=== PATIENT | male | born 1975 | race Caucasian/White ===

== ENCOUNTER 2017-02-25 11:09 | Inpatient (IN) ==
[2017-02-25] MEDS ORDERED: Ondansetron 4 MG/2 ML VIAL IVP ONE (11:41)
[2017-02-25] MEDS ORDERED: Ondansetron ODT 4 MG TAB.RAPDIS SL ONE (11:57)
[2017-02-25 12:11] LABS: Hematocrit 34.4 % (37.5-50.1); Hemoglobin 11.3 g/dL (12.9-16.9); Mean Corpuscular HGB Conc 32.8 g/dL (31.6-35.5); Mean Corpuscular Hemoglobin 30.1 pg (28.0-33.3); Mean Corpuscular Volume 91.5 fL (83.0-100.0); Mean Platelet Volume 9.6 fL (9.4-12.4); Platelet Count 507 K/mcL (140-400); Red Blood Count 3.76 M/mcL (4.19-5.50); Red Cell Distribution Width 15.7 % (11.5-14.5)
[2017-02-25 12:23] LABS: Alanine Aminotransferase 16 Units/L (0-55); Albumin 2.6 g/dL (3.5-5.0); Albumin/Globulin Ratio 0.9 (1.1-2.2); Alkaline Phosphatase 101 Units/L (38-126); Aspartate Amino Transferase 12 Units/L (5-34); BUN/Creatinine Ratio 14 (6-26); Bilirubin,Direct 0.2 mg/dL (0.0-0.5); Bilirubin,Indirect 0.2 mg/dL (0.0-1.2); Bilirubin,Total 0.4 mg/dL (0.2-1.2); Blood Urea Nitrogen 17 mg/dL (8-26); Calcium 8.5 mg/dL (8.6-10.8); Carbon Dioxide 18 mEq/L (19-29); Chloride 117 mEq/L (98-109); Glucose 87 mg/dL (70-99); Lipase 23 Units/L (8-78); Osmolality,Calculated 297 (280-300); Potassium 3.7 mEq/L (3.5-4.5); Sodium 143 mEq/L (136-145); Total Protein 5.6 g/dL (6.0-8.3); eGFR For African Americans > 60 (> 60); eGFR For Non-African Americans > 60 (> 60)
[2017-02-25 12:38] LABS: Bilirubin,Urine Small (Negative); Blood,Urine Negative (Negative); Clarity,Urine Clear (Clear); Color,Urine Dark Yellow (Yellow); Glucose,Urine (UA) Normal (Normal); Ketones,Urine Trace mg/dL (Negative); Leukocyte Esterase,Urine Trace (Negative); Nitrite,Urine Negative (Negative); PH,Urine 5.5 pH Units (5.0-8.0); Protein,Urine Trace mg/dL (Neg-Trace); Specific Gravity,Urine > 1.030 (1.010-1.025); Urobilinogen,Urine Normal (Normal)
[2017-02-25 12:40] LABS: Bacteria,Urine None Seen per hpf (None-Few); Hyaline Casts,Urine None Seen per lpf (None-Few); Squamous Epithelial Cell,Urine Many per lpf (None-Few)
[2017-02-25] MEDS ORDERED: *HR* Morphine 2 MG/ML SYRINGE IVP ONE (12:45)
[2017-02-25] MEDS ORDERED: Metoclopramide 10 MG/2 ML VIAL IVP ONE (12:45)
[2017-02-25 12:46] LABS: Eosinophils # 0.5 K/mcL (0.0-0.6); Lymphocytes # 2.3 K/mcL (0.6-4.6); Monocytes # 0.7 K/mcL (0.0-1.3); Neutrophils # 9.9 K/mcL (1.6-8.9); Platelet Estimate Increased (Normal); Toxic Granulation Present (Not Present)
[2017-02-25] MEDS ORDERED: Acetaminophen 325 MG TABLET PO ONE (12:48)
--- NOTE | 2017-02-25 13:49 | Emergency Department Note ---
Disposition Clinical Impression: Abdominal pain Qualifiers: Abdominal location: generalized Qualified Code(s): R10.84 - Generalized abdominal pain Diverticulitis Qualifiers: Diverticulitis site: large intestine Diverticulitis bleeding: without bleeding Diverticulitis complication: unspecified complication status Qualified Code(s): K57.32 - Diverticulitis of large intestine without perforation or abscess without bleeding Disposition: Admitted As Inpatient Condition: Good Abdominal Pain HPI - General Chief Complaint: ED Abdominal Pain Stated Complaint: abdominal pain/NVD Time Seen by Provider: 02/25/17 11:35 Source: patient Mode of arrival: ambulatory Limitations: no limitations Nursing Notes Reviewed: Yes Vital Signs Reviewed: Yes - History of Present Illness HPI Narrative: 41-year-old male presents with concerns of abdominal pain. Patient states he has epigastric pain that has been intermittent over the past few weeks. Patient states she had similar pain last time he had an ulcer that ruptured and that his stomach. Secondary to perforation of the ulcer of his stomach he required gastrectomy. Patient states he has had multiple black bowel movements over the past few days, last one being last night. Patient has a long history of nausea, vomiting and diarrhea however. He has been prescribed Zofran by his primary care provider which she states has not been working at home. Patient denies hematochezia or hematemesis or coffee-ground emesis Pain Scale: 3 - Related Data Home Medications Medication Instructions Recorded Confirmed Allopurinol [Zyloprim 100 MG] 100 mg PO DAILY 02/25/17 02/25/17 Colchicine [Colcrys] 0.6 mg PO DAILY 02/25/17 02/25/17 Disulfiram [Antabuse] 500 mg PO DAILY 02/25/17 02/25/17 Ondansetron ODT [Zofran ODT] 4 mg PO Q6H PRN 02/25/17 02/25/17 Paroxetine [Paxil] 20 mg PO DAILY 02/25/17 02/25/17 Quetiapine Fumarate [SEROquel] 25 mg PO BID 02/25/17 02/25/17 hydrOXYzine HCl [Hydroxyzine HCl] 50 mg PO HS 02/25/17 02/25/17 Allergies Allergy/AdvReac Type Severity Reaction Status Date / Time naproxen [From Naprosyn] Allergy Hives Verified 02/25/17 11:12 gabapentin [From Neurontin] AdvReac Hallucinati Verified 02/25/17 11:12 ng orphenadrine [From Norflex] AdvReac Hallucinati Verified 02/25/17 11:12 ng All systems ED: reviewed and negative except as stated. Constitutional: Denies: fever, chills, weakness Cardiovascular: Denies: chest pain, palpitations Respiratory: Denies: cough, dyspnea, wheezes Gastrointestinal: Reports: abdominal pain, nausea, vomiting, melena Genitourinary: Reports: frequency. Denies: urgency, dysuria Musculoskeletal: Denies: back pain, neck pain Abdominal Pain PMH - Past Medical History Medical history: Reports: asthma, hypertension, kidney stones, migraine, seizures, syncope Male Surgical History: Reports: appendectomy, cholecystectomy, Tonsillectomy, other Psychiatric history: Reports: anxiety, depression, PTSD, prior suicide attempt, previous psychiatric hospitalization - Social History Smoking status: Current every day smoker Alcohol use: Reports: heavy Drug use: Reports: cocaine, opiates, marijuana, methamphetamine, prescription drug abuse Physical Exam General: Alert and in no acute distress Skin: Warm, dry, intact Head: Normocephalic and atraumatic Neck: Supple, trachea midline and no tenderness Cardiovascular: RRR, no murmur, normal perfusion Respiratory: CTAB, no wheezing, cough, or respiratory distress Musculoskeletal: Normal strength, no tenderness, swelling or deformity GI: Soft, tenderness to palpation of the epigastrium without evidence of rigidity, guarding, or rebound. Neuro: A&O to person, place, time and situation. No focal deficits noted on exam Psychiatric: cooperative and appropriate mood and affect. - General Limitations: no limitations General appearance: alert Course Vital Signs Temperature 97.9 F 02/25/17 11:12 Pulse Rate 80 02/25/17 11:12 Respiratory Rate 20 02/25/17 11:12 Blood Pressure 123/92 02/25/17 11:12 O2 Sat by Pulse Oximetry 100 02/25/17 11:12 Temperature 97.5 F L 02/25/17 18:38 Pulse Rate 75 02/25/17 18:38 Respiratory Rate 14 02/25/17 18:38 Blood Pressure 151/98 02/25/17 18:38 O2 Sat by Pulse Oximetry 99 02/25/17 18:38 Oxygen Delivery Oxygen Delivery Room Air Abdominal Pain - MDM Narrative Medical decision making narrative: Patient has diverticulitis on CT. Patient unable to tolerate by mouth intake and has required multiple antiemetics. Patient did not feel comfortable to return home. He will be admitted for IV antibiotics and further care and evaluation of his diverticulitis. Patient also will likely need endoscopy at some point for evaluation of ulcers with his history of melena however his rectal exam today was negative for guaiac positive stool. - Medical Records Medical records reviewed: Yes I reviewed the patient's medical records. - Lab Data Lab results reviewed: Yes I reviewed the patient's lab results. Result diagrams: 02/25/17 11:56 02/25/17 11:56 Lab Results 02/25/17 02/25/17 02/25/17 Range/Units 11:56 11:56 12:30 WBC 13.6 H (4.3-11.1) K/mcL RBC 3.76 L (4.19-5.50) M/mcL Hgb 11.3 L (12.9-16.9) g/dL Hct 34.4 L (37.5-50.1) % MCV 91.5 (83.0-100.0) fL MCH 30.1 (28.0-33.3) pg MCHC 32.8 (31.6-35.5) g/dL RDW 15.7 H (11.5-14.5) % Plt Count 507 H (140-400) K/mcL MPV 9.6 (9.4-12.4) fL Seg Neutrophils % 73.0 % Lymphocytes % 17.0 % Monocytes % 5.0 % Eosinophils % 4.0 % Metamyelocytes % 1.0 H (0) % Neutrophils # 9.9 H (1.6-8.9) K/mcL Lymphocytes # 2.3 (0.6-4.6) K/mcL Monocytes # 0.7 (0.0-1.3) K/mcL Eosinophils # 0.5 (0.0-0.6) K/mcL Toxic Granulation Present A (Not Present) Platelet Estimate Increased H (Normal) Sodium 143 (136-145) mEq/L Potassium 3.7 (3.5-4.5) mEq/L Chloride 117 H (98-109) mEq/L Carbon Dioxide 18 L (19-29) mEq/L BUN 17 (8-26) mg/dL Creatinine 1.25 (0.72-1.25) mg/dL Est GFR ( Amer) > 60 (> 60) Est GFR (Non-Af Amer) > 60 (> 60) BUN/Creatinine Ratio 14 (6-26) Glucose 87 (70-99) mg/dL Calculated Osmolality 297 (280-300) Calcium 8.5 L (8.6-10.8) mg/dL Total Bilirubin 0.4 (0.2-1.2) mg/dL Direct Bilirubin 0.2 (0.0-0.5) mg/dL Indirect Bilirubin 0.2 (0.0-1.2) mg/dL AST 12 (5-34) Units/L ALT 16 (0-55) Units/L Alkaline Phosphatase 101 (38-126) Units/L Serum Total Protein 5.6 L (6.0-8.3) g/dL Albumin 2.6 L (3.5-5.0) g/dL Globulin 3.0 (2.4-3.5) g/dL Albumin/Globulin Ratio 0.9 L (1.1-2.2) Lipase 23 (8-78) Units/L Urine Color Dark Yellow (Yellow) Urine Clarity Clear (Clear) Urine pH 5.5 (5.0-8.0) pH Units Ur Specific [place] > 1.030 H (1.010-1.025) Urine Protein Trace (Neg-Trace) mg/dL Urine Glucose (UA) Normal (Normal) mg/dL Urine Ketones Trace H (Negative) mg/dL Urine Blood Negative (Negative) Urine Nitrite Negative (Negative) Urine Bilirubin Small H (Negative) Urine Urobilinogen Normal (Normal) mg/dL Ur Leukocyte Esterase Trace H (Negative) Urine Microscopic RBC 5-15 H (0-3) per hpf Urine Microscopic WBC 3-5 H (0-3) per hpf Ur Squamous Epith Cells Many H (None-Few) per lpf Urine Bacteria None Seen (None-Few) per hpf Hyaline Casts None Seen (None-Few) per lpf Ur Culture Indicated? YES A (NO) Stool Occult Blood (Negative) 02/25/17 Range/Units 16:45 WBC (4.3-11.1) K/mcL RBC (4.19-5.50) M/mcL Hgb (12.9-16.9) g/dL Hct (37.5-50.1) % MCV (83.0-100.0) fL MCH (28.0-33.3) pg MCHC (31.6-35.5) g/dL RDW (11.5-14.5) % Plt Count (140-400) K/mcL MPV (9.4-12.4) fL Seg Neutrophils % % Lymphocytes % % Monocytes % % Eosinophils % % Metamyelocytes % (0) % Neutrophils # (1.6-8.9) K/mcL Lymphocytes # (0.6-4.6) K/mcL Monocytes # (0.0-1.3) K/mcL Eosinophils # (0.0-0.6) K/mcL Toxic Granulation (Not Present) Platelet Estimate (Normal) Sodium (136-145) mEq/L Potassium (3.5-4.5) mEq/L Chloride (98-109) mEq/L Carbon Dioxide (19-29) mEq/L BUN (8-26) mg/dL Creatinine (0.72-1.25) mg/dL Est GFR ( Amer) (> 60) Est GFR (Non-Af Amer) (> 60) BUN/Creatinine Ratio (6-26) Glucose (70-99) mg/dL Calculated Osmolality (280-300) Calcium (8.6-10.8) mg/dL Total Bilirubin (0.2-1.2) mg/dL Direct Bilirubin (0.0-0.5) mg/dL Indirect Bilirubin (0.0-1.2) mg/dL AST (5-34) Units/L ALT (0-55) Units/L Alkaline Phosphatase (38-126) Units/L Serum Total Protein (6.0-8.3) g/dL Albumin (3.5-5.0) g/dL Globulin (2.4-3.5) g/dL Albumin/Globulin Ratio (1.1-2.2) Lipase (8-78) Units/L Urine Color (Yellow) Urine Clarity (Clear) Urine pH (5.0-8.0) pH Units Ur Specific [place] (1.010-1.025) Urine Protein (Neg-Trace) mg/dL Urine Glucose (UA) (Normal) mg/dL Urine Ketones (Negative) mg/dL Urine Blood (Negative) Urine Nitrite (Negative) Urine Bilirubin (Negative) Urine Urobilinogen (Normal) mg/dL Ur Leukocyte Esterase (Negative) Urine Microscopic RBC (0-3) per hpf Urine Microscopic WBC (0-3) per hpf Ur Squamous Epith Cells (None-Few) per lpf Urine Bacteria (None-Few) per hpf Hyaline Casts (None-Few) per lpf Ur Culture Indicated? (NO) Stool Occult Blood Positive A (Negative) - Radiology Data Radiology results reviewed: Yes I reviewed the patient's radiology results. - EKG Data EKG attestation: Yes I reviewed and interpreted this EKG. EKG results narrative: ECG - interpreted by ED physician. Rate 68, normal sinus rhythm, no STEMI, [place], QT intervals, and QRS within normal limits
[2017-02-25] MEDS ORDERED: MetroNIDAZOLE 500 MG/100 ML 500 MG/100 ML BAG IVPB ONE (16:44)
[2017-02-25] MEDS ORDERED: Naloxone 0.4 MG/ML INJ IVP PRN (17:31)
[2017-02-25] MEDS ORDERED: Ondansetron 4 MG/2 ML VIAL IVP PRN (17:31)
[2017-02-25] MEDS ORDERED: methylPREDNISolone 125 MG/2 ML VIAL IVP ONE (17:33)
--- NOTE | 2017-02-25 17:38 | Internal Med History&Physical ---
Date of Encounter: 02/25/17 Time of Encounter: 17:36 Assessment and Plan (1) Acute diverticulitis Current visit: Yes Status: Acute Acute diverticulitis CT scan shows descending colon acute diverticulitis, final report is pending as the first report showed sigmoid colon irregularities and thickened mucosa, the patient was supposed to be rescanned. Continue ciprofloxacin and Flagyl IV, keep nothing by mouth, may advance to clear liquids when feeling better IV fluids, blood cultures Protonix IV for GI prophylaxis and sequential compression devices for deep prophylaxis. The patient will be admitted as inpatient, expected stay more than 2 midnights. Full code. Time spent on this admission 40 minutes. (2) COPD (chronic obstructive pulmonary disease) Current visit: Yes Status: Acute Acute COPD exacerbation likely secondary to viral bronchitis Start Solu-Medrol IV, DuoNeb's Qualifiers: COPD type: COPD with acute exacerbation Qualified Code(s): J44.1 - Chronic obstructive pulmonary disease with (acute) exacerbation (3) Tobacco abuse Current visit: Yes Status: Acute Smoking cessation counseling given for 5 minutes. Nicotine patch ordered (4) Gout Current visit: Yes Status: Acute Hold colchicine due to current infection Continue Solu-Medrol for now May resume allopurinol if more stable Qualifiers: Gout site: multiple sites Gout etiology: unspecified cause Chronicity: unspecified Qualified Code(s): M10.9 - Gout, unspecified (5) Alcohol dependence Current visit: No Status: Chronic Used to take Antabuse Qualifiers: Substance use status: with intoxication Complication of substance-induced condition: uncomplicated Qualified Code(s): F10.220 - Alcohol dependence with intoxication, uncomplicated (6) Major depression, recurrent Current visit: No Status: Acute Qualifiers: Active/Remission status: currently active Major depression episode severity : moderate Qualified Code(s): F33.1 - Major depressive disorder, recurrent, moderate Internal Medicine - H&P: HPI Chief complaint: Abdominal pain Admitted From: Emergency Dept History of present illness: Mr. Doe is a 41 year old male with a past medical history of tobacco use, alcohol abuse, suicidal attempts, seizures, complaining of 3 weeks of watery diarrhea. He says that he saw his primary care physician but he has not received any therapy. Patient has been treated for gout with colchicine and allopurinol. Started vomiting more profusely yesterday and having more watery diarrhea accompanied by abdominal pain. White blood cell count is 13.6 platelets [address] scan of the abdomen showed a descending colon acute diverticulitis, sigmoid colon presented irregular thickening and radiology recommended to rescan, final report is pending. Was started on ciprofloxacin and Flagyl IV, was given morphine. Complains of 8 out of 10 in intensity abdominal tenderness mainly in his gastric area. He says he has history of partial gastrectomy due to gastric ulcers. Has been complaining of chills. Also, he has been feeling more short of breath, bringing up yellowish phlegm. No sick contacts Past Med Surg Social Fam HX - Past Medical History Medical history: asthma, COPD (Not oxygen dependent), hypertension, kidney stones, migraine, seizures, syncope, other (Alcohol abuse, suicidal attempts, tobacco use, gastric ulcer status post partial gastrectomy, asthma, syncopal episodes, PTSD) Psychiatric history: anxiety, depression, PTSD, prior suicide attempt, previous psychiatric hospitalization - Past Surgical History Surgical History: appendectomy, arthroscopy, cholecystectomy, orthopedic, other , other (Partial gastrectomy secondary to gastric ulcer) - Social History Smoking Status: Current every day smoker Packs per day: Half a pack a day Smokeless Tobacco Status: No Alcohol use: heavy Drug use: cocaine, opiates, marijuana, methamphetamine, prescription drug abuse - Additional Family History Additional family history: Mother with schizophrenia Internal Medicine - H&P: Meds Allopurinol [Zyloprim 100 MG] 100 mg PO DAILY 02/25/17 [History] Colchicine [Colcrys] 0.6 mg PO DAILY 02/25/17 [History] Disulfiram [Antabuse] 500 mg PO DAILY 02/25/17 [History] Ondansetron ODT [Zofran ODT] 4 mg PO Q6H PRN 02/25/17 [History] Paroxetine [Paxil] 20 mg PO DAILY 02/25/17 [History] Quetiapine Fumarate [SEROquel] 25 mg PO BID 02/25/17 [History] hydrOXYzine HCl [Hydroxyzine HCl] 50 mg PO HS 02/25/17 [History] Allergies naproxen [From Naprosyn] Allergy (Verified 02/25/17 11:12) Hives gabapentin [From Neurontin] Adverse Reaction (Verified 02/25/17 11:12) Hallucinating orphenadrine [From Norflex] Adverse Reaction (Verified 02/25/17 11:12) Hallucinating All Systems PM: A 10-system review of systems was performed and is negative for pertinent findings except as documented above in the HPI. Review of systems: The patient is very short of breath, wheezing loudly. Other systems are other 10 review were negative - Constitutional Vitals: Temp Pulse Resp BP Pulse Ox 97.9 F 62 18 144/105 100 02/25/17 11:12 02/25/17 14:11 02/25/17 14:11 02/25/17 14:11 02/25/17 14:11 General appearance: Present: A&O X 3 - Head Head exam: Present: atraumatic, normocephalic - Eye Eye exam: Present: PERRL, conjuntiva pink, sclera anicteric Pupils: Present: PERRL - Neck Neck exam general surgery: Present: supple, trachea midline. Absent: lymphadenopathy - Respiratory Respiratory exam: Present: CTAB, wheezes (Diffuse wheezing). Absent: accessory muscle use, rales, rhonchi - Cardiovascular Cardiovascular exam: Present: RRR, +S1, +S2. Absent: diastolic murmur, gallop, rubs, systolic murmur - GI/Abdominal GI/Abdominal exam: Present: distended, normal bowel sounds, soft, tenderness ( Diffuse tenderness, no rebound), no peritoneal signs - Extremities Exam Extremities exam: Present: warm, radial pulses palpable and symetrical. Absent : calf tenderness, cyanotic, pedal edema - Neurological Exam Neurological exam: Present: CN II-XII intact, oriented X3, no focal deficits. Absent: pronater drift, facial droop, speech deficit - Skin Skin exam: Present: dry, intact Internal Med - H&P Results - Labs CBC & Chem 7: 02/25/17 11:56 02/25/17 11:56 Labs: Short CBC 02/25/17 Range/Units 11:56 WBC 13.6 H (4.3-11.1) K/mcL Hgb 11.3 L (12.9-16.9) g/dL Hct 34.4 L (37.5-50.1) % Plt Count 507 H (140-400) K/mcL Neutrophils # 9.9 H (1.6-8.9) K/mcL BMP 02/25/17 11:56 Sodium 143 Potassium 3.7 Chloride 117 H Carbon Dioxide 18 L BUN 17 Creatinine 1.25 Glucose 87 Calcium 8.5 L Liver Function 02/25/17 Range/Units 11:56 Total Bilirubin 0.4 (0.2-1.2) mg/dL Direct Bilirubin 0.2 (0.0-0.5) mg/dL AST 12 (5-34) Units/L ALT 16 (0-55) Units/L Alkaline Phosphatase 101 (38-126) Units/L Albumin 2.6 L (3.5-5.0) g/dL Urine 02/25/17 Range/Units 12:30 Urine Color Dark Yellow (Yellow) Urine Clarity Clear (Clear) Urine pH 5.5 (5.0-8.0) pH Units Ur Specific [place] > 1.030 H (1.010-1.025) Urine Protein Trace (Neg-Trace) mg/dL Urine Glucose (UA) Normal (Normal) mg/dL - Impressions ITS Impressions Abdomen/Pelvis CT 02/25/17 14:00 IMPRESSION: 1. Findings compatible with mild uncomplicated acute diverticulitis of the descending colon. 2. Incidental possible focal irregular thickening of the wall of the short segment of sigmoid colon. This area is however under-distended. I have instructed the technologist to re-scan the patient's pelvis in order to evaluate this area further after an appropriate amount of time has passed to allow for oral contrast to traverse this area. An addendum to this dictation will be made at that time. D/ / Param De La Cruz MD / Param De La Cruz MD Interpreting Provider: Param De La Cruz MD
[2017-02-25] MEDS: 0.9 % Sodium Chloride 1,000 ML IVC SCH (18:29)
[2017-02-25] MEDS: Nicotine 21 MG PATCH.TD24 TD SCH (18:33)
[2017-02-25] MEDS: *HR* Heparin 5,000 UNIT/ML VIAL SQ SCH ×2 (18:34→23:03)
[2017-02-25] MEDS: *HR* Morphine 2 MG/ML SYRINGE IVP PRN (18:35)
[2017-02-25] MEDS: Pantoprazole 40 MG VIAL IVP SCH (18:36)
[2017-02-25] MEDS ORDERED: MetroNIDAZOLE 500 MG/100 ML 500 MG/100 ML BAG IVPB SCH (21:00)
[2017-02-25] MEDS: Ipratropium/Albuterol Neb 3 ML IH SCH (21:00)
[2017-02-26] MEDS: MetroNIDAZOLE 500 MG/100 ML 500 MG/100 ML BAG IVPB SCH ×4 (00:13→23:52)
[2017-02-26] MEDS: Ipratropium/Albuterol Neb 3 ML IH SCH ×4 (03:40→21:59)
[2017-02-26] MEDS: *HR* Heparin 5,000 UNIT/ML VIAL SQ SCH ×3 (04:35→20:49)
[2017-02-26] MEDS: 0.9 % Sodium Chloride 1,000 ML IVC SCH ×3 (04:44→23:55)
[2017-02-26 06:28] LABS: Hematocrit 31.2 % (37.5-50.1); Hemoglobin 10.3 g/dL (12.9-16.9); Mean Corpuscular Hemoglobin 30.3 pg (28.0-33.3); Mean Corpuscular Volume 91.8 fL (83.0-100.0); Mean Platelet Volume 9.8 fL (9.4-12.4); Platelet Count 443 K/mcL (140-400); Red Cell Distribution Width 15.5 % (11.5-14.5)
[2017-02-26 06:40] LABS: BUN/Creatinine Ratio 11 (6-26); Blood Urea Nitrogen 12 mg/dL (8-26); Calcium 8.2 mg/dL (8.6-10.8); Carbon Dioxide 19 mEq/L (19-29); Chloride 112 mEq/L (98-109); Glucose 211 mg/dL (70-99); Osmolality,Calculated 292 (280-300); Potassium 3.9 mEq/L (3.5-4.5); Sodium 138 mEq/L (136-145); eGFR For African Americans > 60 (> 60); eGFR For Non-African Americans > 60 (> 60)
[2017-02-26 07:12] LABS: Lymphocytes # 0.4 K/mcL (0.6-4.6); Neutrophils # 9.4 K/mcL (1.6-8.9); Toxic Granulation Present (Not Present)
[2017-02-26] MEDS: Pantoprazole 40 MG VIAL IVP SCH (08:02)
[2017-02-26] MEDS: *HR* Morphine 2 MG/ML SYRINGE IVP PRN ×5 (08:02→20:49)
[2017-02-26] MEDS: Nicotine 21 MG PATCH.TD24 TD SCH (08:03)
--- NOTE | 2017-02-26 15:26 | Internal Med Progress Note ---
Date of Encounter: 02/26/17 Time of Encounter: 10:00 - Assessment and plan (1) Acute diverticulitis Current Visit: Yes Status: Acute Assessment and plan: Acute diverticulitis causing abdominal pain, nausea, vomiting and diarrhea - now improving Continue fluids, IV ciprofloxacin, IV Flagyl, clear liquid diet Cultures - pending CT abdomen and pelvis - mild uncomplicated acute diverticulitis of the descending colon, incidental focal irregular thickening of the wall of the short segment of sigmoid Continue IV Protonix, IV Zofran, IV morphine as needed for pain Labs in a.m., anticipate discharge home in a.m. (2) COPD (chronic obstructive pulmonary disease) Current Visit: Yes Status: Acute Assessment and plan: COPD with mild acute exacerbation likely due to viral bronchitis Continue IV Solu-Medrol, DuoNeb breathing treatment Qualifiers: COPD type: COPD with acute exacerbation Qualified Code(s): J44.1 - Chronic obstructive pulmonary disease with (acute) exacerbation (3) Tobacco abuse Current Visit: Yes Status: Chronic Assessment and plan: Smoking cessation counseling, nicotine patch (4) Alcohol dependence Current Visit: No Status: Chronic Assessment and plan: Counseled about cessation Patient has been on Antabuse Qualifiers: Substance use status: with intoxication Complication of substance-induced condition: uncomplicated Qualified Code(s): F10.220 - Alcohol dependence with intoxication, uncomplicated (5) Bipolar disorder Current Visit: No Status: Chronic Assessment and plan: Chronic bipolar disorder and major depression with anxiety - stable Continue home medications Qualifiers: Active/Remission status: currently active Current bipolar episode type: depressed Current episode severity: mild Qualified Code(s): F31.31 - Bipolar disorder, current episode depressed, mild - Time Spent With Patient 25 - 35 minutes - Subjective Interval history: Examined this morning. Patient is awake and alert. Not in any distress. Denies chest pain or shortness of breath. Complains of mild abdominal pain which is dull and aching. Rates it 5 out of 10. Improves with pain medication. States he feels better overall. No vomiting and diarrhea is improving. He states he did notice some blood in stool. Fecal Hemoccult is positive. No fever. Admitted for acute uncomplicated diverticulitis. No other acute events or complaints. - Constitutional Vitals: Temp Pulse Resp BP Pulse Ox 97.6 F 91 18 156/76 100 02/26/17 15:03 02/26/17 15:03 02/26/17 15:03 02/26/17 15:03 02/26/17 15:03 General appearance: Present: A&O X 3, pleasant, no acute distress, answers questions appropriately - Head Head exam: Present: atraumatic - Eye Eye exam: Present: EOMI - ENT ENT exam: Present: mucous membranes moist - Neck Neck exam general surgery: Present: supple - Respiratory Respiratory exam: Present: CTAB. Absent: rales, rhonchi, stridor, wheezes, tachypnea - Cardiovascular Cardiovascular exam: Present: RRR, +S1, +S2 - GI/Abdominal GI/Abdominal exam: Present: soft, tenderness (Mild vicki-umbilical and left lower quadrant tenderness), no peritoneal signs. Absent: distended, firm, guarding, rigid - Extremities Exam Extremities exam: Present: radial pulses palpable and symetrical. Absent: cyanotic, pedal edema, tenderness - Neurological Exam Neurological exam: Present: alert, oriented X3, no focal deficits Internal Medicine: Result - Labs CBC & Chem 7: 02/26/17 06:10 02/26/17 06:10 Labs: Short CBC 02/26/17 Range/Units 06:10 WBC 9.8 (4.3-11.1) K/mcL Hgb 10.3 L (12.9-16.9) g/dL Hct 31.2 L (37.5-50.1) % Plt Count 443 H (140-400) K/mcL Neutrophils # 9.4 H (1.6-8.9) K/mcL BMP 02/26/17 06:10 Sodium 138 Potassium 3.9 Chloride 112 H Carbon Dioxide 19 BUN 12 Creatinine 1.06 Glucose 211 H Calcium 8.2 L Consult Discharge Plan - Plan Referrals: Miles Parrish MD [Non-Partnered Physician] -
[2017-02-26] MEDS: MethylPREDNISolone 40 MG/ML VIAL IVP SCH (17:02)
--- NOTE | 2017-02-26 20:35 | Electrocardiograph Report ---
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
[2017-02-26] MEDS: hydrOXYzine pamoate 25 MG CAPSULE PO SCH (20:48)
[2017-02-27] MEDS: MethylPREDNISolone 40 MG/ML VIAL IVP SCH ×2 (01:41→08:25)
[2017-02-27] MEDS: Ipratropium/Albuterol Neb 3 ML IH SCH ×4 (03:27→22:39)
[2017-02-27 04:31] LABS: Basophils % 0.2 %; Hemoglobin 9.7 g/dL (12.9-16.9); Immature Granulocytes % 5.8 % (0-4); Lymphocytes # 1.8 K/mcL (0.6-4.6); Lymphocytes % 12.7 %; Mean Corpuscular HGB Conc 33.4 g/dL (31.6-35.5); Mean Corpuscular Hemoglobin 30.8 pg (28.0-33.3); Mean Corpuscular Volume 92.1 fL (83.0-100.0); Monocytes # 0.4 K/mcL (0.0-1.3); Monocytes % 3.2 %; Platelet Count 421 K/mcL (140-400); Red Blood Count 3.15 M/mcL (4.19-5.50); Segmented Neutrophils % 78.1 %
[2017-02-27 04:40] LABS: Neutrophils # 10.9 K/mcL (1.6-8.9)
[2017-02-27 05:07] LABS: Toxic Granulation Present (Not Present)
[2017-02-27] MEDS: *HR* Heparin 5,000 UNIT/ML VIAL SQ SCH ×3 (06:05→21:36)
[2017-02-27] MEDS: Nicotine 21 MG PATCH.TD24 TD SCH (08:23)
[2017-02-27] MEDS: Pantoprazole 40 MG VIAL IVP SCH ×2 (08:24→16:58)
[2017-02-27] MEDS: MetroNIDAZOLE 500 MG/100 ML 500 MG/100 ML BAG IVPB SCH ×2 (08:24→15:57)
[2017-02-27] MEDS: *HR* Morphine 2 MG/ML SYRINGE IVP PRN ×2 (08:24→13:23)
[2017-02-27] MEDS: 0.9 % Sodium Chloride 1,000 ML IVC SCH ×3 (11:04→19:48)
--- NOTE | 2017-02-27 14:38 | Internal Med Progress Note ---
Date of Encounter: 02/27/17 Time of Encounter: 09:40 - Assessment and plan (1) Acute diverticulitis Current Visit: Yes Status: Acute (2) COPD (chronic obstructive pulmonary disease) Current Visit: Yes Status: Acute Qualifiers: COPD type: COPD with acute exacerbation Qualified Code(s): J44.1 - Chronic obstructive pulmonary disease with (acute) exacerbation (3) Tobacco abuse Current Visit: Yes Status: Chronic (4) Alcohol dependence Current Visit: No Status: Chronic Qualifiers: Substance use status: with intoxication Complication of substance-induced condition: uncomplicated Qualified Code(s): F10.220 - Alcohol dependence with intoxication, uncomplicated (5) Bipolar disorder Current Visit: No Status: Chronic Qualifiers: Active/Remission status: currently active Current bipolar episode type: depressed Current episode severity: mild Qualified Code(s): F31.31 - Bipolar disorder, current episode depressed, mild - Subjective Interval history: Examined this morning. Patient is awake and alert. Not in any distress. Denies chest pain or shortness of breath. Complains of mild abdominal pain which is dull and aching. Rates it 5 out of 10. Improves with pain medication. States he feels better overall. No vomiting and diarrhea is improving. He states he did notice some blood in stool. Fecal Hemoccult is positive. No fever. Admitted for acute uncomplicated diverticulitis. No other acute events or complaints. - Constitutional Vitals: Temp Pulse Resp BP Pulse Ox 98.3 F 73 18 114/76 97 02/27/17 11:30 02/27/17 11:30 02/27/17 11:30 02/27/17 11:30 02/27/17 11:30 General appearance: Present: A&O X 3, pleasant, no acute distress, answers questions appropriately Internal Medicine: Result - Labs CBC & Chem 7: 02/27/17 04:06 02/26/17 06:10 Labs: Short CBC 02/27/17 Range/Units 04:06 WBC 13.9 H (4.3-11.1) K/mcL Hgb 9.7 L (12.9-16.9) g/dL Hct 29.0 L (37.5-50.1) % Plt Count 421 H (140-400) K/mcL Neutrophils # 10.9 H (1.6-8.9) K/mcL Consult Discharge Plan - Plan Referrals: Miles Parrish MD [Non-Partnered Physician] - 03/10/17 4:45 pm
--- NOTE | 2017-02-27 14:43 | Internal Med Progress Note ---
Date of Encounter: 02/27/17 Time of Encounter: 09:50 - Assessment and plan (1) Acute diverticulitis Current Visit: Yes Status: Acute Assessment and plan: Acute diverticulitis causing abdominal pain, nausea, vomiting and diarrhea - now improving Continue fluids, IV ciprofloxacin, IV Flagyl, full liquid diet Cultures - negative CT abdomen and pelvis - mild uncomplicated acute diverticulitis of the descending colon, incidental focal irregular thickening of the wall of the short segment of sigmoid Continue IV Protonix, IV Zofran, IV morphine as needed for pain Labs in a.m., anticipate discharge home in a.m. (2) COPD (chronic obstructive pulmonary disease) Current Visit: Yes Status: Acute Assessment and plan: COPD with mild acute exacerbation likely due to viral bronchitis - improving DuoNeb breathing treatment Qualifiers: COPD type: COPD with acute exacerbation Qualified Code(s): J44.1 - Chronic obstructive pulmonary disease with (acute) exacerbation (3) Tobacco abuse Current Visit: Yes Status: Chronic Assessment and plan: Smoking cessation counseling, nicotine patch (4) Alcohol dependence Current Visit: No Status: Chronic Assessment and plan: Counseled about cessation Patient has been on Antabuse Qualifiers: Substance use status: with intoxication Complication of substance-induced condition: uncomplicated Qualified Code(s): F10.220 - Alcohol dependence with intoxication, uncomplicated (5) Bipolar disorder Current Visit: No Status: Chronic Assessment and plan: Chronic bipolar disorder and major depression with anxiety - stable Continue home medications Qualifiers: Active/Remission status: currently active Current bipolar episode type: depressed Current episode severity: mild Qualified Code(s): F31.31 - Bipolar disorder, current episode depressed, mild - Time Spent With Patient 25 - 35 minutes - Subjective Interval history: Examined this morning. Patient is awake and alert. Not in any distress. Denies chest pain or shortness of breath. Continues to have mild abdominal pain which is dull and aching. Rates it 4 out of 10. Improves with pain medication. States he feels better overall. No vomiting and diarrhea is improving. He states he did notice some blood in stool. Tolerating full liquid diet. Fecal Hemoccult is positive. He will need outpatient follow-up with GI and colonoscopy when his acute diverticulitis has improved. No need for gastroenterology consult at this time. No fever. Admitted for acute uncomplicated diverticulitis. No other acute events or complaints. - Constitutional Vitals: Temp Pulse Resp BP Pulse Ox 98.3 F 73 18 114/76 97 02/27/17 11:30 02/27/17 11:30 02/27/17 11:30 02/27/17 11:30 02/27/17 11:30 General appearance: Present: A&O X 3, pleasant, no acute distress, answers questions appropriately - Head Head exam: Present: atraumatic - Eye Eye exam: Present: EOMI - ENT ENT exam: Present: mucous membranes moist - Neck Neck exam general surgery: Present: supple - Respiratory Respiratory exam: Present: CTAB. Absent: rales, rhonchi, stridor, wheezes, tachypnea - Cardiovascular Cardiovascular exam: Present: RRR, +S1, +S2 - GI/Abdominal GI/Abdominal exam: Present: soft, tenderness (Mild left lower quadrant tenderness), no peritoneal signs. Absent: distended, firm, guarding, rigid - Extremities Exam Extremities exam: Present: radial pulses palpable and symetrical. Absent: cyanotic, pedal edema, tenderness - Neurological Exam Neurological exam: Present: alert, oriented X3, no focal deficits Internal Medicine: Result - Labs CBC & Chem 7: 02/27/17 04:06 02/26/17 06:10 Labs: Short CBC 02/27/17 Range/Units 04:06 WBC 13.9 H (4.3-11.1) K/mcL Hgb 9.7 L (12.9-16.9) g/dL Hct 29.0 L (37.5-50.1) % Plt Count 421 H (140-400) K/mcL Neutrophils # 10.9 H (1.6-8.9) K/mcL Consult Discharge Plan - Plan Referrals: Miles Parrish MD [Non-Partnered Physician] - 03/10/17 4:45 pm
[2017-02-27 16:35] LABS: Hematocrit 26.8 % (37.5-50.1)
[2017-02-27] MEDS: *HR* HYDROmorphone (PF) 1 MG/ML SYRINGE IVP PRN ×2 (16:57→21:35)
[2017-02-27] MEDS: hydrOXYzine pamoate 25 MG CAPSULE PO SCH (21:37)
[2017-02-27 22:26] LABS: Hemoglobin 8.6 g/dL (12.9-16.9)
[2017-02-28] MEDS: MetroNIDAZOLE 500 MG/100 ML 500 MG/100 ML BAG IVPB SCH ×3 (00:15→16:31)
[2017-02-28] MEDS: *HR* HYDROmorphone (PF) 1 MG/ML SYRINGE IVP PRN ×4 (03:23→21:43)
[2017-02-28] MEDS: Ipratropium/Albuterol Neb 3 ML IH SCH ×2 (03:56→11:02)
[2017-02-28 04:06] LABS: Hematocrit 24.3 % (37.5-50.1); Hemoglobin 8.1 g/dL (12.9-16.9); Mean Corpuscular HGB Conc 33.3 g/dL (31.6-35.5); Mean Corpuscular Hemoglobin 30.9 pg (28.0-33.3); Mean Corpuscular Volume 92.7 fL (83.0-100.0); Mean Platelet Volume 9.5 fL (9.4-12.4); Platelet Count 417 K/mcL (140-400); Red Blood Count 2.62 M/mcL (4.19-5.50); Red Cell Distribution Width 16.3 % (11.5-14.5)
[2017-02-28 04:37] LABS: Eosinophils # 0.2 K/mcL (0.0-0.6); Lymphocytes # 0.4 K/mcL (0.6-4.6); Monocytes # 0.6 K/mcL (0.0-1.3); Neutrophils # 8.9 K/mcL (1.6-8.9)
[2017-02-28 04:38] LABS: Anisocytosis 1+ (Not Present); Platelet Estimate Normal (Normal); Polychromasia 1+ (Not Present)
[2017-02-28] MEDS: *HR* Heparin 5,000 UNIT/ML VIAL SQ SCH ×3 (06:04→21:42)
[2017-02-28] MEDS: Pantoprazole 40 MG VIAL IVP SCH ×2 (06:04→16:32)
[2017-02-28] MEDS: Nicotine 21 MG PATCH.TD24 TD SCH (08:04)
[2017-02-28 08:12] LABS: Hematocrit 25.5 % (37.5-50.1); Hemoglobin 8.4 g/dL (12.9-16.9)
[2017-02-28 08:21] LABS: INR 1.3; Prothrombin Time 13.8 Seconds (9.4-12.1)
--- NOTE | 2017-02-28 08:47 | Gastroenterology Consult Note ---
<Ana Dietrich - Last Filed: 02/28/17 11:08> Date of Encounter: 02/28/17 Time of Encounter: 10:20 - Assessment and plan (1) Anemia Current Visit: Yes Status: Acute Assessment and plan: Acute onset, reported melena and acute diverticulitis, likely multifactorial, however, need to r/o UGI source based on patient history, esophagitis, gastritis , duodenitis, PUD, MW tear, AVM, tumor, polyp. Will complete Cscope as OTPT if able. Qualifiers: Anemia type: other cause Other causes of anemia: acute posthemorrhagic Qualified Code(s): D62 - Acute posthemorrhagic anemia (2) Acute diverticulitis Current Visit: Yes Status: Acute Assessment and plan: Patient will require Cscope as OTPT providing he remains stable during this hospitalization. Continue atbs, monitor H&H, transfuse as appropriate. - Time Spent With Patient Total time spent is greater than 50% in coordination of care (as documented) at patient's floor/unit and/or counseling patient: less than 15 minutes GI History of Present Illness - Data of Consult Patient: new to practice Consult date: 02/28/17 Requesting Physician: Michelle Romano MD - Consult Narrative Reason for consult: rectal bleeding, melena, anemia History of present illness: Mr. Doe is a 41 year old male with a PMH significant for tobacco abuse, drug abuse and alcohol abuse, suicide attempts, seizures, prior gastric ulceration with gastrectomy who presented to ED with a complaint of 3 weeks of watery diarrhea. Patient was admitted 02/25/17 with a diagnosis of acute uncomplicated diverticulitis, placed on atbs. Yesterday, the patient developed BRB with diarrhea x 3 and has had a 3 point drop in hgb[address] CT abdomen showed changes consistent with diverticulitis and irregular thickening in the sigmoid colon, he was to have been rescanned, however, no addendum to original report has been noted in the chart. Medical chart also documents recent episode of melena prior to admission, N/V and the patient stating symptoms are similar to prior gastric ulcer requiring subsequent gastrectomy. Patient states 2-3 episodes of melena prior to admission, started having BRBPR multiple times, he estimates 10-12, since then. He admits symptoms of epigastric pain/acid reflux are similar to prior gastric ulcer symptoms in 2010. Colonoscopy: 2007 - [facility] - hyperplastic polyp EGD: 2009 - [facility] Past Med Surg Social Fam HX - Past Medical History Medical history: asthma, hypertension, kidney stones, migraine, seizures, syncope Psychiatric history: anxiety, depression, PTSD, prior suicide attempt, previous psychiatric hospitalization - Past Surgical History Surgical History: appendectomy, arthroscopy, cholecystectomy, orthopedic, other , other - Social History Smoking Status: Current every day smoker Packs per day: Half a pack a day Smokeless Tobacco Status: No Alcohol use: heavy Drug use: cocaine, opiates, marijuana, methamphetamine, prescription drug abuse - Gastrointestinal NSAID use: None Anticoagulation Use: heparin subq Number of BM Per Day: daily Gastrointestinal: Present: abdominal pain, dyspepsia, heartburn, hematochezia, melena, nausea - Constitutional Constitutional: as per HPI - EENT Eyes: as per HPI Ears: Present: as per HPI Nose, mouth and throat: Present: as per HPI - Cardiovascular Cardiovascular ROS: Present: as per HPI - Respiratory Respiratory IM: Present: as per HPI - Neurological ROS Neurological GI: Present: as per HPI - Hematologic/Lymphatic Hematologic/Lymphatic pediatric: Present: as per HPI - Musculoskeletal Musculoskeletal ROS GI: Present: as per HPI - Integumentary Integumentary GI: Present: as per HPI - Psychiatric ROS Psychiatric GI: Present: as per HPI - Endocrine Endocrine IM: Present: as per HPI - Constitutional Vitals: Temp Pulse Resp BP Pulse Ox 98.3 F 84 17 156/103 98 02/28/17 07:02 02/28/17 07:02 02/28/17 07:02 02/28/17 07:02 02/28/17 07:02 General appearance: Present: cooperative, A&O X 3, no acute distress, answers questions appropriately - Head Head exam: Present: atraumatic, normocephalic - Eye Eye exam: Present: normal appearance, sclera anicteric - ENT ENT exam: Present: mucous membranes moist - Neck Neck exam general surgery: Present: normal inspection, trachea midline - Respiratory Respiratory exam: Present: CTAB - Cardiovascular Cardiovascular exam: Present: RRR, +S1, +S2 - GI/Abdominal GI/Abdominal exam: Present: normal bowel sounds, soft, tenderness, no peritoneal signs - Rectal Rectal exam: Present: deferred - Extremities Exam Extremities exam: Present: pedal edema - Neurological Exam Neurological exam: Present: no focal deficits - Psychiatric Psychiatric exam: Present: anxious - Skin Skin exam: Present: dry, intact, normal color, warm Results - Labs CBC & Chem 7: 02/28/17 08:04 02/26/17 06:10 Labs: Last Result Calcium 8.2 mg/dL (8.6-10.8) L 02/26/17 06:10 Stool Occult Blood Positive (Negative) A 02/25/17 16:45 Entire Visit Hgb 8.4 g/dL (12.9-16.9) L 02/28/17 08:04 Hct 25.5 % (37.5-50.1) L 02/28/17 08:04 PT 13.8 Seconds (9.4-12.1) H 02/28/17 08:04 Total Bilirubin 0.4 mg/dL (0.2-1.2) 02/25/17 11:56 AST 12 Units/L (5-34) 02/25/17 11:56 ALT 16 Units/L (0-55) 02/25/17 11:56 Lipase 23 Units/L (8-78) 02/25/17 11:56 - ABG ABG results: PT/INR, D-dimer PT 13.8 Seconds (9.4-12.1) H 02/28/17 08:04 Consult Discharge Plan - Plan Referrals: Miles Parrish MD [Non-Partnered Physician] - 03/10/17 4:45 pm <Nu Avila - Last Filed: 02/28/17 12:23> Date of Encounter: 02/28/17 Time of Encounter: 12:30 - Time Spent With Patient Total time spent is greater than 50% in coordination of care (as documented) at patient's floor/unit and/or counseling patient: GI History of Present Illness - Data of Consult Requesting Physician: Michelle Romano MD - Consult Narrative History of present illness: Mr. Doe is a 41 year old male - Constitutional Vitals: Temp Pulse Resp BP Pulse Ox 98.2 F 91 15 133/80 100 02/28/17 12:17 02/28/17 12:17 02/28/17 12:17 02/28/17 12:17 02/28/17 12:17 Results - Labs CBC & Chem 7: 02/28/17 08:04 02/26/17 06:10 Labs: Last Result Calcium 8.2 mg/dL (8.6-10.8) L 02/26/17 06:10 Stool Occult Blood Positive (Negative) A 02/25/17 16:45 Entire Visit Hgb 8.4 g/dL (12.9-16.9) L 02/28/17 08:04 Hct 25.5 % (37.5-50.1) L 02/28/17 08:04 PT 13.8 Seconds (9.4-12.1) H 02/28/17 08:04 Total Bilirubin 0.4 mg/dL (0.2-1.2) 02/25/17 11:56 AST 12 Units/L (5-34) 02/25/17 11:56 ALT 16 Units/L (0-55) 02/25/17 11:56 Lipase 23 Units/L (8-78) 02/25/17 11:56 - ABG ABG results: PT/INR, D-dimer PT 13.8 Seconds (9.4-12.1) H 02/28/17 08:04 - Attending Attestation I examined this patient and my medical decision-making was reviewed with the Resident Physician. I agree with the documented findings, disposition and treatment plan as described except to the extent set forth below. anemia and rectal bleeding. History of peptic ulcer disease in the past and had gastric surgery done. Still takes NSAIDs. EGD to rule out peptic ulcer disease
[2017-02-28] MEDS ORDERED: Ipratropium/Albuterol Neb 3 ML IH PRN (11:25)
[2017-02-28] MEDS ORDERED: *HR* Midazolam HCl 5 MG/5 ML VIAL IVP ONE (12:02)
[2017-02-28] MEDS ORDERED: *HR* FentaNYL (PF) 100 MCG/2 ML VIAL ONE (12:03)
[2017-02-28] MEDS ORDERED: *HR* Midazolam HCl 5 MG/5 ML VIAL IVP PRN (12:21)
[2017-02-28] MEDS ORDERED: Simethicone 40 MG/0.6 ML MLS IR ONE (12:21)
[2017-02-28] MEDS ORDERED: *HR* FentaNYL (PF) 100 MCG/2 ML VIAL IVP PRN (12:21)
[2017-02-28] MEDS ORDERED: Tetracaine/Benzocaine/Butamben 200MG/SPRAY (100SPY/BOT) MM ONE (12:21)
[2017-02-28] MEDS ORDERED: *HR* Promethazine 25 MG/ML VIAL ONE (12:22)
[2017-02-28] MEDS ORDERED: 0.9 % Sodium Chloride 1,000 ML IVC SCH (12:30)
[2017-02-28] MEDS ORDERED: *HR* Promethazine 25 MG/ML VIAL IVP ONE (12:45)
[2017-02-28 13:34] LABS: Hematocrit 24.3 % (37.5-50.1); Hemoglobin 8.1 g/dL (12.9-16.9)
--- NOTE | 2017-02-28 14:26 | Internal Med Progress Note ---
Date of Encounter: 02/28/17 Time of Encounter: 09:10 - Assessment and plan (1) Acute diverticulitis Current Visit: Yes Status: Acute Assessment and plan: Acute diverticulitis causing abdominal pain, nausea and diarrhea - symptoms persistent Continue fluids, IV ciprofloxacin, IV Flagyl, NPO Cultures - negative CT abdomen and pelvis - mild uncomplicated acute diverticulitis of the descending colon, incidental focal irregular thickening of the wall of the short segment of sigmoid Gastroenterology Consult for GI bleed Continue IV Protonix, IV Zofran, IV morphine as needed for pain Labs in a.m. (2) GI bleed Current Visit: Yes Status: Acute Assessment and plan: Acute onset of upper GI bleed with melena - likely multifactorial - rule out esophagitis, gastritis, duodenitis and peptic ulcer disease Gastroneurology consult - EGD done this morning Monitor H&H, transfuse PRBC as needed Qualifiers: GI bleed type/associated pathology: unspecified gastrointestinal hemorrhage type Qualified Code(s): K92.2 - Gastrointestinal hemorrhage, unspecified (3) Anemia Current Visit: Yes Status: Acute Assessment and plan: Acute blood loss anemia secondary to GI bleed H&H 8.1 - 24.3, monitor H&H every 6 hours Type and screen, transfuse PRBC as needed Qualifiers: Anemia type: other cause Other causes of anemia: acute posthemorrhagic Qualified Code(s): D62 - Acute posthemorrhagic anemia (4) COPD (chronic obstructive pulmonary disease) Current Visit: Yes Status: Acute Assessment and plan: COPD with mild acute exacerbation likely due to viral bronchitis - improving DuoNeb breathing treatment PRN Qualifiers: COPD type: COPD with acute exacerbation Qualified Code(s): J44.1 - Chronic obstructive pulmonary disease with (acute) exacerbation (5) Tobacco abuse Current Visit: Yes Status: Chronic Assessment and plan: Smoking cessation counseling, nicotine patch (6) Alcohol dependence Current Visit: No Status: Chronic Assessment and plan: Counseled about cessation Patient has been on Antabuse Qualifiers: Substance use status: with intoxication Complication of substance-induced condition: uncomplicated Qualified Code(s): F10.220 - Alcohol dependence with intoxication, uncomplicated (7) Bipolar disorder Current Visit: No Status: Chronic Assessment and plan: Chronic bipolar disorder and major depression with anxiety - stable Continue home medications Qualifiers: Active/Remission status: currently active Current bipolar episode type: depressed Current episode severity: mild Qualified Code(s): F31.31 - Bipolar disorder, current episode depressed, mild (8) DVT prophylaxis Current Visit: Yes Status: Acute Assessment and plan: Continue SCDs, avoid anticoagulants due to GI bleed - Time Spent With Patient 25 - 35 minutes - Subjective Interval history: Examined this morning. Patient is awake and alert. Not in any distress. Denies chest pain or shortness of breath. States his abdominal pain is worse this morning. Rates it 7 out of 10. States the pain is sharp and cramping. Improves with pain medication. Patient also complains of persistent diarrhea with dark stool. No bright red blood in stool. Continue NPO. H&H has dropped since admission. We will type and screen. Gastroenterology consult. EGD done this morning. Fecal Hemoccult is positive. He will need outpatient colonoscopy when his acute diverticulitis has improved. No fever. - Constitutional Vitals: Temp Pulse Resp BP Pulse Ox 98.2 F 96 15 169/114 100 02/28/17 12:35 02/28/17 12:35 02/28/17 12:35 02/28/17 12:35 02/28/17 12:35 General appearance: Present: A&O X 3, pleasant, no acute distress, answers questions appropriately Exam: In discomfort due to abdominal pain - Head Head exam: Present: atraumatic - Eye Eye exam: Present: EOMI - ENT ENT exam: Present: mucous membranes moist - Neck Neck exam general surgery: Present: supple - Respiratory Respiratory exam: Present: CTAB. Absent: rales, rhonchi, stridor, wheezes, tachypnea - Cardiovascular Cardiovascular exam: Present: RRR, +S1, +S2 - GI/Abdominal GI/Abdominal exam: Present: soft, tenderness (Epigastric, umbilical and left lower quadrant tenderness). Absent: distended, firm, guarding, rigid - Extremities Exam Extremities exam: Present: radial pulses palpable and symetrical. Absent: cyanotic, pedal edema, tenderness - Neurological Exam Neurological exam: Present: alert, oriented X3, no focal deficits Internal Medicine: Result - Labs CBC & Chem 7: 02/28/17 13:27 02/26/17 06:10 Labs: Short CBC 02/27/17 02/27/17 02/28/17 Range/Units 16:13 22:18 03:40 WBC 10.6 (4.3-11.1) K/mcL Hgb 9.0 L 8.6 L 8.1 L (12.9-16.9) g/dL Hct 26.8 L 26.0 L 24.3 L (37.5-50.1) % Plt Count 417 H (140-400) K/mcL Neutrophils # 8.9 (1.6-8.9) K/mcL 02/28/17 02/28/17 Range/Units 08:04 13:27 WBC (4.3-11.1) K/mcL Hgb 8.4 L 8.1 L (12.9-16.9) g/dL Hct 25.5 L 24.3 L (37.5-50.1) % Plt Count (140-400) K/mcL Neutrophils # (1.6-8.9) K/mcL - ABG Interpretation ABG results: PT/INR, D-dimer PT 13.8 Seconds (9.4-12.1) H 02/28/17 08:04 Consult Discharge Plan - Plan Referrals: Miles Parrish MD [Non-Partnered Physician] - 03/10/17 4:45 pm
[2017-02-28] MEDS: 0.9 % Sodium Chloride 1,000 ML IVC SCH (14:33)
[2017-02-28 19:54] LABS: Hemoglobin 7.6 g/dL (12.9-16.9)
[2017-02-28] MEDS: hydrOXYzine pamoate 25 MG CAPSULE PO SCH (21:43)
[2017-03-01] MEDS: MetroNIDAZOLE 500 MG/100 ML 500 MG/100 ML BAG IVPB SCH ×4 (00:38→23:04)
[2017-03-01] MEDS: *HR* HYDROmorphone (PF) 1 MG/ML SYRINGE IVP PRN ×4 (02:32→20:37)
[2017-03-01] MEDS: Pantoprazole 40 MG VIAL IVP SCH ×2 (05:25→17:20)
[2017-03-01] MEDS: *HR* Heparin 5,000 UNIT/ML VIAL SQ SCH (05:25)
[2017-03-01 06:29] LABS: Hematocrit 23.3 % (37.5-50.1); Hemoglobin 7.6 g/dL (12.9-16.9); Lymphocytes # 1.6 K/mcL (0.6-4.6); Mean Corpuscular HGB Conc 32.6 g/dL (31.6-35.5); Mean Corpuscular Hemoglobin 30.2 pg (28.0-33.3); Mean Corpuscular Volume 92.5 fL (83.0-100.0); Mean Platelet Volume 9.2 fL (9.4-12.4); Monocytes # 0.4 K/mcL (0.0-1.3); Platelet Count 426 K/mcL (140-400); Red Blood Count 2.52 M/mcL (4.19-5.50); Red Cell Distribution Width 16.1 % (11.5-14.5)
[2017-03-01 06:33] LABS: BUN/Creatinine Ratio 8 (6-26); Blood Urea Nitrogen 7 mg/dL (8-26); Calcium 7.8 mg/dL (8.6-10.8); Carbon Dioxide 16 mEq/L (19-29); Chloride 119 mEq/L (98-109); Glucose 85 mg/dL (70-99); Osmolality,Calculated 291 (280-300); Sodium 142 mEq/L (136-145); eGFR For African Americans > 60 (> 60); eGFR For Non-African Americans > 60 (> 60)
[2017-03-01 06:38] LABS: Potassium 4.7 mEq/L (3.5-4.5)
[2017-03-01 09:06] LABS: Eosinophils # 0.2 K/mcL (0.0-0.6); Neutrophils # 4.7 K/mcL (1.6-8.9)
[2017-03-01 09:07] LABS: Platelet Estimate Normal (Normal)
[2017-03-01 09:08] LABS: Anisocytosis 1+ (Not Present); Poikilocytosis 1+ (Not Present); Polychromasia 1+ (Not Present)
[2017-03-01 09:12] LABS: Large Platelets Present (Not Present)
[2017-03-01] MEDS: Lisinopril 20 MG TABLET PO SCH (09:15)
[2017-03-01] MEDS: Nicotine 21 MG PATCH.TD24 TD SCH (09:16)
[2017-03-01] MEDS ORDERED: 0.9 % Sodium Chloride 250 ML ONE ×2 (10:31→14:55)
--- NOTE | 2017-03-01 14:41 | Internal Med Progress Note ---
Date of Encounter: 03/01/17 Time of Encounter: 08:35 - Assessment and plan (1) Acute diverticulitis Current Visit: Yes Status: Acute Assessment and plan: Acute diverticulitis causing abdominal pain, nausea and diarrhea - symptoms slowly improving Continue fluids, IV ciprofloxacin, IV Flagyl, clear liquid diet Cultures - negative CT abdomen and pelvis - mild uncomplicated acute diverticulitis of the descending colon, incidental focal irregular thickening of the wall of the short segment of sigmoid Gastroenterology Consult for GI bleed - EGD reveals normal esophagus and evidence of previous gastric surgery Continue IV Protonix, IV Zofran, IV morphine as needed for pain Labs in a.m. (2) GI bleed Current Visit: Yes Status: Acute Assessment and plan: Acute onset of upper GI bleed with melena - likely multifactorial Gastroneurology consult - EGD revealed normal esophagus and evidence of previous gastric surgery, will need colonoscopy if rectal bleeding persists Monitor H&H, transfuse 2 units PRBC today Qualifiers: GI bleed type/associated pathology: unspecified gastrointestinal hemorrhage type Qualified Code(s): K92.2 - Gastrointestinal hemorrhage, unspecified (3) Anemia Current Visit: Yes Status: Acute Assessment and plan: Acute blood loss anemia secondary to GI bleed - will require 2 units PRBC H&H 7.6 and 23.3, monitor H&H every 6 hours Qualifiers: Anemia type: other cause Other causes of anemia: acute posthemorrhagic Qualified Code(s): D62 - Acute posthemorrhagic anemia (4) COPD (chronic obstructive pulmonary disease) Current Visit: Yes Status: Acute Assessment and plan: COPD with mild acute exacerbation likely due to viral bronchitis - improving DuoNeb breathing treatment PRN Qualifiers: COPD type: COPD with acute exacerbation Qualified Code(s): J44.1 - Chronic obstructive pulmonary disease with (acute) exacerbation (5) Tobacco abuse Current Visit: Yes Status: Chronic Assessment and plan: Smoking cessation counseling, nicotine patch (6) Alcohol dependence Current Visit: No Status: Chronic Assessment and plan: Counseled about cessation Patient has been on Antabuse Qualifiers: Substance use status: with intoxication Complication of substance-induced condition: uncomplicated Qualified Code(s): F10.220 - Alcohol dependence with intoxication, uncomplicated (7) Bipolar disorder Current Visit: No Status: Chronic Assessment and plan: Chronic bipolar disorder and major depression with anxiety - stable Continue home medications Qualifiers: Active/Remission status: currently active Current bipolar episode type: depressed Current episode severity: mild Qualified Code(s): F31.31 - Bipolar disorder, current episode depressed, mild (8) DVT prophylaxis Current Visit: Yes Status: Acute Assessment and plan: Continue SCDs, avoid anticoagulants due to GI bleed - Time Spent With Patient 25 - 35 minutes - Subjective Interval history: Examined this morning. Patient is awake and alert. Not in any distress. Denies chest pain or shortness of breath. States his abdominal pain is better today. Patient also complains of mild diarrhea with dark stool. No bright red blood in stool. Continue clear liquid diet. H&H has dropped since admission. 2 units PRBC to be transfused today. We will type and screen. EGD revealed normal esophagus and evidence of previous gastric surgery. Fecal Hemoccult is positive. He will need outpatient colonoscopy when his acute diverticulitis has improved. No fever. - Constitutional Vitals: Temp Pulse Resp BP Pulse Ox 98.4 F 68 18 146/87 98 03/01/17 12:02 03/01/17 12:02 03/01/17 12:02 03/01/17 12:02 03/01/17 10:11 General appearance: Present: A&O X 3, pleasant, no acute distress, answers questions appropriately - Head Head exam: Present: atraumatic - Eye Eye exam: Present: EOMI - ENT ENT exam: Present: mucous membranes moist - Neck Neck exam general surgery: Present: supple - Respiratory Respiratory exam: Present: CTAB. Absent: rales, rhonchi, wheezes, tachypnea - Cardiovascular Cardiovascular exam: Present: RRR, +S1, +S2 - GI/Abdominal GI/Abdominal exam: Present: soft. Absent: distended, firm, guarding, rigid, tenderness - Extremities Exam Extremities exam: Present: radial pulses palpable and symetrical. Absent: cyanotic, pedal edema, tenderness - Neurological Exam Neurological exam: Present: alert, oriented X3, no focal deficits Internal Medicine: Result - Labs CBC & Chem 7: 03/01/17 06:20 03/01/17 06:13 Labs: Short CBC 02/28/17 03/01/17 Range/Units 19:48 06:20 WBC 7.3 (4.3-11.1) K/mcL Hgb 7.6 L 7.6 L (12.9-16.9) g/dL Hct 23.0 L 23.3 L (37.5-50.1) % Plt Count 426 H (140-400) K/mcL Neutrophils # 4.7 (1.6-8.9) K/mcL BMP 03/01/17 06:13 Sodium 142 Potassium 4.7 H Chloride 119 H Carbon Dioxide 16 L BUN 7 L Creatinine 0.84 Glucose 85 Calcium 7.8 L - ABG Interpretation ABG results: PT/INR, D-dimer PT 13.8 Seconds (9.4-12.1) H 02/28/17 08:04 - VTE Documentation of Mechanical Device: Intermittent pneumatic compression device Consult Discharge Plan - Plan Referrals: Miles Parrish MD [Non-Partnered Physician] - 03/10/17 4:45 pm
[2017-03-01] MEDS: hydrOXYzine pamoate 25 MG CAPSULE PO SCH (20:31)
[2017-03-02 03:52] LABS: Eosinophils # 0.2 K/mcL (0.0-0.6); Hematocrit 26.2 % (37.5-50.1); Hemoglobin 8.8 g/dL (12.9-16.9); Mean Corpuscular HGB Conc 33.6 g/dL (31.6-35.5); Mean Corpuscular Hemoglobin 30.7 pg (28.0-33.3); Mean Corpuscular Volume 91.3 fL (83.0-100.0); Mean Platelet Volume 9.1 fL (9.4-12.4); Platelet Count 370 K/mcL (140-400); Red Blood Count 2.87 M/mcL (4.19-5.50); Red Cell Distribution Width 15.6 % (11.5-14.5)
[2017-03-02 04:10] LABS: BUN/Creatinine Ratio 5 (6-26); Calcium 7.6 mg/dL (8.6-10.8); Carbon Dioxide 17 mEq/L (19-29); Chloride 118 mEq/L (98-109); Glucose 69 mg/dL (70-99); Osmolality,Calculated 287 (280-300); Sodium 141 mEq/L (136-145); eGFR For African Americans > 60 (> 60); eGFR For Non-African Americans > 60 (> 60)
[2017-03-02 04:11] LABS: Blood Urea Nitrogen 4 mg/dL (8-26); Potassium 3.6 mEq/L (3.5-4.5)
[2017-03-02] MEDS: 0.9 % Sodium Chloride 1,000 ML IVC SCH (04:17)
[2017-03-02] MEDS: *HR* HYDROmorphone (PF) 1 MG/ML SYRINGE IVP PRN ×3 (04:18→20:23)
[2017-03-02 04:56] LABS: Monocytes # 0.5 K/mcL (0.0-1.3); Neutrophils # 6.6 K/mcL (1.6-8.9)
[2017-03-02 04:57] LABS: Anisocytosis 1+ (Not Present); Hypersegmented Neutrophils Present (Not Present); Platelet Estimate Normal (Normal); Poikilocytosis 1+ (Not Present); Toxic Granulation Present (Not Present)
[2017-03-02 04:58] LABS: Schistocytes 1+ (Not Present)
[2017-03-02] MEDS: Pantoprazole 40 MG VIAL IVP SCH ×2 (05:05→17:42)
[2017-03-02] MEDS: Nicotine 21 MG PATCH.TD24 TD SCH (08:03)
[2017-03-02] MEDS: Lisinopril 20 MG TABLET PO SCH (08:04)
[2017-03-02] MEDS: MetroNIDAZOLE 500 MG/100 ML 500 MG/100 ML BAG IVPB SCH ×3 (08:04→23:24)
--- NOTE | 2017-03-02 12:07 | Internal Med Progress Note ---
Date of Encounter: 03/02/17 Time of Encounter: 09:20 - Assessment and plan (1) Acute diverticulitis Current Visit: Yes Status: Acute Assessment and plan: Acute diverticulitis - diarrhea is persistent, abdominal pain improving Continue fluids, IV ciprofloxacin, IV Flagyl, clear liquid diet Cultures - negative CT abdomen and pelvis - mild uncomplicated acute diverticulitis of the descending colon, incidental focal irregular thickening of the wall of the short segment of sigmoid Gastroenterology Consult for GI bleed - EGD reveals normal esophagus and evidence of previous gastric surgery Continue IV Protonix, IV Zofran, IV Dilaudid as needed for pain Labs in a.m. (2) GI bleed Current Visit: Yes Status: Acute Assessment and plan: Acute onset of upper GI bleed with melena - likely multifactorial - persistent diarrhea with dark stool and some bright red blood Gastroenterology consult - EGD revealed normal esophagus and evidence of previous gastric surgery, will likely need colonoscopy Monitor H&H, 2 units PRBC transfused Qualifiers: GI bleed type/associated pathology: unspecified gastrointestinal hemorrhage type Qualified Code(s): K92.2 - Gastrointestinal hemorrhage, unspecified (3) Anemia Current Visit: Yes Status: Acute Assessment and plan: Acute blood loss anemia secondary to GI bleed - 2 units PRBC transfused H&H 8.8 and 26.2 - has improved but not as expected monitor H&H every 6 hours Qualifiers: Anemia type: other cause Other causes of anemia: acute posthemorrhagic Qualified Code(s): D62 - Acute posthemorrhagic anemia (4) COPD (chronic obstructive pulmonary disease) Current Visit: Yes Status: Acute Assessment and plan: COPD with mild acute exacerbation likely due to viral bronchitis - improving DuoNeb breathing treatment PRN Qualifiers: COPD type: COPD with acute exacerbation Qualified Code(s): J44.1 - Chronic obstructive pulmonary disease with (acute) exacerbation (5) Tobacco abuse Current Visit: Yes Status: Chronic Assessment and plan: Smoking cessation counseling, nicotine patch (6) Alcohol dependence Current Visit: No Status: Chronic Assessment and plan: Counseled about cessation Patient has been on Antabuse Qualifiers: Substance use status: with intoxication Complication of substance-induced condition: uncomplicated Qualified Code(s): F10.220 - Alcohol dependence with intoxication, uncomplicated (7) Bipolar disorder Current Visit: No Status: Chronic Assessment and plan: Chronic bipolar disorder and major depression with anxiety - stable Continue home medications Qualifiers: Active/Remission status: currently active Current bipolar episode type: depressed Current episode severity: mild Qualified Code(s): F31.31 - Bipolar disorder, current episode depressed, mild (8) DVT prophylaxis Current Visit: Yes Status: Acute Assessment and plan: Continue SCDs, avoid anticoagulants due to GI bleed - Time Spent With Patient 25 - 35 minutes - Subjective Interval history: Examined this morning. Patient is awake and alert. Not in any distress. Denies chest pain or shortness of breath. Continues to have mild lower abdominal pain , but seems to be improving. He has persistent diarrhea with dark stool and some bright red blood. Continue clear liquid diet. No other acute events or complaints. H&H has improved slightly. 2 units PRBC to be transfused. We will type and screen. EGD revealed normal esophagus and evidence of previous gastric surgery. Fecal Hemoccult is positive. C. difficile toxin and stool is pending. Patient may require a colonoscopy during this admission. No fever. Hemodynamically stable. - Constitutional Vitals: Temp Pulse Resp BP Pulse Ox 98.2 F 65 18 145/95 99 03/02/17 10:55 03/02/17 10:55 03/02/17 10:55 03/02/17 10:55 03/02/17 10:55 General appearance: Present: A&O X 3, pleasant, no acute distress, answers questions appropriately - Head Head exam: Present: atraumatic - Eye Eye exam: Present: EOMI - ENT ENT exam: Present: mucous membranes moist - Neck Neck exam general surgery: Present: supple - Respiratory Respiratory exam: Present: CTAB. Absent: rales, rhonchi, stridor, wheezes, tachypnea - Cardiovascular Cardiovascular exam: Present: RRR, +S1, +S2 - GI/Abdominal GI/Abdominal exam: Present: soft, tenderness (Mild umbilical and left lower quadrant tenderness). Absent: distended, firm, guarding, rigid - Extremities Exam Extremities exam: Present: radial pulses palpable and symetrical. Absent: cyanotic, pedal edema, tenderness - Neurological Exam Neurological exam: Present: alert, oriented X3, no focal deficits. Absent: facial droop, speech deficit Internal Medicine: Result - Labs CBC & Chem 7: 03/02/17 03:25 03/02/17 03:25 Labs: Short CBC 03/02/17 Range/Units 03:25 WBC 8.2 (4.3-11.1) K/mcL Hgb 8.8 L (12.9-16.9) g/dL Hct 26.2 L (37.5-50.1) % Plt Count 370 (140-400) K/mcL Neutrophils # 6.6 (1.6-8.9) K/mcL BMP 03/02/17 03:25 Sodium 141 Potassium 3.6 D Chloride 118 H Carbon Dioxide 17 L BUN 4 L Creatinine 0.78 Glucose 69 L Calcium 7.6 L - ABG Interpretation ABG results: PT/INR, D-dimer PT 13.8 Seconds (9.4-12.1) H 02/28/17 08:04 - VTE Documentation of Mechanical Device: Intermittent pneumatic compression device Consult Discharge Plan - Plan Referrals: Miles Parrish MD [Non-Partnered Physician] - 03/10/17 4:45 pm
[2017-03-02 12:26] LABS: Adenovirus F 40/41 PCR Not detected (Not detect); Astrovirus PCR Not detected (Not detect); C.difficile Toxin A/B by PCR Not detected (Not detect); Campylobacter by PCR Not detected (Not detect); Cryptosporidium by PCR Not detected (Not detect); Cyclospora cayetanensis PCR Not detected (Not detect); E. coli O157 by PCR Not detected (Not detect); Entamoeba histolytica PCR Not detected (Not detect); Enteroaggregative E.coli(EAEC) Not detected (Not detect); Enteropathogenic E.coli(EPEC) Not detected (Not detect); Enterotoxigenic E.coli (ETEC) Not detected (Not detect); Giardia lamblia PCR Not detected (Not detect); Norovirus GI/GII PCR Not detected (Not detect); Plesiomonas shigelloides PCR Not detected (Not detect); Rotavirus A PCR Not detected (Not detect); Salmonella PCR Not detected (Not detect); Sapovirus PCR Not detected (Not detect); Shig/EnteroinvasiveE coli EIEC Not detected (Not detect); Shigalike tox-prod E coli STEC Not detected (Not detect); Vibrio PCR Not detected (Not detect); Vibrio cholerae PCR Not detected (Not detect); Yersinia enterocolitica PCR Not detected (Not detect)
[2017-03-02] MEDS: hydrOXYzine pamoate 25 MG CAPSULE PO SCH (20:24)
[2017-03-03 04:52] LABS: Basophils % 0.3 %; Eosinophils # 0.3 K/mcL (0.0-0.6); Eosinophils % 3.5 %; Hematocrit 24.3 % (37.5-50.1); Immature Granulocytes % 4.9 % (0-4); Lymphocytes # 1.2 K/mcL (0.6-4.6); Lymphocytes % 15.5 %; Mean Corpuscular HGB Conc 32.9 g/dL (31.6-35.5); Mean Corpuscular Hemoglobin 30.3 pg (28.0-33.3); Mean Platelet Volume 10.2 fL (9.4-12.4); Monocytes # 0.5 K/mcL (0.0-1.3); Monocytes % 6.6 %; Neutrophils # 5.3 K/mcL (1.6-8.9); Platelet Count 351 K/mcL (140-400); Red Blood Count 2.64 M/mcL (4.19-5.50); Red Cell Distribution Width 15.7 % (11.5-14.5); Segmented Neutrophils % 69.2 %
[2017-03-03] MEDS: 0.9 % Sodium Chloride 1,000 ML IVC SCH ×3 (05:21→19:56)
[2017-03-03] MEDS: Pantoprazole 40 MG VIAL IVP SCH ×2 (05:22→17:38)
[2017-03-03] MEDS: Lisinopril 20 MG TABLET PO SCH (08:20)
[2017-03-03] MEDS: Nicotine 21 MG PATCH.TD24 TD SCH (08:23)
[2017-03-03] MEDS: MetroNIDAZOLE 500 MG/100 ML 500 MG/100 ML BAG IVPB SCH ×3 (08:27→23:33)
[2017-03-03] MEDS: *HR* HYDROmorphone (PF) 1 MG/ML SYRINGE IVP PRN ×3 (08:34→23:32)
[2017-03-03 11:46] LABS: Hematocrit 24.3 % (37.5-50.1); Hemoglobin 8.2 g/dL (12.9-16.9)
--- NOTE | 2017-03-03 11:49 | Gastroenterology Progress Note ---
<Ronny Cerda - Last Filed: 03/03/17 11:47> Date of Encounter: 03/03/17 Time of Encounter: 10:25 - Assessment and plan (1) GI bleed Current Visit: Yes Status: Acute Assessment and plan: Bright red blood per rectum. We will plan for colonoscopy tomorrow. Clear liquid diet today, no red or purple. NPO at midnight. If unable tolerate NuLytely please use MiraLAX prep. If not clear by 6 AM, give 2 tap water enemas. Qualifiers: GI bleed type/associated pathology: unspecified gastrointestinal hemorrhage type Qualified Code(s): K92.2 - Gastrointestinal hemorrhage, unspecified (2) Abdominal pain Current Visit: Yes Status: Acute Assessment and plan: Likely secondary to diverticulitis. Continue supportive care. EGD showed normal esophagus with evidence of previous gastric surgery. Qualifiers: Abdominal location: generalized Qualified Code(s): R10.84 - Generalized abdominal pain (3) Anemia Current Visit: Yes Status: Acute Assessment and plan: Hgb 8 this AM. Continue to monitor CBC and transfuse PRBC as needed. Plan for colonoscopy tomorrow. Qualifiers: Anemia type: other cause Other causes of anemia: acute posthemorrhagic Qualified Code(s): D62 - Acute posthemorrhagic anemia (4) Acute diverticulitis Current Visit: Yes Status: Acute Assessment and plan: Continue antibiotics, monitor H&H, transfuse as appropriate. - Time Spent With Patient Total time spent is greater than 50% in coordination of care (as documented) at patient's floor/unit and/or counseling patient: - Subjective Interval history: Pt is resting in bed and complaining of mild lower abdominal pain. He states he continues to have multiple episodes of bloody diarrhea. - Constitutional Vitals: Temp Pulse Resp BP Pulse Ox 98.5 F 64 16 137/92 99 03/03/17 11:18 03/03/17 11:18 03/03/17 11:18 03/03/17 11:18 03/03/17 11:18 General appearance: Present: cooperative, A&O X 3, no acute distress, answers questions appropriately - Head Head exam: Present: atraumatic, normocephalic - Eye Eye exam: Present: normal appearance, sclera anicteric - ENT ENT exam: Present: mucous membranes moist - Neck Neck exam general surgery: Present: normal inspection, trachea midline - Respiratory Respiratory exam: Present: CTAB. Absent: rales, rhonchi - Cardiovascular Cardiovascular exam: Present: RRR, +S1, +S2 - GI/Abdominal GI/Abdominal exam: Present: soft, tenderness (LLQ tenderness), no peritoneal signs. Absent: distended, firm, guarding - Rectal Rectal exam: Present: deferred - Extremities Exam Extremities exam: Present: warm - Neurological Exam Neurological exam: Present: no focal deficits - Psychiatric Psychiatric exam: Present: normal affect, normal mood - Skin Skin exam: Present: dry, intact, normal color, warm Results - Labs CBC & Chem 7: 03/03/17 04:01 03/02/17 03:25 Labs: Last Result Calcium 7.6 mg/dL (8.6-10.8) L 03/02/17 03:25 Stool Occult Blood Positive (Negative) A 02/25/17 16:45 Entire Visit Hgb 8.0 g/dL (12.9-16.9) L 03/03/17 04:01 Hct 24.3 % (37.5-50.1) L 03/03/17 04:01 PT 13.8 Seconds (9.4-12.1) H 02/28/17 08:04 Total Bilirubin 0.4 mg/dL (0.2-1.2) 02/25/17 11:56 AST 12 Units/L (5-34) 02/25/17 11:56 ALT 16 Units/L (0-55) 02/25/17 11:56 Lipase 23 Units/L (8-78) 02/25/17 11:56 - ABG ABG results: PT/INR, D-dimer PT 13.8 Seconds (9.4-12.1) H 02/28/17 08:04 - VTE Documentation of Mechanical Device: Intermittent pneumatic compression device Consult Discharge Plan - Plan Referrals: Miles Parrish MD [Non-Partnered Physician] - 03/10/17 4:45 pm <Nu Avila - Last Filed: 03/03/17 15:02> Date of Encounter: 03/03/17 Time of Encounter: 13:00 - Time Spent With Patient Total time spent is greater than 50% in coordination of care (as documented) at patient's floor/unit and/or counseling patient: - Constitutional Vitals: Temp Pulse Resp BP Pulse Ox 98.5 F 64 16 137/92 99 03/03/17 11:18 03/03/17 11:18 03/03/17 11:18 03/03/17 11:18 03/03/17 11:18 Results - Labs CBC & Chem 7: 03/03/17 11:34 03/02/17 03:25 Labs: Last Result Calcium 7.6 mg/dL (8.6-10.8) L 03/02/17 03:25 Stool Occult Blood Positive (Negative) A 02/25/17 16:45 Entire Visit Hgb 8.2 g/dL (12.9-16.9) L 03/03/17 11:34 Hct 24.3 % (37.5-50.1) L 03/03/17 11:34 PT 13.8 Seconds (9.4-12.1) H 02/28/17 08:04 Total Bilirubin 0.4 mg/dL (0.2-1.2) 02/25/17 11:56 AST 12 Units/L (5-34) 02/25/17 11:56 ALT 16 Units/L (0-55) 02/25/17 11:56 Lipase 23 Units/L (8-78) 02/25/17 11:56 - ABG ABG results: PT/INR, D-dimer PT 13.8 Seconds (9.4-12.1) H 02/28/17 08:04 - Attending Attestation I examined this patient and my medical decision-making was reviewed with the Resident Physician. I agree with the documented findings, disposition and treatment plan as described except to the extent set forth below.
[2017-03-03] MEDS ORDERED: SODIUM CHLORIDE/NAHCO3/KCL/PEG 4,000 ML SOLN.RECON PO ONE (17:00)
--- NOTE | 2017-03-03 17:56 | Internal Med Progress Note ---
Date of Encounter: 03/03/17 Time of Encounter: 09:40 - Assessment and plan (1) Acute diverticulitis Current Visit: Yes Status: Acute Assessment and plan: Acute diverticulitis - diarrhea is persistent, abdominal pain improving Continue fluids, IV ciprofloxacin, IV Flagyl, clear liquid diet Cultures - negative C. difficile toxin - negative CT abdomen and pelvis - mild uncomplicated acute diverticulitis of the descending colon, incidental focal irregular thickening of the wall of the short segment of sigmoid Gastroenterology Consult for GI bleed - EGD reveals normal esophagus and evidence of previous gastric surgery Continue IV Protonix, IV Zofran, IV Dilaudid as needed for pain Colonoscopy scheduled for a.m., repeat labs in a.m. (2) GI bleed Current Visit: Yes Status: Acute Assessment and plan: Acute onset of upper GI bleed with melena - likely multifactorial - persistent diarrhea with dark stool and some bright red blood Gastroenterology consult - EGD revealed normal esophagus and evidence of previous gastric surgery Colonoscopy in a.m. Monitor H&H, 2 units PRBC transfused Qualifiers: GI bleed type/associated pathology: unspecified gastrointestinal hemorrhage type Qualified Code(s): K92.2 - Gastrointestinal hemorrhage, unspecified (3) Anemia Current Visit: Yes Status: Acute Assessment and plan: Acute blood loss anemia secondary to GI bleed - 2 units PRBC transfused H&H 8.2 and 24.3 - has improved but not as expected monitor H&H every 6 hours Qualifiers: Anemia type: other cause Other causes of anemia: acute posthemorrhagic Qualified Code(s): D62 - Acute posthemorrhagic anemia (4) COPD (chronic obstructive pulmonary disease) Current Visit: Yes Status: Acute Assessment and plan: COPD with mild acute exacerbation likely due to viral bronchitis - improving DuoNeb breathing treatment PRN Qualifiers: COPD type: COPD with acute exacerbation Qualified Code(s): J44.1 - Chronic obstructive pulmonary disease with (acute) exacerbation (5) Tobacco abuse Current Visit: Yes Status: Chronic Assessment and plan: Smoking cessation counseling, nicotine patch (6) Alcohol dependence Current Visit: No Status: Chronic Assessment and plan: Counseled about cessation Patient has been on Antabuse Qualifiers: Substance use status: with intoxication Complication of substance-induced condition: uncomplicated Qualified Code(s): F10.220 - Alcohol dependence with intoxication, uncomplicated (7) Bipolar disorder Current Visit: No Status: Chronic Assessment and plan: Chronic bipolar disorder and major depression with anxiety - stable Continue home medications Qualifiers: Active/Remission status: currently active Current bipolar episode type: depressed Current episode severity: mild Qualified Code(s): F31.31 - Bipolar disorder, current episode depressed, mild (8) DVT prophylaxis Current Visit: Yes Status: Acute Assessment and plan: Continue SCDs, avoid anticoagulants due to GI bleed - Time Spent With Patient 25 - 35 minutes - Subjective Interval history: Examined this morning. Patient is awake and alert. Not in any distress. Denies chest pain or shortness of breath. Abdominal pain improving. He has persistent diarrhea with dark stool and some bright red blood. Continue clear liquid diet. No other acute events or complaints. H&H has improved slightly. 2 units PRBC. EGD revealed normal esophagus and evidence of previous gastric surgery. Fecal Hemoccult is positive. C. difficile toxin negative. Colonoscopy scheduled for tomorrow. No fever. Hemodynamically stable. - Constitutional Vitals: Temp Pulse Resp BP Pulse Ox 97.9 F 61 16 148/95 99 03/03/17 15:39 03/03/17 15:39 03/03/17 15:39 03/03/17 15:39 03/03/17 15:39 General appearance: Present: A&O X 3, pleasant, no acute distress, answers questions appropriately - Head Head exam: Present: atraumatic - Eye Eye exam: Present: EOMI - ENT ENT exam: Present: mucous membranes moist - Neck Neck exam general surgery: Present: supple - Respiratory Respiratory exam: Present: CTAB. Absent: rales, rhonchi, stridor, wheezes, tachypnea - Cardiovascular Cardiovascular exam: Present: RRR, +S1, +S2 - GI/Abdominal GI/Abdominal exam: Present: soft. Absent: distended, firm, guarding, tenderness - Extremities Exam Extremities exam: Present: radial pulses palpable and symetrical. Absent: cyanotic, pedal edema - Neurological Exam Neurological exam: Present: alert, oriented X3, no focal deficits. Absent: facial droop, speech deficit Internal Medicine: Result - Labs CBC & Chem 7: 03/03/17 11:34 03/02/17 03:25 Labs: Short CBC 03/03/17 03/03/17 Range/Units 04:01 11:34 WBC 7.6 (4.3-11.1) K/mcL Hgb 8.0 L 8.2 L (12.9-16.9) g/dL Hct 24.3 L 24.3 L (37.5-50.1) % Plt Count 351 (140-400) K/mcL Neutrophils # 5.3 (1.6-8.9) K/mcL - ABG Interpretation ABG results: PT/INR, D-dimer PT 13.8 Seconds (9.4-12.1) H 02/28/17 08:04 - VTE Documentation of Mechanical Device: Intermittent pneumatic compression device Consult Discharge Plan - Plan Referrals: Miles Parrish MD [Non-Partnered Physician] - 03/10/17 4:45 pm
[2017-03-03] MEDS ORDERED: Polyethylene Glycol 3350 255 GM POWDER PO ONE ×2 (20:01→20:18)
[2017-03-03] MEDS: hydrOXYzine pamoate 25 MG CAPSULE PO SCH (21:41)
[2017-03-04 04:47] LABS: Basophils % 0.4 %; Eosinophils # 0.3 K/mcL (0.0-0.6); Eosinophils % 3.3 %; Hematocrit 23.4 % (37.5-50.1); Hemoglobin 8.1 g/dL (12.9-16.9); Immature Granulocytes % 3.2 % (0-4); Lymphocytes # 1.2 K/mcL (0.6-4.6); Lymphocytes % 15.9 %; Mean Corpuscular HGB Conc 34.6 g/dL (31.6-35.5); Mean Corpuscular Hemoglobin 31.2 pg (28.0-33.3); Mean Platelet Volume 9.3 fL (9.4-12.4); Monocytes # 0.6 K/mcL (0.0-1.3); Monocytes % 7.6 %; Neutrophils # 5.2 K/mcL (1.6-8.9); Platelet Count 369 K/mcL (140-400); Red Cell Distribution Width 15.8 % (11.5-14.5); Segmented Neutrophils % 69.6 %
[2017-03-04 04:56] LABS: BUN/Creatinine Ratio 4 (6-26); Calcium 7.8 mg/dL (8.6-10.8); Carbon Dioxide 16 mEq/L (19-29); Chloride 117 mEq/L (98-109); Glucose 68 mg/dL (70-99); Osmolality,Calculated 283 (280-300); Potassium 3.3 mEq/L (3.5-4.5); Sodium 139 mEq/L (136-145); eGFR For African Americans > 60 (> 60); eGFR For Non-African Americans > 60 (> 60)
[2017-03-04 04:57] LABS: Blood Urea Nitrogen 3 mg/dL (8-26)
[2017-03-04] MEDS: Pantoprazole 40 MG VIAL IVP SCH ×2 (05:33→17:15)
[2017-03-04] MEDS: Lisinopril 20 MG TABLET PO SCH (07:46)
[2017-03-04] MEDS: MetroNIDAZOLE 500 MG/100 ML 500 MG/100 ML BAG IVPB SCH ×2 (08:05→17:15)
[2017-03-04] MEDS: Nicotine 21 MG PATCH.TD24 TD SCH (08:05)
[2017-03-04] MEDS: *HR* HYDROmorphone (PF) 1 MG/ML SYRINGE IVP PRN ×2 (09:03→17:15)
--- NOTE | 2017-03-04 12:15 | Anesthesia Evaluation PreOp ---
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 History: Seizures, Other (anxiety, depression, PTSD, prior suicide attempt, previous psychiatric hospitalization) Other Medical History: GERD (Gastric ulcers), Other (Gout, migraines) Anesthesia History: No Prior Anesthetic Complications, Past Anesthesia ( appendectomy, arthroscopy, cholecystectomy, orthopedic, other, other (Partial gastrectomy secondary to gastric ulcer)) Alcohol Use: heavy Drug use: cocaine, opiates, marijuana, methamphetamine, prescription drug abuse Medications and Allergies Allopurinol [Zyloprim 100 MG] 100 mg PO DAILY 02/25/17 [History] Colchicine [Colcrys] 0.6 mg PO DAILY 02/25/17 [History] Disulfiram [Antabuse] 500 mg PO DAILY 02/25/17 [History] Ondansetron ODT [Zofran ODT] 4 mg PO Q6H PRN 02/25/17 [History] Paroxetine [Paxil] 20 mg PO DAILY 02/25/17 [History] Quetiapine Fumarate [SEROquel] 25 mg PO BID 02/25/17 [History] hydrOXYzine HCl [Hydroxyzine HCl] 50 mg PO HS 02/25/17 [History] Lisinopril [Zestril] 20 mg PO DAILY 03/01/17 [History] Metoprolol [Lopressor] 25 mg PO BID 03/01/17 [History] Allergies naproxen [From Naprosyn] Allergy (Verified 02/25/17 11:12) Hives gabapentin [From Neurontin] Adverse Reaction (Verified 02/25/17 11:12) Hallucinating orphenadrine [From Norflex] Adverse Reaction (Verified 02/25/17 11:12) Hallucinating - Meds/Allergy Pre-op Review Medications Reviewed: Yes Allergies Reviewed: Yes Beta Blockers on Current Med List: No Anesthesia Results - Labs 03/04/17 04:16 03/04/17 04:16 - Imaging EKG: image reviewed (SR) Anesthesia Exam O2 Sat Weight 98.2 kg O2 Sat by Pulse Oximetry 99 O2 Sat by Pulse Oximetry 99 O2 Sat by Pulse Oximetry 99 O2 Sat by Pulse Oximetry 99 O2 Sat by Pulse Oximetry 100 O2 Sat by Pulse Oximetry 99 Vital Signs Temp Pulse Resp BP Pulse Ox 97.9 F 80 20 123/92 100 02/25/17 11:12 02/25/17 11:12 02/25/17 11:12 02/25/17 11:12 02/25/17 11:12 Vital Signs/O2 Sat, Most Current Temp Pulse Resp BP Pulse Ox 98.4 F 62 18 133/92 99 03/04/17 10:39 03/04/17 10:39 03/04/17 10:39 03/04/17 10:39 03/04/17 10:39 Height: 6' Weight: 216# NPO (# of Hours): > 8 hrs Pain Scale: 0 Pain Scale Used: Numeric (1 - 10) - HEENT Pupil (Motor): Pupils equal, EOMI Mallampati: II Teeth: Edentulous Oral Opening: Greater than 3 - NURSE HEALTHCARE MANAGER LOC: Oriented NURSE HEALTHCARE MANAGER Motor: Normal RUE, Normal LUE, Normal RLE, Normal LLE, Normal Face NURSE HEALTHCARE MANAGER Sensory: Normal: RUE, LUE, RLE, LLE, Face - Cardiac Rhythm: Regular Murmur: None JVD: No Carotid Bruit: No - Pulmonary Breath Sounds: bilateral Clear Respiratory Effort: Symmetrical Anesthesia Assess/Plan ASA Score: 3 (Drug/ETOH abuse) Modified [place] Scale for Level of Consciousness: Cooperative, oriented, and tranquil Anesthetic Plan: MAC Autologous Blood: Yes Monitoring Plan: Standard Monitors Recovery Plan: Other
[2017-03-04] MEDS ORDERED: *HR* Propofol 500 MG/50 ML BOTTLE IVC ONE (16:03)
[2017-03-04] MEDS ORDERED: Lidocaine -MPF 2% 5 ML VIAL INFILT ONE (16:03)
[2017-03-04] MEDS ORDERED: *HR* Propofol 200 MG/20 ML VIAL IVP ONE (16:03)
--- NOTE | 2017-03-04 16:51 | Internal Med Progress Note ---
Date of Encounter: 03/04/17 Time of Encounter: 10:45 - Assessment and plan (1) GI bleed Current Visit: Yes Status: Acute Assessment and plan: Colonoscopy planned for today. We will follow results. Qualifiers: GI bleed type/associated pathology: unspecified gastrointestinal hemorrhage type Qualified Code(s): K92.2 - Gastrointestinal hemorrhage, unspecified (2) Acute diverticulitis Current Visit: Yes Status: Acute Assessment and plan: Continue IV ciprofloxacin and Flagyl. Abdominal pain continues to improve. Will start on soft diet after colonoscopy. (3) Alcohol dependence Current Visit: No Status: Chronic Assessment and plan: No signs of withdrawal at this time. Patient has been counseled about cessation. Qualifiers: Substance use status: with intoxication Complication of substance-induced condition: uncomplicated Qualified Code(s): F10.220 - Alcohol dependence with intoxication, uncomplicated (4) Anemia Current Visit: Yes Status: Acute Assessment and plan: Hemoglobin levels remain stable. Likely from GI bleed. Qualifiers: Anemia type: other cause Other causes of anemia: acute posthemorrhagic Qualified Code(s): D62 - Acute posthemorrhagic anemia (5) Bipolar disorder Current Visit: No Status: Chronic Assessment and plan: Continue home medications. Qualifiers: Active/Remission status: currently active Current bipolar episode type: depressed Current episode severity: mild Qualified Code(s): F31.31 - Bipolar disorder, current episode depressed, mild (6) COPD (chronic obstructive pulmonary disease) Current Visit: Yes Status: Chronic Assessment and plan: Continue duo nebs Qualifiers: COPD type: COPD with acute exacerbation Qualified Code(s): J44.1 - Chronic obstructive pulmonary disease with (acute) exacerbation (7) DVT prophylaxis Current Visit: Yes Status: Acute Assessment and plan: With SCDs (8) Tobacco abuse Current Visit: Yes Status: Chronic - Subjective Interval history: Patient feeling hungry. Schedule for colonoscopy later today. Denies any new episodes of hematemesis or melena. No abdominal pain. - Constitutional Vitals: Temp Pulse Resp BP Pulse Ox 98.0 F 63 14 127/88 100 03/04/17 14:21 03/04/17 14:21 03/04/17 14:21 03/04/17 14:21 03/04/17 14:21 General appearance: Present: A&O X 3, pleasant, no acute distress, answers questions appropriately - Neck Neck exam general surgery: Present: supple, trachea midline. Absent: lymphadenopathy - Respiratory Respiratory exam: Present: CTAB. Absent: accessory muscle use, rales, rhonchi, wheezes - Cardiovascular Cardiovascular exam: Present: RRR, +S1, +S2. Absent: diastolic murmur, gallop, rubs, systolic murmur - GI/Abdominal GI/Abdominal exam: Present: normal bowel sounds, soft, no peritoneal signs. Absent: distended, tenderness - Neurological Exam Neurological exam: Present: alert, oriented X3, no focal deficits - Skin Skin exam: Present: dry, intact, pallor Internal Medicine: Result - Labs CBC & Chem 7: 03/04/17 04:16 03/04/17 04:16 Labs: Short CBC 03/04/17 Range/Units 04:16 WBC 7.5 (4.3-11.1) K/mcL Hgb 8.1 L (12.9-16.9) g/dL Hct 23.4 L (37.5-50.1) % Plt Count 369 (140-400) K/mcL Neutrophils # 5.2 (1.6-8.9) K/mcL BMP 03/04/17 04:16 Sodium 139 Potassium 3.3 L Chloride 117 H Carbon Dioxide 16 L BUN 3 L Creatinine 0.74 Glucose 68 L Calcium 7.8 L - ABG Interpretation ABG results: PT/INR, D-dimer PT 13.8 Seconds (9.4-12.1) H 02/28/17 08:04 - VTE Documentation of Mechanical Device: Intermittent pneumatic compression device Consult Discharge Plan - Plan Referrals: Miles Parrish MD [Non-Partnered Physician] - 03/10/17 4:45 pm
[2017-03-04] MEDS: 0.9 % Sodium Chloride 1,000 ML IVC SCH (20:35)
[2017-03-04] MEDS: hydrOXYzine pamoate 25 MG CAPSULE PO SCH (20:42)
[2017-03-05] MEDS: MetroNIDAZOLE 500 MG/100 ML 500 MG/100 ML BAG IVPB SCH ×2 (00:33→07:41)
[2017-03-05] MEDS: *HR* HYDROmorphone (PF) 1 MG/ML SYRINGE IVP PRN ×2 (02:33→07:59)
[2017-03-05] MEDS: 0.9 % Sodium Chloride 1,000 ML IVC SCH (02:45)
[2017-03-05 05:15] LABS: BUN/Creatinine Ratio 5 (6-26); Blood Urea Nitrogen 4 mg/dL (8-26); Calcium 7.3 mg/dL (8.6-10.8); Carbon Dioxide 19 mEq/L (19-29); Chloride 119 mEq/L (98-109); Glucose 89 mg/dL (70-99); Osmolality,Calculated 288 (280-300); Potassium 3.1 mEq/L (3.5-4.5); Sodium 141 mEq/L (136-145); eGFR For African Americans > 60 (> 60); eGFR For Non-African Americans > 60 (> 60)
[2017-03-05 05:19] LABS: Basophils % 0.6 %; Eosinophils # 0.3 K/mcL (0.0-0.6); Eosinophils % 4.1 %; Hematocrit 23.2 % (37.5-50.1); Hemoglobin 7.8 g/dL (12.9-16.9); Immature Granulocytes % 1.5 % (0-4); Lymphocytes # 1.7 K/mcL (0.6-4.6); Lymphocytes % 23.6 %; Mean Corpuscular HGB Conc 33.6 g/dL (31.6-35.5); Mean Corpuscular Hemoglobin 30.8 pg (28.0-33.3); Mean Corpuscular Volume 91.7 fL (83.0-100.0); Mean Platelet Volume 9.3 fL (9.4-12.4); Monocytes # 0.7 K/mcL (0.0-1.3); Monocytes % 9.3 %; Neutrophils # 4.3 K/mcL (1.6-8.9); Platelet Count 393 K/mcL (140-400); Red Blood Count 2.53 M/mcL (4.19-5.50); Red Cell Distribution Width 15.9 % (11.5-14.5); Segmented Neutrophils % 60.9 %
[2017-03-05] MEDS: Pantoprazole 40 MG VIAL IVP SCH (05:33)
[2017-03-05] MEDS: Nicotine 21 MG PATCH.TD24 TD SCH (07:42)
[2017-03-05] MEDS: Lisinopril 20 MG TABLET PO SCH (07:43)
[2017-03-05] MEDS ORDERED: 0.9 % Sodium Chloride Mini Bag 100 ML ONE (10:57)
[2017-03-05 11:28] LABS: % Iron Saturation 18 % (20-55); Iron 24 mcg/dL (65-175); Transferrin 97 mg/dL (174-364)
[2017-03-05] MEDS ORDERED: Ferumoxytol 510 MG in 0.9 % Sodium Chloride 100 ML IVPB ONE (11:31)
--- NOTE | 2017-03-05 11:35 | Gastroenterology Progress Note ---
<Ronny Cerda James - Last Filed: 03/05/17 11:33> Date of Encounter: 03/05/17 Time of Encounter: 10:20 - Assessment and plan (1) GI bleed Status: Acute Assessment and plan: Improving. Colonoscopy with scattered inflammation, erythema, friability, and confluent ulcerations and deep ulcerations found in the terminal ileum. Scattered mild inflammation with adherent blood, shallow ulcerations found in the sigmoid colon, descending colon and in the cecum. Small mouthed diverticula found in the sigmoid colon. Will follow pathology. ASCA and ANCA pending. Follow up with Dr. Avila as outpatient in 2 weeks. Recommend oral Cipro and Flagyl as outpatient. Qualifiers: GI bleed type/associated pathology: unspecified gastrointestinal hemorrhage type Qualified Code(s): K92.2 - Gastrointestinal hemorrhage, unspecified (2) Abdominal pain Status: Acute Assessment and plan: Likely secondary to inflammation and ulcers noted on colonoscopy yesterday. Continue supportive care. EGD showed normal esophagus with evidence of previous gastric surgery. Qualifiers: Abdominal location: generalized Qualified Code(s): R10.84 - Generalized abdominal pain (3) Anemia Status: Acute Assessment and plan: Hgb 7.8 this AM. Continue to monitor CBC and transfuse PRBC as needed. Will give one dose of IV iron while inpatient. Qualifiers: Anemia type: other cause Other causes of anemia: acute posthemorrhagic Qualified Code(s): D62 - Acute posthemorrhagic anemia (4) Acute diverticulitis Status: Acute Assessment and plan: Continue antibiotics, monitor H&H, transfuse as appropriate. - Time Spent With Patient Total time spent is greater than 50% in coordination of care (as documented) at patient's floor/unit and/or counseling patient: - Subjective Interval history: Colonoscopy completed yesterday. Pt continue to report rectal bleeding, but states it has improved. He reports RLQ abdominal pain today. - Constitutional Vitals: Temp Pulse Resp BP Pulse Ox 98.4 F 73 18 133/83 98 03/05/17 11:12 03/05/17 11:12 03/05/17 11:12 03/05/17 11:12 03/05/17 11:12 General appearance: Present: cooperative, A&O X 3, no acute distress, answers questions appropriately - Head Head exam: Present: atraumatic, normocephalic - Eye Eye exam: Present: normal appearance, sclera anicteric - ENT ENT exam: Present: mucous membranes moist - Neck Neck exam general surgery: Present: normal inspection, trachea midline - Respiratory Respiratory exam: Present: CTAB. Absent: rales, rhonchi - Cardiovascular Cardiovascular exam: Present: RRR, +S1, +S2 - GI/Abdominal GI/Abdominal exam: Present: soft, tenderness (RLQ), no peritoneal signs. Absent : distended, firm, guarding - Rectal Rectal exam: Present: deferred - Extremities Exam Extremities exam: Present: warm - Neurological Exam Neurological exam: Present: no focal deficits - Psychiatric Psychiatric exam: Present: normal affect, normal mood - Skin Skin exam: Present: dry, intact, normal color, warm Results - Labs CBC & Chem 7: 03/05/17 04:41 03/05/17 04:41 Labs: Last Result Calcium 7.3 mg/dL (8.6-10.8) L 03/05/17 04:41 Iron 24 mcg/dL (65-175) L 03/05/17 08:25 % Saturation 18 % (20-55) L 03/05/17 08:25 Transferrin 97 mg/dL (174-364) L 03/05/17 08:25 Stool Occult Blood Positive (Negative) A 02/25/17 16:45 Entire Visit Hgb 7.8 g/dL (12.9-16.9) L 03/05/17 04:41 Hct 23.2 % (37.5-50.1) L 03/05/17 04:41 PT 13.8 Seconds (9.4-12.1) H 02/28/17 08:04 Total Bilirubin 0.4 mg/dL (0.2-1.2) 02/25/17 11:56 AST 12 Units/L (5-34) 02/25/17 11:56 ALT 16 Units/L (0-55) 02/25/17 11:56 Lipase 23 Units/L (8-78) 02/25/17 11:56 - ABG ABG results: PT/INR, D-dimer PT 13.8 Seconds (9.4-12.1) H 02/28/17 08:04 - VTE Documentation of Mechanical Device: Intermittent pneumatic compression device Consult Discharge Plan - Plan Instructions: Diverticulitis (DC), Anemia (GEN) Referrals: Miles Parrish MD [Non-Partnered Physician] - 03/10/17 4:45 pm Nu Avila MD [Partnered Physician] - 03/26/17 2:40 pm (in 1-2 weeks) Prescriptions: HYDROcodone/Acet 5/325 mg [[place] 5-325 mg] 1 tab PO Q6HR PRN #14 tab PRN Reason: Pain Ciprofloxacin [Cipro] 500 mg PO BID #20 tablet metroNIDAZOLE [Flagyl] 500 mg PO TID #30 tablet Omeprazole [PriLOSEC] 20 mg PO BIDAC #60 cap <Nu Avila - Last Filed: 03/05/17 17:11> Date of Encounter: 03/05/17 Time of Encounter: 13:00 - Time Spent With Patient Total time spent is greater than 50% in coordination of care (as documented) at patient's floor/unit and/or counseling patient: - Constitutional Vitals: Temp Pulse Resp BP Pulse Ox 98.3 F 88 18 110/71 99 03/05/17 14:58 03/05/17 14:58 03/05/17 14:58 03/05/17 14:58 03/05/17 14:58 Results - Labs CBC & Chem 7: 03/05/17 04:41 03/05/17 04:41 Labs: Last Result Calcium 7.3 mg/dL (8.6-10.8) L 03/05/17 04:41 Iron 24 mcg/dL (65-175) L 03/05/17 08:25 % Saturation 18 % (20-55) L 03/05/17 08:25 Transferrin 97 mg/dL (174-364) L 03/05/17 08:25 Ferritin 62 ng/ml (22-275) 03/05/17 08:25 Vitamin B12 1115 pg/mL (213-816) H 03/05/17 08:25 Folate 12.7 ng/mL (7.0-31.4) 03/05/17 08:25 Stool Occult Blood Positive (Negative) A 02/25/17 16:45 Entire Visit Hgb 7.8 g/dL (12.9-16.9) L 03/05/17 04:41 Hct 23.2 % (37.5-50.1) L 03/05/17 04:41 PT 13.8 Seconds (9.4-12.1) H 02/28/17 08:04 Ferritin 62 ng/ml (22-275) 03/05/17 08:25 Total Bilirubin 0.4 mg/dL (0.2-1.2) 02/25/17 11:56 AST 12 Units/L (5-34) 02/25/17 11:56 ALT 16 Units/L (0-55) 02/25/17 11:56 Lipase 23 Units/L (8-78) 02/25/17 11:56 Folate 12.7 ng/mL (7.0-31.4) 03/05/17 08:25 - ABG ABG results: PT/INR, D-dimer PT 13.8 Seconds (9.4-12.1) H 02/28/17 08:04 - Attending Attestation I examined this patient and my medical decision-making was reviewed with the Resident Physician. I agree with the documented findings, disposition and treatment plan as described except to the extent set forth below. pt with enterocolitis with ulcers . mOst prob infectious. F/U Gi on panding w/u
[2017-03-05] MEDS ORDERED: *HR* HYDROcodone/Acet 5/325 mg TABLET PO PRN (11:46)
[2017-03-05 11:49] LABS: Ferritin 62 ng/ml (22-275)
[2017-03-05 12:08] LABS: Folate 12.7 ng/mL (7.0-31.4)
--- NOTE | 2017-03-05 14:47 | Discharge Summary ---
Date of Encounter: 03/05/17 Time of Encounter: 10:00 - Discharge Diagnosis (1) GI bleed Priority: Primary Status: Acute Qualifiers: GI bleed type/associated pathology: unspecified gastrointestinal hemorrhage type Qualified Code(s): K92.2 - Gastrointestinal hemorrhage, unspecified (2) Acute diverticulitis Priority: Secondary Status: Acute (3) Alcohol dependence Priority: Secondary Status: Chronic Qualifiers: Substance use status: with intoxication Complication of substance-induced condition: uncomplicated Qualified Code(s): F10.220 - Alcohol dependence with intoxication, uncomplicated (4) Anemia Priority: Secondary Status: Acute Qualifiers: Anemia type: other cause Other causes of anemia: acute posthemorrhagic Qualified Code(s): D62 - Acute posthemorrhagic anemia (5) Bipolar disorder Priority: Secondary Status: Chronic Qualifiers: Active/Remission status: currently active Current bipolar episode type: depressed Current episode severity: mild Qualified Code(s): F31.31 - Bipolar disorder, current episode depressed, mild (6) COPD (chronic obstructive pulmonary disease) Priority: Secondary Status: Chronic Qualifiers: COPD type: COPD with acute exacerbation Qualified Code(s): J44.1 - Chronic obstructive pulmonary disease with (acute) exacerbation (7) DVT prophylaxis Priority: Secondary Status: Acute (8) Tobacco abuse Priority: Secondary Status: Chronic (9) Ileitis Priority: Secondary Status: Acute - Discharge Medications Prescriptions: HYDROcodone/Acet 5/325 mg [[place] 5-325 mg] 1 tab PO Q6HR PRN #14 tab PRN Reason: Pain Ciprofloxacin [Cipro] 500 mg PO BID #20 tablet Ferrous Sulfate 325 mg PO BID #60 tablet metroNIDAZOLE [Flagyl] 500 mg PO TID #30 tablet Omeprazole [PriLOSEC] 20 mg PO BIDAC #60 cap Home Medications: Allopurinol [Zyloprim 100 MG] 100 mg PO DAILY 02/25/17 [History] Colchicine [Colcrys] 0.6 mg PO DAILY 02/25/17 [History] Disulfiram [Antabuse] 500 mg PO DAILY 02/25/17 [History] Ondansetron ODT [Zofran ODT] 4 mg PO Q6H PRN 02/25/17 [History] Paroxetine [Paxil] 20 mg PO DAILY 02/25/17 [History] Quetiapine Fumarate [Seroquel] 25 mg PO BID 02/25/17 [History] hydrOXYzine HCl [Hydroxyzine HCl] 50 mg PO HS 02/25/17 [History] Lisinopril [Zestril] 20 mg PO DAILY 03/01/17 [History] Metoprolol [Lopressor] 25 mg PO BID 03/01/17 [History] Ciprofloxacin [Cipro] 500 mg PO BID #20 tablet 03/05/17 [Rx] Ferrous Sulfate 325 mg PO BID #60 tablet 03/05/17 [Rx] HYDROcodone/Acet 5/325 mg [[place] 5-325 mg] 1 tab PO Q6HR PRN #14 tab 03/05/17 [ Rx] Omeprazole [PriLOSEC] 20 mg PO BIDAC #60 cap 03/05/17 [Rx] metroNIDAZOLE [Flagyl] 500 mg PO TID #30 tablet 03/05/17 [Rx] Allergies/Adverse Reactions: Allergies naproxen [From Naprosyn] Allergy (Verified 02/25/17 11:12) Hives gabapentin [From Neurontin] Adverse Reaction (Verified 02/25/17 11:12) Hallucinating orphenadrine [From Norflex] Adverse Reaction (Verified 02/25/17 11:12) Hallucinating Date of admission: 02/25/17 18:02 Primary care physician: PCP NONE Consults: 02/26/17 08:57 Consult to [facility] Trimmer [CONS] Routine Reason for SW Consult: evaluation for home 02/27/17 15:20 Consult to Gastroenterology [CONS] Stat Consulting Provider: Annie Castaneda Reason for Consult: GI bleed Call Completed: Yes 03/03/17 10:15 Consult to Gastroenterology [CONS] Routine Consulting Provider: Annie Castaneda Reason for Consult: reconsult for GI bleed, colitis, diarrhea Call Completed: Yes Discharging clinician: Pamela Nunez Anticipated date of discharge: 03/05/17 - Patient Status Disposition: Home, Self-Care Condition: Good Functional capacity at discharge: independent ambulation Overall status at discharge: patient is progressing back to baseline - Discharge Instructions Instructions: Diverticulitis (DC), Anemia (GEN) Follow Up With: Miles Parrish MD [Non-Partnered Physician] - 03/10/17 4:45 pm Nu Avila MD [Partnered Physician] - 03/26/17 2:40 pm (in 1-2 weeks) - Diet and Activity Activity: increase activity as tolerated Diet: other (diverticulosis diet) Hospital course: Mr. Doe is a 41 year old male patient with a history of COPD, bipolar disorder, hypertension and chronic tobacco abuse was admitted here with acute diverticulitis and acute COPD exacerbation. Patient was treated for these conditions with intravenous antibiotics, IV steroids and bronchodilators. The patient initially improved with this treatment plan but 3 days after hospitalization, he developed episodes of diarrhea with bright red blood in stool. He received 1 unit of packed red blood cells then. Gastroenterology was consulted. Patient initially underwent upper GI endoscopy which showed normal esophagus with no active bleeding. The patient continued to have a GI bleed and so he underwent colonoscopy yesterday. Colonoscopy showed the presence of ileitis with mild inflammation with adherent blood in the sigmoid, descending colon and cecum secondary to colitis. Patient's hemoglobin levels have remained low but stable. However patient has been symptomatic with fatigue and generalized weakness. As such, he was transfused another unit of packed red blood cells today. He has continued to have mild GI bleed which seems to be improving. He is however tolerating diet well. After discussion with gastroenterology, the patient will be discharged today on oral antibiotics and will follow up with gastroenterology as outpatient for further management. He also received iron infusion today. Patient has normal vitamin B12 and folic acid levels. His iron levels are low at 24. He will continue to take omeprazole after discharge. - Time Spent with Patient Total time spent providing and/or coordinating discharge services: Greater than 30 minutes (40 min) - Constitutional Vitals: Temp Pulse Resp BP Pulse Ox 98.4 F 70 18 138/88 98 03/05/17 11:27 03/05/17 11:27 03/05/17 11:27 03/05/17 11:27 03/05/17 11:27 General appearance: Present: A&O X 3, pleasant, no acute distress, answers questions appropriately - Eye Eye exam: Present: PERRL, conjuntiva pink, sclera anicteric Pupils: Present: PERRL - Neck Neck exam general surgery: Present: supple, trachea midline. Absent: lymphadenopathy - Respiratory Respiratory exam: Present: CTAB. Absent: accessory muscle use, rales, rhonchi, wheezes - Cardiovascular Cardiovascular exam: Present: RRR, +S1, +S2. Absent: diastolic murmur, gallop, rubs, systolic murmur - GI/Abdominal GI/Abdominal exam: Present: normal bowel sounds, soft, no peritoneal signs. Absent: distended, tenderness - Extremities Exam Extremities exam: Present: warm, radial pulses palpable and symmetrical. Absent : calf tenderness, cyanotic, pedal edema - Neurological Exam Neurological exam: Present: alert, oriented X3, no focal deficits. Absent: facial droop, speech deficit - Skin Skin exam: Present: dry, intact - VTE Documentation of Mechanical Device: Intermittent pneumatic compression device
[2017-03-05 15:00] VITALS: BP 110/71
[2017-03-07 07:29] LABS: Saccharomyces cerevisiae IgA 10.4 Units (0.0-24.9)
[2017-03-08 07:10] LABS: Myeloperoxidase Ab 1 AU/mL (0-19); Serine Protease-3 Antibody 0 AU/mL (0-19)
== END 2017-03-05 16:04 | disposition home or self-care (01) | DRG 244 ==
LOC: 3ANU 11:09 → EMEROO 11:09 → SUATTDRO 18:02 → 3ANU 18:10
PROVIDERS: ADMIT Internal Medicine; ATTEND Internal Medicine
PROC: ENDOCBX (2017-03-04 13:30)

== ENCOUNTER 2017-06-14 19:56 | Observation (INO) ==
--- NOTE | 2017-06-14 20:35 | Urgent Care Visit Notes ---
Disposition Clinical Impression: Suicidal ideation, Alcohol intoxication Disposition: Still a Patient Referrals: NONE,PCP [Primary Care Provider] - History of Present Illness - General Chief complaint: UC Psych Stated complaint: hi Time Seen by Provider: 06/14/17 20:20 Limitations: no limitations Nursing Notes Reviewed: Yes Vital Signs Reviewed: Yes - History of Present Illness HPI Narrative: Chief complaint is alcoholism, suicidal and homicidal ideations. History this is a 41-year-old gentleman who comes in today. He says he has a hard time in May because both his grandmother and his mother a few years ago. He said when that happens he usually feels very down, resorts to drinking. The most is her been sober is 23 days which was due to fact he was in [facility]. He said he is never gone through withdrawal however. Started drinking at age 10. He stays been drinking a lot today and does smell of alcohol. He states felt like hurting himself and hurting others. He says he has been admitted to a while ago. He does see a counselor weekly, his on Seroquel an antidepressant and an antihypertensive but he does not know the names. He denies any missing any doses. He will actually laugh and joke here. I told him we would go ahead and do an evaluation with him once we determine his sobriety. He is in agreement with this plan. Past medical history is reviewed, nurse's notes reviewed, medications reviewed and allergies reviewed. Pain Scale: 0 - Related Data Home Medications Medication Instructions Recorded Confirmed Allopurinol [Zyloprim 100 MG] 100 mg PO DAILY 02/25/17 02/25/17 Colchicine [Colcrys] 0.6 mg PO DAILY 02/25/17 02/25/17 Disulfiram [Antabuse] 500 mg PO DAILY 02/25/17 02/25/17 Ondansetron ODT [Zofran ODT] 4 mg PO Q6H PRN 02/25/17 02/25/17 Paroxetine [Paxil] 20 mg PO DAILY 02/25/17 02/25/17 Quetiapine Fumarate [Seroquel] 25 mg PO BID 02/25/17 02/25/17 hydrOXYzine HCl [Hydroxyzine HCl] 50 mg PO HS 02/25/17 02/25/17 Lisinopril [Zestril] 20 mg PO DAILY 03/01/17 03/01/17 Metoprolol [Lopressor] 25 mg PO BID 03/01/17 03/01/17 Previous Rx's Medication Instructions Recorded Ciprofloxacin [Cipro] 500 mg PO BID #20 tablet 03/05/17 Ferrous Sulfate 325 mg PO BID #60 tablet 03/05/17 HYDROcodone/Acet 5/325 mg [[place] 1 tab PO Q6HR PRN #14 tab 03/05/17 5-325 mg] Omeprazole [PriLOSEC] 20 mg PO BIDAC #60 cap 03/05/17 metroNIDAZOLE [Flagyl] 500 mg PO TID #30 tablet 03/05/17 Allergies Allergy/AdvReac Type Severity Reaction Status Date / Time naproxen [From Naprosyn] Allergy Hives Verified 02/25/17 11:12 gabapentin [From Neurontin] AdvReac Hallucinati Verified 02/25/17 11:12 ng orphenadrine [From Norflex] AdvReac Hallucinati Verified 02/25/17 11:12 ng Review of Systems: review of systems are positive for suicidal, homicidal ideations, depression, Past Medical History - Past Medical History Medical history: Reports: asthma, hypertension, kidney stones, migraine, seizures, syncope Surgical history: Reports: appendectomy, arthroscopy, cholecystectomy, orthopedic, other, other Psychiatric history: Reports: anxiety, depression, PTSD, prior suicide attempt, previous psychiatric hospitalization - Social History Smoking Status: Current every day smoker Smokeless Tobacco Status: No Alcohol use: Reports: heavy Drug use: Reports: cocaine, opiates, marijuana, methamphetamine, prescription drug abuse Physical Exam Temperature is 90.8, pulse is 112 and regular, respirations 20, BP is 142/97, pulse ox is 98%, he weighs 88.45 kg. He is alert, he is intoxicated, but is cooperative here. He knows where he is, where he is located he knows the year. He laughs at times appropriately and also cries at times appropriately. Nontoxic in appearance HEENT is normocephalic, PERRL, EOMI, no scleral icterus, mucous membranes are moist, he is edentulous, neck is supple no nodes no meningeal signs. Cardiovascular is tachycardic but regular without rubs or JVD Lungs are clear to auscultation bilaterally with good aeration Abdomen is soft nonsurgical good bowel sounds no masses Dermatologic skin is warm and dry there is no rash petechiae or jaundice signs of tract ramos or acute trauma Neurologic no focal deficits on cranial nerve motor or sensory exam. Psychologic, he has a flat effect, but he will laugh, he is also clinically intoxicated at this time with alcohol. - General Limitations: Present: no limitations General appearance: Present: alert, in no apparent distress Medical Decision Making - [facility] Narrative Medical decision making narrative: He has a [address], a sitter, alcohol and labs. And then once he is sober we will have 1a evaluate him. 2158 hrs.: Patient's ETOH Level is in the mid 400 range. We will have to wait for him to become sober before he can be evaluated by 1-A. patient's other labs are reviewed. He sleeping and resting comfortably at this time. I will sign out his care to the evening ER physician, Dr. Na Ramirez for further management and disposition. - Lab Data Result diagrams: 06/14/17 20:37 06/14/17 20:37 Course Vital Signs Temperature 98 F 06/14/17 20:03 Pulse Rate 112 06/14/17 20:03 Respiratory Rate 20 06/14/17 20:03 Blood Pressure 142/97 06/14/17 20:03 O2 Sat by Pulse Oximetry 98 06/14/17 20:03 Temperature 98 F 06/14/17 20:03 Pulse Rate 112 06/14/17 20:03 Respiratory Rate 20 06/14/17 20:03 Blood Pressure 142/97 06/14/17 20:03 O2 Sat by Pulse Oximetry 98 06/14/17 20:03 Oxygen Delivery Oxygen Delivery Room Air
[2017-06-14 20:45] LABS: Basophils # 0.1 K/mcL (0.0-0.2); Basophils % 2.3 %; Eosinophils # 0.4 K/mcL (0.0-0.6); Eosinophils % 6.7 %; Hematocrit 41.3 % (37.5-50.1); Hemoglobin 14.3 g/dL (12.9-16.9); Lymphocytes # 2.5 K/mcL (0.6-4.6); Lymphocytes % 41.1 %; Mean Corpuscular HGB Conc 34.6 g/dL (31.6-35.5); Mean Corpuscular Hemoglobin 29.2 pg (28.0-33.3); Mean Corpuscular Volume 84.3 fL (83.0-100.0); Mean Platelet Volume 10.9 fL (9.4-12.4); Monocytes # 0.6 K/mcL (0.0-1.3); Monocytes % 9.7 %; Neutrophils # 2.4 K/mcL (1.6-8.9); Platelet Count 201 K/mcL (140-400); Red Cell Distribution Width 16.7 % (11.5-14.5); Segmented Neutrophils % 40.2 %
[2017-06-14 21:02] LABS: Alanine Aminotransferase 50 Units/L (0-55); Albumin 3.6 g/dL (3.5-5.0); Albumin/Globulin Ratio 1.3 (1.1-2.2); Alkaline Phosphatase 122 Units/L (38-126); Aspartate Amino Transferase 94 Units/L (5-34); BUN/Creatinine Ratio 7 (6-26); Bilirubin,Total 0.5 mg/dL (0.2-1.2); Calcium 8.3 mg/dL (8.6-10.8); Carbon Dioxide 17 mEq/L (19-29); Chloride 107 mEq/L (98-109); Ethanol 455 mg/dL (0-10); Globulin 2.8 g/dL (2.4-3.5); Glucose 146 mg/dL (70-99); Osmolality,Calculated 286 (280-300); Potassium 3.8 mEq/L (3.5-4.5); Sodium 138 mEq/L (136-145); Total Protein 6.4 g/dL (6.0-8.3); eGFR For African Americans > 60 (> 60); eGFR For Non-African Americans > 60 (> 60)
[2017-06-14 21:03] LABS: Acetaminophen < 1.0 mcg/mL (10-30); Blood Urea Nitrogen 5 mg/dL (8-26)
[2017-06-14 21:17] LABS: Bilirubin,Urine Negative (Negative); Blood,Urine Negative (Negative); Clarity,Urine Clear (Clear); Color,Urine Yellow (Yellow); Glucose,Urine (UA) Normal (Normal); Ketones,Urine Negative (Negative); Leukocyte Esterase,Urine Negative (Negative); Nitrite,Urine Negative (Negative); PH,Urine 6.5 pH Units (5.0-8.0); Protein,Urine Trace mg/dL (Neg-Trace); Specific Gravity,Urine 1.015 (1.010-1.025); Urobilinogen,Urine Normal (Normal)
[2017-06-14 21:20] LABS: Bacteria,Urine None Seen per hpf (None-Few); Hyaline Casts,Urine None Seen per lpf (None-Few); RBC,Urine 0-3 per hpf (0-3); Squamous Epithelial Cell,Urine Many per lpf (None-Few); WBC,Urine 0-3 per hpf (0-3)
[2017-06-14 21:22] LABS: Amphetamine Screen,Urine Negative ng/mL (Cutoff=1000); Barbiturate Screen,Urine Negative ng/mL (Cutoff=200); Benzodiazepines Screen,Urine Negative ng/mL (Cutoff=200); Cannabinoid Screen,Urine Negative ng/mL (Cutoff = 50); Cocaine Screen,Urine Negative ng/mL (Cutoff= 300); Opiate Screen,Urine Negative ng/mL (Cutoff=300); Phencyclidine Screen,Urine Negative ng/mL (Cutoff=25)
--- NOTE | 2017-06-15 00:22 | Emergency Department Note ---
Disposition Clinical Impression: Suicidal ideation, Alcohol intoxication Disposition: Still a Patient Referrals: NONE,PCP [Primary Care Provider] - General Adult HPI - General Chief complaint: [facility] Psych Stated complaint: hi Time Seen by Provider: 06/14/17 20:20 Source: patient Limitations: no limitations - History of Present Illness Pain Scale: 0 - Related Data Home Medications Medication Instructions Recorded Confirmed Allopurinol [Zyloprim 100 MG] 100 mg PO DAILY 02/25/17 02/25/17 Colchicine [Colcrys] 0.6 mg PO DAILY 02/25/17 02/25/17 Disulfiram [Antabuse] 500 mg PO DAILY 02/25/17 02/25/17 Ondansetron ODT [Zofran ODT] 4 mg PO Q6H PRN 02/25/17 02/25/17 Paroxetine [Paxil] 20 mg PO DAILY 02/25/17 02/25/17 Quetiapine Fumarate [Seroquel] 25 mg PO BID 02/25/17 02/25/17 hydrOXYzine HCl [Hydroxyzine HCl] 50 mg PO HS 02/25/17 02/25/17 Lisinopril [Zestril] 20 mg PO DAILY 03/01/17 03/01/17 Metoprolol [Lopressor] 25 mg PO BID 03/01/17 03/01/17 Previous Rx's Medication Instructions Recorded Ciprofloxacin [Cipro] 500 mg PO BID #20 tablet 03/05/17 Ferrous Sulfate 325 mg PO BID #60 tablet 03/05/17 HYDROcodone/Acet 5/325 mg [[place] 1 tab PO Q6HR PRN #14 tab 03/05/17 5-325 mg] Omeprazole [PriLOSEC] 20 mg PO BIDAC #60 cap 03/05/17 metroNIDAZOLE [Flagyl] 500 mg PO TID #30 tablet 03/05/17 Allergies Allergy/AdvReac Type Severity Reaction Status Date / Time naproxen [From Naprosyn] Allergy Hives Verified 02/25/17 11:12 gabapentin [From Neurontin] AdvReac Hallucinati Verified 02/25/17 11:12 ng orphenadrine [From Norflex] AdvReac Hallucinati Verified 02/25/17 11:12 ng Past Medical History - Past Medical History Medical history: Reports: asthma, hypertension, kidney stones, migraine, seizures, syncope Surgical history: Reports: appendectomy, arthroscopy, cholecystectomy, orthopedic, other, other Psychiatric history: Reports: anxiety, depression, PTSD, prior suicide attempt, previous psychiatric hospitalization - Social History Smoking Status: Current every day smoker Smokeless Tobacco Status: No Alcohol use: Reports: heavy Drug use: Reports: cocaine, opiates, marijuana, methamphetamine, prescription drug abuse Physical Exam - General Limitations: no limitations General appearance: alert, in no apparent distress Course - Reevaluation(s) Reevaluation #1: Patient signed out pending sobriety and psych eval. Patient resting comfortably in bed at this time. Time: 00:22 Reevaluation #2: We will recheck alcohol. Time: 03:17 Reevaluation #3: Alcohol 285. Will be signed out to day shift. Time: 06:00 Vital Signs Temperature 98 F 06/14/17 20:03 Pulse Rate 112 06/14/17 20:03 Respiratory Rate 20 06/14/17 20:03 Blood Pressure 142/97 06/14/17 20:03 O2 Sat by Pulse Oximetry 98 06/14/17 20:03 Temperature 98 F 06/14/17 20:03 Pulse Rate 92 06/15/17 00:21 Respiratory Rate 18 06/15/17 00:21 Blood Pressure 136/88 06/15/17 00:21 O2 Sat by Pulse Oximetry 99 06/15/17 00:21 Oxygen Delivery Oxygen Delivery Room Air Medical Decision Making - Lab Data Result diagrams: 06/14/17 20:37 06/14/17 20:37 Lab Results 06/14/17 06/14/17 06/14/17 Range/Units 20:37 20:37 21:05 WBC 6.0 (4.3-11.1) K/mcL RBC 4.90 (4.19-5.50) M/mcL Hgb 14.3 (12.9-16.9) g/dL Hct 41.3 (37.5-50.1) % MCV 84.3 (83.0-100.0) fL MCH 29.2 (28.0-33.3) pg MCHC 34.6 (31.6-35.5) g/dL RDW 16.7 H (11.5-14.5) % Plt Count 201 (140-400) K/mcL MPV 10.9 (9.4-12.4) fL Immature Gran % 0.0 (0-4) % Seg Neutrophils % 40.2 % Lymphocytes % 41.1 % Monocytes % 9.7 % Eosinophils % 6.7 % Basophils % 2.3 % Neutrophils # 2.4 (1.6-8.9) K/mcL Lymphocytes # 2.5 (0.6-4.6) K/mcL Monocytes # 0.6 (0.0-1.3) K/mcL Eosinophils # 0.4 (0.0-0.6) K/mcL Basophils # 0.1 (0.0-0.2) K/mcL Sodium 138 (136-145) mEq/L Potassium 3.8 (3.5-4.5) mEq/L Chloride 107 (98-109) mEq/L Carbon Dioxide 17 L (19-29) mEq/L BUN 5 L (8-26) mg/dL Creatinine 0.70 L (0.72-1.25) mg/dL Est GFR ( Amer) > 60 (> 60) Est GFR (Non-Af Amer) > 60 (> 60) BUN/Creatinine Ratio 7 (6-26) Glucose 146 H (70-99) mg/dL Calculated Osmolality 286 (280-300) Calcium 8.3 L (8.6-10.8) mg/dL Total Bilirubin 0.5 (0.2-1.2) mg/dL AST 94 H (5-34) Units/L ALT 50 (0-55) Units/L Alkaline Phosphatase 122 (38-126) Units/L Serum Total Protein 6.4 (6.0-8.3) g/dL Albumin 3.6 (3.5-5.0) g/dL Globulin 2.8 (2.4-3.5) g/dL Albumin/Globulin Ratio 1.3 (1.1-2.2) Urine Color Yellow (Yellow) Urine Clarity Clear (Clear) Urine pH 6.5 (5.0-8.0) pH Units Ur Specific [place] 1.015 (1.010-1.025) Urine Protein Trace (Neg-Trace) mg/dL Urine Glucose (UA) Normal (Normal) mg/dL Urine Ketones Negative (Negative) mg/dL Urine Blood Negative (Negative) Urine Nitrite Negative (Negative) Urine Bilirubin Negative (Negative) Urine Urobilinogen Normal (Normal) mg/dL Ur Leukocyte Esterase Negative (Negative) Urine Microscopic RBC 0-3 (0-3) per hpf Urine Microscopic WBC 0-3 (0-3) per hpf Ur Squamous Epith Cells Many H (None-Few) per lpf Urine Bacteria None Seen (None-Few) per hpf Hyaline Casts None Seen (None-Few) per lpf Ur Culture Indicated? NO (NO) Urine Opiates Screen (Zscnuu=380) ng/mL Acetaminophen < 1.0 L (10-30) mcg/mL Ur Barbiturates Screen (Vntdjr=151) ng/mL Ur Phencyclidine Scrn (Cutoff=25) ng/mL Ur Amphetamines Screen (Onhsvy=9315) ng/mL U Benzodiazepines Scrn (Bfbmty=587) ng/mL Urine Cocaine Screen (Cutoff= 300) ng/mL U Marijuana (THC) Screen (Cutoff = 50) ng/mL Ethyl Alcohol 455 H (0-10) mg/dL 06/14/17 06/15/17 Range/Units 21:05 03:25 WBC (4.3-11.1) K/mcL RBC (4.19-5.50) M/mcL Hgb (12.9-16.9) g/dL Hct (37.5-50.1) % MCV (83.0-100.0) fL MCH (28.0-33.3) pg MCHC (31.6-35.5) g/dL RDW (11.5-14.5) % Plt Count (140-400) K/mcL MPV (9.4-12.4) fL Immature Gran % (0-4) % Seg Neutrophils % % Lymphocytes % % Monocytes % % Eosinophils % % Basophils % % Neutrophils # (1.6-8.9) K/mcL Lymphocytes # (0.6-4.6) K/mcL Monocytes # (0.0-1.3) K/mcL Eosinophils # (0.0-0.6) K/mcL Basophils # (0.0-0.2) K/mcL Sodium (136-145) mEq/L Potassium (3.5-4.5) mEq/L Chloride (98-109) mEq/L Carbon Dioxide (19-29) mEq/L BUN (8-26) mg/dL Creatinine (0.72-1.25) mg/dL Est GFR ( Amer) (> 60) Est GFR (Non-Af Amer) (> 60) BUN/Creatinine Ratio (6-26) Glucose (70-99) mg/dL Calculated Osmolality (280-300) Calcium (8.6-10.8) mg/dL Total Bilirubin (0.2-1.2) mg/dL AST (5-34) Units/L ALT (0-55) Units/L Alkaline Phosphatase (38-126) Units/L Serum Total Protein (6.0-8.3) g/dL Albumin (3.5-5.0) g/dL Globulin (2.4-3.5) g/dL Albumin/Globulin Ratio (1.1-2.2) Urine Color (Yellow) Urine Clarity (Clear) Urine pH (5.0-8.0) pH Units Ur Specific [place] (1.010-1.025) Urine Protein (Neg-Trace) mg/dL Urine Glucose (UA) (Normal) mg/dL Urine Ketones (Negative) mg/dL Urine Blood (Negative) Urine Nitrite (Negative) Urine Bilirubin (Negative) Urine Urobilinogen (Normal) mg/dL Ur Leukocyte Esterase (Negative) Urine Microscopic RBC (0-3) per hpf Urine Microscopic WBC (0-3) per hpf Ur Squamous Epith Cells (None-Few) per lpf Urine Bacteria (None-Few) per hpf Hyaline Casts (None-Few) per lpf Ur Culture Indicated? (NO) Urine Opiates Screen Negative (Qudbhz=850) ng/mL Acetaminophen (10-30) mcg/mL Ur Barbiturates Screen Negative (Jozjpt=393) ng/mL Ur Phencyclidine Scrn Negative (Cutoff=25) ng/mL Ur Amphetamines Screen Negative (Irwjck=8554) ng/mL U Benzodiazepines Scrn Negative (Fgunzq=848) ng/mL Urine Cocaine Screen Negative (Cutoff= 300) ng/mL U Marijuana (THC) Screen Negative (Cutoff = 50) ng/mL Ethyl Alcohol 285 H (0-10) mg/dL
--- NOTE | 2017-06-15 07:04 | Emergency Department Note ---
START Narrative - START START: accepted sign out from Dr. Boogie. Patient is homicidial and we are waiting for an appropiate blood alochol level before we can consult 1A. Currently it is 285 whcih was taken at 0300. We will repeat a ETOH at 1200 today. Dilia is cooperative, sleeping, and appropiate at this time
[2017-06-15] MEDS ORDERED: *HR* LORazepam 2 MG/ML VIAL IVP ONE (09:41)
[2017-06-15] MEDS ORDERED: *HR* LORazepam 1 MG TABLET PO ONE (09:47)
[2017-06-15] MEDS ORDERED: Naloxone 0.4 MG/ML INJ IVP PRN (16:15)
[2017-06-15] MEDS ORDERED: Acetaminophen 325 MG TABLET PO PRN (16:15)
[2017-06-15] MEDS ORDERED: *HR* LORazepam 2 MG/ML VIAL IVP PRN ×3 (16:19)
--- NOTE | 2017-06-15 16:25 | Emergency Department Note ---
Disposition Clinical Impression: Suicidal ideation, Alcohol intoxication Disposition: Admitted As Inpatient Condition: Good Referrals: NONE,PCP [Primary Care Provider] - Time of Disposition: 16:25 General Adult HPI - General Chief complaint: [facility] Psych Stated complaint: hi Time Seen by Provider: 06/14/17 20:20 Source: patient Limitations: no limitations - History of Present Illness Pain Scale: 0 - Related Data Home Medications Medication Instructions Recorded Confirmed Allopurinol [Zyloprim 100 MG] 100 mg PO DAILY 02/25/17 02/25/17 Colchicine [Colcrys] 0.6 mg PO DAILY 02/25/17 02/25/17 Disulfiram [Antabuse] 500 mg PO DAILY 02/25/17 02/25/17 Ondansetron ODT [Zofran ODT] 4 mg PO Q6H PRN 02/25/17 02/25/17 Paroxetine [Paxil] 20 mg PO DAILY 02/25/17 02/25/17 Quetiapine Fumarate [Seroquel] 25 mg PO BID 02/25/17 02/25/17 hydrOXYzine HCl [Hydroxyzine HCl] 50 mg PO HS 02/25/17 02/25/17 Lisinopril [Zestril] 20 mg PO DAILY 03/01/17 03/01/17 Metoprolol [Lopressor] 25 mg PO BID 03/01/17 03/01/17 Previous Rx's Medication Instructions Recorded Ciprofloxacin [Cipro] 500 mg PO BID #20 tablet 03/05/17 Ferrous Sulfate 325 mg PO BID #60 tablet 03/05/17 HYDROcodone/Acet 5/325 mg [[place] 1 tab PO Q6HR PRN #14 tab 03/05/17 5-325 mg] Omeprazole [PriLOSEC] 20 mg PO BIDAC #60 cap 03/05/17 metroNIDAZOLE [Flagyl] 500 mg PO TID #30 tablet 03/05/17 Allergies Allergy/AdvReac Type Severity Reaction Status Date / Time naproxen [From Naprosyn] Allergy Hives Verified 02/25/17 11:12 gabapentin [From Neurontin] AdvReac Hallucinati Verified 02/25/17 11:12 ng orphenadrine [From Norflex] AdvReac Hallucinati Verified 02/25/17 11:12 ng Past Medical History - Past Medical History Medical history: Reports: asthma, hypertension, kidney stones, migraine, seizures, syncope Surgical history: Reports: appendectomy, arthroscopy, cholecystectomy, orthopedic, other, other Psychiatric history: Reports: anxiety, depression, PTSD, prior suicide attempt, previous psychiatric hospitalization - Social History Smoking Status: Current every day smoker Smokeless Tobacco Status: No Alcohol use: Reports: heavy Drug use: Reports: cocaine, opiates, marijuana, methamphetamine, prescription drug abuse Physical Exam - General Limitations: no limitations General appearance: alert, in no apparent distress Course - Reevaluation(s) Reevaluation #1: Psychiatry was at down to evaluate the patient. States that they would like him admitted for inpatient psychiatric consult. However, they are unable to monitor for alcohol withdrawal before, so like him admitted medically. I spoke with the hospitalist will admit. Give the patient Ativan and Librium. Time: 16:24 Vital Signs Temperature 98 F 06/14/17 20:03 Pulse Rate 112 06/14/17 20:03 Respiratory Rate 20 06/14/17 20:03 Blood Pressure 142/97 06/14/17 20:03 O2 Sat by Pulse Oximetry 98 06/14/17 20:03 Temperature 98 F 06/14/17 20:03 Pulse Rate 111 06/15/17 13:53 Respiratory Rate 16 06/15/17 13:53 Blood Pressure 158/103 06/15/17 13:53 O2 Sat by Pulse Oximetry 100 06/15/17 13:53 Oxygen Delivery Oxygen Delivery Room Air Medical Decision Making - Lab Data Result diagrams: 06/14/17 20:37 06/14/17 20:37 Lab Results 06/14/17 06/14/17 06/14/17 Range/Units 20:37 20:37 21:05 WBC 6.0 (4.3-11.1) K/mcL RBC 4.90 (4.19-5.50) M/mcL Hgb 14.3 (12.9-16.9) g/dL Hct 41.3 (37.5-50.1) % MCV 84.3 (83.0-100.0) fL MCH 29.2 (28.0-33.3) pg MCHC 34.6 (31.6-35.5) g/dL RDW 16.7 H (11.5-14.5) % Plt Count 201 (140-400) K/mcL MPV 10.9 (9.4-12.4) fL Immature Gran % 0.0 (0-4) % Seg Neutrophils % 40.2 % Lymphocytes % 41.1 % Monocytes % 9.7 % Eosinophils % 6.7 % Basophils % 2.3 % Neutrophils # 2.4 (1.6-8.9) K/mcL Lymphocytes # 2.5 (0.6-4.6) K/mcL Monocytes # 0.6 (0.0-1.3) K/mcL Eosinophils # 0.4 (0.0-0.6) K/mcL Basophils # 0.1 (0.0-0.2) K/mcL Sodium 138 (136-145) mEq/L Potassium 3.8 (3.5-4.5) mEq/L Chloride 107 (98-109) mEq/L Carbon Dioxide 17 L (19-29) mEq/L BUN 5 L (8-26) mg/dL Creatinine 0.70 L (0.72-1.25) mg/dL Est GFR ( Amer) > 60 (> 60) Est GFR (Non-Af Amer) > 60 (> 60) BUN/Creatinine Ratio 7 (6-26) Glucose 146 H (70-99) mg/dL Calculated Osmolality 286 (280-300) Calcium 8.3 L (8.6-10.8) mg/dL Total Bilirubin 0.5 (0.2-1.2) mg/dL AST 94 H (5-34) Units/L ALT 50 (0-55) Units/L Alkaline Phosphatase 122 (38-126) Units/L Serum Total Protein 6.4 (6.0-8.3) g/dL Albumin 3.6 (3.5-5.0) g/dL Globulin 2.8 (2.4-3.5) g/dL Albumin/Globulin Ratio 1.3 (1.1-2.2) Urine Color Yellow (Yellow) Urine Clarity Clear (Clear) Urine pH 6.5 (5.0-8.0) pH Units Ur Specific [place] 1.015 (1.010-1.025) Urine Protein Trace (Neg-Trace) mg/dL Urine Glucose (UA) Normal (Normal) mg/dL Urine Ketones Negative (Negative) mg/dL Urine Blood Negative (Negative) Urine Nitrite Negative (Negative) Urine Bilirubin Negative (Negative) Urine Urobilinogen Normal (Normal) mg/dL Ur Leukocyte Esterase Negative (Negative) Urine Microscopic RBC 0-3 (0-3) per hpf Urine Microscopic WBC 0-3 (0-3) per hpf Ur Squamous Epith Cells Many H (None-Few) per lpf Urine Bacteria None Seen (None-Few) per hpf Hyaline Casts None Seen (None-Few) per lpf Ur Culture Indicated? NO (NO) Urine Opiates Screen (Fjjnay=766) ng/mL Acetaminophen < 1.0 L (10-30) mcg/mL Ur Barbiturates Screen (Aeaetg=454) ng/mL Ur Phencyclidine Scrn (Cutoff=25) ng/mL Ur Amphetamines Screen (Utnytn=9418) ng/mL U Benzodiazepines Scrn (Ylksym=457) ng/mL Urine Cocaine Screen (Cutoff= 300) ng/mL U Marijuana (THC) Screen (Cutoff = 50) ng/mL Ethyl Alcohol 455 H (0-10) mg/dL 06/14/17 06/15/17 06/15/17 Range/Units 21:05 03:25 12:15 WBC (4.3-11.1) K/mcL RBC (4.19-5.50) M/mcL Hgb (12.9-16.9) g/dL Hct (37.5-50.1) % MCV (83.0-100.0) fL MCH (28.0-33.3) pg MCHC (31.6-35.5) g/dL RDW (11.5-14.5) % Plt Count (140-400) K/mcL MPV (9.4-12.4) fL Immature Gran % (0-4) % Seg Neutrophils % % Lymphocytes % % Monocytes % % Eosinophils % % Basophils % % Neutrophils # (1.6-8.9) K/mcL Lymphocytes # (0.6-4.6) K/mcL Monocytes # (0.0-1.3) K/mcL Eosinophils # (0.0-0.6) K/mcL Basophils # (0.0-0.2) K/mcL Sodium (136-145) mEq/L Potassium (3.5-4.5) mEq/L Chloride (98-109) mEq/L Carbon Dioxide (19-29) mEq/L BUN (8-26) mg/dL Creatinine (0.72-1.25) mg/dL Est GFR ( Amer) (> 60) Est GFR (Non-Af Amer) (> 60) BUN/Creatinine Ratio (6-26) Glucose (70-99) mg/dL Calculated Osmolality (280-300) Calcium (8.6-10.8) mg/dL Total Bilirubin (0.2-1.2) mg/dL AST (5-34) Units/L ALT (0-55) Units/L Alkaline Phosphatase (38-126) Units/L Serum Total Protein (6.0-8.3) g/dL Albumin (3.5-5.0) g/dL Globulin (2.4-3.5) g/dL Albumin/Globulin Ratio (1.1-2.2) Urine Color (Yellow) Urine Clarity (Clear) Urine pH (5.0-8.0) pH Units Ur Specific [place] (1.010-1.025) Urine Protein (Neg-Trace) mg/dL Urine Glucose (UA) (Normal) mg/dL Urine Ketones (Negative) mg/dL Urine Blood (Negative) Urine Nitrite (Negative) Urine Bilirubin (Negative) Urine Urobilinogen (Normal) mg/dL Ur Leukocyte Esterase (Negative) Urine Microscopic RBC (0-3) per hpf Urine Microscopic WBC (0-3) per hpf Ur Squamous Epith Cells (None-Few) per lpf Urine Bacteria (None-Few) per hpf Hyaline Casts (None-Few) per lpf Ur Culture Indicated? (NO) Urine Opiates Screen Negative (Xauqen=499) ng/mL Acetaminophen (10-30) mcg/mL Ur Barbiturates Screen Negative (Vysmtg=978) ng/mL Ur Phencyclidine Scrn Negative (Cutoff=25) ng/mL Ur Amphetamines Screen Negative (Etpulc=5472) ng/mL U Benzodiazepines Scrn Negative (Qjbybb=330) ng/mL Urine Cocaine Screen Negative (Cutoff= 300) ng/mL U Marijuana (THC) Screen Negative (Cutoff = 50) ng/mL Ethyl Alcohol 285 H 66 H (0-10) mg/dL
--- NOTE | 2017-06-15 16:45 | Internal Med History&Physical ---
Date of Encounter: 06/15/17 Time of Encounter: 16:30 Assessment and Plan (1) Alcohol withdrawal Current visit: Yes Status: Acute Patient in acute alcohol withdrawal. Currently not delirious but at high risk of developing delirium tremens. We will treat with CIWA protocol. This patient in hospital for observation. IV hydration. Intravenous Ativan as needed. Scheduled Librium. Qualifiers: Complication of substance-induced condition: uncomplicated Qualified Code(s ): F10.230 - Alcohol dependence with withdrawal, uncomplicated (2) Suicidal ideation Current visit: Yes Status: Acute Patient exhibits suicidal ideation. Psychiatry has been consulted. We will follow recommendations. Patient will most likely need placement to psychiatric unit once alcohol withdrawal clears. (3) Essential hypertension Current visit: Yes Status: Chronic Continue lisinopril and metoprolol. Blood pressure is currently elevated due to withdrawal. (4) Alcohol dependence Current visit: No Status: Chronic Chronic alcohol abuse. Treat supportively. Monitor for withdrawal. Dextrose solution infusion along with thiamine and folic acid. Qualifiers: Substance use status: with intoxication Complication of substance-induced condition: uncomplicated Qualified Code(s): F10.220 - Alcohol dependence with intoxication, uncomplicated (5) COPD (chronic obstructive pulmonary disease) Current visit: Yes Status: Chronic Not in acute exacerbation. We will treat with bronchodilators as needed. Qualifiers: COPD type: chronic bronchitis Chronic bronchitis type: simple Qualified Code(s): J41.0 - Simple chronic bronchitis (6) Recurrent major depressive disorder Current visit: Yes Status: Acute Patient with history of depression presenting with acute episode of severe depression and suicidal ideation. We will consult psychiatric. Continue Seroquel and paroxetine. Qualifiers: Active/Remission status: currently active Major depression episode severity : moderate Qualified Code(s): F33.1 - Major depressive disorder, recurrent, moderate (7) Tobacco abuse Current visit: Yes Status: Chronic Internal Medicine - H&P: HPI Chief complaint: Alcohol withdrawal and suicidal ideation Admitted From: Emergency Dept Plans for Post Hospital Care: Home History of present illness: Mr. Doe is a 41 year old male patient with a history of depression, alcohol abuse, essential hypertension, prior GI bleed presented to the ER with complaints of suicidal ideation and depression. He reportedly gets depressed during this time every year as it coincides with the time when his family members had . He had been drinking alcohol heavily till yesterday afternoon. He came to the ER this afternoon and has been there pending psychiatric evaluation. He has been having increased anxiety and tremor since this morning. He denies any hallucinations. No discomfort in of nausea. No abdominal pain or hematemesis. Patient had been admitted here in February for her GI bleed. He says those symptoms had completely subsided since then. Denies any fever or chills. Past Med Surg Social Fam HX - Past Medical History Attestation: Yes The following information was validated with the patient. Source: patient Medical history: asthma, GI bleed, hypertension, kidney stones, migraine, seizures, syncope Psychiatric history: anxiety, depression, PTSD, prior suicide attempt, previous psychiatric hospitalization - Past Surgical History Surgical History: appendectomy, arthroscopy, cholecystectomy, orthopedic, other , other - Social History Smoking Status: Current every day smoker Smokeless Tobacco Status: No Alcohol use: heavy Drug use: cocaine, opiates, marijuana, methamphetamine, prescription drug abuse - Additional Family History Additional family history: Family history reviewed and found to be noncontributory at this time Internal Medicine - H&P: Meds Allopurinol [Zyloprim 100 MG] 100 mg PO DAILY 02/25/17 [History] Colchicine [Colcrys] 0.6 mg PO DAILY 02/25/17 [History] Disulfiram [Antabuse] 500 mg PO DAILY 02/25/17 [History] Ondansetron ODT [Zofran ODT] 4 mg PO Q6H PRN 02/25/17 [History] Paroxetine [Paxil] 20 mg PO DAILY 02/25/17 [History] Quetiapine Fumarate [Seroquel] 25 mg PO BID 02/25/17 [History] hydrOXYzine HCl [Hydroxyzine HCl] 50 mg PO HS 02/25/17 [History] Lisinopril [Zestril] 20 mg PO DAILY 03/01/17 [History] Metoprolol [Lopressor] 25 mg PO BID 03/01/17 [History] Ciprofloxacin [Cipro] 500 mg PO BID #20 tablet 03/05/17 [Rx] Ferrous Sulfate 325 mg PO BID #60 tablet 03/05/17 [Rx] HYDROcodone/Acet 5/325 mg [[place] 5-325 mg] 1 tab PO Q6HR PRN #14 tab 03/05/17 [ Rx] Omeprazole [PriLOSEC] 20 mg PO BIDAC #60 cap 03/05/17 [Rx] metroNIDAZOLE [Flagyl] 500 mg PO TID #30 tablet 03/05/17 [Rx] 3 Allergy/AdvReac Type Severity Reaction Status Date / Time naproxen [From Naprosyn] Allergy Hives Verified 06/15/17 16:27 gabapentin [From Neurontin] AdvReac Hallucinati Verified 06/15/17 16:27 ng orphenadrine [From Norflex] AdvReac Hallucinati Verified 06/15/17 16:27 ng All Systems PM: A 10-system review of systems was performed and is negative for pertinent findings except as documented above in the HPI. - Constitutional Constitutional: no chills, no fever(s), no night sweats - EENT Eyes: no change in vision, no discharge, no pain, no photophobia Ears: no ear discharge, no ear pain, no tinnitus Nose, mouth and throat: no dysphagia, no nasal discharge, no neck pain, no sore throat - Cardiovascular Cardiovascular ROS IM: no chest pain, no diaphoresis, no dyspnea, no lightheadedness, no palpitations, no syncope - Respiratory Respiratory: no cough, no dyspnea, no wheezing, no excessive phlegm production - Gastrointestinal Gastrointestinal: nausea, no abdominal pain, no diarrhea, no hematemesis, no hematochezia, no melena, no vomiting - Musculoskeletal Musculoskeletal ROS IM: no numbness, no tingling - Integumentary Integumentary IM: no rash, no unusual bruising - Neurological Neurological ROS: no confusion, no convulsions, no focal weakness, no numbness, no tingling, no tremor(s) - Psychiatric Psychiatric: anxiety, depression, suicidal ideation - Hematologic/Lymphatic Hematologic/Lymphatic: no easy bruising - Constitutional Vitals: Temp Pulse Resp BP Pulse Ox 98 F 111 16 158/103 100 06/14/17 20:03 06/15/17 13:53 06/15/17 13:53 06/15/17 13:53 06/15/17 13:53 General appearance: Present: cooperative, mild distress, A&O X 3, answers questions appropriately - Neck Neck exam general surgery: Present: supple, trachea midline. Absent: lymphadenopathy - Respiratory Respiratory exam: Present: CTAB. Absent: accessory muscle use, rales, rhonchi, wheezes - Cardiovascular Cardiovascular exam: Present: RRR, +S1, +S2. Absent: diastolic murmur, gallop, rubs, systolic murmur - GI/Abdominal GI/Abdominal exam: Present: normal bowel sounds, soft, tenderness (Epigastric), no peritoneal signs. Absent: distended - Extremities Exam Extremities exam: Present: warm, radial pulses palpable and symmetrical. Absent : calf tenderness, cyanotic, pedal edema - Neurological Exam Neurological exam: Present: CN II-XII intact, oriented X3, no focal deficits. Absent: facial droop, speech deficit Additional comments: Tremors - Psychiatric Psychiatric exam: Present: anxious, depressed, flat affect, suicidal ideation - Skin Skin exam: Present: dry, intact Internal Med - H&P Results - Labs CBC & Chem 7: 06/14/17 20:37 06/14/17 20:37
[2017-06-15] MEDS ORDERED: Ipratropium/Albuterol Neb 3 ML IH PRN (16:52)
[2017-06-15] MEDS: D5% in 0.45% NACL 1,000 ML IVC SCH (17:21)
[2017-06-15] MEDS: *HR* Heparin 5,000 UNIT/ML VIAL SQ SCH (17:22)
[2017-06-15] MEDS: Thiamine (B-1) 100 MG, Folic Acid 1 MG, MVI, adult with vitamin K 10 ML in 0.9 % Sodi... IVPB SCH (18:31)
[2017-06-15] MEDS: *HR* HYDROcodone/Acet 5/325 mg TABLET PO PRN (18:40)
[2017-06-15] MEDS: hydrOXYzine pamoate 25 MG CAPSULE PO SCH (20:46)
[2017-06-16 04:55] LABS: Alanine Aminotransferase 35 Units/L (0-55); Albumin 2.9 g/dL (3.5-5.0); Albumin/Globulin Ratio 1.3 (1.1-2.2); Alkaline Phosphatase 95 Units/L (38-126); Aspartate Amino Transferase 45 Units/L (5-34); BUN/Creatinine Ratio 11 (6-26); Bilirubin,Total 1.3 mg/dL (0.2-1.2); Blood Urea Nitrogen 7 mg/dL (8-26); Calcium 8.1 mg/dL (8.6-10.8); Carbon Dioxide 23 mEq/L (19-29); Chloride 103 mEq/L (98-109); Globulin 2.3 g/dL (2.4-3.5); Glucose 76 mg/dL (70-99); Osmolality,Calculated 275 (280-300); Sodium 134 mEq/L (136-145); Total Protein 5.2 g/dL (6.0-8.3); eGFR For African Americans > 60 (> 60); eGFR For Non-African Americans > 60 (> 60)
[2017-06-16] MEDS: *HR* Heparin 5,000 UNIT/ML VIAL SQ SCH ×2 (05:09→17:38)
[2017-06-16] MEDS: *HR* HYDROcodone/Acet 5/325 mg TABLET PO PRN ×2 (05:14→19:50)
[2017-06-16] MEDS: Folic Acid 1 MG TABLET PO SCH (08:08)
[2017-06-16] MEDS: Lisinopril 20 MG TABLET PO SCH (08:08)
[2017-06-16] MEDS: Thiamine (B-1) 100 MG TABLET PO SCH (08:09)
[2017-06-16] MEDS: Colchicine 0.6 MG TABLET PO SCH (08:09)
[2017-06-16] MEDS: D5% in 0.45% NACL 1,000 ML IVC SCH (11:19)
[2017-06-16] MEDS: Nicotine 21 MG PATCH.TD24 TD SCH (11:20)
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
--- NOTE | 2017-06-16 16:52 | Discharge Summary ---
Date of Encounter: 06/16/17 Time of Encounter: 16:50 - Discharge Diagnosis (1) Alcohol withdrawal Priority: Primary Status: Acute Qualifiers: Complication of substance-induced condition: uncomplicated Qualified Code(s ): F10.230 - Alcohol dependence with withdrawal, uncomplicated (2) Suicidal ideation Priority: Secondary Status: Acute (3) Essential hypertension Priority: Secondary Status: Chronic (4) Alcohol dependence Priority: Secondary Status: Chronic Qualifiers: Substance use status: with intoxication Complication of substance-induced condition: uncomplicated Qualified Code(s): F10.220 - Alcohol dependence with intoxication, uncomplicated (5) COPD (chronic obstructive pulmonary disease) Priority: Secondary Status: Chronic Qualifiers: COPD type: chronic bronchitis Chronic bronchitis type: simple Qualified Code(s): J41.0 - Simple chronic bronchitis (6) Recurrent major depressive disorder Priority: Secondary Status: Acute Qualifiers: Active/Remission status: currently active Major depression episode severity : moderate Qualified Code(s): F33.1 - Major depressive disorder, recurrent, moderate (7) Tobacco abuse Priority: Secondary Status: Chronic - Discharge Medications Home Medications: Allopurinol [Zyloprim 100 MG] 100 mg PO DAILY 02/25/17 [History] Disulfiram [Antabuse] 250 mg PO DAILY 02/25/17 [History] Ondansetron ODT [Zofran ODT] 4 mg PO Q6H PRN 02/25/17 [History] Quetiapine Fumarate [Seroquel] 25 mg PO HS PRN 02/25/17 [History] hydrOXYzine HCl [Hydroxyzine HCl] 50 mg PO HS PRN 02/25/17 [History] Metoprolol [Lopressor] 25 mg PO BID 03/01/17 [History] BuPROPion XL (24 HR) [Wellbutrin Xl] 150 mg PO DAILY 06/15/17 [History] Indomethacin 50 mg PO BID 06/15/17 [History] Omeprazole [PriLOSEC] 20 mg PO DAILY 06/15/17 [History] Paroxetine [Paxil] 30 mg PO DAILY 06/15/17 [History] Quetiapine Fumarate [Seroquel] 100 mg PO HS 06/15/17 [History] Lisinopril-HCTZ 20-12.5 [Prinzide 20-12.5] 1 tab PO DAILY 06/16/17 [History] Allergies/Adverse Reactions: 3 Allergy/AdvReac Type Severity Reaction Status Date / Time naproxen [From Naprosyn] Allergy Hives Verified 06/15/17 17:22 gabapentin [From Neurontin] AdvReac Hallucinati Verified 06/15/17 17:22 ng orphenadrine [From Norflex] AdvReac Hallucinati Verified 06/15/17 17:22 ng Date of admission: 06/15/17 16:28 Primary care physician: PCP NONE Consults: 06/15/17 18:14 Consult to Loader Engineer [CONS] Routine Reason for SW Consult: SI, ETOH abuse Discharging clinician: Pamela Nunez Anticipated date of discharge: 06/17/17 - Patient Status Disposition: Transfer Psychiatric Hosp Condition: Good Functional capacity at discharge: independent ambulation Overall status at discharge: patient is progressing back to baseline - Discharge Instructions Follow Up With: NONE,PCP [Primary Care Provider] - - Diet and Activity Diet: low fat, low cholesterol, low salt diet Hospital course: Mr. Doe is a 41 year old male patient with a history of major depression and alcohol dependence was seen in the ER initially for suicidal ideation. At that time he was severely intoxicated. He was placed on psychiatric hold and monitored in the ER overnight. The next morning he experienced signs of alcohol withdrawal. As such he was placed in the hospital for observation and treatment of alcohol withdrawal. He was placed on Ativan and Librium to treat per [facility] protocol. His symptoms have since improved. He has not required any doses of Ativan today. He has been evaluated by psychiatry and recommended placement to inpatient psych unit. Patient will be discharged to psych unit whenever bed is available for him. - Time Spent with Patient Total time spent providing and/or coordinating discharge services: Less than 30 minutes (25 min) - Constitutional Vitals: Temp Pulse Resp BP Pulse Ox 98.4 F 74 16 110/74 99 06/16/17 12:05 06/16/17 12:05 06/16/17 12:05 06/16/17 12:05 06/16/17 12:05 General appearance: Present: cooperative, A&O X 3, pleasant, no acute distress, answers questions appropriately - Neck Neck exam general surgery: Present: supple, trachea midline. Absent: lymphadenopathy - Respiratory Respiratory exam: Present: CTAB. Absent: accessory muscle use, rales, rhonchi, wheezes - Cardiovascular Cardiovascular exam: Present: RRR, +S1, +S2. Absent: diastolic murmur, gallop, rubs, systolic murmur - Extremities Exam Extremities exam: Present: warm, radial pulses palpable and symmetrical. Absent : calf tenderness, cyanotic, pedal edema - Neurological Exam Neurological exam: Present: CN II-XII intact, oriented X3, no focal deficits. Absent: facial droop, speech deficit Additional comments: mild tremors - Psychiatric Psychiatric exam: Present: depressed, suicidal ideation
[2017-06-16] MEDS: Thiamine (B-1) 100 MG, Folic Acid 1 MG, MVI, adult with vitamin K 10 ML in 0.9 % Sodi... IVPB SCH (17:38)
[2017-06-16 19:01] LABS: Basophils # 0.1 K/mcL (0.0-0.2); Basophils % 1.2 %; Eosinophils # 0.3 K/mcL (0.0-0.6); Eosinophils % 5.9 %; Hematocrit 32.8 % (37.5-50.1); Hemoglobin 10.7 g/dL (12.9-16.9); Immature Granulocytes % 0.2 % (0-4); Immature Platelets 10.6 % (1.1-6.1); Lymphocytes # 1.2 K/mcL (0.6-4.6); Lymphocytes % 29.1 %; Mean Corpuscular HGB Conc 32.6 g/dL (31.6-35.5); Mean Corpuscular Hemoglobin 28.9 pg (28.0-33.3); Mean Corpuscular Volume 88.6 fL (83.0-100.0); Mean Platelet Volume 12.1 fL (9.4-12.4); Monocytes # 0.5 K/mcL (0.0-1.3); Monocytes % 11.8 %; Neutrophils # 2.2 K/mcL (1.6-8.9); Platelet Count 113 K/mcL (140-400); Red Cell Distribution Width 16.2 % (11.5-14.5); Segmented Neutrophils % 51.8 %
[2017-06-16] MEDS: hydrOXYzine pamoate 25 MG CAPSULE PO SCH (22:03)
[2017-06-17 04:02] LABS: Basophils % 0.6 %; Eosinophils # 0.3 K/mcL (0.0-0.6); Eosinophils % 5.8 %; Hematocrit 30.7 % (37.5-50.1); Hemoglobin 10.2 g/dL (12.9-16.9); Immature Granulocytes % 0.4 % (0-4); Immature Platelets 11.6 % (1.1-6.1); Lymphocytes # 1.5 K/mcL (0.6-4.6); Lymphocytes % 31.3 %; Mean Corpuscular HGB Conc 33.2 g/dL (31.6-35.5); Mean Corpuscular Hemoglobin 29.4 pg (28.0-33.3); Mean Corpuscular Volume 88.5 fL (83.0-100.0); Mean Platelet Volume 12.1 fL (9.4-12.4); Monocytes # 0.5 K/mcL (0.0-1.3); Monocytes % 10.1 %; Neutrophils # 2.4 K/mcL (1.6-8.9); Platelet Count 100 K/mcL (140-400); Red Blood Count 3.47 M/mcL (4.19-5.50); Red Cell Distribution Width 16.5 % (11.5-14.5); Segmented Neutrophils % 51.8 %
[2017-06-17 04:13] LABS: BUN/Creatinine Ratio 10 (6-26); Blood Urea Nitrogen 6 mg/dL (8-26); Calcium 7.9 mg/dL (8.6-10.8); Carbon Dioxide 21 mEq/L (19-29); Chloride 113 mEq/L (98-109); Glucose 82 mg/dL (70-99); Osmolality,Calculated 281 (280-300); Potassium 3.3 mEq/L (3.5-4.5); Sodium 137 mEq/L (136-145); eGFR For African Americans > 60 (> 60); eGFR For Non-African Americans > 60 (> 60)
[2017-06-17] MEDS: *HR* Heparin 5,000 UNIT/ML VIAL SQ SCH (05:17)
[2017-06-17] MEDS: *HR* HYDROcodone/Acet 5/325 mg TABLET PO PRN (05:19)
[2017-06-17] MEDS ORDERED: Thiamine (B-1) 100 MG, Folic Acid 1 MG, MVI, adult with vitamin K 10 ML in 0.9 % Sodi... IVPB SCH (07:38)
[2017-06-17] MEDS ORDERED: Thiamine (B-1) 100 MG, Folic Acid 1 MG, MVI, adult with vitamin K 10 ML in 0.9 % Sodi... IVPB ONE (08:30)
[2017-06-17] MEDS: Colchicine 0.6 MG TABLET PO SCH (08:40)
[2017-06-17] MEDS: Folic Acid 1 MG TABLET PO SCH (08:40)
[2017-06-17] MEDS: Lisinopril 20 MG TABLET PO SCH (08:40)
[2017-06-17] MEDS: Nicotine 21 MG PATCH.TD24 TD SCH (08:41)
[2017-06-17] MEDS: Thiamine (B-1) 100 MG TABLET PO SCH (08:41)
[2017-06-17] MEDS ORDERED: Ondansetron 4 MG/2 ML VIAL IVP ONE (10:26)
[2017-06-17 10:47] VITALS: BP 107/71
--- NOTE | 2017-06-17 14:10 | Internal Med Progress Note ---
Date of Encounter: 06/17/17 Time of Encounter: 10:15 - Assessment and plan (1) Alcohol dependence Current Visit: Yes Status: Chronic Assessment and plan: She reports daily alcohol intake. He reports increase over the last 2 weeks due to he states he always has a hard time in May due to the of both his mother and grandmother one year apart in May. He has been treated with banana bags 3. He denies any withdrawal symptoms at this time. He is no longer requiring Ativan for CIWA protocol. Qualifiers: Substance use status: with intoxication Complication of substance-induced condition: uncomplicated Qualified Code(s): F10.220 - Alcohol dependence with intoxication, uncomplicated (2) Suicidal ideation Current Visit: Yes Status: Acute Assessment and plan: Patient denies today. He is, however, ready to go to mental health unit for stabilization. (3) Recurrent major depressive disorder Current Visit: Yes Status: Acute Assessment and plan: Continue home medications. Patient is going to inpatient mental health unit in this facility today. He has been seen by psychiatry, they recommended inpatient admission. Medications were readjusted while he is there. Qualifiers: Active/Remission status: currently active Major depression episode severity : moderate Qualified Code(s): F33.1 - Major depressive disorder, recurrent, moderate (4) Alcohol intoxication Current Visit: Yes Status: Resolved Qualifiers: Complication of substance-induced condition: uncomplicated Qualified Code(s ): F10.920 - Alcohol use, unspecified with intoxication, uncomplicated (5) Tobacco abuse Current Visit: Yes Status: Chronic Assessment and plan: Patient reports smoking one half pack per day. If the nicotine patch. He says he is not ready to stop smoking yet. (6) Anemia Current Visit: No Status: Chronic Assessment and plan: Hemoglobin today is 10.2. Patient is chronically anemic, most likely due to poor dietary intake and chronic alcoholism. He is above his baseline since February. Qualifiers: Anemia type: other cause Other causes of anemia: acute posthemorrhagic Qualified Code(s): D62 - Acute posthemorrhagic anemia (7) Essential hypertension Current Visit: Yes Status: Chronic Assessment and plan: Well controlled. Continue home medication. (8) Alcohol withdrawal Current Visit: Yes Status: Acute Assessment and plan: Patient was in acute alcohol withdrawal on admission. He did not have any symptoms of delirium tremens. He was treated with CIWA protocol. He was treated with IV hydration, vitamin supplement supplementation. Scheduled Librium. He is no longer requiring Ativan for the CIWA protocol. He is stable for admission to inpatient mental health unit. Qualifiers: Complication of substance-induced condition: uncomplicated Qualified Code(s ): F10.230 - Alcohol dependence with withdrawal, uncomplicated - Time Spent With Patient less than 15 minutes - Subjective Interval history: Pt was seen and assessd at 1015 this a.m. Pt was alert and oriented and states that he is feeling better, though reports mild nausea that was resolved with Zofran ODT. He is ready to go to [facility] and states that he is still having auditory hallucinations. He states that there are multiple voices, both male and female, talking all at once and he can not tell what any one in particular is saying. He denies visual hallucinations. - Constitutional Vitals: Temp Pulse Resp BP Pulse Ox 97.9 F 72 16 107/71 98 06/17/17 10:47 06/17/17 10:47 06/17/17 10:47 06/17/17 10:47 06/17/17 10:47 General appearance: Present: cooperative, A&O X 3, pleasant, no acute distress, answers questions appropriately - Head Head exam: Present: atraumatic, normocephalic - Eye Eye exam: Present: normal appearance, conjuntiva pink, sclera anicteric - Neck Neck exam general surgery: Present: supple, trachea midline. Absent: lymphadenopathy, tenderness - Respiratory Respiratory exam: Present: CTAB. Absent: accessory muscle use, chest wall tenderness, rales, respiratory distress, rhonchi, wheezes - Cardiovascular Cardiovascular exam: Present: RRR, +S1, +S2. Absent: diastolic murmur, gallop, rubs, systolic murmur - GI/Abdominal GI/Abdominal exam: Present: normal bowel sounds, soft, no peritoneal signs. Absent: distended, hepatomegaly, tenderness - Extremities Exam Extremities exam: Present: warm, radial pulses palpable and symmetrical. Absent : calf tenderness, cyanotic, pedal edema - Neurological Exam Neurological exam: Present: alert, oriented X3, no focal deficits. Absent: facial droop, speech deficit - Psychiatric Psychiatric exam: Present: normal affect. Absent: anxious - Expanded Psychiatric Exam Focused psych exam: Absent: delusional, restlessness - Skin Skin exam: Present: dry, intact, normal color, warm. Absent: rash Internal Medicine: Result - Labs CBC & Chem 7: 06/17/17 03:50 06/17/17 03:50 Labs: Short CBC 06/16/17 06/17/17 Range/Units 18:10 03:50 WBC 4.2 L 4.7 (4.3-11.1) K/mcL Hgb 10.7 L D 10.2 L (12.9-16.9) g/dL Hct 32.8 L 30.7 L (37.5-50.1) % Plt Count 113 L 100 L (140-400) K/mcL Neutrophils # 2.2 2.4 (1.6-8.9) K/mcL BMP 06/17/17 03:50 Sodium 137 Potassium 3.3 L Chloride 113 H Carbon Dioxide 21 BUN 6 L Creatinine 0.61 L Glucose 82 Calcium 7.9 L Consult Discharge Plan - Plan Referrals: NONE,PCP [Primary Care Provider] -
== END 2017-06-17 14:35 ==
LOC: 3BNU 19:56 → EMEROO 19:56 → SUATTDRO 06-15 16:28 → 3BNU 06-15 17:40
PROVIDERS: ADMIT Internal Medicine; ATTEND Internal Medicine

== ENCOUNTER 2017-06-17 14:39 | Inpatient (IN) ==
[2017-06-17] MEDS ORDERED: traZODone 50 MG TABLET PO PRN (16:10)
[2017-06-17] MEDS ORDERED: *HR* LORazepam 2 MG/ML VIAL IM PRN (16:10)
[2017-06-17] MEDS ORDERED: MOM Conc 10 ML UD.LIQ PO PRN (16:10)
[2017-06-17] MEDS ORDERED: Haloperidol Lactate 5 MG/ML VIAL IM PRN (16:10)
[2017-06-17] MEDS ORDERED: hydrOXYzine pamoate 25 MG CAPSULE PO PRN (16:10)
[2017-06-17] MEDS ORDERED: *HR* LORazepam 1 MG TABLET PO PRN (16:10)
[2017-06-17] MEDS ORDERED: Mag Hydrox/Al Hydrox/Simeth 30 ML UDC PO PRN (16:10)
[2017-06-18] MEDS: Acetaminophen 325 MG TABLET PO PRN (08:51)
--- NOTE | 2017-06-18 11:46 | Psychiatry History & Physical ---
Date of Encounter: 06/18/17 Time of Encounter: 11:40 History of Present Illness Patient Stated Chief Complaint: suicidal ideation Medicare Admission Attestation: For traditional Medicare patients the provided hospital inpatient services are reasonable and necessary and in the case of services not specified as inpatient -only under 42 CFR 419.22 (n), that they are appropriately provided as inpatient services in accordance 42 CFR 412.3. For Critical Access Hospital the patient may reasonably be expected to be discharged or transferred to a hospital within 96 hours after admission to the Critical Access Hospital. Admitted From: Intrahospital Transfer Plans for Post Hospital Care: Home History of Present Illness: Mr. Doe is a 41 year old male who was admitted medically due to alcohol withdrawal. Endorsed SI at time of presentation. Once medically stable he was transferred to . Please see this ticket writer's consult for more details. Today client reports SI off and on. Seems attached to the idea of staying in the hospital. Reports May is always a tough month for him due to experiencing multiple losses in past . Staff here are familiar with him from prior admissions. Staff report client is noncompliant with outpatient referrals. Multiple Vivitrol appointments have been made that client has not shown for. Currently lives with a roommate who is emotionally dependent on him. However, client reports their relationship works and that his friend is sober and a good support for his sobriety. Client claims he was started on [place] and Seroquel upstairs. Will review orders and titrate meds for clinical effect. Client did say he is passing a kidney stone. History of kidney stones. Some blood on undergarments. Client reports pain but thinks the stone may have passed so hopefully his pain will dissipate quickly. Past Med Surg Social Fam HX - Past Medical History Medical history: asthma, GI bleed, hypertension, kidney stones, migraine, seizures, syncope - Past Psychiatric History Psychiatric history: Reports: depression, previous psychiatric hospitalization Family psychiatric history: Unknown Family History of Suicide: Unknown - Past Surgical History Surgical History: appendectomy, arthroscopy, cholecystectomy, orthopedic, other , other - Social History Smoking Status: Current every day smoker Smokeless Tobacco Status: No Alcohol use: heavy Drug use: cocaine, opiates, marijuana, methamphetamine, prescription drug abuse Medications & Allergies Allopurinol [Zyloprim 100 MG] 100 mg PO DAILY 02/25/17 [History] Disulfiram [Antabuse] 250 mg PO DAILY 02/25/17 [History] Ondansetron ODT [Zofran ODT] 4 mg PO Q6H PRN 02/25/17 [History] Quetiapine Fumarate [Seroquel] 25 mg PO HS PRN 02/25/17 [History] hydrOXYzine HCl [Hydroxyzine HCl] 50 mg PO HS PRN 02/25/17 [History] Metoprolol [Lopressor] 25 mg PO BID 03/01/17 [History] BuPROPion XL (24 HR) [Wellbutrin Xl] 150 mg PO DAILY 06/15/17 [History] Indomethacin 50 mg PO BID 06/15/17 [History] Omeprazole [PriLOSEC] 20 mg PO DAILY 06/15/17 [History] Paroxetine [Paxil] 30 mg PO DAILY 06/15/17 [History] Quetiapine Fumarate [Seroquel] 100 mg PO HS 06/15/17 [History] Lisinopril-HCTZ 20-12.5 [Prinzide 20-12.5] 1 tab PO DAILY 06/16/17 [History] 3 Allergy/AdvReac Type Severity Reaction Status Date / Time naproxen [From Naprosyn] Allergy Hives Verified 06/15/17 17:22 gabapentin [From Neurontin] AdvReac Hallucinati Verified 06/15/17 17:22 ng orphenadrine [From Norflex] AdvReac Hallucinati Verified 06/15/17 17:22 ng Review of Systems Constitutional: Denies: fever, chills, weakness, weight change Eyes: Denies: eye pain, vision change Ears, Nose, Throat: Denies: ear pain, throat pain, dental pain, hearing loss, congestion Cardiovascular: Denies: chest pain, palpitations, dyspnea on exertion Respiratory: Denies: cough, dyspnea, wheezes Gastrointestinal: Denies: abdominal pain, nausea, vomiting, diarrhea, constipation Genitourinary male: Reports: hematuria Musculoskeletal: Denies: joint swelling, joint pain Integumentary: Denies: rash, lesions, pruritus Neurological: Denies: headache, weakness, numbness, memory loss Endocrine: Denies: fatigue, heat or cold intolerance Hematologic/Lymphatic: Denies: easy bruising, lymphadenopathy Allergic/Immunologic: Denies: urticaria, itchy eyes Mental Status Exam Patient orientation: Yes Person, Yes Time, Yes Place Level of alertness: Alert Patient appearance: Appropriate, Well Groomed Behavior: calm, cooperative Psychomotor activity: Normal Eye contact: Maintains Eye Contact Mood description: Depressed Affect description: congruent with mood Speech volume: Normal Thought process: Linear Thought content: Yes Suicidal ideation, No Homicidal ideation, No Overt delusions Perceptual disturbances: No Auditory hallucinations, No Visual hallucinations Attention span: Capable of Focused Attention Memory description: Grossly Intact Patient reliability: Questionable Historian Intelligence estimate: Average Judgment: Limited Insight: Partial Exam - HEENT Head exam IM: Present: atraumatic Eye exam IM: Present: EOMI ENT exam IM: Present: mucous membranes moist - Neurological Neurological exam IM: Present: alert, oriented X3 - Respiratory Respiratory exam IM: Present: CTAB - GI/Abdominal GI/Abdominal exam IM: Present: normal bowel sounds - Extremities Extremities exam IM: Present: full ROM - Skin Skin exam IM: Present: normal color Results - Vital Signs Vital signs: Temp Pulse Resp BP 97.2 F L 91 18 136/104 06/18/17 08:27 06/18/17 08:27 06/18/17 08:27 06/18/17 08:27 Assessment and Plan (1) Recurrent major depressive disorder Current visit: No Status: Acute Plan: Admit inpatient for safety and stabilization, Close observation, Suicide Precautions per unit protocol, Encourage participation in unit milieu, Group Therapy, Monitor sleep, Monitor appetite Risks, benefits, side effects, alternatives discussed w/pt: Yes Patient agreeable to treatment: Yes Plans for Post Hospital Care: Home Estimated Length of Stay (Days): 4 Qualifiers: Active/Remission status: currently active Major depression episode severity : moderate Qualified Code(s): F33.1 - Major depressive disorder, recurrent, moderate
[2017-06-18] MEDS ORDERED: Ondansetron ODT 4 MG TAB.RAPDIS PO PRN (11:53)
[2017-06-18] MEDS: Nicotine 21 MG PATCH.TD24 TD SCH (12:22)
[2017-06-18] MEDS: Indomethacin 25 MG CAPSULE PO SCH ×2 (13:28→21:59)
[2017-06-18] MEDS: hydrOXYzine pamoate 25 MG CAPSULE PO PRN (16:15)
[2017-06-19] MEDS: Indomethacin 25 MG CAPSULE PO SCH ×2 (08:49→19:56)
[2017-06-19] MEDS: Nicotine 21 MG PATCH.TD24 TD SCH (08:50)
--- NOTE | 2017-06-19 12:08 | Psychiatry Progress Note ---
Date of Encounter: 06/19/17 Time of Encounter: 12:01 Subjective Interval history: Client states he slept really well last night with the Seroquel. Sleeping on the couch when this selling underwriter came in. States mood has improved some. SI comes and goes but client reports that is typical and some baseline SI is normal for him. Lizz has already set him up with appointments with a PCP, a counselor, a mental health provider, and for a Vivitrol assessment. Client thinks he is still passing kidney stones so he was given a strainer last night. Reports some discomfort but clearly not having excruciating pain that is common with kidney stones. Suspect stones have passed already. Emphasized importance of following up with PCP next week as scheduled. Client reported an AOD counselor came to the unit to see him yesterday. He was initially only open to outpatient AOD but willing to see what his counselor can work out for him. History is poor for substance abuse treatment follow through. However, he did say he will keep his mind open at this time. Anticipate discharge tomorrow. Staff have already spoken with client and his roommate about this and everyone is in agreement. Review of Systems Constitutional: Denies: fever, chills, weakness, weight change Eyes: Denies: eye pain, vision change Ears, Nose, Throat: Denies: ear pain, throat pain, dental pain, hearing loss, congestion Cardiovascular: Denies: chest pain, palpitations, dyspnea on exertion Respiratory: Denies: cough, dyspnea, wheezes Gastrointestinal: Denies: abdominal pain, nausea, vomiting, diarrhea, constipation Genitourinary male: Reports: hematuria Musculoskeletal: Denies: joint swelling, joint pain Neurological: Denies: headache, weakness, numbness, memory loss Objective: Exam Patient orientation: Yes Person, Yes Time, Yes Place Level of alertness: Alert Patient appearance: Appropriate Behavior: calm, cooperative Psychomotor activity: Slowed Eye contact: Maintains Eye Contact Mood description: Depressed Affect description: congruent with mood Speech pattern: Normal rate, Normal rhythm, Normal tone Speech volume: Normal Thought process: Linear, Goal Oriented Thought content: No Suicidal ideation, No Homicidal ideation, No Overt delusions Perceptual disturbances: No Auditory hallucinations, No Visual hallucinations Judgment: Limited Insight: Partial Results - Vital Signs Vital Signs: Temp Pulse Resp BP 97 F L 71 16 137/96 06/19/17 07:47 06/19/17 07:47 06/19/17 07:47 06/19/17 07:47 Assessment and Plan (1) Recurrent major depressive disorder Current visit: No Status: Acute Plan: Continue hospitalization, Close observation, Suicide Precautions per unit protocol, Encourage participation in unit milieu, Group Therapy, Monitor sleep, Monitor appetite Risks, benefits, side effects, alternatives discussed w/pt: Yes Patient agreeable to treatment: Yes Qualifiers: Active/Remission status: currently active Major depression episode severity : moderate Qualified Code(s): F33.1 - Major depressive disorder, recurrent, moderate Consult Discharge Plan - Plan Referrals: [facility] [place] [Outside] - 07/01/17 10:00 am (The above appointment is with Dr. Parrish for primary healthcare and medication management services. You will also see Lukasz Payne for Vivitrol assessment and treatment the same day, as soon as you are finished with Dr. Parrish.) [facility] [Outside] - 06/24/17 11:00 am (The above appointment is with Smiley López for counseling services. You will also see Shahla Martinez for outpatient psychiatric assessment and medication management services on 07/22/2017 at 10:30 AM in the same office.) [facility] [Outside] - 07/23/17 9:00 am (The above appointment is with a system configuration specialist. When you come to your first appointment, you will be completing paperwork, meeting with a counselor, and developing a treatment plan. You will receive follow- up appointments for on- going services, which could include individual counseling, group counseling, IOP , referral to medication assisted treatment and/or residential services. Please bring you insurance card and photo ID to your first appointment. The above appointment(s) reflects first availability. You may contact the office regularly to check for cancelations that may allow you to be seen sooner.)
[2017-06-19] MEDS: Acetaminophen 325 MG TABLET PO PRN (17:10)
[2017-06-19 19:35] VITALS: BP 115/84
[2017-06-19] MEDS: hydrOXYzine pamoate 25 MG CAPSULE PO PRN (19:58)
[2017-06-20] MEDS: Indomethacin 25 MG CAPSULE PO SCH (08:10)
[2017-06-20] MEDS: Nicotine 21 MG PATCH.TD24 TD SCH (08:10)
--- NOTE | 2017-06-20 10:11 | Discharge Summary ---
Date of Encounter: 06/20/17 Time of Encounter: 10:08 Diagnosis - Discharge Diagnosis (1) Recurrent major depressive disorder Status: Acute Qualifiers: Active/Remission status: currently active Major depression episode severity : moderate Qualified Code(s): F33.1 - Major depressive disorder, recurrent, moderate Medications - Discharge Medications Prescriptions: Paroxetine [Paxil] 30 mg PO DAILY #30 tablet Quetiapine Fumarate [Seroquel] 100 mg PO HS #30 tablet Allopurinol [Zyloprim 100 MG] 100 mg PO DAILY 02/25/17 [History] Quetiapine Fumarate [Seroquel] 25 mg PO HS PRN 02/25/17 [History] Metoprolol [Lopressor] 25 mg PO BID 03/01/17 [History] Indomethacin 50 mg PO BID 06/15/17 [History] Lisinopril-HCTZ 20-12.5 [Prinzide 20-12.5] 1 tab PO DAILY 06/16/17 [History] Omeprazole [PriLOSEC] 20 mg PO DAILY@0730 capsule. 06/20/17 [Rx] Paroxetine [Paxil] 30 mg PO DAILY #30 tablet 06/20/17 [Rx] Quetiapine Fumarate [Seroquel] 100 mg PO HS #30 tablet 06/20/17 [Rx] 3 Allergy/AdvReac Type Severity Reaction Status Date / Time naproxen [From Naprosyn] Allergy Hives Verified 06/15/17 17:22 gabapentin [From Neurontin] AdvReac Hallucinati Verified 06/15/17 17:22 ng orphenadrine [From Norflex] AdvReac Hallucinati Verified 06/15/17 17:22 ng Provider Date of admission: 06/17/17 14:39 Primary care physician: PCP NONE Discharging clinician: Holli Meyer Assessment and Plan - Patient/Caregiver Discharge Instructions Activity: resume usual activities as tolerated Diet: regular diet - Follow up Plan Follow up with: [facility] [Outside] - 07/01/17 10:00 am (The above appointment is with Dr. Parrish for primary healthcare and medication management services. You will also see Lukasz Payne for Vivitrol assessment and treatment the same day, as soon as you are finished with Dr. Parrish.) [facility] [Outside] - 06/24/17 11:00 am (The above appointment is with Smiley López for counseling services. You will also see Shahla Daily for outpatient psychiatric assessment and medication management services on 07/22/2017 at 10:30 AM in the same office.) [facility] [Outside] - 07/23/17 9:00 am (The above appointment is with a contract management specialist. When you come to your first appointment, you will be completing paperwork, meeting with a counselor, and developing a treatment plan. You will receive follow- up appointments for on- going services, which could include individual counseling, group counseling, IOP , referral to medication assisted treatment and/or residential services. Please bring you insurance card and photo ID to your first appointment. The above appointment(s) reflects first availability. You may contact the office regularly to check for cancelations that may allow you to be seen sooner.) Functional capacity at discharge: independent ambulation Overall status at discharge: Stable Disposition: Home, Self-Care Hospital Course Hospital course: Mr. Doe is a 41 year old male who was admitted medically for alcohol withdrawal then transferred to for SI. He was restarted on Paxil and Seroquel with good clinical effect. Client indicated he frequently has SI at his baseline. However, on the day of discharge he was denying all suicidal thoughts. 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 His roommate is his boss there. Staff verified with his roommate that client was safe to return to his residence. Client was linked with an outpatient medical provider as he had symptoms of kidney stones while on the unit and he has a history of passing kidney stones. He was also linked for a Vivitrol assessment in addition to counseling and a mental health prescriber. Client has an AOD counselor who visited him on the unit and together they have plans to relink client with either residential or outpatient AOD treatment. Client did not require any withdrawal treatment on the unit. - Time Spent with Patient Total time spent providing and/or coordinating discharge services: Quality - Multiple Antipsychotics Patient discharged on 2 or more antipsychotic medications: No Procedures - Procedures Procedures: Medication Management, Crisis Stabilization, Supportive Therapy, Group Therapy Mental Status Exam - Mental Status Exam Patient orientation: Yes Person, Yes Time, Yes Place Level of alertness: Alert Patient appearance: Appropriate Behavior: calm, cooperative Psychomotor activity: Slowed Eye contact: Maintains Eye Contact Mood description: Depressed Affect description: congruent with mood Speech pattern: Normal rate, Normal rhythm, Normal tone Speech Volume: Normal Thought process: Linear, Goal Oriented Thought Content: No Suicidal ideation, No Homicidal ideation, No Overt delusions Perceptual Disturbances: No Auditory hallucinations, No Visual hallucinations Judgment: Fair Insight: Partial
== END 2017-06-20 10:40 | disposition home or self-care (01) | DRG 885 ==
LOC: 1ANU 14:39
PROVIDERS: ADMIT Psychiatry & Neurology Psychiatry; ATTEND Psychiatry & Neurology Psychiatry

== ENCOUNTER 2017-07-03 16:30 | Observation (INO) ==
--- NOTE | 2017-07-03 16:47 | Emergency Department Note ---
Disposition Clinical Impression: Alcohol abuse, Suicidal ideation Depression Qualifiers: Depression Type: major depressive disorder Major depression recurrence: recurrent Active/Remission status: remission status unspecified Qualified Code(s ): F33.9 - Major depressive disorder, recurrent, unspecified Disposition: Admitted As Inpatient Condition: Good Referrals: NONE,PCP [Primary Care Provider] - Forms: ED Satisfaction Letter General Adult HPI - General Chief complaint: ED Psychiatric Symptoms Stated complaint: Angry/Psych Evaluation Time Seen by Provider: 07/03/17 16:32 Source: EMS Limitations: no limitations Nursing Notes Reviewed: Yes Vital Signs Reviewed: Yes - History of Present Illness HPI Narrative: 41-year-old male who reports he has a past medical history of hypertension and gout and alcohol abuse. He states he drinks 8-10 of the double-sized beers a day. He states he has been doing that for many years. He presented today because he is tired of what he is doing to himself and has been contemplating suicide. Sometimes he states he gets so angry he just wants to hurt somebody. He does not have any one in particular that he wants to hurt. He states otherwise he has been feeling fine and has not been having chest pain and shortness of breath or abdominal pain. He denies having any fever. Pain Scale: 0 Consistency: constant Improves with: nothing Worsens with: nothing Associated symptoms: Reports: denies other symptoms Treatments Prior to Arrival: none - Related Data Home Medications Medication Instructions Recorded Confirmed Allopurinol [Zyloprim 100 MG] 100 mg PO DAILY 02/25/17 06/17/17 Quetiapine Fumarate [Seroquel] 25 mg PO HS PRN 02/25/17 06/17/17 Metoprolol [Lopressor] 25 mg PO BID 03/01/17 03/01/17 Indomethacin 50 mg PO BID 06/15/17 06/17/17 Lisinopril-HCTZ 20-12.5 [Prinzide 1 tab PO DAILY 06/16/17 20-12.5] BuPROPion XL (24 HR) [Wellbutrin 150 mg PO DAILY 07/03/17 07/03/17 XL] Previous Rx's Medication Instructions Recorded Omeprazole [PriLOSEC] 20 mg PO DAILY@0730 capsule. 06/20/17 Paroxetine [Paxil] 30 mg PO DAILY #30 tablet 06/20/17 Quetiapine Fumarate [Seroquel] 100 mg PO HS #30 tablet 06/20/17 Allergies Allergy/AdvReac Type Severity Reaction Status Date / Time naproxen [From Naprosyn] Allergy Hives Verified 06/15/17 17:22 gabapentin [From Neurontin] AdvReac Hallucinati Verified 06/15/17 17:22 ng orphenadrine [From Norflex] AdvReac Hallucinati Verified 06/15/17 17:22 ng All systems ED: reviewed and negative except as stated. Constitutional: Denies: fever Cardiovascular: Denies: chest pain Respiratory: Denies: cough Gastrointestinal: Denies: abdominal pain Integumentary: Denies: rash Neurological: Denies: headache Psychiatric: Reports: depression, suicidal thoughts, homicidal thoughts Endocrine: Denies: fatigue Past Medical History - Past Medical History Medical history: Reports: asthma, GI bleed, hypertension, kidney stones, migraine, seizures, syncope Surgical history: Reports: appendectomy, arthroscopy, cholecystectomy, orthopedic, other, other Psychiatric history: Reports: bipolar, depression, previous psychiatric hospitalization - Social History Smoking Status: Current every day smoker Smokeless Tobacco Status: No Alcohol use: Reports: heavy Drug use: Reports: cocaine, opiates, marijuana, methamphetamine, prescription drug abuse Physical Exam - General Limitations: no limitations General appearance: alert, in no apparent distress - Head Head exam: atraumatic - Eye Eye exam: Present: normal appearance, PERRL - ENT ENT exam: normal exam, normal oropharynx, other (Edentulous) - Neck Neck exam: Present: normal inspection - Chest Chest inspection: Present: normal inspection - Respiratory Respiratory exam: Present: normal lung sounds bilaterally. Absent: respiratory distress - Cardiovascular Cardiovascular exam: Present: regular rate, normal rhythm - Abdominal Exam Abdominal exam: Present: soft, Non-Tender - Extremities Exam Extremities exam: Present: other (Multiple toe amputations) - Neurological Exam Neurological exam: Present: alert, oriented X3, CN II-XII intact - Psychiatric Psychiatric exam: Present: depressed - Skin Skin exam: Present: warm, dry Course Course Narrative: We will do medical clearance and request psychiatric evaluation ETOH of well over 300. This will take close to 12 hours to get to below the level of 80 required by 1A for evaluation. Will place in observation Vital Signs Temperature 97.5 F L 07/03/17 16:32 Pulse Rate 98 07/03/17 16:32 Respiratory Rate 18 07/03/17 16:32 Blood Pressure 127/91 07/03/17 16:32 O2 Sat by Pulse Oximetry 100 07/03/17 16:32 Temperature 97.5 F L 07/03/17 16:32 Pulse Rate 98 07/03/17 16:32 Respiratory Rate 18 07/03/17 16:32 Blood Pressure 127/91 07/03/17 16:32 O2 Sat by Pulse Oximetry 100 07/03/17 16:32 Oxygen Delivery Oxygen Delivery Room Air Medical Decision Making - Medical Records Medical records reviewed: Yes I reviewed the patient's medical records. - Lab Data Lab results reviewed: Yes I reviewed the patient's lab results. Result diagrams: 07/03/17 17:08 07/03/17 17:08 Lab Results 07/03/17 07/03/17 07/03/17 Range/Units 16:41 17:08 17:08 WBC 6.1 (4.3-11.1) K/mcL RBC 4.55 (4.19-5.50) M/mcL Hgb 13.7 (12.9-16.9) g/dL Hct 40.8 (37.5-50.1) % MCV 89.7 (83.0-100.0) fL MCH 30.1 (28.0-33.3) pg MCHC 33.6 (31.6-35.5) g/dL RDW 15.6 H (11.5-14.5) % Plt Count 203 (140-400) K/mcL MPV 10.5 (9.4-12.4) fL Immature Gran % 0.2 (0-4) % Seg Neutrophils % 59.0 % Lymphocytes % 25.1 % Monocytes % 8.4 % Eosinophils % 5.8 % Basophils % 1.5 % Neutrophils # 3.6 (1.6-8.9) K/mcL Lymphocytes # 1.5 (0.6-4.6) K/mcL Monocytes # 0.5 (0.0-1.3) K/mcL Eosinophils # 0.4 (0.0-0.6) K/mcL Basophils # 0.1 (0.0-0.2) K/mcL Sodium 141 (136-145) mEq/L Potassium 3.5 (3.5-4.5) mEq/L Chloride 108 (98-109) mEq/L Carbon Dioxide 15 L (19-29) mEq/L BUN 6 L (8-26) mg/dL Creatinine 0.73 (0.72-1.25) mg/dL Est GFR ( Amer) > 60 (> 60) Est GFR (Non-Af Amer) > 60 (> 60) BUN/Creatinine Ratio 8 (6-26) Glucose 92 (70-99) mg/dL Calculated Osmolality 289 (280-300) Calcium 8.5 L (8.6-10.8) mg/dL Salicylates < 5.0 L (15-30) mg/dL Urine Opiates Screen Negative (Rkdeth=238) ng/mL Acetaminophen < 1.0 L (10-30) mcg/mL Ur Barbiturates Screen Negative (Soqyje=109) ng/mL Ur Phencyclidine Scrn Negative (Cutoff=25) ng/mL Ur Amphetamines Screen Negative (Dcdwfk=3156) ng/mL U Benzodiazepines Scrn Positive H (Ehkwni=011) ng/mL Urine Cocaine Screen Negative (Cutoff= 300) ng/mL U Marijuana (THC) Screen Negative (Cutoff = 50) ng/mL Ethyl Alcohol 365 H (0-10) mg/dL
--- NOTE | 2017-07-03 16:47 | Emergency Department Note ---
START Narrative - START START: I examined this patient and my medical decision-making was reviewed with the PACKAGING MACHINE SUPPLIES DISTRIBUTOR/PA/Advanced Practice Nurse/Resident Physician. I agree with the documented findings, disposition and treatment plan as described except to the extent set forth below. ED attending note: Patient seen with emergency medicine resident Dr. MCKEON. We independently evaluated the patient. We independently had [id number] contact with the patient. Please see a copy of his note for details of the history and physical, evaluation, management and disposition of this emergency Department patient. 41-year-old male history of alcohol abuse presents with suicidal ideations but no discrete plan. Patient is GCS 15 no slurring of speech has medical decision capacity at this time. Patient will undergo medical clearance and evaluation by mental health services for disposition and management. Disposition pending
[2017-07-03 17:01] LABS: Amphetamine Screen,Urine Negative ng/mL (Cutoff=1000); Barbiturate Screen,Urine Negative ng/mL (Cutoff=200); Benzodiazepines Screen,Urine Positive ng/mL (Cutoff=200); Cannabinoid Screen,Urine Negative ng/mL (Cutoff = 50); Cocaine Screen,Urine Negative ng/mL (Cutoff= 300); Opiate Screen,Urine Negative ng/mL (Cutoff=300); Phencyclidine Screen,Urine Negative ng/mL (Cutoff=25)
[2017-07-03 17:32] LABS: Basophils # 0.1 K/mcL (0.0-0.2); Basophils % 1.5 %; Eosinophils # 0.4 K/mcL (0.0-0.6); Eosinophils % 5.8 %; Hematocrit 40.8 % (37.5-50.1); Hemoglobin 13.7 g/dL (12.9-16.9); Immature Granulocytes % 0.2 % (0-4); Lymphocytes # 1.5 K/mcL (0.6-4.6); Lymphocytes % 25.1 %; Mean Corpuscular HGB Conc 33.6 g/dL (31.6-35.5); Mean Corpuscular Hemoglobin 30.1 pg (28.0-33.3); Mean Corpuscular Volume 89.7 fL (83.0-100.0); Mean Platelet Volume 10.5 fL (9.4-12.4); Monocytes # 0.5 K/mcL (0.0-1.3); Monocytes % 8.4 %; Neutrophils # 3.6 K/mcL (1.6-8.9); Platelet Count 203 K/mcL (140-400); Red Blood Count 4.55 M/mcL (4.19-5.50); Red Cell Distribution Width 15.6 % (11.5-14.5)
[2017-07-03 17:33] LABS: BUN/Creatinine Ratio 8 (6-26); Blood Urea Nitrogen 6 mg/dL (8-26); Calcium 8.5 mg/dL (8.6-10.8); Carbon Dioxide 15 mEq/L (19-29); Chloride 108 mEq/L (98-109); Ethanol 365 mg/dL (0-10); Glucose 92 mg/dL (70-99); Osmolality,Calculated 289 (280-300); Potassium 3.5 mEq/L (3.5-4.5); Sodium 141 mEq/L (136-145); eGFR For African Americans > 60 (> 60); eGFR For Non-African Americans > 60 (> 60)
[2017-07-03 17:34] LABS: Acetaminophen < 1.0 mcg/mL (10-30); Salicylate < 5.0 mg/dL (15-30)
[2017-07-03] MEDS ORDERED: Naloxone 0.4 MG/ML INJ IVP PRN (19:23)
[2017-07-03] MEDS ORDERED: Mag Hydrox/Al Hydrox/Simeth 30 ML UDC PO PRN (19:23)
[2017-07-03] MEDS ORDERED: MVI, adult with vitamin K 10 ML in 0.9 % Sodium Chloride 1,000 ML IVC ONE (19:26)
[2017-07-03] MEDS: Thiamine (B-1) 100 MG TABLET PO SCH (22:56)
[2017-07-03] MEDS: Folic Acid 1 MG TABLET PO SCH (22:57)
[2017-07-03] MEDS: Vitamin B Complex/Vit C/Vit E 1 EACH TABLET PO SCH (22:57)
[2017-07-03] MEDS: 0.9 % Sodium Chloride 1,000 ML IVC SCH (22:58)
[2017-07-03 23:56] LABS: Bilirubin,Urine Negative (Negative); Blood,Urine Small (Negative); Clarity,Urine Clear (Clear); Color,Urine Yellow (Yellow); Glucose,Urine (UA) Normal (Normal); Ketones,Urine Negative (Negative); Leukocyte Esterase,Urine Negative (Negative); Nitrite,Urine Negative (Negative); Protein,Urine 30 mg/dL (Neg-Trace); Specific Gravity,Urine 1.012 (1.010-1.025); Urobilinogen,Urine Normal (Normal)
[2017-07-04 00:04] LABS: Bacteria,Urine Few per hpf (None-Few); RBC,Urine 0-3 per hpf (0-3); Squamous Epithelial Cell,Urine Many per lpf (None-Few); WBC,Urine 0-3 per hpf (0-3)
[2017-07-04 00:05] LABS: Mucus,Urine Few (Few)
--- NOTE | 2017-07-04 02:02 | Internal Med History&Physical ---
Date of Encounter: 07/04/17 Time of Encounter: 21:00 Assessment and Plan (1) Suicidal ideation Current visit: Yes Status: Acute Patient came in with suicidal ideation as well as homicidal ideation. He is alcoholic. He feels frustrated that why he cannot quit drinking. His willing to go to inpatient rehabilitation. Psychiatric needs to be consulted in the morning (2) Bipolar 1 disorder Current visit: Yes Status: Acute Patient goes for counseling. Resume home meds like to see in the morning. Needs to be consulted. (3) Alcohol intoxication Current visit: Yes Status: Resolved Blood alcohol level 365 but he is well awake and alert Start IV fluid, banana bag, CIWA protocol Counseling provided he needs rehabilitation Qualifiers: Complication of substance-induced condition: uncomplicated Qualified Code(s ): F10.920 - Alcohol use, unspecified with intoxication, uncomplicated (4) Essential hypertension Current visit: Yes Status: Chronic Resume home meds and daily monitoring Internal Medicine - H&P: HPI Chief complaint: Suicidal ideation Admitted From: Home Plans for Post Hospital Care: Transfer Psych Facility History of present illness: Mr. Doe is a 41 year old male alcoholic came in with alcohol intoxication with alcohol blood level 365. Patient has become frustrated with his alcohol dependence and is developing suicidal as well as homicidal ideation. He seems pretty calm and nonviolent. He does not have a plan how to give himself and he feels like hitting other people. He is agreeing to go to rehabilitation facility. Psych floor was not performed but they want to keep patient on medical floor until alcohol level is down. Denies any symptoms. Past Med Surg Social Fam HX - Past Medical History Medical history: asthma, GI bleed, hypertension, kidney stones, migraine, seizures, syncope Psychiatric history: bipolar, depression, previous psychiatric hospitalization - Past Surgical History Surgical History: appendectomy, arthroscopy, cholecystectomy, orthopedic, other , other - Social History Smoking Status: Current every day smoker Smokeless Tobacco Status: No Alcohol use: heavy Drug use: cocaine, opiates, marijuana, methamphetamine, prescription drug abuse Internal Medicine - H&P: Meds Allopurinol [Zyloprim 100 MG] 100 mg PO DAILY PRN 02/25/17 [History] Quetiapine Fumarate [Seroquel] 25 mg PO HS PRN 02/25/17 [History] Metoprolol [Lopressor] 25 mg PO BID 03/01/17 [History] Indomethacin 50 mg PO BID PRN 06/15/17 [History] Lisinopril-HCTZ 20-12.5 [Prinzide 20-12.5] 1 tab PO DAILY 06/16/17 [History] Omeprazole [PriLOSEC] 20 mg PO DAILY@0730 capsule. 06/20/17 [Rx] Paroxetine [Paxil] 30 mg PO DAILY #30 tablet 06/20/17 [Rx] Quetiapine Fumarate [Seroquel] 100 mg PO HS #30 tablet 06/20/17 [Rx] BuPROPion XL (24 HR) [Wellbutrin XL] 150 mg PO DAILY 07/03/17 [History] 3 Allergy/AdvReac Type Severity Reaction Status Date / Time naproxen [From Naprosyn] Allergy Hives Verified 06/15/17 17:22 gabapentin [From Neurontin] AdvReac Hallucinati Verified 06/15/17 17:22 ng orphenadrine [From Norflex] AdvReac Hallucinati Verified 06/15/17 17:22 ng All Systems PM: A 10-system review of systems was performed and is negative for pertinent findings except as documented above in the HPI. - Constitutional Constitutional: no chills, no fever(s), no night sweats - EENT Eyes: no change in vision, no discharge, no pain, no photophobia Ears: no ear discharge, no ear pain, no tinnitus Nose, mouth and throat: no dysphagia, no nasal discharge, no neck pain, no sore throat - Cardiovascular Cardiovascular ROS IM: no chest pain, no diaphoresis, no dyspnea, no lightheadedness, no palpitations, no syncope - Respiratory Respiratory: no cough, no dyspnea, no wheezing, no excessive phlegm production - Gastrointestinal Gastrointestinal: no abdominal pain, no diarrhea, no hematemesis, no hematochezia, no melena, no nausea, no vomiting - Musculoskeletal Musculoskeletal ROS IM: no numbness, no tingling - Integumentary Integumentary IM: no rash, no unusual bruising - Neurological Neurological ROS: no confusion, no convulsions, no focal weakness, no numbness, no tingling, no tremor(s) - Hematologic/Lymphatic Hematologic/Lymphatic: no easy bruising - Constitutional Vitals: Temp Pulse Resp BP Pulse Ox 98.8 F 116 14 145/90 99 07/03/17 23:37 07/03/17 23:37 07/03/17 23:37 07/03/17 23:37 07/03/17 23:37 - Head Head exam: Present: atraumatic, normocephalic - Eye Eye exam: Present: PERRL, conjuntiva pink, sclera anicteric Pupils: Present: PERRL - Neck Neck exam general surgery: Present: supple, trachea midline. Absent: lymphadenopathy - Respiratory Respiratory exam: Present: CTAB. Absent: accessory muscle use, rales, rhonchi, wheezes - Cardiovascular Cardiovascular exam: Present: RRR, +S1, +S2. Absent: diastolic murmur, gallop, rubs, systolic murmur - GI/Abdominal GI/Abdominal exam: Present: normal bowel sounds, soft, no peritoneal signs. Absent: distended, tenderness - Extremities Exam Extremities exam: Present: warm, radial pulses palpable and symmetrical. Absent : calf tenderness, cyanotic, pedal edema - Neurological Exam Neurological exam: Present: CN II-XII intact, oriented X3, no focal deficits. Absent: pronater drift, facial droop, speech deficit - Skin Skin exam: Present: dry, intact Internal Med - H&P Results - Labs CBC & Chem 7: 07/03/17 17:08 07/03/17 17:08 Labs: Urine 07/03/17 Range/Units 23:40 Urine Color Yellow (Yellow) Urine Clarity Clear (Clear) Urine pH 6.0 (5.0-8.0) pH Units Ur Specific [place] 1.012 (1.010-1.025) Urine Protein 30 H (Neg-Trace) mg/dL Urine Glucose (UA) Normal (Normal) mg/dL
[2017-07-04] MEDS: Vitamin B Complex/Vit C/Vit E 1 EACH TABLET PO SCH (07:50)
[2017-07-04] MEDS: Acetaminophen 325 MG TABLET PO PRN ×2 (07:50→15:56)
[2017-07-04] MEDS: Thiamine (B-1) 100 MG TABLET PO SCH (07:50)
[2017-07-04] MEDS: Folic Acid 1 MG TABLET PO SCH (07:50)
--- NOTE | 2017-07-04 09:54 | Internal Med Progress Note ---
Date of Encounter: 07/04/17 Time of Encounter: 09:45 - Assessment and plan (1) Suicidal ideation Current Visit: No Status: Acute Assessment and plan: Had suicidal ideation as well this AM. Currently has a sitter and is calm. I spoke with patient and during my assessment he did not feel as though he wanted to hurt himself. Will consult Psychiatry for possible transfer. (2) Alcohol intoxication Current Visit: Yes Status: Resolved Assessment and plan: Tested with serum etoh level. IV fluid started, CIWA protocol. No active withdrawal. Qualifiers: Complication of substance-induced condition: uncomplicated Qualified Code(s ): F10.920 - Alcohol use, unspecified with intoxication, uncomplicated (3) Bipolar 1 disorder Current Visit: Yes Status: Acute Assessment and plan: Patient goes for counseling. Resume home meds like to see in the morning. Needs to be consulted. (4) Essential hypertension Current Visit: Yes Status: Chronic (5) Suicidal ideation Current Visit: Yes Status: Acute - Subjective Interval history: Patient is a 41 year old male with history of alcohol abuse and bipolar disorder presented for suicidal and homicidal ideation. He does not have a specific plan for suicide. He has no particular person that he would like to harm. When he arrived to ED he was noted to be calm and pleasant, and did not have any aggressive behavior toward staff. In the ED he tested positive BZD and alcohol was 365. He is on CIWA protocol currently and is not actively withdrawing. Last drink was at 4 pm yesterday. He currently denies SI/HI but admits they he did have these thoughts prior to arrival to ED. Earlier this AM the patient did tell his nurse that he feels like he wants to hurt himself but has no intention to. He currently has a sitter and sitter states he is well behaved. - Constitutional Vitals: Temp Pulse Resp BP Pulse Ox 99.2 F 92 18 142/91 98 07/04/17 07:09 07/04/17 07:09 07/04/17 07:09 07/04/17 07:09 07/04/17 07:46 Exam: - EENT Eyes: no change in vision, no discharge, no pain, no photophobia Ears: no ear discharge, no ear pain, no tinnitus Nose, mouth and throat: no dysphagia, no nasal discharge, no neck pain, no sore throat - Cardiovascular Cardiovascular ROS IM: no chest pain, no diaphoresis, no dyspnea, no lightheadedness, no palpitations, no syncope - Respiratory Respiratory: no cough, no dyspnea, no wheezing, no excessive phlegm production - Gastrointestinal Gastrointestinal: no abdominal pain, no diarrhea, no hematemesis, no hematochezia, no melena, no nausea, no vomiting - Musculoskeletal Musculoskeletal ROS IM: no numbness, no tingling - Integumentary Integumentary IM: no rash, no unusual bruising - Neurological Neurological ROS: no confusion, no convulsions, no focal weakness, no numbness, no tingling, no tremor(s) - Hematologic/Lymphatic Hematologic/Lymphatic: no easy bruising Internal Medicine: Result - Labs CBC & Chem 7: 07/03/17 17:08 07/03/17 17:08 Labs: Urine 07/03/17 Range/Units 23:40 Urine Color Yellow (Yellow) Urine Clarity Clear (Clear) Urine pH 6.0 (5.0-8.0) pH Units Ur Specific [place] 1.012 (1.010-1.025) Urine Protein 30 H (Neg-Trace) mg/dL Urine Glucose (UA) Normal (Normal) mg/dL Consult Discharge Plan - Plan Referrals: Miles Parrish MD [Non-Partnered Physician] -
[2017-07-04] MEDS: 0.9 % Sodium Chloride 1,000 ML IVC SCH (14:39)
[2017-07-05] MEDS: Folic Acid 1 MG TABLET PO SCH (08:54)
[2017-07-05] MEDS: Vitamin B Complex/Vit C/Vit E 1 EACH TABLET PO SCH (08:54)
[2017-07-05] MEDS: Thiamine (B-1) 100 MG TABLET PO SCH (08:54)
[2017-07-05] MEDS: Acetaminophen 325 MG TABLET PO PRN (08:59)
--- NOTE | 2017-07-05 11:12 | Consult Note ---
Date of Encounter: 07/05/17 Time of Encounter: 10:30 Assessment & Recommendation (1) Homicidal ideation Current visit: No Status: Acute Assessment & Recommendation: needs inpatient stabilization and continue sitter. (2) Bipolar disorder Current visit: No Status: Chronic Qualifiers: Active/Remission status: currently active Current bipolar episode type: depressed Current episode severity: moderate Qualified Code(s): F31.32 - Bipolar disorder, current episode depressed, moderate (3) Alcohol dependence Current visit: No Status: Acute Qualifiers: Substance use status: in withdrawal Complication of substance-induced condition: uncomplicated Qualified Code(s): F10.230 - Alcohol dependence with withdrawal, uncomplicated History of Present Illness Patient: new to practice Requesting Physician: Tammy Durant MD Reason for consult: suicidal and homicidal ideation History of present illness: Mr. Doe is a 41 year old male consulted today for suicidal and homicidal ideation. He has history of Bipolar disorder,ptsd, alcohOl use disorder , presented with suicidal and homicidal ideation , no plan or no particular person he wants to hurt. he tested positive for benzodiazepine and his alcohol level was 365 in ED. At present is calm and cooperative , at times gets anxious and shaky ,able to give history . Has been drinking more and more Alcohol for 1 year now , started drinking at age 10 , has been feeling depress all the time , lot of anger and homicidal thoughts like want to smack someone, states when drinks gets suicidal and wants to hurt self. states has not been taking his antidepressants as has been drinking but taking his night time seroquel as it helps him sleep. he gives history of anger outburst , has been in fights in past also OD and in ICU when 24 years old, 6 years ago OD on opiate pills states was not intentional. He hAS BEEN SOBER FROM OPIATES FOR 3 YEARS AFTER [facility]. he [facility] and on paxil 30 mg, wellbutrin xl 150 mg, seroquel 100 mg , seroquel 25 mg am. lives with his sara , unemployed and has one child. denies any legal problems except court date coming for child support. A/P Bipolar Affective Disorder depressive Post Traumatic Disorder Alcohol dependence with withdrawl Opiate dependence in remission. Patient is still having homicidal thoughts none for specific person , denies suicidal thoughts at present. He has been waiting for bed at [place] inpatient re[facility]. at present for his homicidal thoughts he needs to inpatient for safety after he is medically cleared. Please Start depakote 250 mg bid. contiue Paxil and seroquel. Thank you for consult and involving me in his care. will sign off. CC: Tammy Durant MD Past Med Surg Social Fam HX - Past Medical History Medical history: asthma, GI bleed, hypertension, kidney stones, migraine, seizures, syncope - Past Psychiatric History Psychiatric history: Reports: anxiety, bipolar, depression, PTSD, prior suicide attempt Family psychiatric history: Yes Family History of Suicide: None - Past Surgical History Surgical History: appendectomy, arthroscopy, cholecystectomy, orthopedic, other , other - Social History Smoking Status: Current every day smoker Smokeless Tobacco Status: No Alcohol use: heavy Drug use: cocaine, opiates, marijuana, methamphetamine, prescription drug abuse Medications & Allergies Allopurinol [Zyloprim 100 MG] 100 mg PO DAILY PRN 02/25/17 [History] Quetiapine Fumarate [Seroquel] 25 mg PO HS PRN 02/25/17 [History] Metoprolol [Lopressor] 25 mg PO BID 03/01/17 [History] Indomethacin 50 mg PO BID PRN 06/15/17 [History] Lisinopril-HCTZ 20-12.5 [Prinzide 20-12.5] 1 tab PO DAILY 06/16/17 [History] Omeprazole [PriLOSEC] 20 mg PO DAILY@0730 capsule. 06/20/17 [Rx] Paroxetine [Paxil] 30 mg PO DAILY #30 tablet 06/20/17 [Rx] Quetiapine Fumarate [Seroquel] 100 mg PO HS #30 tablet 06/20/17 [Rx] BuPROPion XL (24 HR) [Wellbutrin XL] 150 mg PO DAILY 07/03/17 [History] 3 Allergy/AdvReac Type Severity Reaction Status Date / Time naproxen [From Naprosyn] Allergy Hives Verified 06/15/17 17:22 gabapentin [From Neurontin] AdvReac Hallucinati Verified 06/15/17 17:22 ng orphenadrine [From Norflex] AdvReac Hallucinati Verified 06/15/17 17:22 ng Review of Systems Psychiatric: Reports: depression, anxiety, abnormal sleep pattern, homicidal ideation, hopelessness, irritability, mood swings Mental Status Exam Patient orientation: Yes Person, Yes Time, Yes Place Level of alertness: Alert Patient appearance: Appropriate Behavior: nervous, anxious Psychomotor activity: Normal Eye contact: Maintains Eye Contact Mood description: Depressed, Anxious, Irritable Affect description: congruent with mood Speech pattern: Coherent Speech volume: Normal Thought process: Circumstantial Thought content: Yes Homicidal ideation, Yes Guilt Attention span: Capable of Sustained Attention Memory description: Grossly Intact Patient reliability: Reliable Historian Intelligence estimate: Average Judgment: Poor Insight: Partial Results - Vital Signs Vital signs: Temp Pulse Resp BP Pulse Ox 98.5 F 91 18 146/92 94 07/05/17 06:27 07/05/17 06:27 07/05/17 06:27 07/05/17 06:27 07/05/17 06:27 - Labs Labs: Laboratory Last Values WBC 6.1 K/mcL (4.3-11.1) 07/03/17 17:08 RBC 4.55 M/mcL (4.19-5.50) 07/03/17 17:08 Hgb 13.7 g/dL (12.9-16.9) 07/03/17 17:08 Hct 40.8 % (37.5-50.1) 07/03/17 17:08 MCV 89.7 fL (83.0-100.0) 07/03/17 17:08 MCH 30.1 pg (28.0-33.3) 07/03/17 17:08 MCHC 33.6 g/dL (31.6-35.5) 07/03/17 17:08 RDW 15.6 % (11.5-14.5) H 07/03/17 17:08 Plt Count 203 K/mcL (140-400) 07/03/17 17:08 MPV 10.5 fL (9.4-12.4) 07/03/17 17:08 Immature Gran % 0.2 % (0-4) 07/03/17 17:08 Seg Neutrophils % 59.0 % 07/03/17 17:08 Lymphocytes % 25.1 % 07/03/17 17:08 Monocytes % 8.4 % 07/03/17 17:08 Eosinophils % 5.8 % 07/03/17 17:08 Basophils % 1.5 % 07/03/17 17:08 Neutrophils # 3.6 K/mcL (1.6-8.9) 07/03/17 17:08 Lymphocytes # 1.5 K/mcL (0.6-4.6) 07/03/17 17:08 Monocytes # 0.5 K/mcL (0.0-1.3) 07/03/17 17:08 Eosinophils # 0.4 K/mcL (0.0-0.6) 07/03/17 17:08 Basophils # 0.1 K/mcL (0.0-0.2) 07/03/17 17:08 Sodium 141 mEq/L (136-145) 07/03/17 17:08 Potassium 3.5 mEq/L (3.5-4.5) 07/03/17 17:08 Chloride 108 mEq/L (98-109) 07/03/17 17:08 Carbon Dioxide 15 mEq/L (19-29) L 07/03/17 17:08 BUN 6 mg/dL (8-26) L 07/03/17 17:08 Creatinine 0.73 mg/dL (0.72-1.25) 07/03/17 17:08 Est GFR ( Amer) > 60 (> 60) 07/03/17 17:08 Est GFR (Non-Af Amer) > 60 (> 60) 07/03/17 17:08 BUN/Creatinine Ratio 8 (6-26) 07/03/17 17:08 Glucose 92 mg/dL (70-99) 07/03/17 17:08 Calculated Osmolality 289 (280-300) 07/03/17 17:08 Calcium 8.5 mg/dL (8.6-10.8) L 07/03/17 17:08 Urine Color Yellow (Yellow) 07/03/17 23:40 Urine Clarity Clear (Clear) 07/03/17 23:40 Urine pH 6.0 pH Units (5.0-8.0) 07/03/17 23:40 Ur Specific [place] 1.012 (1.010-1.025) 07/03/17 23:40 Urine Protein 30 mg/dL (Neg-Trace) H 07/03/17 23:40 Urine Glucose (UA) Normal mg/dL (Normal) 07/03/17 23:40 Urine Ketones Negative mg/dL (Negative) 07/03/17 23:40 Urine Blood Small (Negative) H 07/03/17 23:40 Urine Nitrite Negative (Negative) 07/03/17 23:40 Urine Bilirubin Negative (Negative) 07/03/17 23:40 Urine Urobilinogen Normal mg/dL (Normal) 07/03/17 23:40 Ur Leukocyte Esterase Negative (Negative) 07/03/17 23:40 Urine Microscopic RBC 0-3 per hpf (0-3) 12 23:40 Urine Microscopic WBC 0-3 per hpf (0-3) 07/03/17 23:40 Ur Squamous Epith Cells Many per lpf (None-Few) H 07/03/17 23:40 Urine Bacteria Few per hpf (None-Few) 07/03/17 23:40 Urine Mucus Few (Few) 07/03/17 23:40 Salicylates < 5.0 mg/dL (15-30) L 07/03/17 17:08 Urine Opiates Screen Negative ng/mL (Erllzo=746) 07/03/17 16:41 Acetaminophen < 1.0 mcg/mL (10-30) L 07/03/17 17:08 Ur Barbiturates Screen Negative ng/mL (Tuuylm=353) 07/03/17 16:41 Ur Phencyclidine Scrn Negative ng/mL (Cutoff=25) 07/03/17 16:41 Ur Amphetamines Screen Negative ng/mL (Tbarcy=1420) 07/03/17 16:41 U Benzodiazepines Scrn Positive ng/mL (Pvgpjq=046) H 07/03/17 16:41 Urine Cocaine Screen Negative ng/mL (Cutoff= 300) 07/03/17 16:41 U Marijuana (THC) Screen Negative ng/mL (Cutoff = 50) 07/03/17 16:41 Ethyl Alcohol 365 mg/dL (0-10) H 07/03/17 17:08 Consult Discharge Plan - Plan Referrals: Miles Parrish MD [Non-Partnered Physician] -
[2017-07-05] MEDS: Nicotine 21 MG PATCH.TD24 TD SCH (16:23)
[2017-07-05] MEDS: Indomethacin 25 MG CAPSULE PO SCH (16:23)
[2017-07-05] MEDS: Lisinopril-HCTZ 20-12.5mg TABLET PO SCH (16:23)
--- NOTE | 2017-07-05 16:37 | Internal Med Progress Note ---
Date of Encounter: 07/05/17 Time of Encounter: 16:34 - Assessment and plan (1) Suicidal ideation Current Visit: No Status: Resolved Assessment and plan: Currently has a sitter and is calm. I spoke with patient and during my assessment he did not feel as though he wanted to hurt himself. Psychiatry is consulted and recommendations are appreciated. Family is awaiting placement to inpatient facility. He has been waiting for a bed at [facility] rehabilitation. He is medically cleared to go when a bed is available. (2) Alcohol intoxication Current Visit: Yes Status: Resolved Assessment and plan: CIWA protocol. no signs of withdrawal He is medically cleared to go when a bed is available. Qualifiers: Complication of substance-induced condition: uncomplicated Qualified Code(s ): F10.920 - Alcohol use, unspecified with intoxication, uncomplicated (3) Bipolar 1 disorder Current Visit: Yes Status: Acute Assessment and plan: Patient goes for counseling. Resume home meds like to see in the morning. Needs to be consulted. (4) Essential hypertension Current Visit: Yes Status: Chronic (5) Suicidal ideation Current Visit: Yes Status: Acute - Subjective Interval history: Patient is a 41 year old male with history of alcohol abuse and bipolar disorder presented for suicidal and homicidal ideation. He does not have a specific plan for suicide. He has no particular person that he would like to harm. When he arrived to ED he was noted to be calm and pleasant, and did not have any aggressive behavior toward staff. In the ED he tested positive BZD and alcohol was 365. He is on CIWA protocol currently and is not actively withdrawing. Last drink was at 4 pm yesterday. He currently denies SI/HI but admits they he did have these thoughts prior to arrival to ED. one day after admission patient said he still wants to hurt himself. Today patient denies suicidal ideation denies any homicidal ideation. No hallucinations - Constitutional Vitals: Temp Pulse Resp BP Pulse Ox 98.8 F 85 18 149/102 100 07/05/17 15:44 07/05/17 15:44 07/05/17 15:44 07/05/17 15:44 07/05/17 15:44 Exam: Gen.: No acute distress, AAO 3 CVS: Regular rate and rhythm Lungs: Clear to auscultation bilaterally Abdomen: Nontender/nondistended Internal Medicine: Result - Labs CBC & Chem 7: 07/03/17 17:08 07/03/17 17:08 Consult Discharge Plan - Plan Referrals: Miles Parrish MD [Non-Partnered Physician] -
[2017-07-05] MEDS: Divalproex (12 HR) 250 MG TABLET PO SCH (20:24)
[2017-07-06] MEDS: Vitamin B Complex/Vit C/Vit E 1 EACH TABLET PO SCH (07:58)
[2017-07-06] MEDS: Lisinopril-HCTZ 20-12.5mg TABLET PO SCH (07:58)
[2017-07-06] MEDS: Thiamine (B-1) 100 MG TABLET PO SCH (07:58)
[2017-07-06] MEDS: Divalproex (12 HR) 250 MG TABLET PO SCH ×2 (07:58→20:53)
[2017-07-06] MEDS: Folic Acid 1 MG TABLET PO SCH (07:58)
[2017-07-06] MEDS: Indomethacin 25 MG CAPSULE PO SCH ×2 (07:59→17:50)
[2017-07-06] MEDS: Nicotine 21 MG PATCH.TD24 TD SCH (07:59)
[2017-07-06] MEDS: BuPROPion XL (24 HR) 150 MG TABLET PO SCH (07:59)
--- NOTE | 2017-07-06 10:17 | Internal Med Progress Note ---
Date of Encounter: 07/06/17 Time of Encounter: 10:13 - Assessment and plan (1) Suicidal ideation Current Visit: Yes Status: Resolved Assessment and plan: Currently has a sitter and is calm. I spoke with patient and during my assessment he did not feel as though he wanted to hurt himself. Psychiatry is consulted and recommendations are appreciated. Family is awaiting placement to inpatient facility. He has been waiting for a bed at [facility] rehabilitation. He is medically cleared to go when a bed is available. (2) Alcohol intoxication Current Visit: Yes Status: Resolved Assessment and plan: CIWA protocol. no signs of withdrawal He is medically cleared to go when a bed is available. Qualifiers: Complication of substance-induced condition: uncomplicated Qualified Code(s ): F10.920 - Alcohol use, unspecified with intoxication, uncomplicated (3) Bipolar 1 disorder Current Visit: Yes Status: Acute Assessment and plan: Patient goes for counseling. Resume home meds like to see in the morning. Needs to be consulted. (4) Essential hypertension Current Visit: Yes Status: Chronic (5) Suicidal ideation Current Visit: Yes Status: Acute - Subjective Interval history: Patient is a 41 year old male with history of alcohol abuse and bipolar disorder presented for suicidal and homicidal ideation. He does not have a specific plan for suicide. He has no particular person that he would like to harm. When he arrived to ED he was noted to be calm and pleasant, and did not have any aggressive behavior toward staff. In the ED he tested positive BZD and alcohol was 365. He is on CIWA protocol currently and is not actively withdrawing. Last drink was at 4 pm yesterday. He currently denies SI/HI but admits they he did have these thoughts prior to arrival to ED. one day after admission patient said he still wants to hurt himself. Currently denies suicidal ideation denies any homicidal ideation. No hallucinations - Constitutional Vitals: Temp Pulse Resp BP Pulse Ox 98.3 F 78 14 123/75 100 07/06/17 06:39 07/06/17 06:39 07/06/17 06:39 07/06/17 06:39 07/06/17 06:39 Exam: CVS regular rhythm lungs clear to auscultation bilateral Psych: Normal mood, normal affect, normal insight into his situation. Internal Medicine: Result - Labs CBC & Chem 7: 12/07/17 17:08 07/03/17 17:08 Consult Discharge Plan - Plan Referrals: Miles Parrish MD [Non-Partnered Physician] -
[2017-07-06] MEDS: Nicotine 14 MG PATCH.TD24 TD SCH (13:39)
[2017-07-06] MEDS: Ondansetron 4 MG/2 ML VIAL IVP PRN (15:06)
[2017-07-07] MEDS: Melatonin 3 MG TABLET PO PRN ×2 (00:11→20:41)
[2017-07-07] MEDS: *HR* LORazepam 2 MG/ML VIAL IVP PRN ×2 (03:13→21:58)
[2017-07-07] MEDS: Nicotine 14 MG PATCH.TD24 TD SCH (08:15)
[2017-07-07] MEDS: Divalproex (12 HR) 250 MG TABLET PO SCH ×2 (08:16→20:41)
[2017-07-07] MEDS: Thiamine (B-1) 100 MG TABLET PO SCH (08:16)
[2017-07-07] MEDS: Lisinopril-HCTZ 20-12.5mg TABLET PO SCH (08:16)
[2017-07-07] MEDS: Vitamin B Complex/Vit C/Vit E 1 EACH TABLET PO SCH (08:16)
[2017-07-07] MEDS: Indomethacin 25 MG CAPSULE PO SCH ×2 (08:16→16:53)
[2017-07-07] MEDS: BuPROPion XL (24 HR) 150 MG TABLET PO SCH (08:16)
[2017-07-07] MEDS: Folic Acid 1 MG TABLET PO SCH (08:17)
[2017-07-07] MEDS: Acetaminophen 325 MG TABLET PO PRN (16:53)
--- NOTE | 2017-07-08 00:24 | Internal Med Progress Note ---
Date of Encounter: 07/07/17 Time of Encounter: 12:22 - Assessment and plan (1) Suicidal ideation Current Visit: Yes Status: Resolved Assessment and plan: Currently has a sitter and is calm. I spoke with patient and during my assessment he did not feel as though he wanted to hurt himself. Psychiatry was consulted over the weekend, no beds were available on [facility]. Will reconsult Psychiatry possibly open bed otherwise waiting for placement. (2) Alcohol intoxication Current Visit: Yes Status: Resolved Assessment and plan: CIWA protocol. no signs of withdrawal He is medically cleared to go when a bed is available. Qualifiers: Complication of substance-induced condition: uncomplicated Qualified Code(s ): F10.920 - Alcohol use, unspecified with intoxication, uncomplicated (3) Bipolar 1 disorder Current Visit: Yes Status: Acute Assessment and plan: Patient goes for counseling. Resume home meds like to see in the morning. Needs to be consulted. (4) Essential hypertension Current Visit: Yes Status: Chronic - Subjective Interval history: Patient is a 41 year old male with history of alcohol abuse and bipolar disorder presented for suicidal and homicidal ideation. He does not have a specific plan for suicide. He has no particular person that he would like to harm. When he arrived to ED he was noted to be calm and pleasant, and did not have any aggressive behavior toward staff. In the ED he tested positive BZD and alcohol was 365. He is on CIWA protocol currently and is not actively withdrawing. Last drink was at 4 pm yesterday. He currently denies SI/HI but admits they he did have these thoughts prior to arrival to ED. one day after admission patient said he still wants to hurt himself. No suicidal or homicidal ideations. - Constitutional Vitals: Temp Pulse Resp BP Pulse Ox 98.0 F 79 18 120/74 98 07/07/17 21:37 07/07/17 21:37 07/07/17 21:37 07/07/17 21:37 07/07/17 21:37 General appearance: Present: A&O X 3, no acute distress, answers questions appropriately - Head Head exam: Present: atraumatic, normocephalic - Respiratory Respiratory exam: Present: CTAB. Absent: accessory muscle use, rales, rhonchi, wheezes - Cardiovascular Cardiovascular exam: Present: RRR, +S1, +S2. Absent: diastolic murmur, gallop, rubs, systolic murmur Internal Medicine: Result - Labs CBC & Chem 7: 07/03/17 17:08 07/03/17 17:08 Consult Discharge Plan - Plan Referrals: Miles Parrish MD [Non-Partnered Physician] -
[2017-07-08] MEDS: Lisinopril-HCTZ 20-12.5mg TABLET PO SCH (08:47)
[2017-07-08] MEDS: Folic Acid 1 MG TABLET PO SCH (08:47)
[2017-07-08] MEDS: Divalproex (12 HR) 250 MG TABLET PO SCH ×2 (08:47→21:42)
[2017-07-08] MEDS: Vitamin B Complex/Vit C/Vit E 1 EACH TABLET PO SCH (08:47)
[2017-07-08] MEDS: Thiamine (B-1) 100 MG TABLET PO SCH (08:47)
[2017-07-08] MEDS: BuPROPion XL (24 HR) 150 MG TABLET PO SCH (08:47)
[2017-07-08] MEDS: Nicotine 14 MG PATCH.TD24 TD SCH (08:48)
--- NOTE | 2017-07-08 12:48 | Internal Med Progress Note ---
Date of Encounter: 07/08/17 Time of Encounter: 12:46 - Assessment and plan (1) Homicidal ideation Current Visit: Yes Status: Acute Assessment and plan: Continues to have homicidal ideation although not directed at a particular person, no particular method, continues to have feelings of anger and frustration. Continue one-on-one sitter for safety. We will consult psychiatry for reevaluation and potential admission to inpatient psychiatric floor. He is medically stable at this time. (2) Alcohol dependence Current Visit: Yes Status: Chronic Assessment and plan: Noted to have mild hand tremors and anxiety, requiring one dose of IV Ativan yesterday, no doses today so far. Continue supportive care, thiamine and folate supplements. Interested in inpatient alcohol rehabilitation programs. Qualifiers: Substance use status: in withdrawal Complication of substance-induced condition: uncomplicated Qualified Code(s): F10.230 - Alcohol dependence with withdrawal, uncomplicated (3) Bipolar disorder Current Visit: Yes Status: Chronic Assessment and plan: Has been started on Depakote per psychiatric recommendations. Continue Seroquel , Wellbutrin and Paxil. Qualifiers: Active/Remission status: currently active Current bipolar episode type: depressed Current episode severity: moderate Qualified Code(s): F31.32 - Bipolar disorder, current episode depressed, moderate (4) Tobacco abuse Current Visit: Yes Status: Chronic Assessment and plan: Continue nicotine transdermal patch. (5) Essential hypertension Current Visit: Yes Status: Chronic - Subjective Interval history: Reports occasional hand tremors and feeling anxious; no chest or abdominal pain , nausea, vomiting, diarrhea; tolerates diet; says he has a "lot of anger" built up inside him and needs help, does have homicidal thoughts due to anger although no particular person/plan; no suicidal ideation; - Constitutional Vitals: Temp Pulse Resp BP Pulse Ox 98.8 F 70 20 141/90 100 07/08/17 11:31 07/08/17 11:31 07/08/17 11:31 07/08/17 11:31 07/08/17 11:31 General appearance: Present: A&O X 3, answers questions appropriately - Respiratory Respiratory exam: Present: CTAB. Absent: accessory muscle use, rales, rhonchi, wheezes - Cardiovascular Cardiovascular exam: Present: RRR, +S1, +S2. Absent: diastolic murmur, gallop, rubs, systolic murmur - GI/Abdominal GI/Abdominal exam: Present: normal bowel sounds, soft, no peritoneal signs. Absent: distended, tenderness - Extremities Exam Extremities exam: Present: full ROM, warm, radial pulses palpable and symmetrical. Absent: calf tenderness, cyanotic, pedal edema Internal Medicine: Result - Labs CBC & Chem 7: 07/03/17 17:08 07/03/17 17:08 Consult Discharge Plan - Plan Referrals: Miles Parrish MD [Non-Partnered Physician] -
[2017-07-08] MEDS: Acetaminophen 325 MG TABLET PO PRN (14:00)
[2017-07-08] MEDS: Ondansetron 4 MG/2 ML VIAL IVP PRN (14:00)
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
[2017-07-08] MEDS: Indomethacin 25 MG CAPSULE PO SCH ×2 (18:14→18:16)
[2017-07-08] MEDS: *HR* LORazepam 2 MG/ML VIAL IVP PRN (21:42)
[2017-07-08] MEDS: Melatonin 3 MG TABLET PO PRN (21:42)
[2017-07-09 07:30] LABS: Basophils % 1.2 %; Eosinophils # 0.2 K/mcL (0.0-0.6); Hematocrit 30.8 % (37.5-50.1); Hemoglobin 10.1 g/dL (12.9-16.9); Immature Granulocytes % 0.6 % (0-4); Lymphocytes # 1.1 K/mcL (0.6-4.6); Mean Corpuscular HGB Conc 32.8 g/dL (31.6-35.5); Mean Corpuscular Hemoglobin 29.9 pg (28.0-33.3); Mean Corpuscular Volume 91.1 fL (83.0-100.0); Mean Platelet Volume 11.2 fL (9.4-12.4); Monocytes # 0.5 K/mcL (0.0-1.3); Monocytes % 14.3 %; Neutrophils # 1.5 K/mcL (1.6-8.9); Platelet Count 124 K/mcL (140-400); Red Blood Count 3.38 M/mcL (4.19-5.50); Red Cell Distribution Width 14.9 % (11.5-14.5); Segmented Neutrophils % 43.9 %
[2017-07-09] MEDS: Lisinopril-HCTZ 20-12.5mg TABLET PO SCH (08:40)
[2017-07-09] MEDS: Divalproex (12 HR) 250 MG TABLET PO SCH ×2 (08:41→21:32)
[2017-07-09] MEDS: Vitamin B Complex/Vit C/Vit E 1 EACH TABLET PO SCH (08:41)
[2017-07-09] MEDS: Thiamine (B-1) 100 MG TABLET PO SCH (08:41)
[2017-07-09] MEDS: Indomethacin 25 MG CAPSULE PO SCH (08:41)
[2017-07-09] MEDS: Folic Acid 1 MG TABLET PO SCH (08:41)
[2017-07-09] MEDS: Nicotine 14 MG PATCH.TD24 TD SCH (08:42)
[2017-07-09] MEDS: BuPROPion XL (24 HR) 150 MG TABLET PO SCH (08:42)
[2017-07-09 10:33] LABS: BUN/Creatinine Ratio 11 (6-26); Blood Urea Nitrogen 7 mg/dL (8-26); Calcium 8.1 mg/dL (8.6-10.8); Carbon Dioxide 24 mEq/L (19-29); Chloride 110 mEq/L (98-109); Glucose 75 mg/dL (70-99); Magnesium 1.4 mg/dL (1.6-2.6); Osmolality,Calculated 291 (280-300); Potassium 3.2 mEq/L (3.5-4.5); Sodium 142 mEq/L (136-145); eGFR For African Americans > 60 (> 60); eGFR For Non-African Americans > 60 (> 60)
--- NOTE | 2017-07-09 12:14 | Internal Med Progress Note ---
Date of Encounter: 07/09/17 Time of Encounter: 12:11 - Assessment and plan (1) Homicidal ideation Current Visit: Yes Status: Acute Assessment and plan: Continues to have homicidal ideation although not directed at a particular person, no particular method, continues to have feelings of anger and frustration. Continue one-on-one sitter for safety. Psychiatry evaluation appreciated; awaiting to hear back from [facility] [place], has been denied on the Psychiatric unit at [facility]. human resources services specialist on board. He is medically stable at this time. (2) Alcohol dependence Current Visit: Yes Status: Chronic Assessment and plan: Improving signs of withdrawal; will discontinue IV Ativan and CIWA protocol. Psychiatry recommends Naltrexone to reduce alcohol craving; will check availability. Continue supportive care, thiamine and folate supplements. Interested in inpatient alcohol rehabilitation programs. Qualifiers: Substance use status: in withdrawal Complication of substance-induced condition: uncomplicated Qualified Code(s): F10.230 - Alcohol dependence with withdrawal, uncomplicated (3) Bipolar disorder Current Visit: Yes Status: Chronic Assessment and plan: Has been started on Depakote per psychiatric recommendations. Continue Seroquel , Wellbutrin and Paxil. Qualifiers: Active/Remission status: currently active Current bipolar episode type: depressed Current episode severity: moderate Qualified Code(s): F31.32 - Bipolar disorder, current episode depressed, moderate (4) Tobacco abuse Current Visit: Yes Status: Chronic (5) Essential hypertension Current Visit: Yes Status: Chronic Assessment and plan: BP fairly controlled; resume home beta jerad and continue ACEI/diuretic. (6) Hypokalemia Current Visit: Yes Status: Acute Assessment and plan: related to alcohol use. Supplement with PO KCl and also replete IV MgSO4; monitor electrolytes. - Subjective Interval history: Reports no new complaints; continues to desire being placed in inpatient psychiatric unit; tolerates diet; denies pain; - Constitutional Vitals: Temp Pulse Resp BP Pulse Ox 98.3 F 80 16 145/94 98 07/09/17 10:09 07/09/17 10:09 07/09/17 10:09 07/09/17 10:09 07/09/17 10:09 General appearance: Present: A&O X 3, answers questions appropriately - Respiratory Respiratory exam: Present: CTAB. Absent: accessory muscle use, rales, rhonchi, wheezes - Cardiovascular Cardiovascular exam: Present: RRR, +S1, +S2. Absent: diastolic murmur, gallop, rubs, systolic murmur - GI/Abdominal GI/Abdominal exam: Present: normal bowel sounds, soft, no peritoneal signs. Absent: distended, tenderness - Extremities Exam Extremities exam: Present: full ROM, warm, radial pulses palpable and symmetrical. Absent: calf tenderness, cyanotic, pedal edema Internal Medicine: Result - Labs CBC & Chem 7: 07/09/17 06:59 07/09/17 06:59 Labs: Short CBC 07/09/17 Range/Units 06:59 WBC 3.4 L (4.3-11.1) K/mcL Hgb 10.1 L D (12.9-16.9) g/dL Hct 30.8 L (37.5-50.1) % Plt Count 124 L (140-400) K/mcL Neutrophils # 1.5 L (1.6-8.9) K/mcL BMP 07/09/17 06:59 Sodium 142 Potassium 3.2 L Chloride 110 H Carbon Dioxide 24 BUN 7 L Creatinine 0.62 L Glucose 75 Calcium 8.1 L Consult Discharge Plan - Plan Referrals: Miles Parrish MD [Non-Partnered Physician] -
--- NOTE | 2017-07-09 13:43 | Consult Note ---
Date of Encounter: 07/09/17 Time of Encounter: 13:30 Assessment & Recommendation (1) Homicidal ideation Current visit: Yes Status: Acute Assessment & Recommendation: Continue direct observation. The patient has not identified any particular person but reports general HI. His behavior is generally cooperative. It may be that he will be able to transition to another level of care with out the emergence of homicidal ideation (2) Alcoholism /alcohol abuse Current visit: No Status: Acute Assessment & Recommendation: The patient may benefit from naltrexone 50 mg every evening. This medicine can reduce alcohol cravings. On an outpatient basis he can be switched from naltrexone 50 mg per day to the long acting injectable version of naltrexone. The patient has been placed on list at [facility] and at [facility]. He could contact them to see how long the weight he has. The patient could benefit from another rehabilitation facility such as the [facility] in [facility]. (3) Major depressive disorder, recurrent severe without psychotic features Current visit: Yes Status: Acute Assessment & Recommendation: At this point I would not make any changes in medications other than adding naltrexone to his regimen History of Present Illness Patient: known to practice within the last 3 years Requesting Physician: Michelle Romano MD Reason for consult: follow-up History of present illness: Mr. Doe is a 41 year old male He is previously known to the [facility]. He is currently [facility] a [facility] or at [facility]. These are 2 rehabilitation houses better served by the same [facility]. The patient knows that he is on the list but he is not sure how long the wait he has. The patient is being evaluated for residential stay at [facility]. He will have a [id number] interview was what he told me. The patient has been on vivid traumas received 3 injections. He is a candidate to begin naltrexone 50 mg by mouth every afternoon. This may help to reduce craving for alcohol and may allow him to receive a an intramuscular naltrexone injection injection in the future. The patient has talked to the foster care social worker. I offered the patient other options such as other treatment facilities such as [facility] at the [facility] in [place] and this [facility] in [place] he says that he is willing to consider these their further from his home CC: Michelle Romano MD Past Med Surg Social Fam HX - Past Medical History Medical history: asthma, GI bleed, hypertension, kidney stones, migraine, seizures, syncope - Past Surgical History Surgical History: appendectomy, arthroscopy, cholecystectomy, orthopedic, other , other - Social History Smoking Status: Current every day smoker Smokeless Tobacco Status: No Alcohol use: heavy Drug use: cocaine, opiates, marijuana, methamphetamine, prescription drug abuse Medications & Allergies Allopurinol [Zyloprim 100 MG] 100 mg PO DAILY PRN 02/25/17 [History] Quetiapine Fumarate [Seroquel] 25 mg PO HS PRN 02/25/17 [History] Metoprolol [Lopressor] 25 mg PO BID 03/01/17 [History] Indomethacin 50 mg PO BID PRN 06/15/17 [History] Lisinopril-HCTZ 20-12.5 [Prinzide 20-12.5] 1 tab PO DAILY 06/16/17 [History] Omeprazole [PriLOSEC] 20 mg PO DAILY@0730 capsule. 06/20/17 [Rx] Paroxetine [Paxil] 30 mg PO DAILY #30 tablet 06/20/17 [Rx] Quetiapine Fumarate [Seroquel] 100 mg PO HS #30 tablet 06/20/17 [Rx] BuPROPion XL (24 HR) [Wellbutrin XL] 150 mg PO DAILY 07/03/17 [History] 3 Allergy/AdvReac Type Severity Reaction Status Date / Time naproxen [From Naprosyn] Allergy Hives Verified 06/15/17 17:22 gabapentin [From Neurontin] AdvReac Hallucinati Verified 06/15/17 17:22 ng orphenadrine [From Norflex] AdvReac Hallucinati Verified 06/15/17 17:22 ng Review of Systems Psychiatric: Reports: depression, anxiety, abnormal sleep pattern, homicidal ideation, hopelessness, irritability, mood swings Mental Status Exam Patient orientation: Yes Person, Yes Time, Yes Place Level of alertness: Alert Patient appearance: Appropriate, Well Groomed Behavior: calm, cooperative Psychomotor activity: Normal Eye contact: Intense Contact Mood description: Angry Affect description: congruent with mood, full range, dysphoric Speech pattern: Normal rate, Normal rhythm, Normal tone Speech volume: Loud Thought process: Linear, Goal Oriented Thought content: No Suicidal ideation, Yes Homicidal ideation, No Overt delusions Perceptual disturbances: No Auditory hallucinations, No Visual hallucinations Attention span: Capable of Focused Attention Memory description: Grossly Intact Patient reliability: Reliable Historian Intelligence estimate: Average Judgment: Limited Insight: Partial Results - Vital Signs Vital signs: Temp Pulse Resp BP Pulse Ox 98.3 F 80 16 145/94 98 07/09/17 10:09 07/09/17 10:09 07/09/17 10:09 07/09/17 10:09 07/09/17 10:09 - Labs Labs: Laboratory Last Values WBC 3.4 K/mcL (4.3-11.1) L 07/09/17 06:59 RBC 3.38 M/mcL (4.19-5.50) L 07/09/17 06:59 Hgb 10.1 g/dL (12.9-16.9) L D 07/09/17 06:59 Hct 30.8 % (37.5-50.1) L 07/09/17 06:59 MCV 91.1 fL (83.0-100.0) 07/09/17 06:59 MCH 29.9 pg (28.0-33.3) 07/09/17 06:59 MCHC 32.8 g/dL (31.6-35.5) 07/09/17 06:59 RDW 14.9 % (11.5-14.5) H 07/09/17 06:59 Plt Count 124 K/mcL (140-400) L 07/09/17 06:59 MPV 11.2 fL (9.4-12.4) 07/09/17 06:59 Immature Gran % 0.6 % (0-4) 07/09/17 06:59 Seg Neutrophils % 43.9 % 07/09/17 06:59 Lymphocytes % 33.0 % 07/09/17 06:59 Monocytes % 14.3 % 07/09/17 06:59 Eosinophils % 7.0 % 07/09/17 06:59 Basophils % 1.2 % 07/09/17 06:59 Neutrophils # 1.5 K/mcL (1.6-8.9) L 07/09/17 06:59 Lymphocytes # 1.1 K/mcL (0.6-4.6) 07/09/17 06:59 Monocytes # 0.5 K/mcL (0.0-1.3) 07/09/17 06:59 Eosinophils # 0.2 K/mcL (0.0-0.6) 07/09/17 06:59 Basophils # 0.0 K/mcL (0.0-0.2) 07/09/17 06:59 Sodium 142 mEq/L (136-145) 07/09/17 06:59 Potassium 3.2 mEq/L (3.5-4.5) L 07/09/17 06:59 Chloride 110 mEq/L (98-109) H 07/09/17 06:59 Carbon Dioxide 24 mEq/L (19-29) 07/09/17 06:59 BUN 7 mg/dL (8-26) L 07/09/17 06:59 Creatinine 0.62 mg/dL (0.72-1.25) L 07/09/17 06:59 Est GFR ( Amer) > 60 (> 60) 07/09/17 06:59 Est GFR (Non-Af Amer) > 60 (> 60) 07/09/17 06:59 BUN/Creatinine Ratio 11 (6-26) 07/09/17 06:59 Glucose 75 mg/dL (70-99) 07/09/17 06:59 Calculated Osmolality 291 (280-300) 07/09/17 06:59 Calcium 8.1 mg/dL (8.6-10.8) L 07/09/17 06:59 Magnesium 1.4 mg/dL (1.6-2.6) L 07/09/17 06:59 Urine Color Yellow (Yellow) 07/03/17 23:40 Urine Clarity Clear (Clear) 07/03/17 23:40 Urine pH 6.0 pH Units (5.0-8.0) 07/03/17 23:40 Ur Specific [place] 1.012 (1.010-1.025) 07/03/17 23:40 Urine Protein 30 mg/dL (Neg-Trace) H 07/03/17 23:40 Urine Glucose (UA) Normal mg/dL (Normal) 07/03/17 23:40 Urine Ketones Negative mg/dL (Negative) 07/03/17 23:40 Urine Blood Small (Negative) H 07/03/17 23:40 Urine Nitrite Negative (Negative) 07/03/17 23:40 Urine Bilirubin Negative (Negative) 07/03/17 23:40 Urine Urobilinogen Normal mg/dL (Normal) 07/03/17 23:40 Ur Leukocyte Esterase Negative (Negative) 07/03/17 23:40 Urine Microscopic RBC 0-3 per hpf (0-3) 12 23:40 Urine Microscopic WBC 0-3 per hpf (0-3) 12 23:40 Ur Squamous Epith Cells Many per lpf (None-Few) H 07/03/17 23:40 Urine Bacteria Few per hpf (None-Few) 07/03/17 23:40 Urine Mucus Few (Few) 07/03/17 23:40 Salicylates < 5.0 mg/dL (15-30) L 07/03/17 17:08 Urine Opiates Screen Negative ng/mL (Mslavf=443) 07/03/17 16:41 Acetaminophen < 1.0 mcg/mL (10-30) L 07/03/17 17:08 Ur Barbiturates Screen Negative ng/mL (Xwbcpk=783) 07/03/17 16:41 Ur Phencyclidine Scrn Negative ng/mL (Cutoff=25) 07/03/17 16:41 Ur Amphetamines Screen Negative ng/mL (Qnopeq=5586) 07/03/17 16:41 U Benzodiazepines Scrn Positive ng/mL (Fgodkq=810) H 07/03/17 16:41 Urine Cocaine Screen Negative ng/mL (Cutoff= 300) 07/03/17 16:41 U Marijuana (THC) Screen Negative ng/mL (Cutoff = 50) 07/03/17 16:41 Ethyl Alcohol 365 mg/dL (0-10) H 07/03/17 17:08 Specimen Rejected Hemolyzed 07/09/17 06:13 Consult Discharge Plan - Plan Referrals: Miles Parrish MD [Non-Partnered Physician] -
[2017-07-09] MEDS ORDERED: Indomethacin 25 MG CAPSULE PO PRN (13:51)
[2017-07-09] MEDS: Melatonin 3 MG TABLET PO PRN (21:34)
[2017-07-10 06:25] LABS: BUN/Creatinine Ratio 8 (6-26); Calcium 8.1 mg/dL (8.6-10.8); Carbon Dioxide 25 mEq/L (19-29); Chloride 111 mEq/L (98-109); Glucose 75 mg/dL (70-99); Magnesium 1.6 mg/dL (1.6-2.6); Osmolality,Calculated 290 (280-300); Potassium 3.6 mEq/L (3.5-4.5); Sodium 142 mEq/L (136-145); eGFR For African Americans > 60 (> 60); eGFR For Non-African Americans > 60 (> 60)
[2017-07-10 06:26] LABS: Blood Urea Nitrogen 5 mg/dL (8-26)
[2017-07-10] MEDS: Thiamine (B-1) 100 MG TABLET PO SCH (08:17)
[2017-07-10] MEDS: Lisinopril-HCTZ 20-12.5mg TABLET PO SCH (08:17)
[2017-07-10] MEDS: BuPROPion XL (24 HR) 150 MG TABLET PO SCH (08:17)
[2017-07-10] MEDS: Divalproex (12 HR) 250 MG TABLET PO SCH ×2 (08:17→21:22)
[2017-07-10] MEDS: Folic Acid 1 MG TABLET PO SCH (08:17)
[2017-07-10] MEDS: Nicotine 14 MG PATCH.TD24 TD SCH (08:18)
--- NOTE | 2017-07-10 12:07 | Internal Med Progress Note ---
Date of Encounter: 07/10/17 Time of Encounter: 12:06 - Assessment and plan (1) BPH (benign prostatic hyperplasia) Current Visit: Yes Status: Acute Assessment and plan: Patient reports urinary hesitancy and weak urine stream. CT abdomen/pelvis showed mild prostatomegaly and bladder wall thickening suggestive of cystitis. Start Flomax. Check urine reflex microscopy and culture. Qualifiers: Lower urinary tract symptom presence: symptoms present Lower urinary tract symptom detail: weak urinary stream Qualified Code(s): N40.1 - Benign prostatic hyperplasia with lower urinary tract symptoms; R39.12 - Poor urinary stream; R39.12 - Poor urinary stream (2) Homicidal ideation Current Visit: Yes Status: Acute Assessment and plan: Continues to have homicidal ideation although not directed at a particular person, no particular method, continues to have feelings of anger and frustration. Continue one-on-one sitter for safety. Psychiatry evaluation appreciated; awaiting to hear back from [facility] alcohol rehab center, has been denied on the Psychiatric unit at [facility]. 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 He is medically stable at this time. (3) Alcohol dependence Current Visit: Yes Status: Chronic Assessment and plan: Improving signs of withdrawal, has intermittent visual hallucinations; Psychiatry recommends Naltrexone to reduce alcohol craving; nonformulary at the hospital. Continue supportive care, thiamine and folate supplements. Interested in inpatient alcohol rehabilitation programs. Qualifiers: Substance use status: in withdrawal Complication of substance-induced condition: uncomplicated Qualified Code(s): F10.230 - Alcohol dependence with withdrawal, uncomplicated (4) Bipolar disorder Current Visit: Yes Status: Chronic Assessment and plan: Has been started on Depakote per psychiatric recommendations. Continue Seroquel , Wellbutrin and Paxil. Qualifiers: Active/Remission status: currently active Current bipolar episode type: depressed Current episode severity: moderate Qualified Code(s): F31.32 - Bipolar disorder, current episode depressed, moderate (5) Tobacco abuse Current Visit: Yes Status: Chronic Assessment and plan: Continue nicotine transdermal patch. (6) Essential hypertension Current Visit: Yes Status: Chronic Assessment and plan: BP fairly controlled; resume home beta jerad and continue ACEI/diuretic. (7) Hypokalemia Current Visit: Yes Status: Resolved - Subjective Interval history: Reports urinary hesitancy and dribbling; no burning micturition, fever/chills, nausea, vomiting, abdominal pain; - Constitutional Vitals: Temp Pulse Resp BP Pulse Ox 98.3 F 63 15 147/99 100 07/10/17 11:16 07/10/17 11:16 07/10/17 11:16 07/10/17 11:16 07/10/17 11:16 General appearance: Present: A&O X 3, answers questions appropriately - Respiratory Respiratory exam: Present: CTAB. Absent: accessory muscle use, rales, rhonchi, wheezes - Cardiovascular Cardiovascular exam: Present: RRR, +S1, +S2. Absent: diastolic murmur, gallop, rubs, systolic murmur - GI/Abdominal GI/Abdominal exam: Present: normal bowel sounds, soft, no peritoneal signs. Absent: distended, tenderness Internal Medicine: Result - Labs CBC & Chem 7: 07/09/17 06:59 07/10/17 06:02 Labs: BMP 07/10/17 06:02 Sodium 142 Potassium 3.6 Chloride 111 H Carbon Dioxide 25 BUN 5 L Creatinine 0.59 L Glucose 75 Calcium 8.1 L - Impressions Impressions Abdomen/Pelvis CT 07/09/17 16:30 IMPRESSION: 1. Findings potentially related to cystitis. 2. A few incidental findings as above. D/ / Ronny Bocanegra MD / Ronny Bocanegra MD Interpreting Provider: Ronny Bocanegra MD Consult Discharge Plan - Plan Referrals: Miles Parrish MD [Non-Partnered Physician] -
[2017-07-10 12:51] LABS: Bacteria,Urine None Seen per hpf (None-Few); Hyaline Casts,Urine None Seen per lpf (None-Few); RBC,Urine 0-3 per hpf (0-3); Squamous Epithelial Cell,Urine None Seen per lpf (None-Few)
[2017-07-10 12:52] LABS: Bilirubin,Urine Negative (Negative); Blood,Urine Negative (Negative); Clarity,Urine Clear (Clear); Color,Urine Yellow (Yellow); Glucose,Urine (UA) Normal (Normal); Ketones,Urine Negative (Negative); Leukocyte Esterase,Urine Negative (Negative); Nitrite,Urine Negative (Negative); PH,Urine 7.5 pH Units (5.0-8.0); Protein,Urine Negative (Neg-Trace); Specific Gravity,Urine 1.017 (1.010-1.025); Urobilinogen,Urine Normal (Normal)
[2017-07-10] MEDS: Ondansetron 4 MG/2 ML VIAL IVP PRN (13:53)
[2017-07-10] MEDS: Vitamin B Complex/Vit C/Vit E 1 EACH TABLET PO SCH (21:23)
[2017-07-10] MEDS: Melatonin 3 MG TABLET PO PRN (21:26)
[2017-07-11] MEDS: Nicotine 14 MG PATCH.TD24 TD SCH (08:39)
[2017-07-11] MEDS: BuPROPion XL (24 HR) 150 MG TABLET PO SCH (08:39)
[2017-07-11] MEDS: Lisinopril-HCTZ 20-12.5mg TABLET PO SCH (08:39)
[2017-07-11] MEDS: Folic Acid 1 MG TABLET PO SCH (08:40)
[2017-07-11] MEDS: Thiamine (B-1) 100 MG TABLET PO SCH (08:40)
[2017-07-11] MEDS: Divalproex (12 HR) 250 MG TABLET PO SCH ×2 (08:40→20:55)
[2017-07-11] MEDS: Vitamin B Complex/Vit C/Vit E 1 EACH TABLET PO SCH (08:40)
--- NOTE | 2017-07-11 10:58 | Psychiatry Progress Note ---
Date of Encounter: 07/10/17 (late entry) Time of Encounter: 15:00 Subjective Interval history: I saw the patient yesterday, but I could not enter the note till today. The patient and I discussed [facility]. If he is not able to get in there he was willing to consider the [facility] in [facility] or [facility] in [facility]. I plan to see him later today. Review of Systems Psychiatric: Reports: depression, anxiety, abnormal sleep pattern, homicidal ideation, hopelessness, irritability, mood swings Objective: Exam Patient orientation: Yes Person, Yes Time, Yes Place Level of alertness: Alert Patient appearance: Appropriate, Well Groomed Behavior: calm, cooperative Psychomotor activity: Normal Eye contact: Maintains Eye Contact Mood description: Euthymic/stable Affect description: congruent with mood, full range Speech pattern: Normal rate, Normal rhythm, Normal tone Speech volume: Normal Thought process: Linear, Goal Oriented Thought content: No Suicidal ideation, Yes Homicidal ideation, No Overt delusions Perceptual disturbances: No Auditory hallucinations, No Visual hallucinations Judgment: Fair (non-specific homocidal) Insight: Partial Results - Vital Signs Vital Signs: Temp Pulse Resp BP Pulse Ox 98.9 F 65 15 120/80 99 07/11/17 10:50 07/11/17 10:50 07/11/17 10:50 07/11/17 10:50 07/11/17 10:50 - Labs Labs: Laboratory Results - last 24 hr 07/10/17 12:20 Urine Color Yellow Urine Clarity Clear Urine pH 7.5 Ur Specific [place] 1.017 Urine Protein Negative Urine Glucose (UA) Normal Urine Ketones Negative Urine Blood Negative Urine Nitrite Negative Urine Bilirubin Negative Urine Urobilinogen Normal Ur Leukocyte Esterase Negative Urine Microscopic RBC 0-3 Ur Squamous Epith Cells None Seen Urine Bacteria None Seen Hyaline Casts None Seen Ur Culture Indicated? NO - Impressions ITS Impressions Abdomen/Pelvis CT 07/09/17 16:30 IMPRESSION: 1. Findings potentially related to cystitis. 2. A few incidental findings as above. D/ / Ronny Bocanegra MD / Ronny Bocanegra MD Interpreting Provider: Ronny Bocanegra MD Assessment and Plan (1) Homicidal ideation Current visit: Yes Status: Acute (2) Alcoholism /alcohol abuse Current visit: No Status: Acute (3) Major depressive disorder, recurrent severe without psychotic features Current visit: Yes Status: Acute Consult Discharge Plan - Plan Referrals: Miles Parrish MD [Non-Partnered Physician] -
--- NOTE | 2017-07-11 12:31 | Discharge Summary ---
Date of Encounter: 07/11/17 Time of Encounter: 11:30 - Discharge Diagnosis (1) BPH (benign prostatic hyperplasia) Priority: Primary Status: Chronic Qualifiers: Lower urinary tract symptom presence: symptoms present Lower urinary tract symptom detail: weak urinary stream Qualified Code(s): N40.1 - Benign prostatic hyperplasia with lower urinary tract symptoms; R39.12 - Poor urinary stream; R39.12 - Poor urinary stream (2) Homicidal ideation Priority: Primary Status: Acute (3) Alcohol dependence Priority: Primary Status: Chronic Qualifiers: Substance use status: in withdrawal Complication of substance-induced condition: uncomplicated Qualified Code(s): F10.230 - Alcohol dependence with withdrawal, uncomplicated (4) Bipolar disorder Priority: Secondary Status: Chronic Qualifiers: Active/Remission status: currently active Current bipolar episode type: depressed Current episode severity: moderate Qualified Code(s): F31.32 - Bipolar disorder, current episode depressed, moderate (5) Tobacco abuse Priority: Secondary Status: Chronic (6) Essential hypertension Priority: Secondary Status: Chronic (7) Hypokalemia Priority: Primary Status: Resolved - Discharge Medications Home Medications: Allopurinol [Zyloprim 100 MG] 100 mg PO DAILY PRN 02/25/17 [History] Quetiapine Fumarate [Seroquel] 25 mg PO HS PRN 02/25/17 [History] Metoprolol [Lopressor] 25 mg PO BID 03/01/17 [History] Indomethacin 50 mg PO BID PRN 06/15/17 [History] Lisinopril-HCTZ 20-12.5 [Prinzide 20-12.5] 1 tab PO DAILY 06/16/17 [History] Omeprazole [PriLOSEC] 20 mg PO DAILY@0730 capsule. 06/20/17 [Rx] Paroxetine [Paxil] 30 mg PO DAILY #30 tablet 06/20/17 [Rx] Quetiapine Fumarate [Seroquel] 100 mg PO HS #30 tablet 06/20/17 [Rx] BuPROPion XL (24 HR) [Wellbutrin Xl] 150 mg PO DAILY 07/03/17 [History] Divalproex (12 HR) [Depakote (12 HR)] 250 mg PO BID tablet. 07/11/17 [Rx] Folic Acid 1 mg PO DAILY tablet 07/11/17 [Rx] Melatonin 3 mg PO HS PRN tablet 07/11/17 [Rx] Tamsulosin [Flomax] 0.4 mg PO DAILY capsule 07/11/17 [Rx] Thiamine (B-1) [Vitamin B-1] 100 mg PO DAILY tablet 07/11/17 [Rx] Vitamin B Complex/Vit C/Vit E [Stresstab] 1 each PO DAILY tablet 07/11/17 [Rx] Allergies/Adverse Reactions: 3 Allergy/AdvReac Type Severity Reaction Status Date / Time naproxen [From Naprosyn] Allergy Hives Verified 06/15/17 17:22 gabapentin [From Neurontin] AdvReac Hallucinati Verified 06/15/17 17:22 ng orphenadrine [From Norflex] AdvReac Hallucinati Verified 06/15/17 17:22 ng Procedures/tests Complete & Pending: Procedures Performed prior 72 hours Category Date Time Status CT abd pelvis w iv no oral [CT] Routine Cat Scan 07/09/17 16:30 Completed Date of admission: 07/03/17 19:55 Primary care physician: PCP NONE Consults: 07/04/17 09:48 Consult to Psychiatry [CONS] Routine Consulting Provider: [facility] [place] Reason for Consult: suididal and homicidal ideation Call Completed: Yes 07/04/17 15:23 Consult to Psychiatry [CONS] Routine Consulting Provider: [facility] [place] Reason for Consult: Suicidal and homicidal ideation Call Completed: Yes 07/07/17 18:30 Consult to Psychiatry [CONS] Routine Consulting Provider: [facility] [place] Reason for Consult: needs IP psych, re-eval Call Completed: Yes Discharging clinician: Michelle Romano Anticipated date of discharge: 07/11/17 - Patient Status Disposition: Home, Self-Care Condition: Good Functional capacity at discharge: independent ambulation Overall status at discharge: patient is progressing back to baseline - Discharge Instructions Follow Up With: Miles Parrish MD [Non-Partnered Physician] - Additional Instructions: Follow-up appointments: If there is not an appointment listed below, please call your physician and schedule a follow-up appointment. If you have congestive heart failure and your symptoms return, make an appointment with your physician. Medication List: Carry an up to date list of medications you are taking at all time. We have given you an updated medication list including any new medications that you have been prescribed. Please provide that list to your primary provider Symptoms: If your condition changes or you experience any of the following symptoms, notify your physician immediately: Unusual or worsening pain, fever, persistent nausea and vomiting, bleeding, increase in swelling (especially in your legs), sudden weight gain, extreme dizziness, chest pain, increased drainage or redness from a wound or incision. Go to the emergency department if you experience a problem with breathing. Weights: If you have a history of swelling or shortness of breath, weigh yourself daily and notify your physician if you have a weight gain of two or more pounds in one day or 5 or more pounds in a week. If you experience any of the warning signs for stroke: Sudden numbness or weakness of the face, arm or leg; especially on one side of the body, sudden confusion, trouble speaking or understanding, sudden trouble seeing in one or both eyes, sudden trouble walking, dizziness, loss of balance or coordination, sudden sever headache with no cause; Call 911 or go to the emergency room. Stroke is a medical emergency. Some risk factors for stroke: Age, cigarette smoking, diabetes, excessive alcohol consumption, family history , high blood pressure, overweight, physical inactivity, prior stroke, heart attack, diagnosis of carotid artery stenosis or other artery disease. If you smoke, STOP: Smoking or tobacco use significantly increases your risk of heart and lung disease. Your chance of disease greatly increases if you continue to smoke. For more information, call the [place] tobacco quit line for smoking cessation QUIT-NOW ( ) - Diet and Activity Activity: resume usual activities as tolerated Diet: advance to your usual diet, low salt diet Hospital course: Mr. Doe is a 41 year old male with the above medical problems including bipolar disorder, who was initially admitted with suicidal and homicidal ideation and mood problems. His serum alcohol level was noted to be high and he was monitored closely for alcohol withdrawal, started on CIWA protocol. Patient's mood gradually improved, however he continued to have feelings of anger and frustration and continues to have homicidal ideation, directed to no particular person. He was evaluated by psychiatry multiple times during this admission and after exhausting all other avenues, he is being transferred to inpatient psychiatry unit for further stabilization. During his hospitalization, patient complained of urinary hesitancy and dribbling. CT abdomen/pelvis showed prostatomegaly and he was started on Flomax. Urine dipstick was checked, which was negative for infection. - Time Spent with Patient Total time spent providing and/or coordinating discharge services: Greater than 30 minutes (40 min) - Constitutional Vitals: Temp Pulse Resp BP Pulse Ox 98.9 F 65 15 120/80 99 07/11/17 10:50 07/11/17 10:50 07/11/17 10:50 07/11/17 10:50 07/11/17 10:50 General appearance: Present: A&O X 3, answers questions appropriately - Cardiovascular Cardiovascular exam: Present: RRR, +S1, +S2. Absent: diastolic murmur, gallop, rubs, systolic murmur
[2017-07-11 19:11] VITALS: BP 113/74
[2017-07-11] MEDS: Melatonin 3 MG TABLET PO PRN (20:54)
== END 2017-07-11 20:43 | disposition home or self-care (01) ==
LOC: 3ANU 16:30 → EMEROO 16:30 → SUATTDRO 19:55 → 3ANU 20:20
PROVIDERS: ADMIT Family Medicine; ATTEND Internal Medicine

== ENCOUNTER 2017-07-11 22:09 | Inpatient (IN) ==
[2017-07-12] MEDS ORDERED: traZODone 50 MG TABLET PO PRN (00:05)
[2017-07-12] MEDS ORDERED: Acetaminophen 325 MG TABLET PO PRN (00:05)
[2017-07-12] MEDS ORDERED: MOM Conc 10 ML UD.LIQ PO PRN (00:05)
[2017-07-12] MEDS ORDERED: *HR* LORazepam 1 MG TABLET PO PRN (00:05)
[2017-07-12] MEDS ORDERED: *HR* LORazepam 2 MG/ML VIAL IM PRN (00:05)
[2017-07-12] MEDS ORDERED: Haloperidol Lactate 5 MG/ML VIAL IM PRN (00:05)
[2017-07-12] MEDS ORDERED: Mag Hydrox/Al Hydrox/Simeth 30 ML UDC PO PRN (00:05)
[2017-07-12] MEDS ORDERED: Melatonin 3 MG TABLET PO PRN (00:14)
[2017-07-12] MEDS: Folic Acid 1 MG TABLET PO SCH (09:21)
[2017-07-12] MEDS: Divalproex (12 HR) 250 MG TABLET PO SCH ×2 (09:22→21:11)
[2017-07-12] MEDS: Lisinopril-HCTZ 20-12.5mg TABLET PO SCH (09:22)
[2017-07-12] MEDS: Nicotine 14 MG PATCH.TD24 TD SCH (09:22)
[2017-07-12] MEDS: Thiamine (B-1) 100 MG TABLET PO SCH (09:22)
[2017-07-12] MEDS: Vitamin B Complex/Vit C/Vit E 1 EACH TABLET PO SCH (09:22)
--- NOTE | 2017-07-12 10:30 | Psychiatry History & Physical ---
Date of Encounter: 07/12/17 Time of Encounter: 10:20 History of Present Illness Patient Stated Chief Complaint: homicidal ideation Medicare Admission Attestation: For traditional Medicare patients the provided hospital inpatient services are reasonable and necessary and in the case of services not specified as inpatient -only under 42 CFR 419.22 (n), that they are appropriately provided as inpatient services in accordance 42 CFR 412.3. For Critical Access Hospital the patient may reasonably be expected to be discharged or transferred to a hospital within 96 hours after admission to the Critical Access Hospital. Admitted From: Home Plans for Post Hospital Care: Transfer In Rehab Fac History of Present Illness: Mr. Doe is a 41 year old male who was admitted secondary to vague HI. Apparently he was intoxicated and made threatening statements to roommate who called the squad. Admitted to third floor and transferred to last night. Client reports he was on the third floor for eight days. Unclear why he was there for so long as this travel writer cannot access those records at this time. Likely admitted due to concern for withdrawals. Not withdrawing now. Client indicated he was having trouble with his prostate while on the third floor but states the issue has resolved. May have been waiting for a bed on 1[facility] a lot of that time. When asked today about SI and HI he responds with "I haven't really thought about it." Vague with responses. Seems to want to stay in hospital until he can get into a rehab facility. Likely malingering some in order to remain inpatient. Client reports there is a facility in [place] that can take him Friday and that the social services assistant "Quentin" can transport him. Client vague on who Quentin is and only states he is an employee here at [employer]. Also vague about the rehab facility that has accepted him. Claims he has option of staying at the [email or web address] or "something House. I can't remember the full name." Lizz has not seen him yet as he came to late Friday. However, her check out implies that AOD treatment facilities around here have refused him. Client may have options in [place] but this is based on what client is saying and staff have not verified these placements. If placements do not work out client will need to return to roommate's home on Friday. Past Med Surg Social Fam HX - Past Medical History Medical history: asthma, GI bleed, hypertension, kidney stones, migraine, seizures, syncope - Past Psychiatric History Psychiatric history: Reports: depression, previous psychiatric hospitalization Family psychiatric history: Unknown Family History of Suicide: Unknown - Past Surgical History Surgical History: appendectomy, arthroscopy, cholecystectomy, orthopedic, other , other - Social History Smoking Status: Current every day smoker Smokeless Tobacco Status: No Alcohol use: heavy Drug use: cocaine, opiates, marijuana, methamphetamine, prescription drug abuse Medications & Allergies Allopurinol [Zyloprim 100 MG] 100 mg PO DAILY PRN 02/25/17 [History] Quetiapine Fumarate [Seroquel] 25 mg PO HS PRN 02/25/17 [History] Metoprolol [Lopressor] 25 mg PO BID 03/01/17 [History] Indomethacin 50 mg PO BID PRN 06/15/17 [History] Lisinopril-HCTZ 20-12.5 [Prinzide 20-12.5] 1 tab PO DAILY 06/16/17 [History] Omeprazole [PriLOSEC] 20 mg PO DAILY@0730 capsule. 06/20/17 [Rx] Paroxetine [Paxil] 30 mg PO DAILY #30 tablet 06/20/17 [Rx] Quetiapine Fumarate [Seroquel] 100 mg PO HS #30 tablet 06/20/17 [Rx] BuPROPion XL (24 HR) [Wellbutrin Xl] 150 mg PO DAILY 07/03/17 [History] Divalproex (12 HR) [Depakote (12 HR)] 250 mg PO BID tablet. 07/11/17 [Rx] Folic Acid 1 mg PO DAILY tablet 07/11/17 [Rx] Melatonin 3 mg PO HS PRN tablet 07/11/17 [Rx] Tamsulosin [Flomax] 0.4 mg PO DAILY capsule 07/11/17 [Rx] Thiamine (B-1) [Vitamin B-1] 100 mg PO DAILY tablet 07/11/17 [Rx] Vitamin B Complex/Vit C/Vit E [Stresstab] 1 each PO DAILY tablet 07/11/17 [Rx] 3 Allergy/AdvReac Type Severity Reaction Status Date / Time naproxen [From Naprosyn] Allergy Hives Verified 06/15/17 17:22 gabapentin [From Neurontin] AdvReac Hallucinati Verified 06/15/17 17:22 ng orphenadrine [From Norflex] AdvReac Hallucinati Verified 06/15/17 17:22 ng Review of Systems Constitutional: Denies: fever, chills, weakness, weight change Eyes: Denies: eye pain, vision change Ears, Nose, Throat: Denies: ear pain, throat pain, dental pain, hearing loss, congestion Cardiovascular: Denies: chest pain, palpitations, dyspnea on exertion Respiratory: Denies: cough, dyspnea, wheezes Gastrointestinal: Denies: abdominal pain, nausea, vomiting, diarrhea, constipation Genitourinary male: Denies: urgency, dysuria, frequency, genital lesions Genitourinary female: Denies: urgency, dysuria, frequency, abnormal menses, dyspareunia Musculoskeletal: Denies: joint swelling, joint pain Integumentary: Denies: rash, lesions, pruritus Neurological: Denies: headache, weakness, numbness, memory loss Endocrine: Denies: fatigue, heat or cold intolerance Hematologic/Lymphatic: Denies: easy bruising, lymphadenopathy Allergic/Immunologic: Denies: urticaria, itchy eyes Mental Status Exam Patient orientation: Yes Person, Yes Time, Yes Place Level of alertness: Alert Patient appearance: Appropriate, Well Groomed Behavior: calm, cooperative Psychomotor activity: Normal Eye contact: Maintains Eye Contact Mood description: Depressed Affect description: congruent with mood Speech pattern: Normal rate, Normal rhythm, Normal tone Speech volume: Normal Thought process: Linear, Goal Oriented Thought content: No Suicidal ideation, Yes Homicidal ideation Perceptual disturbances: No Auditory hallucinations, No Visual hallucinations Attention span: Capable of Focused Attention Memory description: Grossly Intact Patient reliability: Questionable Historian Intelligence estimate: Average Judgment: Limited Insight: Partial Exam - HEENT Head exam IM: Present: atraumatic Eye exam IM: Present: EOMI ENT exam IM: Present: mucous membranes moist - Neurological Neurological exam IM: Present: alert, oriented X3 - Respiratory Respiratory exam IM: Present: CTAB - GI/Abdominal GI/Abdominal exam IM: Present: normal bowel sounds - Extremities Extremities exam IM: Present: full ROM - Skin Skin exam IM: Present: normal color Results - Vital Signs Vital signs: Temp Pulse Resp BP 98.5 F 71 20 110/71 07/12/17 09:00 07/12/17 09:00 07/12/17 09:00 07/12/17 09:00 Assessment and Plan (1) Alcohol dependence Current visit: No Status: Chronic Plan: Admit inpatient for safety and stabilization, Close observation, Suicide Precautions per unit protocol, Encourage participation in unit milieu, Group Therapy, Monitor sleep, Monitor appetite Risks, benefits, side effects, alternatives discussed w/pt: Yes Patient agreeable to treatment: Yes Plans for Post Hospital Care: Transfer Inp Rehab Fac Estimated Length of Stay (Days) : 3 Qualifiers: Substance use status: in withdrawal Complication of substance-induced condition: uncomplicated Qualified Code(s): F10.230 - Alcohol dependence with withdrawal, uncomplicated (2) Major depressive disorder, recurrent severe without psychotic features Current visit: No Status: Acute Plan: Admit inpatient for safety and stabilization, Close observation, Suicide Precautions per unit protocol, Encourage participation in unit milieu, Group Therapy, Monitor sleep, Monitor appetite Risks, benefits, side effects, alternatives discussed w/pt: Yes Patient agreeable to treatment: Yes Plans for Post Hospital Care: Transfer In Rehab Fac Estimated Length of Stay (Days) : 3 (3) Malingering Current visit: Yes Status: Acute Plan: Admit inpatient for safety and stabilization, Close observation, Suicide Precautions per unit protocol, Encourage participation in unit milieu, Group Therapy, Monitor sleep, Monitor appetite Risks, benefits, side effects, alternatives discussed w/pt: Yes Patient agreeable to treatment: Yes Plans for Post Hospital Care: Transfer Inp Rehab Fac Estimated Length of Stay (Days) : 3
[2017-07-12] MEDS: Indomethacin 25 MG CAPSULE PO PRN (18:33)
[2017-07-13] MEDS: Vitamin B Complex/Vit C/Vit E 1 EACH TABLET PO SCH (08:22)
[2017-07-13] MEDS: Divalproex (12 HR) 250 MG TABLET PO SCH ×2 (08:22→20:55)
[2017-07-13] MEDS: Nicotine 14 MG PATCH.TD24 TD SCH (08:22)
[2017-07-13] MEDS: Lisinopril-HCTZ 20-12.5mg TABLET PO SCH (08:22)
[2017-07-13] MEDS: Folic Acid 1 MG TABLET PO SCH (08:23)
[2017-07-13] MEDS: Thiamine (B-1) 100 MG TABLET PO SCH (08:24)
--- NOTE | 2017-07-13 10:44 | Psychiatry Progress Note ---
Date of Encounter: 07/13/17 Time of Encounter: 10:40 Subjective Interval history: Client reports he is "aggravated" this morning. Claims he has been thinking about his past and going to rehab tomorrow and it has him worked up. Asking for Ativan to help him calm down. Discussed how this would be counterproductive to getting into rehab. Client acted surprised that Ativan would not be allowed in treatment centers but did not push the issue. Still claiming he has a ride to [place] tomorrow but this conventional underwriter has doubts. Does not seem sincere. Denies SI/HI today but implied it was still early in the day and that there was plenty of time for his aggravation to turn into something worse. Review of Systems Constitutional: Denies: fever, chills, weakness, weight change Eyes: Denies: eye pain, vision change Ears, Nose, Throat: Denies: ear pain, throat pain, dental pain, hearing loss, congestion Cardiovascular: Denies: chest pain, palpitations, dyspnea on exertion Respiratory: Denies: cough, dyspnea, wheezes Gastrointestinal: Denies: abdominal pain, nausea, vomiting, diarrhea, constipation Musculoskeletal: Denies: joint swelling, joint pain Neurological: Denies: headache, weakness, numbness, memory loss Objective: Exam Patient orientation: Yes Person, Yes Time, Yes Place Level of alertness: Alert Patient appearance: Appropriate, Well Groomed Behavior: calm, cooperative Psychomotor activity: Normal Eye contact: Maintains Eye Contact Mood description: Irritable Affect description: congruent with mood Speech pattern: Normal rate, Normal rhythm, Normal tone Speech volume: Normal Thought process: Linear Thought content: No Suicidal ideation, No Homicidal ideation, No Overt delusions Perceptual disturbances: No Auditory hallucinations, No Visual hallucinations Judgment: Limited Insight: Minimal Results - Vital Signs Vital Signs: Temp Pulse Resp BP 96.8 F L 66 14 109/75 07/13/17 09:00 07/13/17 09:00 07/13/17 09:00 07/13/17 09:00 Assessment and Plan (1) Alcohol dependence Current visit: No Status: Chronic Plan: Continue hospitalization, Close observation, Suicide Precautions per unit protocol, Encourage participation in unit milieu, Group Therapy, Monitor sleep, Monitor appetite Risks, benefits, side effects, alternatives discussed w/pt: Yes Patient agreeable to treatment: Yes Qualifiers: Substance use status: in withdrawal Complication of substance-induced condition: uncomplicated Qualified Code(s): F10.230 - Alcohol dependence with withdrawal, uncomplicated (2) Major depressive disorder, recurrent severe without psychotic features Current visit: No Status: Acute Plan: Continue hospitalization, Close observation, Suicide Precautions per unit protocol, Encourage participation in unit milieu, Group Therapy, Monitor sleep, Monitor appetite Risks, benefits, side effects, alternatives discussed w/pt: Yes Patient agreeable to treatment: Yes (3) Malingering Current visit: Yes Status: Acute Plan: Continue hospitalization, Close observation, Suicide Precautions per unit protocol, Encourage participation in unit milieu, Group Therapy, Monitor sleep, Monitor appetite Risks, benefits, side effects, alternatives discussed w/pt: Yes Patient agreeable to treatment: Yes Consult Discharge Plan - Plan Referrals: NONE,PCP [Primary Care Provider] -
[2017-07-13] MEDS: hydrOXYzine pamoate 25 MG CAPSULE PO PRN (10:51)
[2017-07-13] MEDS: Indomethacin 25 MG CAPSULE PO PRN (17:40)
[2017-07-14] MEDS: Nicotine 14 MG PATCH.TD24 TD SCH (08:36)
[2017-07-14] MEDS: Vitamin B Complex/Vit C/Vit E 1 EACH TABLET PO SCH (08:37)
[2017-07-14] MEDS: Folic Acid 1 MG TABLET PO SCH (08:37)
[2017-07-14] MEDS: Divalproex (12 HR) 250 MG TABLET PO SCH ×2 (08:37→21:43)
[2017-07-14] MEDS: Thiamine (B-1) 100 MG TABLET PO SCH (08:37)
[2017-07-14] MEDS: Lisinopril-HCTZ 20-12.5mg TABLET PO SCH (08:37)
--- NOTE | 2017-07-14 10:06 | Psychiatry Progress Note ---
Date of Encounter: 07/14/17 Time of Encounter: 08:45 Subjective Interval history: Arie is a 41 y/o male with a long standing history of depression and alcohol dependence. He reports that his depression and anger symptoms have worsened over the past couple of days. The patient reports feelings of hopelessness. "I just don't like feeling this way." "If I leave I will take a bunch of pills and just end my life." He states he feels easily upset and has severe mood swings and the medication does not help with this. Discussed the role that alcohol may be playing in his mood symptoms. He is willing to try rehab at the [facility]. He states that he does want to feel better but does not feel like his meds are helping. He is sleeping well. He reports suicidal ideation with plan to overdose if he is discharged. Review of Systems Constitutional: Denies: fever, chills, weakness, weight change Eyes: Denies: eye pain, vision change Ears, Nose, Throat: Denies: ear pain, throat pain, dental pain, hearing loss, congestion Cardiovascular: Denies: chest pain, palpitations, dyspnea on exertion Respiratory: Denies: cough, dyspnea, wheezes Gastrointestinal: Denies: abdominal pain, nausea, vomiting, diarrhea, constipation Musculoskeletal: Denies: joint swelling, joint pain Neurological: Denies: headache, weakness, numbness, memory loss Psychiatric: Reports: depression, anxiety, suicidal ideation, irritability, mood swings Objective: Exam Patient orientation: Yes Person, Yes Time, Yes Place Level of alertness: Alert Patient appearance: Appropriate Behavior: calm, cooperative Psychomotor activity: Normal Eye contact: Fleeting Contact Mood description: Depressed Affect description: constricted Speech pattern: Normal rate, Normal rhythm, Normal tone Speech volume: Normal Thought process: Intact Thought content: Yes Suicidal ideation Perceptual disturbances: No Auditory hallucinations, No Visual hallucinations Judgment: Limited Insight: Minimal Results - Vital Signs Vital Signs: Temp Pulse Resp BP 97.7 F 71 18 105/72 07/14/17 08:51 07/14/17 08:51 07/14/17 08:51 07/14/17 08:51 Assessment and Plan (1) Major depressive disorder, recurrent severe without psychotic features Current visit: No Status: Acute Plan: Continue hospitalization, Close observation, Suicide Precautions per unit protocol, Encourage participation in unit milieu, Group Therapy, Monitor sleep, Monitor appetite Additional Plan: Previous notes reviewed and patient discussed in treatment team. Currently suicidal with a plan, therefore not a candidate for discharge or Rehab at this time. Encourage positive coping strategies. Continue current medications for sleep. Encourage group attendance. Increase paxil. Risks, benefits, side effects, alternatives discussed w/pt: Yes Patient agreeable to treatment: Yes (2) Alcohol dependence Current visit: No Status: Chronic Plan: Continue hospitalization, Close observation, Suicide Precautions per unit protocol, Encourage participation in unit milieu, Group Therapy, Monitor sleep, Monitor appetite Additional Plan: Monitor for withdrawal symptoms. Encourage patient to call Rehabs today. Risks, benefits, side effects, alternatives discussed w/pt: Yes Patient agreeable to treatment: Yes Qualifiers: Substance use status: in withdrawal Complication of substance-induced condition: uncomplicated Qualified Code(s): F10.230 - Alcohol dependence with withdrawal, uncomplicated Consult Discharge Plan - Plan Referrals: NONE,PCP [Primary Care Provider] -
[2017-07-14] MEDS: Indomethacin 25 MG CAPSULE PO PRN (14:32)
[2017-07-14] MEDS: hydrOXYzine pamoate 25 MG CAPSULE PO PRN (19:11)
[2017-07-15 09:44] VITALS: BP 115/74
[2017-07-15] MEDS: Nicotine 14 MG PATCH.TD24 TD SCH (09:52)
[2017-07-15] MEDS: Lisinopril-HCTZ 20-12.5mg TABLET PO SCH (09:55)
[2017-07-15] MEDS: Divalproex (12 HR) 250 MG TABLET PO SCH (09:55)
[2017-07-15] MEDS: Folic Acid 1 MG TABLET PO SCH (09:56)
[2017-07-15] MEDS: Thiamine (B-1) 100 MG TABLET PO SCH (09:57)
[2017-07-15] MEDS: Vitamin B Complex/Vit C/Vit E 1 EACH TABLET PO SCH (09:57)
--- NOTE | 2017-07-15 11:08 | Discharge Summary ---
Date of Encounter: 07/15/17 Time of Encounter: 09:00 Diagnosis - Discharge Diagnosis (1) Major depressive disorder, recurrent severe without psychotic features Priority: Primary Status: Acute (2) Alcohol dependence Status: Chronic Qualifiers: Substance use status: in withdrawal Complication of substance-induced condition: uncomplicated Qualified Code(s): F10.230 - Alcohol dependence with withdrawal, uncomplicated Medications - Discharge Medications Prescriptions: hydrOXYzine pamoate [HydrOXYzine Pamoate] 25 mg PO TID PRN #90 capsule PRN Reason: Anxiety Paroxetine [Paxil] 40 mg PO DAILY 60 Days #60 tablet Quetiapine Fumarate [Seroquel] 25 mg PO HS PRN #30 tablet PRN Reason: Sleep Quetiapine Fumarate [Seroquel] 100 mg PO HS #30 tablet Allopurinol [Zyloprim 100 MG] 100 mg PO DAILY PRN 02/25/17 [History] Quetiapine Fumarate [Seroquel] 25 mg PO HS PRN 02/25/17 [History] Metoprolol [Lopressor] 25 mg PO BID 03/01/17 [History] Indomethacin 50 mg PO BID PRN 06/15/17 [History] Lisinopril-HCTZ 20-12.5 [Prinzide 20-12.5] 1 tab PO DAILY 06/16/17 [History] Omeprazole [PriLOSEC] 20 mg PO DAILY@0730 capsule. 06/20/17 [Rx] Paroxetine [Paxil] 30 mg PO DAILY #30 tablet 06/20/17 [Rx] Divalproex (12 HR) [Depakote (12 HR)] 250 mg PO BID tablet. 07/11/17 [Rx] Folic Acid 1 mg PO DAILY tablet 07/11/17 [Rx] Melatonin 3 mg PO HS PRN tablet 07/11/17 [Rx] Tamsulosin [Flomax] 0.4 mg PO DAILY capsule 07/11/17 [Rx] Thiamine (B-1) [Vitamin B-1] 100 mg PO DAILY tablet 07/11/17 [Rx] Vitamin B Complex/Vit C/Vit E [Stresstab] 1 each PO DAILY tablet 07/11/17 [Rx] Paroxetine [Paxil] 40 mg PO DAILY 60 Days #60 tablet 07/15/17 [Rx] Quetiapine Fumarate [Seroquel] 25 mg PO HS PRN #30 tablet 07/15/17 [Rx] Quetiapine Fumarate [Seroquel] 100 mg PO HS #30 tablet 07/15/17 [Rx] hydrOXYzine pamoate [HydrOXYzine Pamoate] 25 mg PO TID PRN #90 capsule 07/15/17 [Rx] 3 Allergy/AdvReac Type Severity Reaction Status Date / Time naproxen [From Naprosyn] Allergy Hives Verified 06/15/17 17:22 gabapentin [From Neurontin] AdvReac Hallucinati Verified 06/15/17 17:22 ng orphenadrine [From Norflex] AdvReac Hallucinati Verified 06/15/17 17:22 ng Provider Date of admission: 07/12/17 18:02 Primary care physician: PCP NONE Discharging clinician: Suyapa Alejandra Assessment and Plan - Patient/Caregiver Discharge Instructions Activity: resume usual activities as tolerated Diet: regular diet - Follow up Plan Follow up with: [facility] [Outside] (Due to previous missed appointments, to resume Vivitrol treatment, you must walk in any day during business hours and wait to be worked in for an appointment.) [facility] [Outside] - 07/15/17 2:00 pm (The above appointment is with your family independence case manager, Jeana, for a home visit. Additionally, you will see Lulu Daily for outpatient psychiatric assessment and medication management services on 07/22/2017, at 10:30 AM.) [facility] [Outside] - 07/16/17 9:30 am (The above appointment is with Carla Johnson for outpatient substance abuse and mental health counseling services.) Functional capacity at discharge: independent ambulation Overall status at discharge: Stable Disposition: Home, Self-Care Hospital Course Hospital course: Mr. Doe is a 41 year old male with a history of alcohol dependence, depression, personality disorder who presented to the hospital with increasing depression and homicidal ideation as well as intoxication. Patient was admitted to [facility] for psychiatric stabilization. He was incorporated into the therapeutic milieu and offer group and individual as well as recreational therapy. He was also offered psychoeducational materials or therapy. He is placed on suicide precautions and close observation per unit protocol. Patient was restarted on home medications and his Paxil was titrated up to 40 mg by mouth daily. Throughout the course of hospital stay the patient reported improvement in his mood. He did have anxiety especially about his alcohol use. Plan was to go to [facility] in about a week to start substance abuse treatment. Patient is interested in trying to clean and does that this is playing a role in his mental health. Patient did attend some group and unit activities. At the time of discharge patient was agreeable to continuing his treatment as an outpatient in taking his meds as prescribed. He denies homicidal or suicidal ideation, intent, or plan. He is discharged in stable condition. - Time Spent with Patient Total time spent providing and/or coordinating discharge services: Less than 30 minutes Quality - Multiple Antipsychotics Patient discharged on 2 or more antipsychotic medications: No Procedures - Procedures Procedures: Medication Management, Crisis Stabilization, Supportive Therapy, Group Therapy, Psychoeducational Therapy Mental Status Exam - Mental Status Exam Patient orientation: Yes Person, Yes Time, Yes Place Level of alertness: Alert Patient appearance: Appropriate, Well Groomed Behavior: calm, cooperative Psychomotor activity: Normal Eye contact: Maintains Eye Contact Mood description: Euthymic/stable Affect description: congruent with mood, full range Speech pattern: Normal rate, Normal rhythm, Normal tone Speech Volume: Normal Thought process: Linear, Goal Oriented Thought Content: No Suicidal ideation, No Homicidal ideation, No Overt delusions Perceptual Disturbances: No Auditory hallucinations, No Visual hallucinations Judgment: Limited Insight: Partial
== END 2017-07-15 12:14 | disposition home or self-care (01) | DRG 885 ==
LOC: 1ANU → SUATTDRO 07-12 18:02
PROVIDERS: ADMIT Psychiatry & Neurology Forensic Psychiatry; ATTEND Student in an Organized Health Care Education/Training Program

== ENCOUNTER 2017-12-05 16:24 | Observation (INO) ==
[2017-12-05] MEDS ORDERED: Lisinopril 20 MG TABLET PO STA (16:45)
[2017-12-05 17:17] LABS: Basophils # 0.1 K/mcL (0.0-0.2); Basophils % 2.4 %; Eosinophils # 0.4 K/mcL (0.0-0.6); Eosinophils % 8.9 %; Hematocrit 37.2 % (37.5-50.1); Hemoglobin 13.1 g/dL (12.9-16.9); Immature Granulocytes % 0.4 % (0-4); Lymphocytes # 1.8 K/mcL (0.6-4.6); Lymphocytes % 39.2 %; Mean Corpuscular HGB Conc 35.2 g/dL (31.6-35.5); Mean Corpuscular Volume 90.7 fL (83.0-100.0); Mean Platelet Volume 10.1 fL (9.4-12.4); Monocytes # 0.4 K/mcL (0.0-1.3); Monocytes % 9.1 %; Neutrophils # 1.8 K/mcL (1.6-8.9); Platelet Count 207 K/mcL (140-400)
[2017-12-05 17:24] LABS: Bilirubin,Urine Negative (Negative); Blood,Urine Negative (Negative); Clarity,Urine Clear (Clear); Color,Urine Yellow (Yellow); Glucose,Urine (UA) Normal (Normal); Ketones,Urine Negative (Negative); Leukocyte Esterase,Urine Negative (Negative); Nitrite,Urine Negative (Negative); PH,Urine 6.5 pH Units (5.0-8.0); Protein,Urine Negative (Neg-Trace); Specific Gravity,Urine 1.009 (1.010-1.025); Urobilinogen,Urine Normal (Normal)
[2017-12-05 17:34] LABS: Amphetamine Screen,Urine Negative ng/mL (Cutoff=1000); Barbiturate Screen,Urine Negative ng/mL (Cutoff=200); Benzodiazepines Screen,Urine Negative ng/mL (Cutoff=200); Cannabinoid Screen,Urine Positive ng/mL (Cutoff = 50); Cocaine Screen,Urine Negative ng/mL (Cutoff= 300); Opiate Screen,Urine Negative ng/mL (Cutoff=300); Phencyclidine Screen,Urine Negative ng/mL (Cutoff=25)
[2017-12-05 17:36] LABS: Acetaminophen < 10 mcg/mL (10-20); BUN/Creatinine Ratio 6 (6-26); Blood Urea Nitrogen 4 mg/dL (6-20); Calcium 9.2 mg/dL (8.6-10.3); Carbon Dioxide 21 mEq/L (23-29); Chloride 105 mEq/L (98-107); Ethanol 391 mg/dL (Less than 10); Glucose 119 mg/dL (70-105); Osmolality,Calculated 284 (280-300); Potassium 3.3 mEq/L (3.5-5.1); Salicylate < 2.5 mg/dL (15.0-30.0); Sodium 138 mEq/L (136-145); eGFR For African Americans > 60 (> 60); eGFR For Non-African Americans > 60 (> 60)
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
[2017-12-06] MEDS ORDERED: Ondansetron 4 MG/2 ML VIAL IVP ONE (05:20)
[2017-12-06] MEDS ORDERED: Ondansetron ODT 4 MG TAB.RAPDIS SL ONE (05:22)
[2017-12-06] MEDS ORDERED: MVI, adult with vitamin K 10 ML in 0.9 % Sodium Chloride 1,000 ML IVC ONE (06:05)
--- NOTE | 2017-12-06 06:10 | Emergency Department Note ---
Disposition Clinical Impression: Suicidal ideation, Acute anxiety, Alcoholism /alcohol abuse, Homicidal ideation Alcohol withdrawal Qualifiers: Complication of substance-induced condition: uncomplicated Qualified Code(s): F10.230 - Alcohol dependence with withdrawal, uncomplicated Disposition: Admitted As Inpatient Condition: Fair Referrals: Miles Parrish MD [Non-Partnered Physician] - Forms: ED Satisfaction Letter Time of Disposition: 06:36 Psych HPI - General Chief Complaint: ED Psychiatric Symptoms Stated Complaint: SI Time Seen by Provider: 12/05/17 16:27 Source: patient, EMS Mode of arrival: ambulatory - Related Data Home Medications Medication Instructions Recorded Confirmed Lisinopril-HCTZ 20-12.5 [Prinzide 1 tab PO BID 06/16/17 11/13/17 20-12.5] Allergies Allergy/AdvReac Type Severity Reaction Status Date / Time naproxen [From Naprosyn] Allergy Hives Verified 11/13/17 07:47 gabapentin [From Neurontin] AdvReac Hallucinati Verified 11/13/17 07:47 ng orphenadrine [From Norflex] AdvReac Hallucinati Verified 11/13/17 07:48 ng Past Medical History - Past Medical History Medical history: Reports: asthma, GERD, GI bleed, hypertension, kidney stones, migraine, seizures, syncope Surgical history: Reports: appendectomy, arthroscopy, cholecystectomy, orthopedic, other, other Psychiatric history: Reports: bipolar, depression, previous psychiatric hospitalization - Social History Smoking Status: Current some day smoker Smokeless Tobacco Status: No Alcohol use: Reports: heavy, recent Drug use: Reports: none Physical Exam - General Limitations: altered mental status General appearance: alert, in no apparent distress Course Course Narrative: This patient was signed out to me at shift change from Dr. Uday Espinoza. Please refer to his note for complete details of the history and physical examination. Patient presenting to the emergency department with complaint of suicidal ideation and homicidal ideation. Patient was intoxicated and initial alcohol level was 396. At shift change patient is awaiting a repeat alcohol level so that he can be evaluated by the psychiatry service. His repeat alcohol level did come down to 80 and the [place] [facility] service was consulted. They evaluated the patient in the emergency department and recommended patient be admitted to the medical service for alcohol withdrawal with psychiatry consultation. Patient admits to drinking 5-6 25 ounce beers per day. He does now complain, after his alcohol level has come down, of nausea with shakiness and feels jittery. An IV and banana bag was ordered and we will consult the hospitalist for admission to the medical service. - Consultations Consultation #1: The hospitalist, Dr. Styles, was consulted and accepted admission of the patient. Time: 06:25 Vital Signs Temperature 98.5 F 12/05/17 16:28 Pulse Rate 116 12/05/17 16:28 Respiratory Rate 16 12/05/17 16:28 Blood Pressure 165/103 12/05/17 16:28 O2 Sat by Pulse Oximetry 97 12/05/17 16:28 Temperature 98.5 F 12/05/17 16:28 Pulse Rate 116 12/05/17 16:28 Respiratory Rate 16 12/05/17 16:28 Blood Pressure 165/103 12/05/17 16:28 O2 Sat by Pulse Oximetry 97 12/05/17 16:28 Oxygen Delivery Oxygen Delivery Room Air Psych - Lab Data Result diagrams: 12/05/17 17:02 12/05/17 17:02 Lab Results 12/05/17 12/05/17 12/05/17 Range/Units 17:02 17:02 17:14 WBC 4.5 (4.3-11.1) K/mcL RBC 4.10 L (4.19-5.50) M/mcL Hgb 13.1 (12.9-16.9) g/dL Hct 37.2 L (37.5-50.1) % MCV 90.7 (83.0-100.0) fL MCH 32.0 (28.0-33.3) pg MCHC 35.2 (31.6-35.5) g/dL RDW 15.0 H (11.5-14.5) % Plt Count 207 (140-400) K/mcL MPV 10.1 (9.4-12.4) fL Immature Gran % 0.4 (0-4) % Seg Neutrophils % 40.0 % Lymphocytes % 39.2 % Monocytes % 9.1 % Eosinophils % 8.9 % Basophils % 2.4 % Neutrophils # 1.8 (1.6-8.9) K/mcL Lymphocytes # 1.8 (0.6-4.6) K/mcL Monocytes # 0.4 (0.0-1.3) K/mcL Eosinophils # 0.4 (0.0-0.6) K/mcL Basophils # 0.1 (0.0-0.2) K/mcL Sodium 138 (136-145) mEq/L Potassium 3.3 L (3.5-5.1) mEq/L Chloride 105 (98-107) mEq/L Carbon Dioxide 21 L (23-29) mEq/L BUN 4 L (6-20) mg/dL Creatinine 0.67 L (0.70-1.30) mg/dL Est GFR ( Amer) > 60 (> 60) Est GFR (Non-Af Amer) > 60 (> 60) BUN/Creatinine Ratio 6 (6-26) Glucose 119 H (70-105) mg/dL Calculated Osmolality 284 (280-300) Calcium 9.2 (8.6-10.3) mg/dL Urine Color Yellow (Yellow) Urine Clarity Clear (Clear) Urine pH 6.5 (5.0-8.0) pH Units Ur Specific [place] 1.009 L (1.010-1.025) Urine Protein Negative (Neg-Trace) mg/dL Urine Glucose (UA) Normal (Normal) mg/dL Urine Ketones Negative (Negative) mg/dL Urine Blood Negative (Negative) Urine Nitrite Negative (Negative) Urine Bilirubin Negative (Negative) Urine Urobilinogen Normal (Normal) mg/dL Ur Leukocyte Esterase Negative (Negative) Salicylates < 2.5 L (15.0-30.0) mg/dL Urine Opiates Screen (Zqfqjn=244) ng/mL Acetaminophen < 10 L (10-20) mcg/mL Ur Barbiturates Screen (Varyym=843) ng/mL Ur Phencyclidine Scrn (Cutoff=25) ng/mL Ur Amphetamines Screen (Lcxogk=2338) ng/mL U Benzodiazepines Scrn (Ofcuyq=628) ng/mL Urine Cocaine Screen (Cutoff= 300) ng/mL U Marijuana (THC) Screen (Cutoff = 50) ng/mL Ethyl Alcohol 391 H (Less than 10) mg/dL 12/05/17 12/06/17 Range/Units 17:14 03:53 WBC (4.3-11.1) K/mcL RBC (4.19-5.50) M/mcL Hgb (12.9-16.9) g/dL Hct (37.5-50.1) % MCV (83.0-100.0) fL MCH (28.0-33.3) pg MCHC (31.6-35.5) g/dL RDW (11.5-14.5) % Plt Count (140-400) K/mcL MPV (9.4-12.4) fL Immature Gran % (0-4) % Seg Neutrophils % % Lymphocytes % % Monocytes % % Eosinophils % % Basophils % % Neutrophils # (1.6-8.9) K/mcL Lymphocytes # (0.6-4.6) K/mcL Monocytes # (0.0-1.3) K/mcL Eosinophils # (0.0-0.6) K/mcL Basophils # (0.0-0.2) K/mcL Sodium (136-145) mEq/L Potassium (3.5-5.1) mEq/L Chloride (98-107) mEq/L Carbon Dioxide (23-29) mEq/L BUN (6-20) mg/dL Creatinine (0.70-1.30) mg/dL Est GFR ( Amer) (> 60) Est GFR (Non-Af Amer) (> 60) BUN/Creatinine Ratio (6-26) Glucose (70-105) mg/dL Calculated Osmolality (280-300) Calcium (8.6-10.3) mg/dL Urine Color (Yellow) Urine Clarity (Clear) Urine pH (5.0-8.0) pH Units Ur Specific [place] (1.010-1.025) Urine Protein (Neg-Trace) mg/dL Urine Glucose (UA) (Normal) mg/dL Urine Ketones (Negative) mg/dL Urine Blood (Negative) Urine Nitrite (Negative) Urine Bilirubin (Negative) Urine Urobilinogen (Normal) mg/dL Ur Leukocyte Esterase (Negative) Salicylates (15.0-30.0) mg/dL Urine Opiates Screen Negative (Unleqi=424) ng/mL Acetaminophen (10-20) mcg/mL Ur Barbiturates Screen Negative (Jbkpsi=926) ng/mL Ur Phencyclidine Scrn Negative (Cutoff=25) ng/mL Ur Amphetamines Screen Negative (Kdbvyu=5421) ng/mL U Benzodiazepines Scrn Negative (Nhozcb=531) ng/mL Urine Cocaine Screen Negative (Cutoff= 300) ng/mL U Marijuana (THC) Screen Positive H (Cutoff = 50) ng/mL Ethyl Alcohol 80 H (Less than 10) mg/dL Psychiatric Medical Clearance - Medical Clearance Checklist Medical History: No Social History Section defined Current Vitals: Last Vital Signs Temp 98.5 F 12/05/17 16:28 Pulse 116 12/05/17 16:28 Resp 16 12/05/17 16:28 BP 165/103 12/05/17 16:28 Pulse Ox 97 12/05/17 16:28 Psychiatric Lab Panel: Drug Levels and Toxicity 12/05/17 12/05/17 12/06/17 17:02 17:14 03:53 Urine Opiates Screen Negative Acetaminophen < 10 L Ur Barbiturates Screen Negative Ur Phencyclidine Scrn Negative Ur Amphetamines Screen Negative U Benzodiazepines Scrn Negative Urine Cocaine Screen Negative U Marijuana (THC) Screen Positive H Ethyl Alcohol 391 H 80 H Abnormal Labs: Abnormal lab results RBC 4.10 M/mcL (4.19-5.50) L 12/05/17 17:02 Hct 37.2 % (37.5-50.1) L 12/05/17 17:02 RDW 15.0 % (11.5-14.5) H 12/05/17 17:02 Potassium 3.3 mEq/L (3.5-5.1) L 12/05/17 17:02 Carbon Dioxide 21 mEq/L (23-29) L 12/05/17 17:02 BUN 4 mg/dL (6-20) L 12/05/17 17:02 Creatinine 0.67 mg/dL (0.70-1.30) L 12/05/17 17:02 Glucose 119 mg/dL (70-105) H 12/05/17 17:02 Ur Specific [place] 1.009 (1.010-1.025) L 12/05/17 17:14 Salicylates < 2.5 mg/dL (15.0-30.0) L 12/05/17 17:02 Acetaminophen < 10 mcg/mL (10-20) L 12/05/17 17:02 U Marijuana (THC) Screen Positive ng/mL (Cutoff = 50) H 12/05/17 17:14 Ethyl Alcohol 80 mg/dL (Less than 10) H 12/06/17 03:53 Statement of Medical Clearance: I have evaluated the patient, reviewed diagnostic information, and certify that the patient's medical condition is sufficiently stable that transfer to the psychiatric unit does not pose a significant risk of deterioration.
[2017-12-06] MEDS ORDERED: *HR* LORazepam 2 MG/ML VIAL IVP ONE (06:25)
[2017-12-06] MEDS: Thiamine (B-1) 100 MG in 0.9 % Sodium Chloride 50 ML IVPB SCH ×2 (07:35→11:12)
[2017-12-06] MEDS ORDERED: *HR* LORazepam 2 MG/ML VIAL IVP PRN (13:07)
[2017-12-06] MEDS: Nicotine 21 MG PATCH.TD24 TD SCH (15:30)
--- NOTE | 2017-12-06 17:58 | Internal Med History&Physical ---
Date of Encounter: 12/06/17 Time of Encounter: 08:00 Internal Medicine - H&P: HPI Chief complaint: Suicidal ideation Plans for Post Hospital Care: Transfer Psych Facility History of present illness: Patient is a 42-year-old male with past medical history significant for mood disorder alcohol abuse and hypertension who presents to the ER on 12/06/17 due to suicidal ideation and alcohol intoxication. Patient reports that he has not eaten in approximately 10 days due to suicidal ideation. In the ER, patient was found to have the urine drug tox positive for THC and alcohol level of 391 mg/dl. Psychiatry has evaluated patient in the ER and will follow the patient once medically cleared for alcohol intoxication. Patient was admitted to the medical surgical floor for suicidal ideation with alcohol intoxication. Past Med Surg Social Fam HX - Past Medical History Medical history: asthma, GERD, GI bleed, hypertension, kidney stones, migraine, seizures, syncope Psychiatric history: bipolar, depression, PTSD, previous psychiatric hospitalization - Past Surgical History Surgical History: appendectomy, arthroscopy, cholecystectomy, orthopedic, other , other - Social History Smoking Status: Current some day smoker Packs per day: 0.5 Smokeless Tobacco Status: No Alcohol use: heavy, recent Drug use: none - Family History Mother Living Status: Age at : 58 Cause of : overdose on heroin/fentanyl Hx Family Psychosocial Disorders: Yes (schizophrenia, bipolar) Internal Medicine - H&P: Meds Lisinopril-HCTZ 20-12.5 [Prinzide 20-12.5] 1 tab PO BID 06/16/17 [History] 3 Allergy/AdvReac Type Severity Reaction Status Date / Time naproxen [From Naprosyn] Allergy Hives Verified 12/06/17 11:16 gabapentin [From Neurontin] AdvReac Hallucinati Verified 12/06/17 11:16 ng orphenadrine [From Norflex] AdvReac Hallucinati Verified 12/06/17 11:16 ng All Systems PM: A 10-system review of systems was performed and is negative for pertinent findings except as documented above in the HPI. - Constitutional Vitals: Temp Pulse Resp BP Pulse Ox 98 F 94 16 128/80 98 12/06/17 16:19 12/06/17 16:19 12/06/17 16:19 12/06/17 16:19 12/06/17 16:19 General appearance: Present: A&O X 3, no acute distress - Eye Eye exam: Present: normal appearance - ENT ENT exam: Present: mucous membranes moist - Respiratory Respiratory exam: Present: CTAB. Absent: accessory muscle use, rales, rhonchi, wheezes - Cardiovascular Cardiovascular exam: Present: RRR, +S1, +S2. Absent: diastolic murmur, gallop, rubs, systolic murmur - GI/Abdominal GI/Abdominal exam: Present: normal bowel sounds, soft, no peritoneal signs. Absent: distended, tenderness - Extremities Exam Extremities exam: Absent: pedal edema - Neurological Exam Neurological exam: Present: oriented X3 - Psychiatric Psychiatric exam: Present: depressed, flat affect - Skin Skin exam: Present: normal color Internal Med - H&P Results - Labs CBC & Chem 7: 12/05/17 17:02 12/05/17 17:02 - Assessment and plan (1) Suicidal ideation Current Visit: Yes Status: Acute Assessment and plan: Patient admits to suicidal ideation Psychiatry consulted from the ER and will accept patient to psychiatric inpatient once medically cleared (2) Alcohol withdrawal Current Visit: Yes Status: Acute Assessment and plan: [facility] protocol in place Qualifiers: Complication of substance-induced condition: uncomplicated Qualified Code(s ): F10.230 - Alcohol dependence with withdrawal, uncomplicated (3) Alcoholism /alcohol abuse Current Visit: Yes Status: Acute Assessment and plan: In the ER, patient was found to have the urine drug tox positive for THC and alcohol level of 391 mg/dl. (4) Essential hypertension Current Visit: No Status: Chronic Assessment and plan: Controlled; continue home medications - Time Spent With Patient Total time spent is greater than 50% in coordination of care (as documented) at patient's floor/unit and/or counseling patient:
[2017-12-06] MEDS: Acetaminophen 325 MG TABLET PO PRN (20:31)
[2017-12-07] MEDS: Nicotine 21 MG PATCH.TD24 TD SCH (08:06)
[2017-12-07] MEDS: Acetaminophen 325 MG TABLET PO PRN (08:06)
[2017-12-07] MEDS: Thiamine (B-1) 100 MG in 0.9 % Sodium Chloride 50 ML IVPB SCH (08:07)
[2017-12-07] MEDS ORDERED: Nicotine 21 MG PATCH.TD24 TD SCH ×2 (09:00→15:05)
--- NOTE | 2017-12-07 10:20 | Internal Med Progress Note ---
Date of Encounter: 12/07/17 Time of Encounter: 10:20 - Assessment and plan (1) Alcoholism /alcohol abuse Current Visit: Yes Status: Acute Assessment and plan: In the ER, patient was found to have the urine drug tox positive for THC and alcohol level of 391 mg/dl.Continue IV fluids with thiamine and folic acid. Monitor CIWA score (2) Essential hypertension Current Visit: No Status: Chronic Assessment and plan: Controlled; continue home medications (3) Alcohol withdrawal Current Visit: Yes Status: Acute Assessment and plan: CI[facility] protocol in place. See #1 Qualifiers: Qualified Code(s): F10.230 - Alcohol dependence with withdrawal, uncomplicated (4) Suicidal ideation Current Visit: Yes Status: Acute Assessment and plan: Patient admits to suicidal ideation Psychiatry consulted from the ER and will accept patient to psychiatric inpatient once medically cleared - Time Spent With Patient Total time spent is greater than 50% in coordination of care (as documented) at patient's floor/unit and/or counseling patient: - Subjective Interval history: Admitted overnight for suicidal ideation - Constitutional Vitals: Temp Pulse Resp BP Pulse Ox 98.6 F 83 16 125/84 98 12/07/17 05:11 12/07/17 05:11 12/07/17 05:11 12/07/17 05:11 12/07/17 05:11 General appearance: Present: A&O X 3, no acute distress - Head Head exam: Present: atraumatic, normocephalic - Eye Eye exam: Present: PERRL, conjuntiva pink, sclera anicteric Pupils: Present: PERRL - Neck Neck exam general surgery: Present: supple, trachea midline. Absent: lymphadenopathy - Respiratory Respiratory exam: Present: CTAB. Absent: accessory muscle use, rales, rhonchi, wheezes - Cardiovascular Cardiovascular exam: Present: RRR, +S1, +S2. Absent: diastolic murmur, gallop, rubs, systolic murmur - GI/Abdominal GI/Abdominal exam: Present: normal bowel sounds, soft, no peritoneal signs. Absent: distended, tenderness - Extremities Exam Extremities exam: Present: warm, radial pulses palpable and symmetrical. Absent : calf tenderness, cyanotic, pedal edema - Neurological Exam Neurological exam: Present: CN II-XII intact, oriented X3, no focal deficits. Absent: pronater drift, facial droop, speech deficit - Skin Skin exam: Present: dry, intact Internal Medicine: Result - Labs CBC & Chem 7: 12/05/17 17:02 12/05/17 17:02 Consult Discharge Plan - Plan Referrals: NONE,PCP [Primary Care Provider] -
--- NOTE | 2017-12-07 12:39 | Psychiatry Progress Note ---
Date of Encounter: 12/06/17 Time of Encounter: 18:00 Subjective Interval history: Pt is a 42 yo ,, male,, who presents for bipolar disorder type 1, Alcohol use D/O severe and personality D/O . Pt noted that he had been drinking at least 6 cans of 8% alcohol beer per day. Pt noted while intoxicated he became "very depressed." Pt noted he is still depressed just not suicidal like he stated while intoxicated. Pt noted a hx of bipolar D/O type one. PT agreed to initiate lurasidone, pt was educated on the risks benefits and side effects of the medications including no medications. Pt was in agreement. Pt denied any side effects to current medications. Pt noted he felt safe and comfortable on the unit. Pt was in agreement with current treatment plan. Pt noted that he is doing alright today. Pt noted he slept not that much last night. Pt noted his appetite is great. Pt rated his depression a 9, on a scale of zero to ten with ten being the worst and zero being none. Pt rate his anxiety a 6, on the same scale. Pt denied any auditory or visual hallucinations. Pt denied any current thoughts to harm himself or anyone else (I cant do that my son still needs me). No TD noted, AIMS=0 MSE: Alert and Oriented x4 Appearance: appropriately groomed dressed in hospital pajamas Behavior: friendly,courteous, polite Speech: fluent, normal tone, normal rate Mood: depressed, but better Affect: mood congruent Thought content: no HI noted, no SI noted, no delusions noted Psychosis: none noted, currently does not appear to be responding to internal stimuli. Thought Process: linear logical, goal oriented. Judgment: fair. Insight: fair. Assessment/Plan Impressions: 1. Alcohol use D/O currently in withdrawal 2. Bioplar D/O type 1. 3. General Anxiety D/O 4. R/O personality D/O Plan: 1.Interval hx 2.Continue current medications 3. Start lurasidone 20 mg PO QHS for mood take with 300kcals of food 4. Consder starting Acamprosate 666 mg PO TID for alcohol use D/O 5. Pt educated on 90 meetings in 90 days and staying sober and finding a sponsor. 6.Review current labs 7.Pt had an opportunity to ask questions and discuss current treatment plan. 8.Supportive therapy was provided 9.Pt encouraged to consider group or individual therapy 10.Pt was in agreement with treatment plan. 11.Pt was educated on the risks benefits and side effects of current medications. Results - Vital Signs Vital Signs: Temp Pulse Resp BP Pulse Ox 98.6 F 88 18 138/91 99 12/07/17 10:30 12/07/17 10:30 12/07/17 10:30 12/07/17 10:30 12/07/17 10:30 Consult Discharge Plan - Plan Referrals: NONE,PCP [Primary Care Provider] - Psychiatry Exam - Constitutional Vitals: Temp Pulse Resp BP Pulse Ox 98.6 F 88 18 138/91 99 12/07/17 10:30 12/07/17 10:30 12/07/17 10:30 12/07/17 10:30 12/07/17 10:30
[2017-12-07] MEDS: Lurasidone 20 MG TABLET PO SCH (15:51)
[2017-12-07] MEDS: Melatonin 3 MG TABLET PO PRN (21:37)
[2017-12-08] MEDS: Lurasidone 20 MG TABLET PO SCH (09:03)
[2017-12-08] MEDS: Nicotine 21 MG PATCH.TD24 TD SCH (09:03)
[2017-12-08] MEDS: Thiamine (B-1) 100 MG in 0.9 % Sodium Chloride 50 ML IVPB SCH (09:22)
--- NOTE | 2017-12-08 11:06 | Internal Med Progress Note ---
Date of Encounter: 12/08/17 Time of Encounter: 11:00 - Assessment and plan (1) Alcoholism /alcohol abuse Current Visit: Yes Status: Acute Assessment and plan: In the ER, patient was found to have the urine drug tox positive for THC and alcohol level of 391 mg/dl.Continue IV fluids with thiamine and folic acid. Monitor CIWA score. Patient not in withdrawal and is medically clear to proceed to inpatient psych (2) Essential hypertension Current Visit: No Status: Chronic Assessment and plan: Controlled; continue home medications (3) Alcohol withdrawal Current Visit: Yes Status: Acute Assessment and plan: CIWA protocol in place. See #1 Qualifiers: Qualified Code(s): F10.230 - Alcohol dependence with withdrawal, uncomplicated (4) Suicidal ideation Current Visit: Yes Status: Acute Assessment and plan: Patient admits to suicidal ideation Psychiatry consulted from the ER and will accept patient to psychiatric inpatient once medically cleared - Time Spent With Patient Total time spent is greater than 50% in coordination of care (as documented) at patient's floor/unit and/or counseling patient: - Subjective Interval history: Admitted overnight for suicidal ideation - Constitutional Vitals: Temp Pulse Resp BP Pulse Ox 98.2 F 89 14 134/89 98 12/08/17 11:02 12/08/17 11:02 12/08/17 11:02 12/08/17 11:02 12/08/17 11:02 General appearance: Present: A&O X 3, no acute distress - Head Head exam: Present: atraumatic, normocephalic - Eye Eye exam: Present: PERRL, conjuntiva pink, sclera anicteric Pupils: Present: PERRL - Neck Neck exam general surgery: Present: supple, trachea midline. Absent: lymphadenopathy - Respiratory Respiratory exam: Present: CTAB. Absent: accessory muscle use, rales, rhonchi, wheezes - Cardiovascular Cardiovascular exam: Present: RRR, +S1, +S2. Absent: diastolic murmur, gallop, rubs, systolic murmur - GI/Abdominal GI/Abdominal exam: Present: normal bowel sounds, soft, no peritoneal signs. Absent: distended, tenderness - Extremities Exam Extremities exam: Present: warm, radial pulses palpable and symmetrical. Absent : calf tenderness, cyanotic, pedal edema - Neurological Exam Neurological exam: Present: CN II-XII intact, oriented X3, no focal deficits. Absent: pronater drift, facial droop, speech deficit - Skin Skin exam: Present: dry, intact Internal Medicine: Result - Labs CBC & Chem 7: 12/08/17 10:53 12/08/17 10:53 Consult Discharge Plan - Plan Referrals: NONE,PCP [Primary Care Provider] -
[2017-12-08 11:18] LABS: Basophils % 0.7 %; Eosinophils # 0.4 K/mcL (0.0-0.6); Eosinophils % 8.8 %; Hematocrit 34.5 % (37.5-50.1); Hemoglobin 11.3 g/dL (12.9-16.9); Immature Granulocytes % 0.4 % (0-4); Lymphocytes # 0.9 K/mcL (0.6-4.6); Lymphocytes % 20.5 %; Mean Corpuscular HGB Conc 32.8 g/dL (31.6-35.5); Mean Corpuscular Hemoglobin 31.3 pg (28.0-33.3); Mean Corpuscular Volume 95.6 fL (83.0-100.0); Monocytes # 0.4 K/mcL (0.0-1.3); Monocytes % 7.9 %; Neutrophils # 2.8 K/mcL (1.6-8.9); Platelet Count 111 K/mcL (140-400); Red Blood Count 3.61 M/mcL (4.19-5.50); Red Cell Distribution Width 14.6 % (11.5-14.5); Segmented Neutrophils % 61.7 %
[2017-12-08 11:37] LABS: BUN/Creatinine Ratio 11 (6-26); Blood Urea Nitrogen 8 mg/dL (6-20); Calcium 8.7 mg/dL (8.6-10.3); Carbon Dioxide 25 mEq/L (23-29); Chloride 112 mEq/L (98-107); Glucose 88 mg/dL (70-105); Osmolality,Calculated 286 (280-300); Potassium 3.6 mEq/L (3.5-5.1); Sodium 139 mEq/L (136-145); eGFR For African Americans > 60 (> 60); eGFR For Non-African Americans > 60 (> 60)
--- NOTE | 2017-12-08 15:31 | Electrocardiograph Report ---
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
--- NOTE | 2017-12-08 16:40 | Consult Note ---
Date of Encounter: 12/08/17 Time of Encounter: 16:30 Assessment & Recommendation (1) Alcohol dependence Current visit: No Status: Chronic Qualifiers: Substance use status: in withdrawal Complication of substance-induced condition: uncomplicated Qualified Code(s): F10.230 - Alcohol dependence with withdrawal, uncomplicated (2) Bipolar disorder Current visit: No Status: Chronic Qualifiers: Active/Remission status: currently active Current bipolar episode type: depressed Current episode severity: moderate Qualified Code(s): F31.32 - Bipolar disorder, current episode depressed, moderate (3) Suicidal ideation Current visit: No Status: Resolved (4) Alcoholism /alcohol abuse Current visit: Yes Status: Acute (5) Anxiety disorder, unspecified Current visit: No Status: Acute Qualifiers: Anxiety disorder type: unspecified anxiety disorder Qualified Code(s): F41.9 - Anxiety disorder, unspecified History of Present Illness Patient: known to practice within the last 3 years Requesting Physician: Nickolas Styles MD History of present illness: Pt is a 42 yo ,, male,, who presents for bipolar disorder type 1, Alcohol use D/O severe and personality D/O . PT noted he is doing better and feels he needs at substance abuse program. Pt was educated on 90 meeting in 90 days and finding a sponsor. Pt noted a hx of bipolar D/O type one. PT noted the lurasidone was working. Pt was educated on the risks benefits and side effects of the medications including no medications. Pt was in agreement. Pt denied any side effects to current medications. Pt noted he felt safe and comfortable on the unit and for D/C home. Pt was in agreement with current treatment plan. Pt noted that he is doing alright today. Pt noted he slept not that much last night. Pt noted his appetite is great. Pt rated his depression a 6, on a scale of zero to ten with ten being the worst and zero being none. Pt rate his anxiety a 5, on the same scale. Pt denied any auditory or visual hallucinations. Pt denied any current thoughts to harm himself or anyone else (I cant do that my son still needs me). No TD noted, AIMS=0 MSE: Alert and Oriented x4 Appearance: appropriately groomed dressed in hospital pajamas Behavior: friendly,courteous, polite Speech: fluent, normal tone, normal rate Mood: really good Affect: mood congruent Thought content: no HI noted, no SI noted, no delusions noted Psychosis: none noted, currently does not appear to be responding to internal stimuli. Thought Process: linear logical, goal oriented. Judgment: fair. Insight: fair. Assessment/Plan Impressions: 1. Alcohol use D/O currently in withdrawal 2. Bioplar D/O type 1. 3. General Anxiety D/O 4. R/O personality D/O Plan: 1.Interval hx 2.Continue current medications 3. Increase lurasidone to 40 mg PO QHS for mood take with 300kcals of food 4. Consder starting Acamprosate 666 mg PO TID for alcohol use D/O 5. Pt educated on 90 meetings in 90 days and staying sober and finding a sponsor. 6.Review current labs 7.Pt had an opportunity to ask questions and discuss current treatment plan. 8.Supportive therapy was provided 9. Follow up with all scheduled appointments 10 take all medications as prescribed. 11. Pt agreed to D/C to a substance abuse program or home then follow up with a substance abuse program. 12. Abstain from any alcohol or illict substances. 10.Pt was in agreement with treatment plan. 11.Pt was educated on the risks benefits and side effects of current medications. CC: Nickoals Styles MD Past Med Surg Social Fam HX - Past Medical History Medical history: asthma, GERD, GI bleed, hypertension, kidney stones, migraine, seizures, syncope - Past Surgical History Surgical History: appendectomy, arthroscopy, cholecystectomy, orthopedic, other , other - Social History Smoking Status: Current some day smoker Smokeless Tobacco Status: No Alcohol use: heavy, recent Drug use: none - Family History Mother Living Status: Age at : 58 Cause of : overdose on heroin/fentanyl Hx Family Psychosocial Disorders: Yes (schizophrenia, bipolar) Medications & Allergies Lisinopril-HCTZ 20-12.5 [Prinzide 20-12.5] 1 tab PO BID 06/16/17 [History] 3 Allergy/AdvReac Type Severity Reaction Status Date / Time naproxen [From Naprosyn] Allergy Hives Verified 12/06/17 11:16 gabapentin [From Neurontin] AdvReac Hallucinati Verified 12/06/17 11:16 ng orphenadrine [From Norflex] AdvReac Hallucinati Verified 12/06/17 11:16 ng Psychiatry Exam - Constitutional Vitals: Temp Pulse Resp BP Pulse Ox 98.3 F 90 14 143/92 100 12/08/17 15:03 12/08/17 15:03 12/08/17 15:03 12/08/17 15:03 12/08/17 15:03 - Psychiatric Patient Orientation: Yes Person, Yes Time, Yes Place, Yes Circumstance Level of alertness: Alert Behavior: calm, cooperative Psychomotor activity: Normal Eye Contact: Maintains Eye Contact Mood Description: Euthymic/stable Affect description: congruent with mood Speech Volume: Normal Speech pattern: normal rate, normal rhythm, normal tone, fluent Language & Vocabulary: consistent with education Thought Process: Intact Thought Content: Yes Intact Attention Span Ability: Capable of Focused Attention Memory Description: Grossly Intact Patient Reliability: Reliable Historian Fund of knowledge: Yes abstraction ability Intelligence Estimate: Average Judgment: Fair Insight: Full Results - Labs Labs: Laboratory Last Values WBC 4.5 K/mcL (4.3-11.1) 12/08/17 10:53 RBC 3.61 M/mcL (4.19-5.50) L 12/08/17 10:53 Hgb 11.3 g/dL (12.9-16.9) L D 12/08/17 10:53 Hct 34.5 % (37.5-50.1) L 12/08/17 10:53 MCV 95.6 fL (83.0-100.0) 12/08/17 10:53 MCH 31.3 pg (28.0-33.3) 12/08/17 10:53 MCHC 32.8 g/dL (31.6-35.5) 12/08/17 10:53 RDW 14.6 % (11.5-14.5) H 12/08/17 10:53 Plt Count 111 K/mcL (140-400) L 12/08/17 10:53 MPV 12.0 fL (9.4-12.4) 12/08/17 10:53 Immature Gran % 0.4 % (0-4) 12/08/17 10:53 Seg Neutrophils % 61.7 % 12/08/17 10:53 Lymphocytes % 20.5 % 12/08/17 10:53 Monocytes % 7.9 % 12/08/17 10:53 Eosinophils % 8.8 % 12/08/17 10:53 Basophils % 0.7 % 12/08/17 10:53 Neutrophils # 2.8 K/mcL (1.6-8.9) 12/08/17 10:53 Lymphocytes # 0.9 K/mcL (0.6-4.6) 12/08/17 10:53 Monocytes # 0.4 K/mcL (0.0-1.3) 12/08/17 10:53 Eosinophils # 0.4 K/mcL (0.0-0.6) 12/08/17 10:53 Basophils # 0.0 K/mcL (0.0-0.2) 12/08/17 10:53 Sodium 139 mEq/L (136-145) 12/08/17 10:53 Potassium 3.6 mEq/L (3.5-5.1) 12/08/17 10:53 Chloride 112 mEq/L (98-107) H 12/08/17 10:53 Carbon Dioxide 25 mEq/L (23-29) 12/08/17 10:53 BUN 8 mg/dL (6-20) 12/08/17 10:53 Creatinine 0.73 mg/dL (0.70-1.30) 12/08/17 10:53 Est GFR ( Amer) > 60 (> 60) 12/08/17 10:53 Est GFR (Non-Af Amer) > 60 (> 60) 12/08/17 10:53 BUN/Creatinine Ratio 11 (6-26) 12/08/17 10:53 Glucose 88 mg/dL (70-105) 12/08/17 10:53 Calculated Osmolality 286 (280-300) 12/08/17 10:53 Calcium 8.7 mg/dL (8.6-10.3) 12/08/17 10:53 Urine Color Yellow (Yellow) 12/05/17 17:14 Urine Clarity Clear (Clear) 12/05/17 17:14 Urine pH 6.5 pH Units (5.0-8.0) 12/05/17 17:14 Ur Specific [place] 1.009 (1.010-1.025) L 12/05/17 17:14 Urine Protein Negative mg/dL (Neg-Trace) 12/05/17 17:14 Urine Glucose (UA) Normal mg/dL (Normal) 12/05/17 17:14 Urine Ketones Negative mg/dL (Negative) 12/05/17 17:14 Urine Blood Negative (Negative) 12/05/17 17:14 Urine Nitrite Negative (Negative) 12/05/17 17:14 Urine Bilirubin Negative (Negative) 12/05/17 17:14 Urine Urobilinogen Normal mg/dL (Normal) 12/05/17 17:14 Ur Leukocyte Esterase Negative (Negative) 12/05/17 17:14 Salicylates < 2.5 mg/dL (15.0-30.0) L 12/05/17 17:02 Urine Opiates Screen Negative ng/mL (Hlvpjn=889) 12/05/17 17:14 Acetaminophen < 10 mcg/mL (10-20) L 12/05/17 17:02 Ur Barbiturates Screen Negative ng/mL ([place]=048) 12/05/17 17:14 Ur Phencyclidine Scrn Negative ng/mL (Cutoff=25) 12/05/17 17:14 Ur Amphetamines Screen Negative ng/mL (Fpulfx=9648) 12/05/17 17:14 U Benzodiazepines Scrn Negative ng/mL (Eagbzx=456) 12/05/17 17:14 Urine Cocaine Screen Negative ng/mL (Cutoff= 300) 12/05/17 17:14 U Marijuana (THC) Screen Positive ng/mL (Cutoff = 50) H 12/05/17 17:14 Ethyl Alcohol 80 mg/dL (Less than 10) H 12/06/17 03:53 Consult Discharge Plan - Plan Referrals: NONE,PCP [Primary Care Provider] -
[2017-12-08] MEDS: Melatonin 3 MG TABLET PO PRN (21:36)
--- NOTE | 2017-12-09 08:13 | Internal Med Progress Note ---
Date of Encounter: 12/09/17 Time of Encounter: 08:00 - Assessment and plan (1) Alcoholism /alcohol abuse Current Visit: Yes Status: Acute Assessment and plan: In the ER, patient was found to have the urine drug tox positive for THC and alcohol level of 391 mg/dl.Continue IV fluids with thiamine and folic acid. Monitor CIWA score. Patient not in alcohol withdrawal s/p fluids and thiamine. Start on acamprosate 666mg TID per psych recs. Plan for discharge to drug rehab (2) Essential hypertension Current Visit: No Status: Chronic Assessment and plan: Controlled; continue home medications (3) Alcohol withdrawal Current Visit: Yes Status: Acute Assessment and plan: CIWA protocol in place. See #1 Qualifiers: Qualified Code(s): F10.239 - Alcohol dependence with withdrawal, unspecified (4) Suicidal ideation Current Visit: Yes Status: Acute Assessment and plan: Patient admits to suicidal ideation. Seen by psych who determined no indication for admission to inpatient psych - Time Spent With Patient Total time spent is greater than 50% in coordination of care (as documented) at patient's floor/unit and/or counseling patient: - Subjective Interval history: No acute events overnight - Constitutional Vitals: Temp Pulse Resp BP Pulse Ox 98.3 F 77 16 131/87 100 12/09/17 07:38 12/09/17 07:38 12/09/17 07:38 12/09/17 07:38 12/09/17 07:38 General appearance: Present: A&O X 3, no acute distress - Head Head exam: Present: atraumatic, normocephalic - Eye Eye exam: Present: PERRL, conjuntiva pink, sclera anicteric Pupils: Present: PERRL - Neck Neck exam general surgery: Present: supple, trachea midline. Absent: lymphadenopathy - Respiratory Respiratory exam: Present: CTAB. Absent: accessory muscle use, rales, rhonchi, wheezes - Cardiovascular Cardiovascular exam: Present: RRR, +S1, +S2. Absent: diastolic murmur, gallop, rubs, systolic murmur - GI/Abdominal GI/Abdominal exam: Present: normal bowel sounds, soft, no peritoneal signs. Absent: distended, tenderness - Extremities Exam Extremities exam: Present: warm, radial pulses palpable and symmetrical. Absent : calf tenderness, cyanotic, pedal edema - Neurological Exam Neurological exam: Present: CN II-XII intact, oriented X3, no focal deficits. Absent: pronater drift, facial droop, speech deficit - Skin Skin exam: Present: dry, intact Internal Medicine: Result - Labs CBC & Chem 7: 12/08/17 10:53 12/08/17 10:53 Labs: Short CBC 12/08/17 Range/Units 10:53 WBC 4.5 (4.3-11.1) K/mcL Hgb 11.3 L D (12.9-16.9) g/dL Hct 34.5 L (37.5-50.1) % Plt Count 111 L (140-400) K/mcL Neutrophils # 2.8 (1.6-8.9) K/mcL [facility] 12/08/17 10:53 Sodium 139 Potassium 3.6 Chloride 112 H Carbon Dioxide 25 BUN 8 Creatinine 0.73 Glucose 88 Calcium 8.7 Consult Discharge Plan - Plan Referrals: NONE,PCP [Primary Care Provider] -
[2017-12-09] MEDS: Thiamine (B-1) 100 MG in 0.9 % Sodium Chloride 50 ML IVPB SCH (08:25)
[2017-12-09] MEDS: Nicotine 21 MG PATCH.TD24 TD SCH (08:26)
[2017-12-09] MEDS: ACAMPROSATE 666 MG PO SCH ×3 (08:38→21:03)
[2017-12-09] MEDS: Lisinopril-HCTZ 20-12.5mg TABLET PO SCH ×2 (12:38→21:03)
[2017-12-09] MEDS: *HR* Heparin 5,000 UNIT/ML VIAL SQ SCH (18:01)
[2017-12-09] MEDS: Melatonin 3 MG TABLET PO PRN (21:03)
[2017-12-10] MEDS: *HR* Heparin 5,000 UNIT/ML VIAL SQ SCH ×2 (05:49→17:22)
[2017-12-10] MEDS: Nicotine 21 MG PATCH.TD24 TD SCH (08:38)
[2017-12-10] MEDS: ACAMPROSATE 666 MG PO SCH ×3 (08:38→21:08)
[2017-12-10] MEDS: Lisinopril-HCTZ 20-12.5mg TABLET PO SCH ×2 (08:38→21:08)
[2017-12-10] MEDS: Thiamine (B-1) 100 MG in 0.9 % Sodium Chloride 50 ML IVPB SCH (08:40)
--- NOTE | 2017-12-10 11:39 | Internal Med Progress Note ---
Date of Encounter: 12/10/17 Time of Encounter: 11:40 - Assessment and plan (1) Alcoholism /alcohol abuse Current Visit: Yes Status: Acute Assessment and plan: In the ER, patient was found to have the urine drug tox positive for THC and alcohol level of 391 mg/dl.Continue IV fluids with thiamine and folic acid. Monitor CIWA score. Patient not in alcohol withdrawal s/p fluids and thiamine. Start on acamprosate 666mg TID per psych recs. Plan for discharge to drug rehab (2) Essential hypertension Current Visit: No Status: Chronic Assessment and plan: Controlled; continue home medications (3) Alcohol withdrawal Current Visit: Yes Status: Acute Assessment and plan: CIWA protocol in place. See #1 Qualifiers: Complication of substance-induced condition: uncomplicated Qualified Code(s ): F10.230 - Alcohol dependence with withdrawal, uncomplicated (4) Suicidal ideation Current Visit: Yes Status: Acute Assessment and plan: Patient admits to suicidal ideation. Seen by psych who determined no indication for admission to inpatient psych - Time Spent With Patient Total time spent is greater than 50% in coordination of care (as documented) at patient's floor/unit and/or counseling patient: - Subjective Interval history: No acute events overnight - Constitutional Vitals: Temp Pulse Resp BP Pulse Ox 98.1 F 97 16 105/65 98 12/10/17 10:56 12/10/17 10:56 12/10/17 10:56 12/10/17 10:56 12/10/17 10:56 General appearance: Present: A&O X 3, no acute distress - Head Head exam: Present: atraumatic, normocephalic - Eye Eye exam: Present: PERRL, conjuntiva pink, sclera anicteric Pupils: Present: PERRL - Neck Neck exam general surgery: Present: supple, trachea midline. Absent: lymphadenopathy - Respiratory Respiratory exam: Present: CTAB. Absent: accessory muscle use, rales, rhonchi, wheezes - Cardiovascular Cardiovascular exam: Present: RRR, +S1, +S2. Absent: diastolic murmur, gallop, rubs, systolic murmur - GI/Abdominal GI/Abdominal exam: Present: normal bowel sounds, soft, no peritoneal signs. Absent: distended, tenderness - Extremities Exam Extremities exam: Present: warm, radial pulses palpable and symmetrical. Absent : calf tenderness, cyanotic, pedal edema - Neurological Exam Neurological exam: Present: CN II-XII intact, oriented X3, no focal deficits. Absent: pronater drift, facial droop, speech deficit - Skin Skin exam: Present: dry, intact Internal Medicine: Result - Labs CBC & Chem 7: 12/08/17 10:53 12/08/17 10:53 Consult Discharge Plan - Plan Referrals: NONE,PCP [Primary Care Provider] -
[2017-12-10] MEDS: Melatonin 3 MG TABLET PO PRN (21:08)
[2017-12-11] MEDS: Acetaminophen 325 MG TABLET PO PRN (00:18)
[2017-12-11] MEDS: *HR* Heparin 5,000 UNIT/ML VIAL SQ SCH ×2 (06:05→17:11)
[2017-12-11] MEDS: Thiamine (B-1) 100 MG TABLET PO SCH (08:26)
[2017-12-11] MEDS: ACAMPROSATE 666 MG PO SCH ×3 (08:26→20:56)
[2017-12-11] MEDS: Lisinopril-HCTZ 20-12.5mg TABLET PO SCH ×2 (08:26→20:56)
[2017-12-11] MEDS: Nicotine 21 MG PATCH.TD24 TD SCH (08:26)
--- NOTE | 2017-12-11 11:02 | Internal Med Progress Note ---
Date of Encounter: 12/11/17 Time of Encounter: 11:00 - Assessment and plan (1) Alcoholism /alcohol abuse Current Visit: Yes Status: Acute Assessment and plan: In the ER, patient was found to have the urine drug tox positive for THC and alcohol level of 391 mg/dl.Continue IV fluids with thiamine and folic acid. Monitor CIWA score. Patient not in alcohol withdrawal s/p fluids and thiamine. Start on acamprosate 666mg TID per psych recs. Plan for discharge to drug rehab. [facility] working on placement to rehab in [place]. Will follow (2) Essential hypertension Current Visit: No Status: Chronic Assessment and plan: Controlled; continue home medications (3) Alcohol withdrawal Current Visit: Yes Status: Acute Assessment and plan: CIWA protocol in place. See #1 Qualifiers: Complication of substance-induced condition: uncomplicated Qualified Code(s ): F10.230 - Alcohol dependence with withdrawal, uncomplicated (4) Suicidal ideation Current Visit: Yes Status: Acute Assessment and plan: Patient admits to suicidal ideation. Seen by psych who determined no indication for admission to inpatient psych - Time Spent With Patient Total time spent is greater than 50% in coordination of care (as documented) at patient's floor/unit and/or counseling patient: - Subjective Interval history: No acute events overnight - Constitutional Vitals: Temp Pulse Resp BP Pulse Ox 99.3 F 83 18 106/72 98 12/11/17 10:51 12/11/17 10:51 12/11/17 10:51 12/11/17 10:51 12/11/17 10:51 General appearance: Present: A&O X 3, no acute distress - Head Head exam: Present: atraumatic, normocephalic - Eye Eye exam: Present: PERRL, conjuntiva pink, sclera anicteric Pupils: Present: PERRL - Neck Neck exam general surgery: Present: supple, trachea midline. Absent: lymphadenopathy - Respiratory Respiratory exam: Present: CTAB. Absent: accessory muscle use, rales, rhonchi, wheezes - Cardiovascular Cardiovascular exam: Present: RRR, +S1, +S2. Absent: diastolic murmur, gallop, rubs, systolic murmur - GI/Abdominal GI/Abdominal exam: Present: normal bowel sounds, soft, no peritoneal signs. Absent: distended, tenderness - Extremities Exam Extremities exam: Present: warm, radial pulses palpable and symmetrical. Absent : calf tenderness, cyanotic, pedal edema - Neurological Exam Neurological exam: Present: CN II-XII intact, oriented X3, no focal deficits. Absent: pronater drift, facial droop, speech deficit - Skin Skin exam: Present: dry, intact Internal Medicine: Result - Labs CBC & Chem 7: 12/08/17 10:53 12/08/17 10:53 Consult Discharge Plan - Plan Referrals: NONE,PCP [Primary Care Provider] -
[2017-12-11] MEDS: Melatonin 3 MG TABLET PO PRN (20:56)
[2017-12-12] MEDS: *HR* Heparin 5,000 UNIT/ML VIAL SQ SCH ×2 (05:19→17:16)
[2017-12-12] MEDS: ACAMPROSATE 666 MG PO SCH ×3 (08:32→19:46)
[2017-12-12] MEDS: Nicotine 21 MG PATCH.TD24 TD SCH (08:34)
[2017-12-12] MEDS: Thiamine (B-1) 100 MG TABLET PO SCH (08:34)
[2017-12-12] MEDS: Lisinopril-HCTZ 20-12.5mg TABLET PO SCH (08:34)
--- NOTE | 2017-12-12 15:48 | Internal Med Progress Note ---
Date of Encounter: 12/12/17 Time of Encounter: 15:41 - Assessment and plan (1) Alcoholism /alcohol abuse Current Visit: Yes Status: Acute Assessment and plan: Suicidal ideation on arrival to the ED. Patient is a history of alcohol abuse 32 years. Additionally has recreational drug abuse UDS in ED found to be positive for THC, blood alcohol level of 391 mg/dL. Throughout the stay the patient is gone into alcohol withdrawal and was being treated as per CIWA protocol. Additionally, the patient is receiving thiamine, folate and B vitamins. He is no longer triggering on the CIWA protocol however this will continue. Psychiatry is seeing the patient as he also had suicidal ideation. Psych recs to start patient on acamprosate 666mg for alcohol abuse disorder upon discharge. Per my assessment today the patient is resting comfortably and does not appear to be anxious or agitated. No tremors present. Denies any suicidal/homicidal ideation or auditory/visual hallucinations. Psych is clear the patient reports that the patient is not suicidal. The patient is stable and suitable for discharge however, he does not want to go home today as his roommate called him earlier and was intoxicated. He is worried that he goes home to that environment he will consume alcohol again. shipping services sales representative working on placement for residential as a treatment program. See social work notes. Continue to follow Continue CIWA protocol Continue thiamine, folate and B vitamins Continue Latuda (2) Essential hypertension Current Visit: No Status: Chronic Assessment and plan: Stable, continue anti-HTN medications (3) Alcohol withdrawal Current Visit: Yes Status: Acute Assessment and plan: See plan above Qualifiers: Complication of substance-induced condition: uncomplicated Qualified Code(s ): F10.230 - Alcohol dependence with withdrawal, uncomplicated (4) Suicidal ideation Current Visit: Yes Status: Resolved Assessment and plan: Resolved per psychiatry. See plan above - Time Spent With Patient Total time spent is greater than 50% in coordination of care (as documented) at patient's floor/unit and/or counseling patient: 25 - 35 minutes - Subjective Interval history: Presented to the ED from his counselor's office with suicidal ideation. Patient is a long-time alcoholic reporting 32 years of alcohol abuse. During the stay experience alcohol withdrawal. Patient seen and examined at bedside today, denies suicidal/homicidal ideation, denies any auditory/visual hallucinations, reporting that he is no longer having tremors. Patient reports that he does not want to go home today as his roommate called him last night and was very drunk. Patient is expected to discharge and receive outpatient counseling with the intent for complete alcohol cessation. - Constitutional Vitals: Temp Pulse Resp BP Pulse Ox 98.2 F 101 16 103/64 97 12/12/17 10:37 12/12/17 10:37 12/12/17 10:37 12/12/17 10:37 12/12/17 10:37 General appearance: Present: A&O X 3, no acute distress - Head Head exam: Present: atraumatic, normocephalic - Eye Eye exam: Present: PERRL, conjuntiva pink, sclera anicteric Pupils: Present: PERRL - Neck Neck exam general surgery: Present: supple, trachea midline. Absent: lymphadenopathy - Respiratory Respiratory exam: Present: CTAB. Absent: accessory muscle use, rales, rhonchi, wheezes - Cardiovascular Cardiovascular exam: Present: RRR, +S1, +S2. Absent: diastolic murmur, gallop, rubs, systolic murmur - GI/Abdominal GI/Abdominal exam: Present: normal bowel sounds, soft, no peritoneal signs. Absent: distended, tenderness - Extremities Exam Extremities exam: Present: warm, radial pulses palpable and symmetrical. Absent : calf tenderness, cyanotic, pedal edema - Neurological Exam Neurological exam: Present: CN II-XII intact, oriented X3, no focal deficits. Absent: pronater drift, facial droop, speech deficit - Skin Skin exam: Present: dry, intact Internal Medicine: Result - Labs CBC & Chem 7: 12/08/17 10:53 12/08/17 10:53 Consult Discharge Plan - Plan Referrals: NONE,PCP [Primary Care Provider] -
[2017-12-12] MEDS: Melatonin 3 MG TABLET PO PRN (21:18)
[2017-12-13] MEDS: Acetaminophen 325 MG TABLET PO PRN ×2 (01:19→21:27)
[2017-12-13 06:01] LABS: Basophils # 0.1 K/mcL (0.0-0.2); Basophils % 1.4 %; Eosinophils # 0.3 K/mcL (0.0-0.6); Eosinophils % 6.2 %; Hemoglobin 10.5 g/dL (12.9-16.9); Lymphocytes # 1.3 K/mcL (0.6-4.6); Lymphocytes % 30.4 %; Mean Corpuscular HGB Conc 33.9 g/dL (31.6-35.5); Mean Corpuscular Hemoglobin 32.7 pg (28.0-33.3); Mean Corpuscular Volume 96.6 fL (83.0-100.0); Mean Platelet Volume 11.9 fL (9.4-12.4); Monocytes # 0.8 K/mcL (0.0-1.3); Monocytes % 19.6 %; Neutrophils # 1.7 K/mcL (1.6-8.9); Platelet Count 165 K/mcL (140-400); Red Blood Count 3.21 M/mcL (4.19-5.50); Red Cell Distribution Width 14.5 % (11.5-14.5); Segmented Neutrophils % 41.4 %
[2017-12-13 06:20] LABS: BUN/Creatinine Ratio 24 (6-26); Blood Urea Nitrogen 15 mg/dL (6-20); Calcium 8.8 mg/dL (8.6-10.3); Carbon Dioxide 24 mEq/L (23-29); Chloride 111 mEq/L (98-107); Glucose 82 mg/dL (70-105); Magnesium 1.9 mg/dL (1.6-2.6); Osmolality,Calculated 292 (280-300); Phosphorous 3.8 mg/dL (2.7-4.5); Potassium 3.7 mEq/L (3.5-5.1); Sodium 141 mEq/L (136-145); eGFR For African Americans > 60 (> 60); eGFR For Non-African Americans > 60 (> 60)
[2017-12-13 06:43] LABS: Platelet Estimate Normal (Normal)
[2017-12-13] MEDS: Thiamine (B-1) 100 MG TABLET PO SCH (08:00)
[2017-12-13] MEDS: Nicotine 21 MG PATCH.TD24 TD SCH (08:01)
[2017-12-13] MEDS: *HR* Heparin 5,000 UNIT/ML VIAL SQ SCH ×2 (08:01→18:02)
[2017-12-13] MEDS: ACAMPROSATE 666 MG PO SCH ×3 (12:29→21:29)
--- NOTE | 2017-12-13 14:43 | Internal Med Progress Note ---
Date of Encounter: 12/13/17 Time of Encounter: 14:40 - Assessment and plan (1) Alcoholism /alcohol abuse Current Visit: Yes Status: Acute Assessment and plan: Suicidal ideation on arrival to the ED. Patient is a history of alcohol abuse 32 years. Additionally has recreational drug abuse UDS in ED found to be positive for THC, blood alcohol level of 391 mg/dL. Throughout the stay the patient is gone into alcohol withdrawal and was being treated as per CIWA protocol. Additionally, the patient is receiving thiamine, folate and B vitamins. He is no longer triggering on the CIWA protocol however this will continue. Psychiatry is seeing the patient as he also had suicidal ideation. Psych recs to start patient on acamprosate 666mg for alcohol abuse disorder upon discharge. Per my assessment today the patient is resting comfortably and does not appear to be anxious or agitated. No tremors present. Denies any suicidal/homicidal ideation or auditory/visual hallucinations. Psych is clear the patient reports that the patient is not suicidal. The patient is stable and suitable for discharge however, he does not want to go home today as his roommate called him earlier and was intoxicated. He is worried that he goes home to that environment he will consume alcohol again. environmental services lead reveals the patient has been accepted to [facility]. The patient is to report on Friday. The patient will remain inpatient until discharge on Friday as he is not ready for discharge. He is concerned that if he leaves he will drink again and not show up to the rehabilitation facility. Continue to follow Continue CIWA protocol Continue thiamine, folate and B vitamins Continue Latuda start patient on acamprosate 666mg for alcohol abuse disorder upon discharge. (2) Essential hypertension Current Visit: No Status: Chronic Assessment and plan: . He has remained Stable since the down titration of lisinopril HCTZ, continue anti-HTN medications (3) Alcohol withdrawal Current Visit: Yes Status: Acute Assessment and plan: See plan above Qualifiers: Complication of substance-induced condition: uncomplicated Qualified Code(s ): F10.230 - Alcohol dependence with withdrawal, uncomplicated (4) Suicidal ideation Current Visit: Yes Status: Resolved Assessment and plan: Suicidal ideation has Resolved per psychiatry. Patient continues to deny suicidal ideation See plan above - Time Spent With Patient Total time spent is greater than 50% in coordination of care (as documented) at patient's floor/unit and/or counseling patient: 25 - 35 minutes - Subjective Interval history: Presented to the ED from his counselor's office with suicidal ideation. Patient is a long-time alcoholic reporting 32 years of alcohol abuse. During the stay experience alcohol withdrawal. Patient seen and examined at bedside today, denies suicidal/homicidal ideation, denies any auditory/visual hallucinations, reporting that he is no longer having tremors. No acute changes overnight. Anxious for discharge. - Constitutional Vitals: Temp Pulse Resp BP Pulse Ox 98.5 F 80 17 97/62 98 12/13/17 11:22 12/13/17 11:22 12/13/17 11:22 12/13/17 11:22 12/13/17 11:22 General appearance: Present: A&O X 3, no acute distress - Head Head exam: Present: atraumatic, normocephalic - Eye Eye exam: Present: PERRL, conjuntiva pink, sclera anicteric Pupils: Present: PERRL - Neck Neck exam general surgery: Present: supple, trachea midline. Absent: lymphadenopathy - Respiratory Respiratory exam: Present: CTAB. Absent: accessory muscle use, rales, rhonchi, wheezes - Cardiovascular Cardiovascular exam: Present: RRR, +S1, +S2. Absent: diastolic murmur, gallop, rubs, systolic murmur - GI/Abdominal GI/Abdominal exam: Present: normal bowel sounds, soft, no peritoneal signs. Absent: distended, tenderness - Extremities Exam Extremities exam: Present: warm, radial pulses palpable and symmetrical. Absent : calf tenderness, cyanotic, pedal edema - Neurological Exam Neurological exam: Present: CN II-XII intact, oriented X3, no focal deficits. Absent: pronater drift, facial droop, speech deficit - Skin Skin exam: Present: dry, intact Internal Medicine: Result - Labs CBC & Chem 7: 12/13/17 05:00 12/13/17 05:00 Labs: Short CBC 12/13/17 Range/Units 05:00 WBC 4.2 L (4.3-11.1) K/mcL Hgb 10.5 L (12.9-16.9) g/dL Hct 31.0 L (37.5-50.1) % Plt Count 165 (140-400) K/mcL Neutrophils # 1.7 (1.6-8.9) K/mcL BMP 12/13/17 05:00 Sodium 141 Potassium 3.7 Chloride 111 H Carbon Dioxide 24 BUN 15 Creatinine 0.63 L Glucose 82 Calcium 8.8 Consult Discharge Plan - Plan Referrals: NONE,PCP [Primary Care Provider] -
[2017-12-13] MEDS: Melatonin 3 MG TABLET PO PRN (21:27)
[2017-12-14] MEDS: *HR* Heparin 5,000 UNIT/ML VIAL SQ SCH ×2 (05:34→17:42)
[2017-12-14] MEDS: Thiamine (B-1) 100 MG TABLET PO SCH (08:50)
[2017-12-14] MEDS: ACAMPROSATE 666 MG PO SCH ×3 (08:50→21:24)
[2017-12-14] MEDS: Nicotine 21 MG PATCH.TD24 TD SCH (08:50)
--- NOTE | 2017-12-14 14:10 | Internal Med Progress Note ---
Date of Encounter: 12/14/17 Time of Encounter: 14:07 - Assessment and plan (1) Alcoholism /alcohol abuse Current Visit: Yes Status: Acute Assessment and plan: History of alcoholism Admitted with suicidal ideation Wishes to quit drinking, admitted [facility]. To report on Friday Patient to discharge tomorrow, cannot discharged today as he has no place to go and reports that he knows able to drink and will not report to facility if discharged today Did not experience alcohol withdrawal throughout the stay-continue CIWA protocol Continue thiamine, folate and B vitamins-continue these at discharge Continue to latuda start patient on acamprosate 666mg for alcohol abuse disorder upon discharge. (2) Essential hypertension Current Visit: No Status: Chronic Assessment and plan: Remained stable, continue anti-HTN medications (3) Alcohol withdrawal Current Visit: Yes Status: Acute Assessment and plan: See above Qualifiers: Complication of substance-induced condition: uncomplicated Qualified Code(s ): F10.230 - Alcohol dependence with withdrawal, uncomplicated (4) Suicidal ideation Current Visit: Yes Status: Resolved Assessment and plan: Denies any suicidal/homicidal ideation. Been cleared per psychology - Time Spent With Patient Total time spent is greater than 50% in coordination of care (as documented) at patient's floor/unit and/or counseling patient: 25 - 35 minutes - Subjective Interval history: Presented to the ED from his counselor's office with suicidal ideation. Patient is a long-time alcoholic reporting 32 years of alcohol abuse. During the stay experience alcohol withdrawal. Patient seen and examined at bedside today, denies suicidal/homicidal ideation, denies any auditory/visual hallucinations, reporting that he is no longer having tremors. No acute changes overnight. Continue with current treatment plan - Constitutional Vitals: Temp Pulse Resp BP Pulse Ox 98.1 F 82 16 100/70 100 12/14/17 11:07 12/14/17 11:07 12/14/17 11:07 12/14/17 11:07 12/14/17 11:07 General appearance: Present: A&O X 3, no acute distress - Head Head exam: Present: atraumatic, normocephalic - Eye Eye exam: Present: PERRL, conjuntiva pink, sclera anicteric Pupils: Present: PERRL - Neck Neck exam general surgery: Present: supple, trachea midline. Absent: lymphadenopathy - Respiratory Respiratory exam: Present: CTAB. Absent: accessory muscle use, rales, rhonchi, wheezes - Cardiovascular Cardiovascular exam: Present: RRR, +S1, +S2. Absent: diastolic murmur, gallop, rubs, systolic murmur - GI/Abdominal GI/Abdominal exam: Present: normal bowel sounds, soft, no peritoneal signs. Absent: distended, tenderness - Extremities Exam Extremities exam: Present: warm, radial pulses palpable and symmetrical. Absent : calf tenderness, cyanotic, pedal edema - Neurological Exam Neurological exam: Present: CN II-XII intact, oriented X3, no focal deficits. Absent: pronater drift, facial droop, speech deficit - Skin Skin exam: Present: dry, intact Internal Medicine: Result - Labs CBC & Chem 7: 12/13/17 05:00 12/13/17 05:00 Consult Discharge Plan - Plan Referrals: NONE,PCP [Primary Care Provider] -
[2017-12-14] MEDS: Acetaminophen 325 MG TABLET PO PRN ×2 (16:18→21:25)
[2017-12-14] MEDS: Melatonin 3 MG TABLET PO PRN (21:24)
[2017-12-15] MEDS: *HR* Heparin 5,000 UNIT/ML VIAL SQ SCH (05:59)
[2017-12-15 06:33] VITALS: BP 126/97
--- NOTE | 2017-12-15 08:13 | Discharge Summary ---
- NOTES TO OUTPATIENT PROVIDER Notes to Outpatient Provider: Patient presented with suicidal ideation. Alcohol withdrawal protocol implemented; never had withdrawal symptoms. Discharge to [facility] for rehabilitation Date of Encounter: 12/15/17 Time of Encounter: 08:10 - Discharge Diagnosis (1) Alcoholism /alcohol abuse Priority: Primary Status: Acute Assessment and Plan: History of alcoholism Admitted with suicidal ideation Wishes to quit drinking, admitted to [facility] clinic. To report on Friday Patient to discharge today to [facility] Did not experience alcohol withdrawal throughout the stay Continue thiamine, folate and B vitamins-continue these at discharge Continue to latuda start patient on acamprosate 666mg for alcohol abuse disorder upon discharge. (2) Essential hypertension Priority: Secondary Status: Chronic Assessment and Plan: Stable. Continue anti-HTN medication regimen upon discharge (3) Alcohol withdrawal Priority: Secondary Status: Resolved Assessment and Plan: Was on CIWA protocol throughout the stay No alcohol withdrawal evident Discharge with thiamine B vitamins and folate Qualifiers: Complication of substance-induced condition: uncomplicated Qualified Code(s ): F10.230 - Alcohol dependence with withdrawal, uncomplicated (4) Suicidal ideation Priority: Secondary Status: Resolved Assessment and Plan: Resolved, no suicidal ideation per psychiatry assessment. Patient continues to deny suicidal/homicidal ideation. Denies any auditory/visual hallucinations Hospital course: Mr. Doe is a 42 year old male See assessment and plan for hospital course Discharge discussed with: patient, nurse, social work, emergency management consultant - Time Spent with Patient Total time spent providing and/or coordinating discharge services: Greater than 30 minutes - Discharge Medications Prescriptions: Lisinopril-HCTZ 10-12.5 [Prinzide 10-12.5] 1 each PO DAILY 30 Days #30 tablet Thiamine (B-1) [Vitamin B-1] 100 mg PO DAILY 30 Days #30 tablet Home Medications: Acamprosate Calcium 333 mg PO DAILY 30 Days #30 tablet. 12/15/17 [Rx] Folic Acid 1 mg PO DAILY 30 Days #30 tablet 12/15/17 [Rx] Lisinopril-HCTZ 10-12.5 [Prinzide 10-12.5] 1 each PO DAILY 30 Days #30 tablet [Rx] Thiamine (B-1) [Vitamin B-1] 100 mg PO DAILY 30 Days #30 tablet 12/15/17 [Rx] Allergies/Adverse Reactions: 3 Allergy/AdvReac Type Severity Reaction Status Date / Time naproxen [From Naprosyn] Allergy Hives Verified 12/06/17 11:16 gabapentin [From Neurontin] AdvReac Hallucinati Verified 12/06/17 11:16 ng orphenadrine [From Norflex] AdvReac Hallucinati Verified 12/06/17 11:16 ng Date of admission: 12/06/17 07:46 Primary care physician: PCP NONE Consults: 12/06/17 09:05 Consult to Roll Forming Machine Set Up Operator [CONS] Routine Reason for SW Consult: SI/HI 12/06/17 13:07 Consult to Roll Forming Machine Set Up Operator [CONS] Routine Reason for SW Consult: Alcohol abuse/dependence 12/06/17 13:11 Consult to Psychiatry [CONS] Routine Consulting Provider: Rigo Castaneda Reason for Consult: Suicidal ideation Time Notified: 02:00 Call Completed: Yes Discharging clinician: Boom Pierre Anticipated date of discharge: 12/15/17 - Constitutional Vitals: Temp Pulse Resp BP Pulse Ox 98.1 F 83 20 126/97 98 12/15/17 06:31 12/15/17 06:31 12/15/17 06:31 12/15/17 06:31 12/15/17 06:31 General appearance: Present: A&O X 3, no acute distress - Head Head exam: Present: atraumatic, normocephalic - Eye Eye exam: Present: PERRL, conjuntiva pink, sclera anicteric Pupils: Present: PERRL - Neck Neck exam general surgery: Present: supple, trachea midline. Absent: lymphadenopathy - Respiratory Respiratory exam: Present: CTAB. Absent: accessory muscle use, rales, rhonchi, wheezes - Cardiovascular Cardiovascular exam: Present: RRR, +S1, +S2. Absent: diastolic murmur, gallop, rubs, systolic murmur - GI/Abdominal GI/Abdominal exam: Present: normal bowel sounds, soft, no peritoneal signs. Absent: distended, tenderness - Extremities Exam Extremities exam: Present: warm, radial pulses palpable and symmetrical. Absent : calf tenderness, cyanotic, pedal edema - Neurological Exam Neurological exam: Present: CN II-XII intact, oriented X3, no focal deficits. Absent: pronater drift, facial droop, speech deficit - Skin Skin exam: Present: dry, intact - Patient Status Disposition: Transfer Other Condition: Fair Overall status at discharge: patient is not back to baseline - Discharge Instructions Instructions: How to Stop Smoking (DC), Abuse of Alcohol (DC), Anxiety (DC) Follow Up With: NONE,PCP [Primary Care Provider] -
[2017-12-15] MEDS: ACAMPROSATE 666 MG PO SCH (08:34)
[2017-12-15] MEDS: Nicotine 21 MG PATCH.TD24 TD SCH (08:34)
[2017-12-15] MEDS: Thiamine (B-1) 100 MG TABLET PO SCH (08:34)
--- NOTE | 2017-12-15 08:36 | Physician Discharge Referral ---
ExtendedCare Referral Info Transfer To: [facility] Provider in Charge after Transfer: PCP, Other (Facility provider) Institutional Level of Care: Intermediate - Diagnosis (1) Alcoholism /alcohol abuse Priority: Primary Status: Acute (2) Essential hypertension Priority: Secondary Status: Chronic (3) Alcohol withdrawal Priority: Secondary Status: Resolved (4) Suicidal ideation Priority: Secondary Status: Resolved Prognosis: Fair Aware of Diagnosis: Patient Aware of Prognosis: Patient - Transfer Medications Prescriptions: Acamprosate Calcium 333 mg PO DAILY 30 Days #30 tablet. Folic Acid 1 mg PO DAILY 30 Days #30 tablet Lisinopril-HCTZ 10-12.5 [Prinzide 10-12.5] 1 each PO DAILY 30 Days #30 tablet Thiamine (B-1) [Vitamin B-1] 100 mg PO DAILY 30 Days #30 tablet Home Medications: Acamprosate Calcium 333 mg PO DAILY 30 Days #30 tablet. 12/15/17 [Rx] Folic Acid 1 mg PO DAILY 30 Days #30 tablet 12/15/17 [Rx] Lisinopril-HCTZ 10-12.5 [Prinzide 10-12.5] 1 each PO DAILY 30 Days #30 tablet [Rx] Thiamine (B-1) [Vitamin B-1] 100 mg PO DAILY 30 Days #30 tablet 12/15/17 [Rx] Allergies/Adverse Reactions: 3 Allergy/AdvReac Type Severity Reaction Status Date / Time naproxen [From Naprosyn] Allergy Hives Verified 12/06/17 11:16 gabapentin [From Neurontin] AdvReac Hallucinati Verified 12/06/17 11:16 ng orphenadrine [From Norflex] AdvReac Hallucinati Verified 12/06/17 11:16 ng - Respiratory Orders Smoking Cessation: Smoking cessation has been advised. For more information, call the [place] Tobacco Quit Line at 2-218-OBFW-NOW. - Rehabiliation Orders Other: Alcohol abuse rehabilitation in counseling, group therapy, private therapy - Diet Orders Regular CERTIFICATION: I certify that the transfer of the above named patient to an Extended Care Facility is necessary for the continuing treatment of the diagnosis listed. The above information is true and accurate reflection of patient's current condition. Confidential - Redisclosure prohibited without a patient's written consent.
== END 2017-12-15 08:52 | disposition home or self-care (01) ==
LOC: 3BNU 16:24 → EMEROO 16:24 → 3BNU 12-06 08:28
PROVIDERS: ADMIT Pediatrics; ATTEND Pediatrics

== ENCOUNTER 2019-05-13 15:59 | Inpatient (IN) ==
[2019-05-13] MEDS ORDERED: *HR* Heparin 5,000 UNIT/ML VIAL IVP PRN ×2 (17:58)
[2019-05-13] MEDS ORDERED: Heparin 25,000 UNIT/250 ML D5W 25,000 UNIT/250 ML IV.SOLN IVC SCH (18:00)
[2019-05-13] MEDS ORDERED: Ondansetron 4 MG/2 ML VIAL IVP PRN (18:00)
[2019-05-13] MEDS ORDERED: *HR* LORazepam 2 MG/ML VIAL IVP PRN ×2 (18:01)
[2019-05-13] MEDS: 0.9 % Sodium Chloride 1,000 ML IVC SCH (19:46)
[2019-05-13] MEDS: Albuterol 2.5 MG/3 ML NEBULIZER IH SCH ×2 (20:05→23:28)
[2019-05-13] MEDS: carBAMazepine 200 MG TABLET PO SCH (20:57)
[2019-05-14] MEDS: Melatonin 3 MG TABLET PO PRN (01:00)
[2019-05-14] MEDS ORDERED: Albuterol 2.5 MG/3 ML NEBULIZER IH PRN (02:53)
[2019-05-14 03:41] LABS: Hematocrit 29.8 % (37.5-50.1); Hemoglobin 10.5 g/dL (12.9-16.9); Mean Corpuscular HGB Conc 35.2 g/dL (31.6-35.5); Mean Corpuscular Volume 99.3 fL (83.0-100.0); Mean Platelet Volume 10.3 fL (9.4-12.4); Platelet Count 154 K/mcL (140-400); Red Cell Distribution Width 12.3 % (11.5-14.5); White Blood Count 4.4 K/mcL (4.3-11.1)
[2019-05-14 04:04] LABS: BUN/Creatinine Ratio 11 (6-26); Blood Urea Nitrogen 6 mg/dL (6-20); Calcium 7.7 mg/dL (8.6-10.3); Carbon Dioxide 19 mEq/L (23-29); Chloride 105 mEq/L (98-107); Glucose 135 mg/dL (70-105); Magnesium 1.5 mg/dL (1.6-2.6); Osmolality,Calculated 286 (280-300); Potassium 3.2 mEq/L (3.5-5.1); Sodium 138 mEq/L (136-145); eGFR For African Americans > 60 (> 60); eGFR For Non-African Americans > 60 (> 60)
[2019-05-14] MEDS: 0.9 % Sodium Chloride 1,000 ML IVC SCH (05:05)
[2019-05-14] MEDS ORDERED: Potassium Chloride Elixir 20 MEQ/15 ML UDC PO ONE (08:19)
[2019-05-14] MEDS: *HR* LORazepam 2 MG/ML VIAL IVP PRN ×2 (09:12→17:09)
[2019-05-14] MEDS: Thiamine (B-1) 100 MG TABLET PO SCH (09:12)
[2019-05-14] MEDS: Folic Acid 1 MG TABLET PO SCH (09:12)
[2019-05-14] MEDS: carBAMazepine 200 MG TABLET PO SCH ×2 (09:12→20:42)
[2019-05-14] MEDS: Nicotine 14 MG PATCH.TD24 TD SCH (17:09)
[2019-05-14] MEDS: *HR* Heparin 5,000 UNIT/ML VIAL SQ SCH (17:09)
[2019-05-14] MEDS ORDERED: Loratadine 10 MG TABLET PO PRN (17:28)
[2019-05-14] MEDS: Mirtazapine 15 MG TABLET PO SCH (20:43)
[2019-05-15] MEDS: *HR* Heparin 5,000 UNIT/ML VIAL SQ SCH ×2 (05:03→16:49)
[2019-05-15 05:23] LABS: Hematocrit 30.6 % (37.5-50.1); Hemoglobin 10.8 g/dL (12.9-16.9); Mean Corpuscular HGB Conc 35.3 g/dL (31.6-35.5); Mean Corpuscular Hemoglobin 34.8 pg (28.0-33.3); Mean Corpuscular Volume 98.7 fL (83.0-100.0); Mean Platelet Volume 10.7 fL (9.4-12.4); Platelet Count 142 K/mcL (140-400); Red Cell Distribution Width 12.3 % (11.5-14.5); White Blood Count 3.7 K/mcL (4.3-11.1)
[2019-05-15 05:50] LABS: % Iron Saturation 99 % (20-55); Alanine Aminotransferase 119 Units/L (7-52); Albumin 3.2 g/dL (3.5-5.7); Albumin/Globulin Ratio 2.1 (1.1-2.2); Alkaline Phosphatase 89 Units/L (34-104); Aspartate Amino Transferase 228 Units/L (13-39); BUN/Creatinine Ratio 9 (6-26); Bilirubin,Direct 1.4 mg/dL (0.0-0.2); Bilirubin,Indirect 0.9 mg/dL (0.0-1.2); Bilirubin,Total 2.3 mg/dL (0.3-1.0); Blood Urea Nitrogen 5 mg/dL (6-20); Calcium 8.4 mg/dL (8.6-10.3); Carbon Dioxide 21 mEq/L (23-29); Chloride 106 mEq/L (98-107); Globulin 1.5 g/dL (2.4-3.5); Glucose 92 mg/dL (70-105); Iron 108 mcg/dL (65-175); Osmolality,Calculated 275 (280-300); Phosphorous 2.4 mg/dL (2.7-4.5); Potassium 3.6 mEq/L (3.5-5.1); Sodium 134 mEq/L (136-145); Total Protein 4.7 g/dL (6.4-8.9); Transferrin 78 mg/dL (203-362); eGFR For African Americans > 60 (> 60); eGFR For Non-African Americans > 60 (> 60)
[2019-05-15 06:02] LABS: Ferritin > 1500 ng/mL (20-250)
[2019-05-15] MEDS: Thiamine (B-1) 100 MG TABLET PO SCH (08:27)
[2019-05-15] MEDS: Aspirin 81 MG TAB.CHEW PO SCH (08:27)
[2019-05-15] MEDS: risperiDONE 0.25 MG TABLET PO SCH (08:27)
[2019-05-15] MEDS: carBAMazepine 200 MG TABLET PO SCH ×2 (08:27→19:33)
[2019-05-15] MEDS: Cholecalciferol (D-3) 1,000 UNIT (25MCG) TABLET PO SCH (08:27)
[2019-05-15] MEDS: Folic Acid 1 MG TABLET PO SCH (08:27)
[2019-05-15] MEDS ORDERED: THIAMINE MONONITRATE PO SCH (09:00)
[2019-05-15] MEDS ORDERED: 0.9 % Sodium Chloride 1,000 ML IVC SCH (10:45)
[2019-05-15] MEDS: Nicotine 14 MG PATCH.TD24 TD SCH (16:42)
[2019-05-15] MEDS: Mirtazapine 15 MG TABLET PO SCH (19:33)
[2019-05-16 04:28] LABS: Hematocrit 30.6 % (37.5-50.1); Hemoglobin 10.3 g/dL (12.9-16.9); Mean Corpuscular HGB Conc 33.7 g/dL (31.6-35.5); Mean Corpuscular Hemoglobin 34.8 pg (28.0-33.3); Mean Corpuscular Volume 103.4 fL (83.0-100.0); Mean Platelet Volume 11.3 fL (9.4-12.4); Platelet Count 119 K/mcL (140-400); Red Blood Count 2.96 M/mcL (4.19-5.50); Red Cell Distribution Width 12.4 % (11.5-14.5); White Blood Count 3.7 K/mcL (4.3-11.1)
[2019-05-16 04:44] LABS: BUN/Creatinine Ratio 7 (6-26); Blood Urea Nitrogen 4 mg/dL (6-20); Carbon Dioxide 20 mEq/L (23-29); Chloride 113 mEq/L (98-107); Glucose 83 mg/dL (70-105); Magnesium 1.7 mg/dL (1.6-2.6); Osmolality,Calculated 282 (280-300); Phosphorous 3.6 mg/dL (2.7-4.5); Potassium 3.2 mEq/L (3.5-5.1); Sodium 138 mEq/L (136-145); eGFR For African Americans > 60 (> 60); eGFR For Non-African Americans > 60 (> 60)
[2019-05-16] MEDS: *HR* Heparin 5,000 UNIT/ML VIAL SQ SCH ×2 (05:16→17:03)
[2019-05-16] MEDS ORDERED: Potassium Chloride Elixir 20 MEQ/15 ML UDC PO ONE (07:07)
[2019-05-16] MEDS: Aspirin 81 MG TAB.CHEW PO SCH (08:31)
[2019-05-16] MEDS: Thiamine (B-1) 100 MG TABLET PO SCH (08:31)
[2019-05-16] MEDS: Folic Acid 1 MG TABLET PO SCH (08:32)
[2019-05-16] MEDS: Cholecalciferol (D-3) 1,000 UNIT (25MCG) TABLET PO SCH (08:32)
[2019-05-16] MEDS: Metoprolol 100 MG TABLET PO SCH ×2 (08:32→20:31)
[2019-05-16] MEDS: carBAMazepine 200 MG TABLET PO SCH ×2 (08:32→20:32)
[2019-05-16] MEDS: risperiDONE 0.25 MG TABLET PO SCH (08:32)
[2019-05-16] MEDS: Nicotine 14 MG PATCH.TD24 TD SCH (17:03)
[2019-05-16] MEDS: Mirtazapine 15 MG TABLET PO SCH (20:31)
[2019-05-17 05:05] LABS: BUN/Creatinine Ratio 11 (6-26); Blood Urea Nitrogen 6 mg/dL (6-20); Calcium 8.1 mg/dL (8.6-10.3); Carbon Dioxide 20 mEq/L (23-29); Chloride 112 mEq/L (98-107); Glucose 86 mg/dL (70-105); Magnesium 1.6 mg/dL (1.6-2.6); Osmolality,Calculated 285 (280-300); Phosphorous 3.6 mg/dL (2.7-4.5); Potassium 3.4 mEq/L (3.5-5.1); Sodium 139 mEq/L (136-145); eGFR For African Americans > 60 (> 60); eGFR For Non-African Americans > 60 (> 60)
[2019-05-17] MEDS: *HR* Heparin 5,000 UNIT/ML VIAL SQ SCH ×2 (05:39→17:01)
[2019-05-17] MEDS ORDERED: Potassium Chloride Elixir 20 MEQ/15 ML UDC PO ONE (07:19)
[2019-05-17] MEDS: Cholecalciferol (D-3) 1,000 UNIT (25MCG) TABLET PO SCH (08:48)
[2019-05-17] MEDS: Thiamine (B-1) 100 MG TABLET PO SCH (08:48)
[2019-05-17] MEDS: Folic Acid 1 MG TABLET PO SCH (08:48)
[2019-05-17] MEDS: Metoprolol 100 MG TABLET PO SCH ×2 (08:48→21:22)
[2019-05-17] MEDS: risperiDONE 0.25 MG TABLET PO SCH (08:48)
[2019-05-17] MEDS: Aspirin 81 MG TAB.CHEW PO SCH (08:49)
[2019-05-17] MEDS: carBAMazepine 200 MG TABLET PO SCH ×2 (08:49→21:21)
[2019-05-17] MEDS: Diltiazem CD (24hr) 120 MG CAPSULE PO SCH (12:25)
[2019-05-17] MEDS: Nicotine 14 MG PATCH.TD24 TD SCH (17:01)
[2019-05-17] MEDS: Mirtazapine 15 MG TABLET PO SCH (21:21)
[2019-05-18] MEDS: *HR* Heparin 5,000 UNIT/ML VIAL SQ SCH ×2 (06:41→16:39)
[2019-05-18 07:47] LABS: Hematocrit 34.1 % (37.5-50.1); Hemoglobin 11.8 g/dL (12.9-16.9); Mean Corpuscular HGB Conc 34.6 g/dL (31.6-35.5); Mean Corpuscular Hemoglobin 35.1 pg (28.0-33.3); Mean Corpuscular Volume 101.5 fL (83.0-100.0); Mean Platelet Volume 11.2 fL (9.4-12.4); Platelet Count 151 K/mcL (140-400); Red Blood Count 3.36 M/mcL (4.19-5.50); Red Cell Distribution Width 12.8 % (11.5-14.5); White Blood Count 3.6 K/mcL (4.3-11.1)
[2019-05-18] MEDS: Folic Acid 1 MG TABLET PO SCH (08:00)
[2019-05-18] MEDS: Cholecalciferol (D-3) 1,000 UNIT (25MCG) TABLET PO SCH (08:00)
[2019-05-18] MEDS: Metoprolol 100 MG TABLET PO SCH ×2 (08:00→20:44)
[2019-05-18] MEDS: Aspirin 81 MG TAB.CHEW PO SCH (08:00)
[2019-05-18] MEDS: Thiamine (B-1) 100 MG TABLET PO SCH (08:00)
[2019-05-18] MEDS: carBAMazepine 200 MG TABLET PO SCH ×2 (08:00→20:43)
[2019-05-18] MEDS: risperiDONE 0.25 MG TABLET PO SCH (08:00)
[2019-05-18] MEDS: Diltiazem CD (24hr) 120 MG CAPSULE PO SCH (08:00)
[2019-05-18 08:03] LABS: Magnesium 1.5 mg/dL (1.6-2.6); Phosphorous 3.9 mg/dL (2.7-4.5)
[2019-05-18] MEDS ORDERED: Nitroglycerin 0.4 MG TAB.SUBL SL PRN (09:12)
[2019-05-18] MEDS: Nicotine 14 MG PATCH.TD24 TD SCH (15:40)
[2019-05-18] MEDS: Melatonin 3 MG TABLET PO PRN (20:43)
[2019-05-18] MEDS: Mirtazapine 15 MG TABLET PO SCH (20:44)
[2019-05-19] MEDS: *HR* Heparin 5,000 UNIT/ML VIAL SQ SCH (05:21)
[2019-05-19 05:47] LABS: Hemoglobin 11.2 g/dL (12.9-16.9); Mean Corpuscular Hemoglobin 34.8 pg (28.0-33.3); Mean Corpuscular Volume 99.4 fL (83.0-100.0); Mean Platelet Volume 11.2 fL (9.4-12.4); Platelet Count 150 K/mcL (140-400); Red Blood Count 3.22 M/mcL (4.19-5.50); Red Cell Distribution Width 12.6 % (11.5-14.5); White Blood Count 3.6 K/mcL (4.3-11.1)
[2019-05-19 06:05] LABS: BUN/Creatinine Ratio 13 (6-26); Blood Urea Nitrogen 7 mg/dL (6-20); Calcium 8.3 mg/dL (8.6-10.3); Carbon Dioxide 22 mEq/L (23-29); Chloride 111 mEq/L (98-107); Glucose 88 mg/dL (70-105); Magnesium 1.5 mg/dL (1.6-2.6); Osmolality,Calculated 289 (280-300); Potassium 3.9 mEq/L (3.5-5.1); Sodium 141 mEq/L (136-145); eGFR For African Americans > 60 (> 60); eGFR For Non-African Americans > 60 (> 60)
[2019-05-19] MEDS ORDERED: Regadenoson 0.4 MG/5 ML SYRINGE IVP ONE (06:14)
[2019-05-19] MEDS: carBAMazepine 200 MG TABLET PO SCH (09:09)
[2019-05-19] MEDS: Aspirin 81 MG TAB.CHEW PO SCH (09:09)
[2019-05-19] MEDS: Folic Acid 1 MG TABLET PO SCH (09:09)
[2019-05-19] MEDS: risperiDONE 0.25 MG TABLET PO SCH (09:09)
[2019-05-19] MEDS: Thiamine (B-1) 100 MG TABLET PO SCH (09:09)
[2019-05-19] MEDS: Metoprolol 100 MG TABLET PO SCH (09:09)
[2019-05-19] MEDS: Diltiazem CD (24hr) 120 MG CAPSULE PO SCH (09:09)
[2019-05-19] MEDS: Cholecalciferol (D-3) 1,000 UNIT (25MCG) TABLET PO SCH (09:09)
[2019-05-19 11:49] VITALS: BP 121/84
[2019-05-19] MEDS ORDERED: FLU Vac QV 19-20 (6Month+)/PF 0.5 ML SYRINGE IM ONE (13:27)
== END 2019-05-19 14:05 | disposition home or self-care (01) | DRG 201 ==
LOC: 2ANU → SUATTDRO 18:00
PROVIDERS: ADMIT Internal Medicine; ATTEND Internal Medicine

== ENCOUNTER 2019-06-10 14:22 | Observation (INO) ==
[2019-06-10] MEDS ORDERED: Aspirin 325 MG TABLET PO ONE (14:46)
[2019-06-10] MEDS ORDERED: 0.9 % Sodium Chloride 1,000 ML IVC ONE (14:46)
[2019-06-10 15:26] LABS: INR 0.9; Prothrombin Time 10.4 Seconds (9.4-12.1)
[2019-06-10 15:28] LABS: Activated Partial Thrombo Time 31.9 Seconds (26.0-36.0)
[2019-06-10 15:36] LABS: BUN/Creatinine Ratio 11 (6-26); Blood Urea Nitrogen 6 mg/dL (6-20); Calcium 8.6 mg/dL (8.6-10.3); Carbon Dioxide 16 mEq/L (23-29); Chloride 103 mEq/L (98-107); Glucose 78 mg/dL (70-105); Osmolality,Calculated 280 (280-300); Potassium 3.5 mEq/L (3.5-5.1); Sodium 137 mEq/L (136-145); Troponin I < 0.03 ng/mL (< 0.04); eGFR For African Americans > 60 (> 60); eGFR For Non-African Americans > 60 (> 60)
[2019-06-10 15:48] LABS: Thyroid Stimulating Hormone 2.047 mcIU/mL (0.340-5.600)
[2019-06-10] MEDS ORDERED: *HR* Heparin 5,000 UNIT/ML VIAL IVP ONE (16:13)
[2019-06-10] MEDS ORDERED: *HR* Heparin 5,000 UNIT/ML VIAL IVP PRN ×2 (16:13)
[2019-06-10 16:22] LABS: Mean Corpuscular Hemoglobin 32.9 pg (28.0-33.3); Monocytes % 5.5 %
[2019-06-10 16:24] LABS: Basophils # 0.1 K/mcL (0.0-0.2); Basophils % 1.8 %; Eosinophils # 0.1 K/mcL (0.0-0.6); Eosinophils % 2.3 %; Hematocrit 44.5 % (37.5-50.1); Immature Granulocytes % 0.2 % (0-4); Lymphocytes # 1.8 K/mcL (0.6-4.6); Lymphocytes % 40.3 %; Mean Corpuscular Volume 91.6 fL (83.0-100.0); Mean Platelet Volume 11.5 fL (9.4-12.4); Monocytes # 0.2 K/mcL (0.0-1.3); Neutrophils # 2.2 K/mcL (1.6-8.9); Red Blood Count 4.86 M/mcL (4.19-5.50); Segmented Neutrophils % 49.9 %; White Blood Count 4.4 K/mcL (4.3-11.1)
[2019-06-10 16:29] LABS: Platelet Count 73 K/mcL (140-400)
[2019-06-10 16:30] LABS: Platelet Estimate Decreased (Normal)
[2019-06-10] MEDS: Heparin 25,000 UNIT/250 ML D5W 25,000 UNIT/250 ML IV.SOLN IVC SCH (16:38)
[2019-06-10 16:55] LABS: Heparin anti-factor XA UFH 0.03 IU/mL (0.30-0.70); INR 0.9; Prothrombin Time 10.5 Seconds (9.4-12.1)
[2019-06-10] MEDS ORDERED: Ondansetron 4 MG/2 ML VIAL IVP PRN (17:07)
[2019-06-10] MEDS ORDERED: Naloxone 0.4 MG/ML INJ IVP PRN (17:07)
[2019-06-10] MEDS ORDERED: *HR* LORazepam 2 MG/ML VIAL IVP PRN ×3 (17:08)
[2019-06-10 17:27] LABS: Magnesium 1.7 mg/dL (1.6-2.6)
[2019-06-10] MEDS: Metoprolol 100 MG TABLET PO SCH (20:16)
[2019-06-10] MEDS: Mirtazapine 15 MG TABLET PO SCH (20:16)
[2019-06-10] MEDS: Thiamine (B-1) 100 MG, Folic Acid 1 MG, MVI, adult with vitamin K 10 ML in 0.9 % Sodi... IVPB SCH (21:58)
[2019-06-10 23:34] LABS: Hematocrit 36.1 % (37.5-50.1); Hemoglobin 13.2 g/dL (12.9-16.9); Immature Platelets 13.3 % (1.1-6.1); Mean Corpuscular HGB Conc 36.6 g/dL (31.6-35.5); Mean Corpuscular Hemoglobin 33.8 pg (28.0-33.3); Mean Corpuscular Volume 92.3 fL (83.0-100.0); Mean Platelet Volume 12.5 fL (9.4-12.4); Red Blood Count 3.91 M/mcL (4.19-5.50); Red Cell Distribution Width 12.1 % (11.5-14.5); White Blood Count 4.3 K/mcL (4.3-11.1)
[2019-06-11 04:43] LABS: Immature Granulocytes % 0.6 % (0-4); Mean Platelet Volume 12.6 fL (9.4-12.4); Red Cell Distribution Width 12.1 % (11.5-14.5)
[2019-06-11 04:46] LABS: Basophils # 0.1 K/mcL (0.0-0.2); Basophils % 2.1 %; Eosinophils # 0.1 K/mcL (0.0-0.6); Eosinophils % 4.2 %; Hematocrit 34.4 % (37.5-50.1); Hemoglobin 12.5 g/dL (12.9-16.9); Immature Platelets 11.8 % (1.1-6.1); Lymphocytes # 1.2 K/mcL (0.6-4.6); Lymphocytes % 35.3 %; Mean Corpuscular HGB Conc 36.3 g/dL (31.6-35.5); Mean Corpuscular Hemoglobin 33.4 pg (28.0-33.3); Monocytes # 0.3 K/mcL (0.0-1.3); Monocytes % 9.2 %; Red Blood Count 3.74 M/mcL (4.19-5.50); Segmented Neutrophils % 48.6 %; White Blood Count 3.4 K/mcL (4.3-11.1)
[2019-06-11 04:47] LABS: Neutrophils # 1.7 K/mcL (1.6-8.9); Platelet Count 51 K/mcL (140-400)
[2019-06-11 05:02] LABS: BUN/Creatinine Ratio 14 (6-26); Blood Urea Nitrogen 7 mg/dL (6-20); Carbon Dioxide 19 mEq/L (23-29); Chloride 106 mEq/L (98-107); Glucose 72 mg/dL (70-105); Osmolality,Calculated 281 (280-300); Potassium 3.5 mEq/L (3.5-5.1); Sodium 137 mEq/L (136-145); eGFR For African Americans > 60 (> 60); eGFR For Non-African Americans > 60 (> 60)
[2019-06-11 05:03] LABS: Calcium 7.8 mg/dL (8.6-10.3); Chol/HDL Ratio 2.4 (0-4.9); Cholesterol 242 mg/dL (< 200); HDL Cholesterol 102 mg/dL (40-59); LDL Cholesterol,Calculated 126 mg/dL (0-99); Triglycerides 68 mg/dL (< 150); Troponin I < 0.03 ng/mL (< 0.04)
[2019-06-11 05:11] LABS: Platelet Estimate Decreased (Normal)
[2019-06-11] MEDS: risperiDONE 1 MG TABLET PO SCH (08:26)
[2019-06-11] MEDS: Folic Acid 1 MG TABLET PO SCH (08:26)
[2019-06-11] MEDS: Aspirin 81 MG TAB.CHEW PO SCH (08:26)
[2019-06-11] MEDS: Thiamine (B-1) 100 MG TABLET PO SCH (08:26)
[2019-06-11] MEDS: Vitamin B Complex/Vit C/Vit E 1 EACH TABLET PO SCH (08:27)
[2019-06-11] MEDS: Metoprolol 100 MG TABLET PO SCH ×2 (08:27→19:52)
[2019-06-11] MEDS ORDERED: carBAMazepine 200 MG TABLET PO SCH (09:00)
[2019-06-11] MEDS ORDERED: Diltiazem CD (24hr) 120 MG CAPSULE PO SCH (09:00)
[2019-06-11] MEDS: Heparin 25,000 UNIT/250 ML D5W 25,000 UNIT/250 ML IV.SOLN IVC SCH (09:05)
[2019-06-11] MEDS: Thiamine (B-1) 100 MG, Folic Acid 1 MG, MVI, adult with vitamin K 10 ML in 0.9 % Sodi... IVPB SCH (17:32)
[2019-06-11] MEDS: Mirtazapine 15 MG TABLET PO SCH (19:52)
[2019-06-12 03:43] LABS: Hematocrit 32.5 % (37.5-50.1); Hemoglobin 11.6 g/dL (12.9-16.9); Immature Platelets 14.3 % (1.1-6.1); Mean Corpuscular HGB Conc 35.7 g/dL (31.6-35.5); Mean Corpuscular Volume 92.3 fL (83.0-100.0); Mean Platelet Volume 12.2 fL (9.4-12.4); Red Blood Count 3.52 M/mcL (4.19-5.50); White Blood Count 2.6 K/mcL (4.3-11.1)
[2019-06-12 04:00] LABS: BUN/Creatinine Ratio 12 (6-26); Blood Urea Nitrogen 7 mg/dL (6-20); Calcium 8.3 mg/dL (8.6-10.3); Carbon Dioxide 28 mEq/L (23-29); Chloride 104 mEq/L (98-107); Glucose 99 mg/dL (70-105); Magnesium 1.7 mg/dL (1.6-2.6); Osmolality,Calculated 284 (280-300); Sodium 138 mEq/L (136-145); eGFR For African Americans > 60 (> 60); eGFR For Non-African Americans > 60 (> 60)
[2019-06-12] MEDS: Thiamine (B-1) 100 MG TABLET PO SCH (08:03)
[2019-06-12] MEDS: carBAMazepine 200 MG TABLET PO SCH (08:04)
[2019-06-12] MEDS: Metoprolol 100 MG TABLET PO SCH ×2 (08:04→20:44)
[2019-06-12] MEDS: risperiDONE 1 MG TABLET PO SCH (08:04)
[2019-06-12] MEDS: Aspirin 81 MG TAB.CHEW PO SCH (08:04)
[2019-06-12] MEDS: Vitamin B Complex/Vit C/Vit E 1 EACH TABLET PO SCH (08:05)
[2019-06-12] MEDS: Folic Acid 1 MG TABLET PO SCH (08:05)
[2019-06-12] MEDS ORDERED: Diltiazem CD (24hr) 240 MG CAPSULE PO SCH (09:00)
[2019-06-12] MEDS ORDERED: Diltiazem CD (24hr) 120 MG CAPSULE PO ONE (10:52)
[2019-06-12 14:46] LABS: Hematocrit 33.5 % (37.5-50.1); Hemoglobin 11.9 g/dL (12.9-16.9)
[2019-06-12] MEDS: Thiamine (B-1) 100 MG, Folic Acid 1 MG, MVI, adult with vitamin K 10 ML in 0.9 % Sodi... IVPB SCH (17:26)
[2019-06-12] MEDS: Mirtazapine 15 MG TABLET PO SCH (20:39)
[2019-06-13 05:45] LABS: Hematocrit 31.4 % (37.5-50.1); Hemoglobin 10.9 g/dL (12.9-16.9); Immature Granulocytes % 0.7 % (0-4); Mean Corpuscular HGB Conc 34.7 g/dL (31.6-35.5); Mean Corpuscular Volume 95.2 fL (83.0-100.0); Red Cell Distribution Width 12.1 % (11.5-14.5)
[2019-06-13 05:47] LABS: Eosinophils # 0.1 K/mcL (0.0-0.6); Eosinophils % 3.9 %; Immature Platelets 18.3 % (1.1-6.1); Lymphocytes # 0.9 K/mcL (0.6-4.6); Lymphocytes % 29.8 %; Mean Platelet Volume 13.6 fL (9.4-12.4); Monocytes # 0.3 K/mcL (0.0-1.3); Monocytes % 8.5 %; Neutrophils # 1.7 K/mcL (1.6-8.9); Segmented Neutrophils % 56.1 %; White Blood Count 3.1 K/mcL (4.3-11.1)
[2019-06-13 05:48] LABS: Platelet Count 43 K/mcL (140-400)
[2019-06-13 06:08] LABS: BUN/Creatinine Ratio 13 (6-26); Blood Urea Nitrogen 7 mg/dL (6-20); Calcium 8.3 mg/dL (8.6-10.3); Carbon Dioxide 23 mEq/L (23-29); Chloride 111 mEq/L (98-107); Glucose 87 mg/dL (70-105); Osmolality,Calculated 287 (280-300); Potassium 3.4 mEq/L (3.5-5.1); Sodium 140 mEq/L (136-145); eGFR For African Americans > 60 (> 60); eGFR For Non-African Americans > 60 (> 60)
[2019-06-13 06:57] VITALS: BP 108/79
[2019-06-13] MEDS: Aspirin 81 MG TAB.CHEW PO SCH (08:06)
[2019-06-13] MEDS: Vitamin B Complex/Vit C/Vit E 1 EACH TABLET PO SCH (08:06)
[2019-06-13] MEDS: Folic Acid 1 MG TABLET PO SCH (08:06)
[2019-06-13] MEDS: Metoprolol 100 MG TABLET PO SCH (08:06)
[2019-06-13] MEDS: carBAMazepine 200 MG TABLET PO SCH (08:06)
[2019-06-13] MEDS: Thiamine (B-1) 100 MG TABLET PO SCH (08:07)
[2019-06-13] MEDS: risperiDONE 1 MG TABLET PO SCH (08:07)
[2019-06-13] MEDS ORDERED: Diltiazem CD (24hr) 180 MG CAPSULE PO SCH (09:00)
== END 2019-06-13 14:24 | disposition home or self-care (01) ==
LOC: EMEROOARM 14:22 → 2NENU 14:22 → SUATTDRO 17:24 → 2NENU 18:06
PROVIDERS: ADMIT Internal Medicine; ATTEND Internal Medicine

== ENCOUNTER 2019-09-14 15:52 | Inpatient (IN) ==
[2019-09-14 17:04] LABS: Mean Corpuscular Volume 91.8 fL (83.0-100.0)
[2019-09-14 17:06] LABS: Basophils % 0.9 %; Eosinophils # 0.1 K/mcL (0.0-0.6); Eosinophils % 3.1 %; Hematocrit 33.6 % (37.5-50.1); Hemoglobin 11.8 g/dL (12.9-16.9); Immature Granulocytes % 0.9 % (0-4); Immature Platelets 21.7 % (1.1-6.1); Lymphocytes % 22.5 %; Mean Corpuscular HGB Conc 35.1 g/dL (31.6-35.5); Mean Corpuscular Hemoglobin 32.2 pg (28.0-33.3); Mean Platelet Volume 13.3 fL (9.4-12.4); Monocytes # 0.5 K/mcL (0.0-1.3); Monocytes % 10.9 %; Neutrophils # 2.8 K/mcL (1.6-8.9); Red Blood Count 3.66 M/mcL (4.19-5.50); Segmented Neutrophils % 61.7 %; White Blood Count 4.6 K/mcL (4.3-11.1)
[2019-09-14 17:12] LABS: Platelet Count 66 K/mcL (140-400)
[2019-09-14 17:18] LABS: Prothrombin Time 11.3 Seconds (9.4-12.1)
[2019-09-14 17:21] LABS: Activated Partial Thrombo Time 28.5 Seconds (26.0-36.0); Alanine Aminotransferase 136 Units/L (7-52); Albumin 3.4 g/dL (3.5-5.7); Albumin/Globulin Ratio 1.8 (1.1-2.2); Alkaline Phosphatase 177 Units/L (34-104); Aspartate Amino Transferase 383 Units/L (13-39); BUN/Creatinine Ratio 7 (6-26); Blood Urea Nitrogen 4 mg/dL (6-20); Calcium 8.6 mg/dL (8.6-10.3); Carbon Dioxide 17 mEq/L (23-29); Chloride 104 mEq/L (98-107); Ethanol 322 mg/dL (Less than 10); Globulin 1.9 g/dL (2.4-3.5); Glucose 94 mg/dL (70-105); Osmolality,Calculated 279 (280-300); Potassium 2.7 mEq/L (3.5-5.1); Sodium 136 mEq/L (136-145); Total Protein 5.3 g/dL (6.4-8.9); Troponin I < 0.03 ng/mL (< 0.04); eGFR For African Americans > 60 (> 60); eGFR For Non-African Americans > 60 (> 60)
[2019-09-14] MEDS ORDERED: Potassium Chloride Elixir 20 MEQ/15 ML UDC PO ONE ×2 (17:46→18:30)
[2019-09-14] MEDS ORDERED: Ondansetron 4 MG/2 ML VIAL IVP PRN (20:45)
[2019-09-14] MEDS ORDERED: Naloxone 0.4 MG/ML INJ IVP PRN (20:45)
[2019-09-14] MEDS: *HR* Heparin 5,000 UNIT/ML VIAL SQ SCH (21:16)
[2019-09-14] MEDS: Mirtazapine 15 MG TABLET PO SCH (21:17)
[2019-09-14] MEDS: Metoprolol 100 MG TABLET PO SCH (21:17)
[2019-09-14] MEDS: 0.9 % Sodium Chloride 1,000 ML IVC SCH (21:19)
[2019-09-14] MEDS: Ipratropium/Albuterol Neb 3 ML IH SCH (23:38)
[2019-09-15] MEDS: Ipratropium/Albuterol Neb 3 ML IH SCH ×2 (03:30→07:46)
[2019-09-15] MEDS: *HR* LORazepam 2 MG/ML VIAL IVP PRN ×3 (03:59→23:29)
[2019-09-15] MEDS: *HR* Heparin 5,000 UNIT/ML VIAL SQ SCH (05:21)
[2019-09-15] MEDS: 0.9 % Sodium Chloride 1,000 ML IVC SCH (05:22)
[2019-09-15 07:21] LABS: Eosinophils % 1.2 %; Mean Corpuscular HGB Conc 34.6 g/dL (31.6-35.5)
[2019-09-15 07:23] LABS: Basophils % 0.6 %; Hematocrit 29.5 % (37.5-50.1); Hemoglobin 10.2 g/dL (12.9-16.9); Immature Granulocytes % 1.2 % (0-4); Immature Platelets 16.3 % (1.1-6.1); Lymphocytes # 0.5 K/mcL (0.6-4.6); Mean Corpuscular Hemoglobin 32.6 pg (28.0-33.3); Mean Corpuscular Volume 94.2 fL (83.0-100.0); Mean Platelet Volume 13.6 fL (9.4-12.4); Monocytes # 0.4 K/mcL (0.0-1.3); Monocytes % 11.4 %; Red Blood Count 3.13 M/mcL (4.19-5.50); Red Cell Distribution Width 14.6 % (11.5-14.5); Segmented Neutrophils % 70.6 %; White Blood Count 3.3 K/mcL (4.3-11.1)
[2019-09-15 07:25] LABS: Neutrophils # 2.3 K/mcL (1.6-8.9); Platelet Count 50 K/mcL (140-400)
[2019-09-15 07:26] LABS: INR 1.1; Prothrombin Time 12.2 Seconds (9.4-12.1)
[2019-09-15 07:44] LABS: Alanine Aminotransferase 140 Units/L (7-52); Albumin 2.9 g/dL (3.5-5.7); Albumin/Globulin Ratio 1.8 (1.1-2.2); Alkaline Phosphatase 153 Units/L (34-104); Aspartate Amino Transferase 375 Units/L (13-39); BUN/Creatinine Ratio 10 (6-26); Bilirubin,Total 3.9 mg/dL (0.3-1.0); Blood Urea Nitrogen 7 mg/dL (6-20); Calcium 7.8 mg/dL (8.6-10.3); Carbon Dioxide 21 mEq/L (23-29); Chloride 109 mEq/L (98-107); Globulin 1.6 g/dL (2.4-3.5); Glucose 79 mg/dL (70-105); Magnesium 1.3 mg/dL (1.6-2.6); Osmolality,Calculated 287 (280-300); Phosphorous 3.7 mg/dL (2.7-4.5); Potassium 2.9 mEq/L (3.5-5.1); Sodium 140 mEq/L (136-145); Total Protein 4.5 g/dL (6.4-8.9); eGFR For African Americans > 60 (> 60); eGFR For Non-African Americans > 60 (> 60)
[2019-09-15] MEDS: DilTIAZem CD (24hr) 180 MG CAP.ER.24H PO SCH (08:12)
[2019-09-15] MEDS: Folic Acid 1 MG TABLET PO SCH (08:12)
[2019-09-15] MEDS: Cholecalciferol (D-3) 1,000 UNIT (25MCG) TABLET PO SCH (08:12)
[2019-09-15] MEDS: Aspirin 81 MG TAB.CHEW PO SCH (08:12)
[2019-09-15] MEDS: carBAMazepine 200 MG TABLET PO SCH (08:12)
[2019-09-15] MEDS ORDERED: *HR* LORazepam 2 MG/ML VIAL IVP PRN (10:14)
[2019-09-15] MEDS: Pantoprazole 40 MG VIAL IVP SCH (11:34)
[2019-09-15] MEDS: Metoprolol 100 MG TABLET PO SCH ×2 (11:38→21:01)
[2019-09-15 11:45] LABS: Hepatitis B Surface Antigen Nonreactive (Nonreactive)
[2019-09-15 12:14] LABS: Hepatitis C Virus Antibody Nonreactive (Nonreactive)
[2019-09-15 12:15] LABS: Hepatitis B Core IgM Nonreactive (Nonreactive)
[2019-09-15 12:16] LABS: Hepatitis A Antibody IgM Nonreactive (Nonreactive)
[2019-09-15 15:28] LABS: BUN/Creatinine Ratio 12 (6-26); Blood Urea Nitrogen 8 mg/dL (6-20); Calcium 7.9 mg/dL (8.6-10.3); Carbon Dioxide 22 mEq/L (23-29); Glucose 96 mg/dL (70-105); eGFR For African Americans > 60 (> 60); eGFR For Non-African Americans > 60 (> 60)
[2019-09-15 16:14] LABS: Chloride 108 mEq/L (98-107); Osmolality,Calculated 286 (280-300); Potassium 3.3 mEq/L (3.5-5.1); Sodium 139 mEq/L (136-145)
[2019-09-15] MEDS: Thiamine (B-1) 100 MG, Folic Acid 1 MG, MVI, adult with vitamin K 10 ML in 0.9 % Sodi... IVPB SCH (17:07)
[2019-09-15] MEDS ORDERED: Ondansetron 4 MG/2 ML VIAL IVP ONE (21:00)
[2019-09-15] MEDS: Mirtazapine 15 MG TABLET PO SCH (21:01)
[2019-09-15] MEDS ORDERED: *HR* LORazepam 2 MG/ML VIAL IVP ONE (21:01)
[2019-09-15] MEDS: risperiDONE 1 MG TABLET PO SCH (21:01)
[2019-09-15] MEDS ORDERED: Morphine Sulfate 2 MG/ML SYRINGE IVP ONE (21:02)
[2019-09-15] MEDS: Ipratropium/Albuterol Neb 3 ML IH PRN (23:01)
[2019-09-16] MEDS: *HR* LORazepam 2 MG/ML VIAL IVP PRN ×7 (02:00→21:29)
[2019-09-16] MEDS ORDERED: *HR* Metoprolol 5 MG/5 ML VIAL IVP ONE (02:17)
[2019-09-16] MEDS: Metoprolol 100 MG TABLET PO SCH ×2 (04:09→22:22)
[2019-09-16] MEDS ORDERED: Acetaminophen IV 500 MG/50 ML INFUS..BTL IVPB ONE (04:13)
[2019-09-16 04:53] LABS: Mean Platelet Volume 13.8 fL (9.4-12.4)
[2019-09-16 04:55] LABS: Basophils % 0.4 %; Hematocrit 32.6 % (37.5-50.1); Hemoglobin 11.5 g/dL (12.9-16.9); Immature Granulocytes % 0.8 % (0-4); Immature Platelets 17.2 % (1.1-6.1); Lymphocytes # 0.3 K/mcL (0.6-4.6); Lymphocytes % 11.5 %; Mean Corpuscular HGB Conc 35.3 g/dL (31.6-35.5); Mean Corpuscular Hemoglobin 32.8 pg (28.0-33.3); Mean Corpuscular Volume 92.9 fL (83.0-100.0); Monocytes # 0.3 K/mcL (0.0-1.3); Monocytes % 12.7 %; Neutrophils # 1.8 K/mcL (1.6-8.9); Red Blood Count 3.51 M/mcL (4.19-5.50); Red Cell Distribution Width 14.5 % (11.5-14.5); Segmented Neutrophils % 74.6 %; White Blood Count 2.4 K/mcL (4.3-11.1)
[2019-09-16 04:56] LABS: Platelet Count 46 K/mcL (140-400)
[2019-09-16 04:57] LABS: Platelet Estimate Decreased (Normal)
[2019-09-16 05:15] LABS: Alanine Aminotransferase 130 Units/L (7-52); Albumin/Globulin Ratio 1.7 (1.1-2.2); Alkaline Phosphatase 152 Units/L (34-104); Aspartate Amino Transferase 194 Units/L (13-39); BUN/Creatinine Ratio 14 (6-26); Bilirubin,Total 6.5 mg/dL (0.3-1.0); Blood Urea Nitrogen 8 mg/dL (6-20); Carbon Dioxide 19 mEq/L (23-29); Chloride 107 mEq/L (98-107); Globulin 1.8 g/dL (2.4-3.5); Glucose 115 mg/dL (70-105); Magnesium 1.5 mg/dL (1.6-2.6); Osmolality,Calculated 287 (280-300); Phosphorous 2.5 mg/dL (2.7-4.5); Potassium 3.2 mEq/L (3.5-5.1); Sodium 139 mEq/L (136-145); Total Protein 4.8 g/dL (6.4-8.9); eGFR For African Americans > 60 (> 60); eGFR For Non-African Americans > 60 (> 60)
[2019-09-16] MEDS: DilTIAZem CD (24hr) 180 MG CAP.ER.24H PO SCH (05:45)
[2019-09-16] MEDS: Aspirin 81 MG TAB.CHEW PO SCH (07:59)
[2019-09-16] MEDS: Cholecalciferol (D-3) 1,000 UNIT (25MCG) TABLET PO SCH (07:59)
[2019-09-16] MEDS: carBAMazepine 200 MG TABLET PO SCH (07:59)
[2019-09-16] MEDS: risperiDONE 1 MG TABLET PO SCH ×2 (07:59→22:23)
[2019-09-16] MEDS: Folic Acid 1 MG TABLET PO SCH (07:59)
[2019-09-16] MEDS: Pantoprazole 40 MG VIAL IVP SCH (07:59)
[2019-09-16 15:41] LABS: Color,Urine Orange (Yellow)
[2019-09-16 15:42] LABS: Clarity,Urine Slightly Hazy (Clear)
[2019-09-16 15:46] LABS: Mucus,Urine Moderate per lpf (Few); Squamous Epithelial Cell,Urine Many per lpf (None-Few)
[2019-09-16 15:47] LABS: Amorphous Sediment,Urine Moderate per hpf (Few); Hyaline Casts,Urine Few per lpf (None-Few)
[2019-09-16 15:48] LABS: Bacteria,Urine Moderate per hpf (None-Few); RBC,Urine 0-3 per hpf (0-3)
[2019-09-16] MEDS: Thiamine (B-1) 100 MG, Folic Acid 1 MG, MVI, adult with vitamin K 10 ML in 0.9 % Sodi... IVPB SCH (17:49)
[2019-09-16] MEDS: Mirtazapine 15 MG TABLET PO SCH (22:22)
[2019-09-17 04:52] LABS: ABG Base Excess 0 mEq/L (-2 to 3); ABG HCO3 25 mEq/L (21-27); ABG Oxygen Saturation 94 % (95-98); ABG PCO2 43 mmHg (35-45); ABG PH 7.38 pH Units (7.32-7.45); ABG PO2 73 mmHg (85-104); ABG TCO2 27 mEq/L (20-26)
[2019-09-17] MEDS ORDERED: Ringers Solution, Lactated 1,000 ML IVC ONE (05:46)
[2019-09-17 06:08] LABS: Bilirubin,Urine Large (Negative); Blood,Urine Negative (Negative); Clarity,Urine Clear (Clear); Color,Urine Red (Yellow); Glucose,Urine (UA) Normal (Normal); Ketones,Urine Trace mg/dL (Negative); Leukocyte Esterase,Urine Moderate (Negative); Nitrite,Urine Positive (Negative); PH,Urine 5.5 pH Units (5.0-8.0); Protein,Urine Trace mg/dL (Neg-Trace); Specific Gravity,Urine 1.026 (1.010-1.025); Urobilinogen,Urine >=8.0 mg/dL (Normal)
[2019-09-17 06:10] LABS: ABG Base Excess 0 mEq/L (-2 to 3); ABG HCO3 25 mEq/L (21-27); ABG Oxygen Saturation 96 % (95-98); ABG PCO2 39 mmHg (35-45); ABG PH 7.41 pH Units (7.32-7.45); ABG PO2 78 mmHg (85-104); ABG TCO2 26 mEq/L (20-26); Blood Gas Modality AF; Blood Gas VT 500 cc
[2019-09-17 06:11] LABS: Bacteria,Urine None Seen per hpf (None-Few); RBC,Urine 0-3 per hpf (0-3); Squamous Epithelial Cell,Urine Many per lpf (None-Few)
[2019-09-17] MEDS: Dexmedetomidine HCl 400 MCG/100 ML MLS IVC SCH ×5 (06:11→19:19)
[2019-09-17] MEDS ORDERED: 0.9 % Sodium Chloride 1,000 ML IVC ONE ×2 (07:11→14:11)
[2019-09-17] MEDS ORDERED: Albumin 25% 25gram/100mL 25 GM/100 ML IV.SOLN IVPB ONE ×2 (07:24→18:51)
[2019-09-17 07:47] LABS: Hemoglobin 9.5 g/dL (12.9-16.9); Mean Corpuscular HGB Conc 32.8 g/dL (31.6-35.5); Mean Corpuscular Hemoglobin 32.1 pg (28.0-33.3); Mean Platelet Volume 12.8 fL (9.4-12.4); Red Blood Count 2.96 M/mcL (4.19-5.50); Red Cell Distribution Width 15.2 % (11.5-14.5); White Blood Count 2.1 K/mcL (4.3-11.1)
[2019-09-17 07:50] LABS: Monocytes # 0.5 K/mcL (0.0-1.3); Platelet Count 58 K/mcL (140-400)
[2019-09-17 07:55] LABS: INR 1.3; Prothrombin Time 15.2 Seconds (9.4-12.1)
[2019-09-17 07:58] LABS: Activated Partial Thrombo Time 27.6 Seconds (26.0-36.0)
[2019-09-17] MEDS ORDERED: MetroNIDAZOLE 500 MG/100 ML 500 MG/100 ML BAG IVPB SCH (08:00)
[2019-09-17 08:05] LABS: Alanine Aminotransferase 79 Units/L (7-52); Albumin 2.4 g/dL (3.5-5.7); Albumin/Globulin Ratio 1.6 (1.1-2.2); Alkaline Phosphatase 107 Units/L (34-104); Aspartate Amino Transferase 73 Units/L (13-39); BUN/Creatinine Ratio 22 (6-26); Bilirubin,Direct 3.1 mg/dL (0.0-0.2); Bilirubin,Indirect 2.1 mg/dL (0.0-1.0); Bilirubin,Total 5.2 mg/dL (0.3-1.0); Blood Urea Nitrogen 16 mg/dL (6-20); Carbon Dioxide 24 mEq/L (23-29); Chloride 112 mEq/L (98-107); Globulin 1.5 g/dL (2.4-3.5); Glucose 112 mg/dL (70-105); Magnesium 1.6 mg/dL (1.6-2.6); Osmolality,Calculated 296 (280-300); Phosphorous 3.8 mg/dL (2.7-4.5); Potassium 3.5 mEq/L (3.5-5.1); Sodium 142 mEq/L (136-145); Total Protein 3.9 g/dL (6.4-8.9); eGFR For African Americans > 60 (> 60); eGFR For Non-African Americans > 60 (> 60)
[2019-09-17 08:14] LABS: Lymphocytes # 0.3 K/mcL (0.6-4.6); Neutrophils # 1.3 K/mcL (1.6-8.9)
[2019-09-17 08:15] LABS: Platelet Estimate Decreased (Normal)
[2019-09-17] MEDS: Artificial Tears SOLN 15 ML BOTTLE BOTH EYES PRN ×2 (08:23→13:16)
[2019-09-17] MEDS: Cefepime HCl 2,000 MG in 0.9 % Sodium Chloride Mini Bag 100 ML IVPB SCH ×2 (08:23→15:36)
[2019-09-17] MEDS: Chlorhexidine Rinse 15 ML MOUTHWASH MM SCH ×2 (08:23→20:04)
[2019-09-17] MEDS: Artificial Tears SOLN 15 ML BOTTLE BOTH EYES SCH ×4 (08:26→20:04)
[2019-09-17] MEDS ORDERED: *HR* Etomidate 20 MG/10 ML AMPUL IVP ONE (08:28)
[2019-09-17] MEDS: FentaNYL (PF) 1,000 MCG in 0.9 % Sodium Chloride 80 ML IVC SCH ×3 (08:43→20:37)
[2019-09-17] MEDS: Cholecalciferol (D-3) 1,000 UNIT (25MCG) TABLET PO SCH (09:03)
[2019-09-17] MEDS: Aspirin 81 MG TAB.CHEW PO SCH (09:03)
[2019-09-17] MEDS: Folic Acid 1 MG TABLET PO SCH (09:03)
[2019-09-17] MEDS ORDERED: Aminoglycoside Consult 1 EACH MC ONE (09:03)
[2019-09-17] MEDS: risperiDONE 1 MG TABLET PO SCH ×2 (09:03→20:05)
[2019-09-17] MEDS: Metoprolol 100 MG TABLET PO SCH (09:07)
[2019-09-17] MEDS: Pantoprazole 40 MG VIAL IVP SCH (09:08)
[2019-09-17] MEDS: Lactulose Oral Soln 20 GM/30 ML UDC PO SCH ×2 (09:09→20:04)
[2019-09-17] MEDS ORDERED: Dextrose Gel 15 GM/37.5 ML TUBE PO PRN ×2 (10:30)
[2019-09-17] MEDS ORDERED: *HR* Dextrose 50 % in Water (Syg) 50 ML SYRINGE IVP PRN (10:30)
[2019-09-17] MEDS ORDERED: D5% in Water 1,000 ML IVC PRN (10:30)
[2019-09-17] MEDS: *HR* LORazepam 2 MG/ML VIAL IVP SCH ×7 (10:45→22:02)
[2019-09-17] MEDS: carBAMazepine 200 MG TABLET PO SCH (10:46)
[2019-09-17] MEDS ORDERED: Calcium Gluconate 1gm/50mL 1 GM/50 ML BAG IVPB PRN (11:41)
[2019-09-17] MEDS: *HR* Heparin 5,000 UNIT/ML VIAL SQ SCH ×2 (13:15→18:23)
[2019-09-17] MEDS: Insulin LISPRO 300 UNITS/3 ML VIAL SQ SCH ×2 (13:18→18:22)
[2019-09-17] MEDS ORDERED: 0.9 % Sodium Chloride 1,000 ML ONE (14:08)
[2019-09-17 16:24] LABS: Alanine Aminotransferase 70 Units/L (7-52); Albumin 2.6 g/dL (3.5-5.7); Albumin/Globulin Ratio 1.7 (1.1-2.2); Alkaline Phosphatase 107 Units/L (34-104); Aspartate Amino Transferase 65 Units/L (13-39); BUN/Creatinine Ratio 27 (6-26); Blood Urea Nitrogen 15 mg/dL (6-20); Calcium 7.9 mg/dL (8.6-10.3); Carbon Dioxide 21 mEq/L (23-29); Chloride 115 mEq/L (98-107); Globulin 1.5 g/dL (2.4-3.5); Glucose 112 mg/dL (70-105); Osmolality,Calculated 298 (280-300); Potassium 3.8 mEq/L (3.5-5.1); Sodium 143 mEq/L (136-145); Total Protein 4.1 g/dL (6.4-8.9); eGFR For African Americans > 60 (> 60); eGFR For Non-African Americans > 60 (> 60)
[2019-09-17 17:15] LABS: Magnesium 2.2 mg/dL (1.6-2.6)
[2019-09-17] MEDS: Thiamine (B-1) 100 MG, Folic Acid 1 MG, MVI, adult with vitamin K 10 ML in 0.9 % Sodi... IVPB SCH (18:25)
[2019-09-17] MEDS: Ringers Solution, Lactated 1,000 ML IVC SCH (20:03)
[2019-09-17] MEDS: Mirtazapine 15 MG TABLET PO SCH (20:05)
[2019-09-18] MEDS: Insulin LISPRO 300 UNITS/3 ML VIAL SQ SCH ×4 (00:09→18:18)
[2019-09-18] MEDS: Cefepime HCl 2,000 MG in 0.9 % Sodium Chloride Mini Bag 100 ML IVPB SCH ×4 (00:09→23:43)
[2019-09-18] MEDS: *HR* LORazepam 2 MG/ML VIAL IVP SCH ×4 (00:09→06:05)
[2019-09-18] MEDS: Artificial Tears SOLN 15 ML BOTTLE BOTH EYES SCH ×7 (00:13→23:44)
[2019-09-18] MEDS: Dexmedetomidine HCl 400 MCG/100 ML MLS IVC SCH ×4 (01:09→20:28)
[2019-09-18 03:45] LABS: Immature Granulocytes % 0.9 % (0-4)
[2019-09-18 03:47] LABS: INR 1.3; Prothrombin Time 14.7 Seconds (9.4-12.1)
[2019-09-18 03:51] LABS: Activated Partial Thrombo Time 33.1 Seconds (26.0-36.0)
[2019-09-18 03:52] LABS: Basophils % 0.4 %; Eosinophils % 0.9 %; Hemoglobin 9.4 g/dL (12.9-16.9); Lymphocytes # 0.2 K/mcL (0.6-4.6); Lymphocytes % 8.1 %; Mean Corpuscular HGB Conc 32.4 g/dL (31.6-35.5); Mean Corpuscular Hemoglobin 32.6 pg (28.0-33.3); Mean Corpuscular Volume 100.7 fL (83.0-100.0); Monocytes # 0.4 K/mcL (0.0-1.3); Monocytes % 18.4 %; Neutrophils # 1.6 K/mcL (1.6-8.9); Red Blood Count 2.88 M/mcL (4.19-5.50); Red Cell Distribution Width 15.5 % (11.5-14.5); Segmented Neutrophils % 71.3 %; White Blood Count 2.2 K/mcL (4.3-11.1)
[2019-09-18 04:00] LABS: Platelet Count 59 K/mcL (140-400)
[2019-09-18 04:01] LABS: Alanine Aminotransferase 59 Units/L (7-52); Albumin 2.5 g/dL (3.5-5.7); Albumin/Globulin Ratio 1.8 (1.1-2.2); Alkaline Phosphatase 95 Units/L (34-104); Aspartate Amino Transferase 62 Units/L (13-39); BUN/Creatinine Ratio 31 (6-26); Bilirubin,Direct 3.6 mg/dL (0.0-0.2); Bilirubin,Indirect 1.5 mg/dL (0.0-1.0); Bilirubin,Total 5.1 mg/dL (0.3-1.0); Blood Urea Nitrogen 17 mg/dL (6-20); Calcium 7.8 mg/dL (8.6-10.3); Carbon Dioxide 21 mEq/L (23-29); Chloride 118 mEq/L (98-107); Globulin 1.4 g/dL (2.4-3.5); Glucose 109 mg/dL (70-105); Magnesium 2.5 mg/dL (1.6-2.6); Osmolality,Calculated 298 (280-300); Phosphorous 2.1 mg/dL (2.7-4.5); Potassium 3.4 mEq/L (3.5-5.1); Sodium 143 mEq/L (136-145); Total Protein 3.9 g/dL (6.4-8.9); eGFR For African Americans > 60 (> 60); eGFR For Non-African Americans > 60 (> 60)
[2019-09-18] MEDS: FentaNYL (PF) 1,000 MCG in 0.9 % Sodium Chloride 80 ML IVC SCH ×3 (04:08→22:25)
[2019-09-18 04:21] LABS: Large Platelets Present (Not Present); Platelet Estimate Decreased (Normal)
[2019-09-18 04:23] LABS: ABG Base Excess -3 mEq/L (-2 to 3); ABG HCO3 23 mEq/L (21-27); ABG Oxygen Saturation 93 % (95-98); ABG PCO2 41 mmHg (35-45); ABG PH 7.35 pH Units (7.32-7.45); ABG PO2 71 mmHg (85-104); ABG TCO2 24 mEq/L (20-26); Blood Gas Modality AF; Blood Gas VT 500 cc
[2019-09-18] MEDS: Potassium Phosphate 44 MEQ in 0.9 % Sodium Chloride 250 ML IVPB PRN (06:02)
[2019-09-18] MEDS: *HR* Heparin 5,000 UNIT/ML VIAL SQ SCH ×2 (06:04→18:17)
[2019-09-18] MEDS: Ringers Solution, Lactated 1,000 ML IVC SCH ×2 (06:42→18:00)
[2019-09-18 07:07] LABS: VBG Ionized Calcium 1.23 mmol/L (1.15-1.35)
[2019-09-18] MEDS: carBAMazepine 200 MG TABLET PO SCH (08:55)
[2019-09-18] MEDS: Aspirin 81 MG TAB.CHEW PO SCH (08:55)
[2019-09-18] MEDS: Pantoprazole 40 MG VIAL IVP SCH (08:55)
[2019-09-18] MEDS: Cholecalciferol (D-3) 1,000 UNIT (25MCG) TABLET PO SCH (08:55)
[2019-09-18] MEDS: Chlorhexidine Rinse 15 ML MOUTHWASH MM SCH ×2 (08:55→20:33)
[2019-09-18] MEDS: Folic Acid 1 MG TABLET PO SCH (08:55)
[2019-09-18] MEDS: risperiDONE 1 MG TABLET PO SCH ×2 (08:55→20:33)
[2019-09-18] MEDS: Lactulose Oral Soln 20 GM/30 ML UDC PO SCH ×2 (08:55→20:33)
[2019-09-18] MEDS ORDERED: Thiamine (B-1) 100 MG TABLET PO SCH (09:00)
[2019-09-18] MEDS ORDERED: Calcium Gluconate 1gm/50mL 1 GM/50 ML BAG IVPB PRN (09:05)
[2019-09-18] MEDS ORDERED: Potassium Chloride 40 MEQ/200 ML BAG IVPB PRN (09:05)
[2019-09-18] MEDS ORDERED: Potassium Phosphate 44 MEQ in 0.9 % Sodium Chloride 250 ML IVPB PRN (09:05)
[2019-09-18] MEDS: Ferrous Sulfate Oral Soln 300 MG/5 ML UDC GTUBE SCH (11:06)
[2019-09-18] MEDS: Folic Acid 1 MG in 0.9 % Sodium Chloride 50 ML IVPB SCH (11:06)
[2019-09-18] MEDS: Thiamine (B-1) 100 MG in 0.9 % Sodium Chloride 50 ML IVPB SCH (11:10)
[2019-09-18] MEDS: Ipratropium/Albuterol Neb 3 ML IH PRN (14:10)
[2019-09-18] MEDS: *HR* LORazepam 2 MG/ML VIAL IVP PRN (14:52)
[2019-09-18] MEDS: Metoprolol 100 MG TABLET PO SCH (20:33)
[2019-09-18] MEDS: Mirtazapine 15 MG TABLET PO SCH (20:33)
[2019-09-19] MEDS: Insulin LISPRO 300 UNITS/3 ML VIAL SQ SCH ×4 (00:02→17:11)
[2019-09-19] MEDS: Dexmedetomidine HCl 400 MCG/100 ML MLS IVC SCH ×3 (03:12→16:09)
[2019-09-19] MEDS: Ringers Solution, Lactated 1,000 ML IVC SCH ×2 (03:12→11:29)
[2019-09-19] MEDS: FentaNYL (PF) 1,000 MCG in 0.9 % Sodium Chloride 80 ML IVC SCH ×2 (03:24→19:11)
[2019-09-19] MEDS: Artificial Tears SOLN 15 ML BOTTLE BOTH EYES SCH ×5 (03:25→19:16)
[2019-09-19 04:44] LABS: ABG Base Excess -7 mEq/L (-2 to 3); ABG HCO3 25 mEq/L (21-27); ABG Oxygen Saturation 89 % (95-98); ABG PCO2 88 mmHg (35-45); ABG PH 7.05 pH Units (7.32-7.45); ABG PO2 83 mmHg (85-104); ABG TCO2 27 mEq/L (20-26); Blood Gas Modality AF; Blood Gas VT 500 cc
[2019-09-19] MEDS ORDERED: MetroNIDAZOLE 500 MG/100 ML 500 MG/100 ML BAG IVPB SCH (06:00)
[2019-09-19 06:08] LABS: VBG Ionized Calcium 1.31 mmol/L (1.15-1.35)
[2019-09-19 06:08] LABS: Hematocrit 32.4 % (37.5-50.1); Mean Corpuscular HGB Conc 30.9 g/dL (31.6-35.5); Mean Corpuscular Hemoglobin 32.7 pg (28.0-33.3); Mean Corpuscular Volume 105.9 fL (83.0-100.0); Mean Platelet Volume 13.5 fL (9.4-12.4); Red Blood Count 3.06 M/mcL (4.19-5.50); Red Cell Distribution Width 16.1 % (11.5-14.5); White Blood Count 4.3 K/mcL (4.3-11.1)
[2019-09-19] MEDS: *HR* Heparin 5,000 UNIT/ML VIAL SQ SCH ×2 (06:09→17:26)
[2019-09-19 06:43] LABS: Alanine Aminotransferase 67 Units/L (7-52); Albumin 2.6 g/dL (3.5-5.7); Albumin/Globulin Ratio 1.7 (1.1-2.2); Alkaline Phosphatase 141 Units/L (34-104); Aspartate Amino Transferase 91 Units/L (13-39); BUN/Creatinine Ratio 31 (6-26); Bilirubin,Total 4.7 mg/dL (0.3-1.0); Blood Urea Nitrogen 26 mg/dL (6-20); Calcium 8.1 mg/dL (8.6-10.3); Carbon Dioxide 23 mEq/L (23-29); Chloride 114 mEq/L (98-107); Globulin 1.5 g/dL (2.4-3.5); Glucose 115 mg/dL (70-105); Osmolality,Calculated 296 (280-300); Phosphorous 5.7 mg/dL (2.7-4.5); Potassium 4.7 mEq/L (3.5-5.1); Sodium 140 mEq/L (136-145); Total Protein 4.1 g/dL (6.4-8.9); eGFR For African Americans > 60 (> 60); eGFR For Non-African Americans > 60 (> 60)
[2019-09-19 08:18] LABS: ABG Base Excess -4 mEq/L (-2 to 3); ABG HCO3 26 mEq/L (21-27); ABG Oxygen Saturation 95 % (95-98); ABG PCO2 74 mmHg (35-45); ABG PH 7.15 pH Units (7.32-7.45); ABG PO2 102 mmHg (85-104); ABG TCO2 28 mEq/L (20-26); Blood Gas Modality AF; Blood Gas VT 500 cc
[2019-09-19] MEDS: Cefepime HCl 2,000 MG in 0.9 % Sodium Chloride Mini Bag 100 ML IVPB SCH (08:31)
[2019-09-19] MEDS: risperiDONE 1 MG TABLET PO SCH ×2 (08:35→19:28)
[2019-09-19] MEDS: Cholecalciferol (D-3) 1,000 UNIT (25MCG) TABLET PO SCH (08:35)
[2019-09-19] MEDS: carBAMazepine 200 MG TABLET PO SCH (08:35)
[2019-09-19] MEDS: Pantoprazole 40 MG VIAL IVP SCH (08:35)
[2019-09-19] MEDS: Chlorhexidine Rinse 15 ML MOUTHWASH MM SCH ×2 (08:35→19:27)
[2019-09-19] MEDS: Lactulose Oral Soln 20 GM/30 ML UDC PO SCH ×2 (08:35→19:27)
[2019-09-19] MEDS: Ferrous Sulfate Oral Soln 300 MG/5 ML UDC GTUBE SCH (08:35)
[2019-09-19] MEDS: Aspirin 81 MG TAB.CHEW PO SCH (08:35)
[2019-09-19] MEDS: Thiamine (B-1) 100 MG in 0.9 % Sodium Chloride 50 ML IVPB SCH (08:45)
[2019-09-19] MEDS: Folic Acid 1 MG in 0.9 % Sodium Chloride 50 ML IVPB SCH (08:47)
[2019-09-19] MEDS: Metoprolol 100 MG TABLET PO SCH ×2 (11:29→22:19)
[2019-09-19 12:06] LABS: Source of Body Fluid RIGHT LOWER LOBE
[2019-09-19] MEDS: Albumin 25% 25gram/100mL 25 GM/100 ML IV.SOLN IVC SCH ×2 (13:13→14:50)
[2019-09-19 13:46] LABS: ABG Base Excess -4 mEq/L (-2 to 3); ABG HCO3 25 mEq/L (21-27); ABG Oxygen Saturation 97 % (95-98); ABG PCO2 68 mmHg (35-45); ABG PH 7.18 pH Units (7.32-7.45); ABG PO2 111 mmHg (85-104); ABG TCO2 27 mEq/L (20-26); Blood Gas Modality AF; Blood Gas VT 550 cc
[2019-09-19 14:29] LABS: Appearance of Body Fluid Hazy (Clear); Volume of Body Fluid 30 mL
[2019-09-19] MEDS: Piperacillin/Tazobactam 3.375 GM in 0.9 % Sodium Chloride Mini Bag 100 ML IVPB SCH (17:26)
[2019-09-19] MEDS: Mirtazapine 15 MG TABLET PO SCH (19:28)
[2019-09-20] MEDS: Insulin LISPRO 300 UNITS/3 ML VIAL SQ SCH ×5 (00:23→23:42)
[2019-09-20] MEDS: Dexmedetomidine HCl 400 MCG/100 ML MLS IVC SCH ×5 (00:24→23:57)
[2019-09-20] MEDS: Artificial Tears SOLN 15 ML BOTTLE BOTH EYES SCH ×7 (00:24→23:42)
[2019-09-20 04:25] LABS: ABG Base Excess -3 mEq/L (-2 to 3); ABG HCO3 26 mEq/L (21-27); ABG Oxygen Saturation 99 % (95-98); ABG PCO2 64 mmHg (35-45); ABG PH 7.21 pH Units (7.32-7.45); ABG PO2 152 mmHg (85-104); ABG TCO2 28 mEq/L (20-26); Blood Gas Modality ASSIST CONTROL; Blood Gas VT 550 cc
[2019-09-20 06:19] LABS: Hemoglobin 9.3 g/dL (12.9-16.9)
[2019-09-20 06:21] LABS: Hematocrit 30.2 % (37.5-50.1); Immature Platelets 21.5 % (1.1-6.1); Mean Corpuscular HGB Conc 30.8 g/dL (31.6-35.5); Mean Corpuscular Hemoglobin 32.5 pg (28.0-33.3); Mean Corpuscular Volume 105.6 fL (83.0-100.0); Mean Platelet Volume 13.9 fL (9.4-12.4); Nucleated Red Blood Cells 1.2 /100 WBC (0); Red Blood Count 2.86 M/mcL (4.19-5.50); Red Cell Distribution Width 16.4 % (11.5-14.5); White Blood Count 4.1 K/mcL (4.3-11.1)
[2019-09-20] MEDS: *HR* Heparin 5,000 UNIT/ML VIAL SQ SCH (06:25)
[2019-09-20] MEDS: Piperacillin/Tazobactam 3.375 GM in 0.9 % Sodium Chloride Mini Bag 100 ML IVPB SCH ×3 (06:25→23:08)
[2019-09-20 06:28] LABS: Platelet Count 62 K/mcL (140-400)
[2019-09-20 06:36] LABS: INR 1.2
[2019-09-20 06:37] LABS: Activated Partial Thrombo Time 36.7 Seconds (26.0-36.0)
[2019-09-20 06:43] LABS: BUN/Creatinine Ratio 40 (6-26); Blood Urea Nitrogen 33 mg/dL (6-20); Calcium 8.5 mg/dL (8.6-10.3); Carbon Dioxide 26 mEq/L (23-29); Chloride 114 mEq/L (98-107); Glucose 120 mg/dL (70-105); Osmolality,Calculated 300 (280-300); Potassium 4.3 mEq/L (3.5-5.1); Sodium 141 mEq/L (136-145); eGFR For African Americans > 60 (> 60); eGFR For Non-African Americans > 60 (> 60)
[2019-09-20 06:44] LABS: Albumin 2.9 g/dL (3.5-5.7); Albumin/Globulin Ratio 1.8 (1.1-2.2); Bilirubin,Direct 3.5 mg/dL (0.0-0.2); Bilirubin,Indirect 1.6 mg/dL (0.0-1.0); Bilirubin,Total 5.1 mg/dL (0.3-1.0); Globulin 1.6 g/dL (2.4-3.5); Phosphorous 3.9 mg/dL (2.7-4.5); Total Protein 4.5 g/dL (6.4-8.9)
[2019-09-20 07:54] LABS: Lymphocytes # 0.5 K/mcL (0.6-4.6); Monocytes # 0.7 K/mcL (0.0-1.3); Neutrophils # 2.7 K/mcL (1.6-8.9); Platelet Estimate Decreased (Normal)
[2019-09-20 07:55] LABS: Anisocytosis 1+ (Not Present)
[2019-09-20] MEDS: Chlorhexidine Rinse 15 ML MOUTHWASH MM SCH ×2 (08:56→20:34)
[2019-09-20] MEDS: Aspirin 81 MG TAB.CHEW PO SCH (08:56)
[2019-09-20] MEDS: Ferrous Sulfate Oral Soln 300 MG/5 ML UDC GTUBE SCH (08:57)
[2019-09-20] MEDS: Pantoprazole 40 MG VIAL IVP SCH (08:58)
[2019-09-20] MEDS: Lactulose Oral Soln 20 GM/30 ML UDC PO SCH ×2 (08:58→20:34)
[2019-09-20] MEDS: Furosemide 40 MG/4 ML VIAL IVP SCH ×2 (08:58→20:34)
[2019-09-20] MEDS: risperiDONE 1 MG TABLET PO SCH ×2 (08:58→20:33)
[2019-09-20] MEDS: carBAMazepine 200 MG TABLET PO SCH (08:58)
[2019-09-20] MEDS: Cholecalciferol (D-3) 1,000 UNIT (25MCG) TABLET PO SCH (08:59)
[2019-09-20] MEDS: Metoprolol 100 MG TABLET PO SCH (09:04)
[2019-09-20] MEDS: Folic Acid 1 MG in 0.9 % Sodium Chloride 50 ML IVPB SCH ×2 (09:06→10:23)
[2019-09-20] MEDS: Thiamine (B-1) 100 MG in 0.9 % Sodium Chloride 50 ML IVPB SCH ×2 (09:08→10:23)
[2019-09-20 12:29] LABS: ABG Base Excess 0 mEq/L (-2 to 3); ABG HCO3 28 mEq/L (21-27); ABG Oxygen Saturation 98 % (95-98); ABG PCO2 62 mmHg (35-45); ABG PH 7.26 pH Units (7.32-7.45); ABG PO2 133 mmHg (85-104); ABG TCO2 30 mEq/L (20-26); Blood Gas Modality AF; Blood Gas VT 550 cc
[2019-09-20] MEDS: Thiamine (B-1) 200 MG in 0.9 % Sodium Chloride 50 ML IVPB SCH ×2 (16:57→23:56)
[2019-09-20] MEDS: Mirtazapine 15 MG TABLET PO SCH (20:33)
[2019-09-21] MEDS: Artificial Tears SOLN 15 ML BOTTLE BOTH EYES SCH ×6 (03:06→23:22)
[2019-09-21 03:46] LABS: VBG Ionized Calcium 1.28 mmol/L (1.15-1.35)
[2019-09-21 03:47] LABS: INR 1.3; Prothrombin Time 14.5 Seconds (9.4-12.1)
[2019-09-21 03:48] LABS: Hematocrit 29.2 % (37.5-50.1); Hemoglobin 9.4 g/dL (12.9-16.9); Mean Corpuscular HGB Conc 32.2 g/dL (31.6-35.5); Mean Corpuscular Hemoglobin 33.1 pg (28.0-33.3); Mean Corpuscular Volume 102.8 fL (83.0-100.0); Mean Platelet Volume 13.9 fL (9.4-12.4); Nucleated Red Blood Cells 0.7 /100 WBC (0); Red Blood Count 2.84 M/mcL (4.19-5.50); Red Cell Distribution Width 16.7 % (11.5-14.5)
[2019-09-21 03:49] LABS: Activated Partial Thrombo Time 33.9 Seconds (26.0-36.0); Platelet Count 66 K/mcL (140-400); White Blood Count 7.6 K/mcL (4.3-11.1)
[2019-09-21 03:58] LABS: Albumin 2.7 g/dL (3.5-5.7); Albumin/Globulin Ratio 1.8 (1.1-2.2); BUN/Creatinine Ratio 41 (6-26); Bilirubin,Indirect 1.8 mg/dL (0.0-1.0); Bilirubin,Total 5.8 mg/dL (0.3-1.0); Blood Urea Nitrogen 26 mg/dL (6-20); Calcium 8.4 mg/dL (8.6-10.3); Carbon Dioxide 32 mEq/L (23-29); Chloride 111 mEq/L (98-107); Globulin 1.5 g/dL (2.4-3.5); Glucose 123 mg/dL (70-105); Magnesium 1.6 mg/dL (1.6-2.6); Osmolality,Calculated 306 (280-300); Phosphorous 2.9 mg/dL (2.7-4.5); Potassium 3.3 mEq/L (3.5-5.1); Sodium 145 mEq/L (136-145); Total Protein 4.2 g/dL (6.4-8.9); eGFR For African Americans > 60 (> 60); eGFR For Non-African Americans > 60 (> 60)
[2019-09-21 04:29] LABS: Eosinophils # 0.2 K/mcL (0.0-0.6); Lymphocytes # 0.3 K/mcL (0.6-4.6); Monocytes # 0.2 K/mcL (0.0-1.3); Neutrophils # 6.5 K/mcL (1.6-8.9); Platelet Estimate Decreased (Normal)
[2019-09-21 04:51] LABS: ABG Base Excess 9 mEq/L (-2 to 3); ABG HCO3 35 mEq/L (21-27); ABG Oxygen Saturation 97 % (95-98); ABG PCO2 56 mmHg (35-45); ABG PO2 92 mmHg (85-104); ABG TCO2 37 mEq/L (20-26); Blood Gas Modality ASSIST CONTROL; Blood Gas VT 550 cc
[2019-09-21] MEDS: Piperacillin/Tazobactam 3.375 GM in 0.9 % Sodium Chloride Mini Bag 100 ML IVPB SCH ×3 (05:13→21:46)
[2019-09-21] MEDS: Insulin LISPRO 300 UNITS/3 ML VIAL SQ SCH ×3 (05:14→18:10)
[2019-09-21] MEDS: Dexmedetomidine HCl 400 MCG/100 ML MLS IVC SCH ×4 (05:15→22:26)
[2019-09-21] MEDS: Lactulose Oral Soln 20 GM/30 ML UDC PO SCH ×2 (08:40→21:02)
[2019-09-21] MEDS: Pantoprazole 40 MG VIAL IVP SCH (08:40)
[2019-09-21] MEDS: Furosemide 40 MG/4 ML VIAL IVP SCH ×2 (08:40→21:03)
[2019-09-21] MEDS: Ferrous Sulfate Oral Soln 300 MG/5 ML UDC GTUBE SCH (08:40)
[2019-09-21] MEDS: Chlorhexidine Rinse 15 ML MOUTHWASH MM SCH ×2 (08:40→21:02)
[2019-09-21] MEDS: carBAMazepine 200 MG TABLET PO SCH (08:41)
[2019-09-21] MEDS: Cholecalciferol (D-3) 1,000 UNIT (25MCG) TABLET PO SCH (08:41)
[2019-09-21] MEDS: risperiDONE 1 MG TABLET PO SCH ×2 (08:41→21:03)
[2019-09-21] MEDS: Aspirin 81 MG TAB.CHEW PO SCH (08:41)
[2019-09-21] MEDS: Folic Acid 1 MG in 0.9 % Sodium Chloride 50 ML IVPB SCH (08:41)
[2019-09-21] MEDS: Thiamine (B-1) 200 MG in 0.9 % Sodium Chloride 50 ML IVPB SCH ×3 (08:42→23:23)
[2019-09-21] MEDS ORDERED: Bisacodyl 10 MG RECTAL SUPPOSITORY RC ONE (12:00)
[2019-09-21] MEDS: Potassium Chloride Elixir 20 MEQ/15 ML UDC GTUBE SCH ×2 (12:17→21:02)
[2019-09-21] MEDS: DilTIAZem 50 MG in 0.9 % Sodium Chloride 40 ML IVC SCH ×2 (12:17→18:47)
[2019-09-21] MEDS: *HR* LORazepam 2 MG/ML VIAL IVP PRN (12:18)
[2019-09-21] MEDS: Levalbuterol Neb 0.63 MG/3 ML IH SCH ×3 (13:21→21:41)
[2019-09-21 18:10] LABS: Alanine Aminotransferase 86 Units/L (7-52); Albumin 2.6 g/dL (3.5-5.7); Albumin/Globulin Ratio 1.6 (1.1-2.2); Alkaline Phosphatase 173 Units/L (34-104); Aspartate Amino Transferase 108 Units/L (13-39); BUN/Creatinine Ratio 39 (6-26); Bilirubin,Total 6.1 mg/dL (0.3-1.0); Blood Urea Nitrogen 26 mg/dL (6-20); Calcium 8.2 mg/dL (8.6-10.3); Carbon Dioxide 32 mEq/L (23-29); Chloride 110 mEq/L (98-107); Globulin 1.6 g/dL (2.4-3.5); Glucose 129 mg/dL (70-105); Osmolality,Calculated 306 (280-300); Potassium 3.7 mEq/L (3.5-5.1); Sodium 145 mEq/L (136-145); Total Protein 4.2 g/dL (6.4-8.9); eGFR For African Americans > 60 (> 60); eGFR For Non-African Americans > 60 (> 60)
[2019-09-21 19:06] LABS: Magnesium 1.7 mg/dL (1.6-2.6); Phosphorous 3.6 mg/dL (2.7-4.5)
[2019-09-21] MEDS: Mirtazapine 15 MG TABLET PO SCH (21:03)
[2019-09-22] MEDS: Insulin LISPRO 300 UNITS/3 ML VIAL SQ SCH ×5 (00:09→23:01)
[2019-09-22] MEDS: DilTIAZem 50 MG in 0.9 % Sodium Chloride 40 ML IVC SCH ×3 (02:07→18:17)
[2019-09-22] MEDS: Levalbuterol Neb 0.63 MG/3 ML IH SCH ×4 (03:23→21:18)
[2019-09-22 03:28] LABS: VBG Ionized Calcium 1.16 mmol/L (1.15-1.35)
[2019-09-22 03:36] LABS: INR 1.3; Prothrombin Time 14.5 Seconds (9.4-12.1)
[2019-09-22] MEDS: Artificial Tears SOLN 15 ML BOTTLE BOTH EYES SCH ×6 (03:40→22:58)
[2019-09-22] MEDS: Dexmedetomidine HCl 400 MCG/100 ML MLS IVC SCH ×4 (04:18→20:26)
[2019-09-22 04:51] LABS: ABG Base Excess 10 mEq/L (-2 to 3); ABG HCO3 35 mEq/L (21-27); ABG Oxygen Saturation 96 % (95-98); ABG PCO2 48 mmHg (35-45); ABG PH 7.47 pH Units (7.32-7.45); ABG PO2 77 mmHg (85-104); ABG TCO2 36 mEq/L (20-26); Blood Gas Modality VC; Blood Gas VT 550 cc
[2019-09-22 05:17] LABS: Hemoglobin 9.5 g/dL (12.9-16.9); Mean Corpuscular Volume 100.7 fL (83.0-100.0)
[2019-09-22 05:19] LABS: Hematocrit 29.4 % (37.5-50.1); Immature Platelets 19.8 % (1.1-6.1); Lymphocytes # 0.8 K/mcL (0.6-4.6); Mean Corpuscular HGB Conc 32.3 g/dL (31.6-35.5); Mean Corpuscular Hemoglobin 32.5 pg (28.0-33.3); Mean Platelet Volume 13.4 fL (9.4-12.4); Nucleated Red Blood Cells 0.8 /100 WBC (0); Red Blood Count 2.92 M/mcL (4.19-5.50); Red Cell Distribution Width 17.7 % (11.5-14.5); White Blood Count 9.7 K/mcL (4.3-11.1)
[2019-09-22 05:22] LABS: Platelet Count 69 K/mcL (140-400)
[2019-09-22] MEDS: Piperacillin/Tazobactam 3.375 GM in 0.9 % Sodium Chloride Mini Bag 100 ML IVPB SCH ×3 (05:23→21:59)
[2019-09-22 05:36] LABS: Albumin 2.7 g/dL (3.5-5.7); Albumin/Globulin Ratio 1.4 (1.1-2.2); BUN/Creatinine Ratio 45 (6-26); Bilirubin,Direct 3.7 mg/dL (0.0-0.2); Bilirubin,Total 5.7 mg/dL (0.3-1.0); Blood Urea Nitrogen 25 mg/dL (6-20); Calcium 8.4 mg/dL (8.6-10.3); Carbon Dioxide 33 mEq/L (23-29); Chloride 108 mEq/L (98-107); Globulin 1.9 g/dL (2.4-3.5); Glucose 137 mg/dL (70-105); Magnesium 1.7 mg/dL (1.6-2.6); Osmolality,Calculated 317 (280-300); Phosphorous 2.5 mg/dL (2.7-4.5); Potassium 3.9 mEq/L (3.5-5.1); Sodium 150 mEq/L (136-145); Total Protein 4.6 g/dL (6.4-8.9); eGFR For African Americans > 60 (> 60); eGFR For Non-African Americans > 60 (> 60)
[2019-09-22 05:48] LABS: Eosinophils # 0.2 K/mcL (0.0-0.6); Monocytes # 0.8 K/mcL (0.0-1.3); Platelet Estimate Decreased (Normal)
[2019-09-22] MEDS: Ferrous Sulfate Oral Soln 300 MG/5 ML UDC GTUBE SCH (08:40)
[2019-09-22] MEDS: Chlorhexidine Rinse 15 ML MOUTHWASH MM SCH ×2 (08:40→20:12)
[2019-09-22] MEDS: Lactulose Oral Soln 20 GM/30 ML UDC PO SCH ×3 (08:40→20:12)
[2019-09-22] MEDS: carBAMazepine 200 MG TABLET PO SCH (08:41)
[2019-09-22] MEDS: Potassium Chloride Elixir 20 MEQ/15 ML UDC GTUBE SCH ×2 (08:41→20:12)
[2019-09-22] MEDS: Aspirin 81 MG TAB.CHEW PO SCH (08:41)
[2019-09-22] MEDS: risperiDONE 1 MG TABLET PO SCH ×2 (08:41→20:12)
[2019-09-22] MEDS: Pantoprazole 40 MG VIAL IVP SCH (08:41)
[2019-09-22] MEDS: Cholecalciferol (D-3) 1,000 UNIT (25MCG) TABLET PO SCH (08:41)
[2019-09-22] MEDS: FentaNYL (PF) 1,000 MCG in 0.9 % Sodium Chloride 80 ML IVC SCH (08:56)
[2019-09-22] MEDS: Thiamine (B-1) 200 MG in 0.9 % Sodium Chloride 50 ML IVPB SCH (09:33)
[2019-09-22] MEDS: Folic Acid 1 MG in 0.9 % Sodium Chloride 50 ML IVPB SCH (09:38)
[2019-09-22] MEDS ORDERED: *HR* Labetalol 20 MG/4 ML SYRINGE IVP PRN (14:11)
[2019-09-22 15:07] LABS: VBG Ionized Calcium 1.17 mmol/L (1.15-1.35)
[2019-09-22 15:18] LABS: Alanine Aminotransferase 100 Units/L (7-52); Albumin 2.6 g/dL (3.5-5.7); Albumin/Globulin Ratio 1.4 (1.1-2.2); Alkaline Phosphatase 179 Units/L (34-104); Aspartate Amino Transferase 110 Units/L (13-39); BUN/Creatinine Ratio 50 (6-26); Bilirubin,Total 4.8 mg/dL (0.3-1.0); Blood Urea Nitrogen 23 mg/dL (6-20); Calcium 8.3 mg/dL (8.6-10.3); Carbon Dioxide 35 mEq/L (23-29); Chloride 112 mEq/L (98-107); Globulin 1.8 g/dL (2.4-3.5); Glucose 145 mg/dL (70-105); Osmolality,Calculated 314 (280-300); Phosphorous 2.7 mg/dL (2.7-4.5); Potassium 4.1 mEq/L (3.5-5.1); Sodium 149 mEq/L (136-145); Total Protein 4.4 g/dL (6.4-8.9); eGFR For African Americans > 60 (> 60); eGFR For Non-African Americans > 60 (> 60)
[2019-09-22] MEDS: Mirtazapine 15 MG TABLET PO SCH (20:12)
[2019-09-23] MEDS: DilTIAZem 50 MG in 0.9 % Sodium Chloride 40 ML IVC SCH ×4 (00:55→21:45)
[2019-09-23] MEDS: Dexmedetomidine HCl 400 MCG/100 ML MLS IVC SCH ×5 (01:50→21:43)
[2019-09-23] MEDS: Levalbuterol Neb 0.63 MG/3 ML IH SCH ×4 (03:33→21:57)
[2019-09-23 04:42] LABS: ABG Base Excess 13 mEq/L (-2 to 3); ABG HCO3 38 mEq/L (21-27); ABG Oxygen Saturation 93 % (95-98); ABG PCO2 50 mmHg (35-45); ABG PH 7.49 pH Units (7.32-7.45); ABG PO2 64 mmHg (85-104); ABG TCO2 40 mEq/L (20-26); Blood Gas Modality AF; Blood Gas VT 550 cc
[2019-09-23] MEDS: Artificial Tears SOLN 15 ML BOTTLE BOTH EYES SCH ×5 (05:15→20:03)
[2019-09-23] MEDS: Insulin LISPRO 300 UNITS/3 ML VIAL SQ SCH ×3 (05:16→17:46)
[2019-09-23] MEDS: Piperacillin/Tazobactam 3.375 GM in 0.9 % Sodium Chloride Mini Bag 100 ML IVPB SCH ×3 (05:17→21:43)
[2019-09-23 05:50] LABS: VBG Ionized Calcium 1.08 mmol/L (1.15-1.35)
[2019-09-23 06:18] LABS: INR 1.3; Prothrombin Time 14.3 Seconds (9.4-12.1)
[2019-09-23 06:48] LABS: Hematocrit 29.8 % (37.5-50.1); Hemoglobin 9.6 g/dL (12.9-16.9); Mean Corpuscular HGB Conc 32.2 g/dL (31.6-35.5); Mean Corpuscular Volume 102.4 fL (83.0-100.0); Mean Platelet Volume 13.5 fL (9.4-12.4); Nucleated Red Blood Cells 0.3 /100 WBC (0); Red Blood Count 2.91 M/mcL (4.19-5.50); Red Cell Distribution Width 18.5 % (11.5-14.5); White Blood Count 11.5 K/mcL (4.3-11.1)
[2019-09-23 06:56] LABS: Albumin 2.7 g/dL (3.5-5.7); Albumin/Globulin Ratio 1.3 (1.1-2.2); Bilirubin,Direct 2.6 mg/dL (0.0-0.2); Bilirubin,Indirect 1.6 mg/dL (0.0-1.0); Bilirubin,Total 4.2 mg/dL (0.3-1.0); Globulin 2.1 g/dL (2.4-3.5); Total Protein 4.8 g/dL (6.4-8.9)
[2019-09-23 06:58] LABS: Magnesium 1.7 mg/dL (1.6-2.6); Phosphorous 2.8 mg/dL (2.7-4.5)
[2019-09-23 07:43] LABS: Platelet Count 79 K/mcL (140-400)
[2019-09-23 07:53] LABS: Lymphocytes # 1.7 K/mcL (0.6-4.6); Monocytes # 0.6 K/mcL (0.0-1.3)
[2019-09-23 07:54] LABS: Platelet Estimate Decreased (Normal); Polychromasia 1+ (Not Present); Toxic Granulation Present (Not Present)
[2019-09-23] MEDS: Chlorhexidine Rinse 15 ML MOUTHWASH MM SCH ×2 (07:57→20:03)
[2019-09-23] MEDS: Pantoprazole 40 MG VIAL IVP SCH (07:57)
[2019-09-23] MEDS: Cholecalciferol (D-3) 1,000 UNIT (25MCG) TABLET PO SCH (07:57)
[2019-09-23] MEDS: risperiDONE 1 MG TABLET PO SCH ×2 (07:57→20:06)
[2019-09-23] MEDS: carBAMazepine 200 MG TABLET PO SCH (07:57)
[2019-09-23] MEDS: Aspirin 81 MG TAB.CHEW PO SCH (07:57)
[2019-09-23] MEDS: Ferrous Sulfate Oral Soln 300 MG/5 ML UDC GTUBE SCH (07:58)
[2019-09-23] MEDS: Potassium Chloride Elixir 20 MEQ/15 ML UDC GTUBE SCH ×2 (08:01→20:06)
[2019-09-23] MEDS: Lactulose Oral Soln 20 GM/30 ML UDC PO SCH ×4 (08:14→20:05)
[2019-09-23 10:08] LABS: BUN/Creatinine Ratio 45 (6-26); Blood Urea Nitrogen 19 mg/dL (6-20); Calcium 8.4 mg/dL (8.6-10.3); Carbon Dioxide 32 mEq/L (23-29); Chloride 108 mEq/L (98-107); Glucose 144 mg/dL (70-105); Osmolality,Calculated 309 (280-300); Potassium 4.6 mEq/L (3.5-5.1); Sodium 147 mEq/L (136-145); eGFR For African Americans > 60 (> 60); eGFR For Non-African Americans > 60 (> 60)
[2019-09-23] MEDS: FentaNYL (PF) 1,000 MCG in 0.9 % Sodium Chloride 80 ML IVC SCH (11:42)
[2019-09-23] MEDS: Thiamine (B-1) 200 MG in 0.9 % Sodium Chloride 50 ML IVPB SCH (12:15)
[2019-09-23] MEDS: Folic Acid 1 MG in 0.9 % Sodium Chloride 50 ML IVPB SCH (13:56)
[2019-09-23] MEDS ORDERED: Albumin 25% 25gram/100mL 25 GM/100 ML IV.SOLN IVPB ONE ×2 (14:20→21:00)
[2019-09-23 14:24] LABS: VBG Ionized Calcium 1.22 mmol/L (1.15-1.35)
[2019-09-23] MEDS: Furosemide 20 MG/2 ML VIAL IVP SCH ×2 (16:13→20:05)
[2019-09-23 17:37] LABS: Alanine Aminotransferase 119 Units/L (7-52); Albumin 3.1 g/dL (3.5-5.7); Albumin/Globulin Ratio 1.6 (1.1-2.2); Alkaline Phosphatase 214 Units/L (34-104); Aspartate Amino Transferase 112 Units/L (13-39); BUN/Creatinine Ratio 47 (6-26); Bilirubin,Total 3.9 mg/dL (0.3-1.0); Blood Urea Nitrogen 20 mg/dL (6-20); Calcium 8.8 mg/dL (8.6-10.3); Carbon Dioxide 35 mEq/L (23-29); Chloride 107 mEq/L (98-107); Glucose 127 mg/dL (70-105); Osmolality,Calculated 308 (280-300); Potassium 4.4 mEq/L (3.5-5.1); Sodium 147 mEq/L (136-145); Total Protein 5.1 g/dL (6.4-8.9); eGFR For African Americans > 60 (> 60); eGFR For Non-African Americans > 60 (> 60)
[2019-09-23] MEDS: Mirtazapine 15 MG TABLET PO SCH (20:06)
[2019-09-23 22:21] LABS: Magnesium 1.9 mg/dL (1.6-2.6); Phosphorous 4.2 mg/dL (2.7-4.5)
[2019-09-24] MEDS: Insulin LISPRO 300 UNITS/3 ML VIAL SQ SCH ×5 (00:20→23:35)
[2019-09-24] MEDS: Artificial Tears SOLN 15 ML BOTTLE BOTH EYES SCH ×7 (00:22→23:12)
[2019-09-24] MEDS: Dexmedetomidine HCl 400 MCG/100 ML MLS IVC SCH ×5 (02:19→23:10)
[2019-09-24 03:18] LABS: VBG Ionized Calcium 1.13 mmol/L (1.15-1.35)
[2019-09-24 03:19] LABS: INR 1.2; Prothrombin Time 13.8 Seconds (9.4-12.1)
[2019-09-24] MEDS: Levalbuterol Neb 0.63 MG/3 ML IH SCH ×4 (03:24→21:37)
[2019-09-24 03:33] LABS: Alanine Aminotransferase 107 Units/L (7-52); Albumin/Globulin Ratio 1.6 (1.1-2.2); Alkaline Phosphatase 195 Units/L (34-104); Aspartate Amino Transferase 94 Units/L (13-39); BUN/Creatinine Ratio 46 (6-26); Bilirubin,Indirect 1.3 mg/dL (0.0-1.0); Bilirubin,Total 3.3 mg/dL (0.3-1.0); Blood Urea Nitrogen 19 mg/dL (6-20); Calcium 8.7 mg/dL (8.6-10.3); Carbon Dioxide 36 mEq/L (23-29); Chloride 107 mEq/L (98-107); Globulin 1.9 g/dL (2.4-3.5); Glucose 123 mg/dL (70-105); Osmolality,Calculated 304 (280-300); Potassium 4.3 mEq/L (3.5-5.1); Sodium 145 mEq/L (136-145); Total Protein 4.9 g/dL (6.4-8.9); eGFR For African Americans > 60 (> 60); eGFR For Non-African Americans > 60 (> 60)
[2019-09-24 03:53] LABS: ABG Base Excess 12 mEq/L (-2 to 3); ABG HCO3 37 mEq/L (21-27); ABG Oxygen Saturation 96 % (95-98); ABG PCO2 52 mmHg (35-45); ABG PH 7.46 pH Units (7.32-7.45); ABG PO2 77 mmHg (85-104); ABG TCO2 39 mEq/L (20-26); Blood Gas Modality AF; Blood Gas VT 550 cc
[2019-09-24 03:57] LABS: Basophils % 0.8 %; Hemoglobin 8.7 g/dL (12.9-16.9); Mean Corpuscular Volume 104.5 fL (83.0-100.0)
[2019-09-24 03:59] LABS: Basophils # 0.1 K/mcL (0.0-0.2); Eosinophils # 0.1 K/mcL (0.0-0.6); Eosinophils % 0.5 %; Hematocrit 27.8 % (37.5-50.1); Immature Granulocytes % 6.6 % (0-4); Immature Platelets 20.5 % (1.1-6.1); Lymphocytes % 9.2 %; Mean Corpuscular HGB Conc 31.3 g/dL (31.6-35.5); Mean Corpuscular Hemoglobin 32.7 pg (28.0-33.3); Mean Platelet Volume 13.9 fL (9.4-12.4); Monocytes # 0.5 K/mcL (0.0-1.3); Monocytes % 4.3 %; Neutrophils # 8.4 K/mcL (1.6-8.9); Nucleated Red Blood Cells 0.5 /100 WBC (0); Red Blood Count 2.66 M/mcL (4.19-5.50); Segmented Neutrophils % 78.6 %; White Blood Count 10.7 K/mcL (4.3-11.1)
[2019-09-24 04:06] LABS: Platelet Count 94 K/mcL (140-400)
[2019-09-24 04:38] LABS: Platelet Estimate Decreased (Normal)
[2019-09-24] MEDS: Piperacillin/Tazobactam 3.375 GM in 0.9 % Sodium Chloride Mini Bag 100 ML IVPB SCH (05:43)
[2019-09-24] MEDS: DilTIAZem 50 MG in 0.9 % Sodium Chloride 40 ML IVC SCH ×5 (07:23→22:16)
[2019-09-24] MEDS: FentaNYL (PF) 1,000 MCG in 0.9 % Sodium Chloride 80 ML IVC SCH ×3 (07:24→21:45)
[2019-09-24] MEDS: Aspirin 81 MG TAB.CHEW PO SCH (07:24)
[2019-09-24] MEDS: risperiDONE 1 MG TABLET PO SCH ×2 (07:25→19:30)
[2019-09-24] MEDS: carBAMazepine 200 MG TABLET PO SCH (07:25)
[2019-09-24] MEDS: Cholecalciferol (D-3) 1,000 UNIT (25MCG) TABLET PO SCH (07:25)
[2019-09-24] MEDS: Chlorhexidine Rinse 15 ML MOUTHWASH MM SCH ×2 (07:25→19:28)
[2019-09-24] MEDS: Furosemide 20 MG/2 ML VIAL IVP SCH (07:26)
[2019-09-24] MEDS: Potassium Chloride Elixir 20 MEQ/15 ML UDC GTUBE SCH ×2 (07:26→19:29)
[2019-09-24] MEDS: Ferrous Sulfate Oral Soln 300 MG/5 ML UDC GTUBE SCH (07:26)
[2019-09-24] MEDS: Lactulose Oral Soln 20 GM/30 ML UDC PO SCH ×4 (07:26→19:29)
[2019-09-24] MEDS: Pantoprazole 40 MG VIAL IVP SCH (07:27)
[2019-09-24] MEDS: Folic Acid 1 MG in 0.9 % Sodium Chloride 50 ML IVPB SCH (07:54)
[2019-09-24] MEDS: Thiamine (B-1) 200 MG in 0.9 % Sodium Chloride 50 ML IVPB SCH (07:57)
[2019-09-24] MEDS: Meropenem 1,000 MG in 0.9 % Sodium Chloride Mini Bag 100 ML IVPB SCH ×2 (11:34→19:28)
[2019-09-24 14:21] LABS: ABG Base Excess 11 mEq/L (-2 to 3); ABG HCO3 38 mEq/L (21-27); ABG Oxygen Saturation 94 % (95-98); ABG PCO2 61 mmHg (35-45); ABG PO2 73 mmHg (85-104); ABG TCO2 40 mEq/L (20-26); Blood Gas Modality AF; Blood Gas VT 500 cc
[2019-09-24 14:54] LABS: Bilirubin,Urine Negative (Negative); Blood,Urine Negative (Negative); Color,Urine Dark Yellow (Yellow); Glucose,Urine (UA) Normal (Normal); Ketones,Urine Negative (Negative); Leukocyte Esterase,Urine Negative (Negative); Nitrite,Urine Negative (Negative); PH,Urine 8.5 pH Units (5.0-8.0); Protein,Urine Trace mg/dL (Neg-Trace); Specific Gravity,Urine 1.017 (1.010-1.025); Urobilinogen,Urine >=8.0 mg/dL (Normal)
[2019-09-24 14:59] LABS: Bacteria,Urine None Seen per hpf (None-Few); Hyaline Casts,Urine None Seen per lpf (None-Few); Squamous Epithelial Cell,Urine Moderate per lpf (None-Few)
[2019-09-24 15:01] LABS: Clarity,Urine Slightly Hazy (Clear)
[2019-09-24] MEDS: Mirtazapine 15 MG TABLET PO SCH (19:30)
[2019-09-24] MEDS: Artificial Tears SOLN 15 ML BOTTLE BOTH EYES PRN (23:10)
[2019-09-25] MEDS: DilTIAZem 50 MG in 0.9 % Sodium Chloride 40 ML IVC SCH ×2 (02:01→06:10)
[2019-09-25] MEDS: Meropenem 1,000 MG in 0.9 % Sodium Chloride Mini Bag 100 ML IVPB SCH ×3 (03:09→19:31)
[2019-09-25] MEDS: Artificial Tears SOLN 15 ML BOTTLE BOTH EYES SCH ×6 (03:10→23:34)
[2019-09-25] MEDS: Levalbuterol Neb 0.63 MG/3 ML IH SCH ×4 (03:16→21:17)
[2019-09-25 03:27] LABS: Hemoglobin 8.8 g/dL (12.9-16.9)
[2019-09-25 03:28] LABS: Basophils # 0.1 K/mcL (0.0-0.2); Basophils % 0.5 %; Eosinophils # 0.1 K/mcL (0.0-0.6); Eosinophils % 0.6 %; Hematocrit 29.5 % (37.5-50.1); Immature Granulocytes % 6.7 % (0-4); Immature Platelets 15.1 % (1.1-6.1); Lymphocytes # 1.2 K/mcL (0.6-4.6); Lymphocytes % 10.7 %; Mean Corpuscular HGB Conc 29.8 g/dL (31.6-35.5); Mean Corpuscular Volume 110.5 fL (83.0-100.0); Mean Platelet Volume 12.5 fL (9.4-12.4); Monocytes # 0.6 K/mcL (0.0-1.3); Monocytes % 5.6 %; Neutrophils # 8.5 K/mcL (1.6-8.9); Nucleated Red Blood Cells 0.2 /100 WBC (0); Platelet Count 145 K/mcL (140-400); Red Blood Count 2.67 M/mcL (4.19-5.50); Red Cell Distribution Width 16.4 % (11.5-14.5); Segmented Neutrophils % 75.9 %; White Blood Count 11.2 K/mcL (4.3-11.1)
[2019-09-25 03:36] LABS: INR 1.1; Prothrombin Time 12.7 Seconds (9.4-12.1)
[2019-09-25] MEDS: FentaNYL (PF) 1,000 MCG in 0.9 % Sodium Chloride 80 ML IVC SCH ×2 (03:37→18:35)
[2019-09-25 03:48] LABS: Alanine Aminotransferase 113 Units/L (7-52); Albumin 2.9 g/dL (3.5-5.7); Albumin/Globulin Ratio 1.3 (1.1-2.2); Alkaline Phosphatase 231 Units/L (34-104); Aspartate Amino Transferase 77 Units/L (13-39); BUN/Creatinine Ratio 45 (6-26); Bilirubin,Direct 1.3 mg/dL (0.0-0.2); Bilirubin,Indirect 0.9 mg/dL (0.0-1.0); Bilirubin,Total 2.2 mg/dL (0.3-1.0); Blood Urea Nitrogen 23 mg/dL (6-20); Calcium 8.8 mg/dL (8.6-10.3); Carbon Dioxide 36 mEq/L (23-29); Chloride 111 mEq/L (98-107); Globulin 2.2 g/dL (2.4-3.5); Glucose 126 mg/dL (70-105); Osmolality,Calculated 311 (280-300); Potassium 4.6 mEq/L (3.5-5.1); Sodium 148 mEq/L (136-145); Total Protein 5.1 g/dL (6.4-8.9); eGFR For African Americans > 60 (> 60); eGFR For Non-African Americans > 60 (> 60)
[2019-09-25 04:04] LABS: Platelet Estimate Decreased (Normal); Stomatocytes 2+ (Not Present)
[2019-09-25] MEDS: Dexmedetomidine HCl 400 MCG/100 ML MLS IVC SCH ×4 (04:17→21:40)
[2019-09-25] MEDS: Insulin LISPRO 300 UNITS/3 ML VIAL SQ SCH ×4 (04:22→23:34)
[2019-09-25 04:25] LABS: ABG Base Excess 10 mEq/L (-2 to 3); ABG HCO3 37 mEq/L (21-27); ABG Oxygen Saturation 96 % (95-98); ABG PCO2 70 mmHg (35-45); ABG PH 7.34 pH Units (7.32-7.45); ABG PO2 93 mmHg (85-104); ABG TCO2 40 mEq/L (20-26); Blood Gas VT 400 cc
[2019-09-25] MEDS: Potassium Chloride Elixir 20 MEQ/15 ML UDC GTUBE SCH ×2 (08:45→19:31)
[2019-09-25] MEDS: Chlorhexidine Rinse 15 ML MOUTHWASH MM SCH ×2 (08:45→19:31)
[2019-09-25] MEDS: Lactulose Oral Soln 20 GM/30 ML UDC PO SCH ×4 (08:45→19:32)
[2019-09-25] MEDS: Pantoprazole 40 MG VIAL IVP SCH (08:45)
[2019-09-25] MEDS: Folic Acid 1 MG in 0.9 % Sodium Chloride 50 ML IVPB SCH (08:46)
[2019-09-25] MEDS: carBAMazepine 200 MG TABLET PO SCH (08:46)
[2019-09-25] MEDS: risperiDONE 1 MG TABLET PO SCH ×2 (08:46→19:30)
[2019-09-25] MEDS: Cholecalciferol (D-3) 1,000 UNIT (25MCG) TABLET PO SCH (08:46)
[2019-09-25] MEDS: Aspirin 81 MG TAB.CHEW PO SCH (08:46)
[2019-09-25] MEDS: Ferrous Sulfate Oral Soln 300 MG/5 ML UDC GTUBE SCH (08:46)
[2019-09-25] MEDS: Thiamine (B-1) 200 MG in 0.9 % Sodium Chloride 50 ML IVPB SCH (08:50)
[2019-09-25] MEDS: Haloperidol Lactate 5 MG/ML VIAL IVP PRN ×2 (14:04→18:36)
[2019-09-25] MEDS: Mirtazapine 15 MG TABLET PO SCH (19:31)
[2019-09-26] MEDS: Dexmedetomidine HCl 400 MCG/100 ML MLS IVC SCH ×4 (00:52→14:38)
[2019-09-26] MEDS: Haloperidol Lactate 5 MG/ML VIAL IVP PRN (00:53)
[2019-09-26] MEDS: Levalbuterol Neb 0.63 MG/3 ML IH SCH ×4 (03:27→21:28)
[2019-09-26] MEDS: Artificial Tears SOLN 15 ML BOTTLE BOTH EYES SCH ×5 (03:37→20:15)
[2019-09-26] MEDS: Meropenem 1,000 MG in 0.9 % Sodium Chloride Mini Bag 100 ML IVPB SCH ×3 (03:37→20:17)
[2019-09-26] MEDS: FentaNYL (PF) 1,000 MCG in 0.9 % Sodium Chloride 80 ML IVC SCH (03:39)
[2019-09-26 04:03] LABS: Basophils # 0.1 K/mcL (0.0-0.2); Basophils % 0.8 %; Eosinophils # 0.1 K/mcL (0.0-0.6); Eosinophils % 0.8 %; Hematocrit 27.9 % (37.5-50.1); Hemoglobin 8.4 g/dL (12.9-16.9); Immature Granulocytes % 2.8 % (0-4); Lymphocytes % 9.3 %; Mean Corpuscular HGB Conc 30.1 g/dL (31.6-35.5); Mean Corpuscular Hemoglobin 33.5 pg (28.0-33.3); Mean Corpuscular Volume 111.2 fL (83.0-100.0); Mean Platelet Volume 12.5 fL (9.4-12.4); Monocytes # 0.6 K/mcL (0.0-1.3); Monocytes % 6.2 %; Neutrophils # 8.3 K/mcL (1.6-8.9); Platelet Count 187 K/mcL (140-400); Red Blood Count 2.51 M/mcL (4.19-5.50); Segmented Neutrophils % 80.1 %; White Blood Count 10.4 K/mcL (4.3-11.1)
[2019-09-26 04:11] LABS: INR 1.3; Prothrombin Time 14.4 Seconds (9.4-12.1)
[2019-09-26 04:20] LABS: ABG Base Excess 9 mEq/L (-2 to 3); ABG HCO3 35 mEq/L (21-27); ABG Oxygen Saturation 93 % (95-98); ABG PCO2 58 mmHg (35-45); ABG PH 7.38 pH Units (7.32-7.45); ABG PO2 71 mmHg (85-104); ABG TCO2 37 mEq/L (20-26); Blood Gas VT 400 cc
[2019-09-26 04:24] LABS: Alanine Aminotransferase 119 Units/L (7-52); Albumin 2.9 g/dL (3.5-5.7); Albumin/Globulin Ratio 1.5 (1.1-2.2); Alkaline Phosphatase 214 Units/L (34-104); Aspartate Amino Transferase 67 Units/L (13-39); BUN/Creatinine Ratio 48 (6-26); Bilirubin,Direct 0.9 mg/dL (0.0-0.2); Bilirubin,Indirect 0.9 mg/dL (0.0-1.0); Bilirubin,Total 1.8 mg/dL (0.3-1.0); Blood Urea Nitrogen 19 mg/dL (6-20); Calcium 8.7 mg/dL (8.6-10.3); Carbon Dioxide 33 mEq/L (23-29); Chloride 115 mEq/L (98-107); Glucose 129 mg/dL (70-105); Osmolality,Calculated 316 (280-300); Potassium 3.9 mEq/L (3.5-5.1); Sodium 151 mEq/L (136-145); Total Protein 4.9 g/dL (6.4-8.9); eGFR For African Americans > 60 (> 60); eGFR For Non-African Americans > 60 (> 60)
[2019-09-26 04:32] LABS: Platelet Estimate Decreased (Normal)
[2019-09-26] MEDS: Insulin LISPRO 300 UNITS/3 ML VIAL SQ SCH ×3 (06:03→19:00)
[2019-09-26] MEDS: carBAMazepine 200 MG TABLET PO SCH (07:49)
[2019-09-26] MEDS: Aspirin 81 MG TAB.CHEW PO SCH (07:49)
[2019-09-26] MEDS: risperiDONE 1 MG TABLET PO SCH ×2 (07:49→20:18)
[2019-09-26] MEDS: Cholecalciferol (D-3) 1,000 UNIT (25MCG) TABLET PO SCH (07:49)
[2019-09-26] MEDS: Pantoprazole 40 MG VIAL IVP SCH (07:50)
[2019-09-26] MEDS: Lactulose Oral Soln 20 GM/30 ML UDC PO SCH ×4 (07:51→20:18)
[2019-09-26] MEDS: Potassium Chloride Elixir 20 MEQ/15 ML UDC GTUBE SCH ×2 (07:51→20:18)
[2019-09-26] MEDS: Thiamine (B-1) 200 MG in 0.9 % Sodium Chloride 50 ML IVPB SCH (07:51)
[2019-09-26] MEDS: Chlorhexidine Rinse 15 ML MOUTHWASH MM SCH ×2 (07:51→20:17)
[2019-09-26] MEDS: Ferrous Sulfate Oral Soln 300 MG/5 ML UDC GTUBE SCH (07:51)
[2019-09-26] MEDS: Folic Acid 1 MG in 0.9 % Sodium Chloride 50 ML IVPB SCH (07:52)
[2019-09-26] MEDS ORDERED: *HR* Digoxin 0.5 MG/2 ML AMPUL IVP ONE (11:55)
[2019-09-26] MEDS: Mirtazapine 15 MG TABLET PO SCH (20:18)
[2019-09-26] MEDS: *HR* LORazepam 2 MG/ML VIAL IVP PRN (20:59)
[2019-09-27] MEDS: Artificial Tears SOLN 15 ML BOTTLE BOTH EYES SCH ×7 (00:02→23:50)
[2019-09-27] MEDS: Insulin LISPRO 300 UNITS/3 ML VIAL SQ SCH ×3 (00:08→11:10)
[2019-09-27] MEDS ORDERED: *HR* Metoprolol 5 MG/5 ML VIAL IVP ONE (01:25)
[2019-09-27] MEDS: Levalbuterol Neb 0.63 MG/3 ML IH SCH ×4 (03:48→21:23)
[2019-09-27] MEDS: Meropenem 1,000 MG in 0.9 % Sodium Chloride Mini Bag 100 ML IVPB SCH ×3 (04:47→19:54)
[2019-09-27 05:23] LABS: Basophils # 0.1 K/mcL (0.0-0.2); Basophils % 1.1 %; Eosinophils # 0.1 K/mcL (0.0-0.6); Eosinophils % 0.6 %; Hematocrit 29.5 % (37.5-50.1); Hemoglobin 9.2 g/dL (12.9-16.9); Immature Granulocytes % 1.8 % (0-4); Lymphocytes # 1.1 K/mcL (0.6-4.6); Lymphocytes % 9.6 %; Mean Corpuscular HGB Conc 31.2 g/dL (31.6-35.5); Mean Corpuscular Hemoglobin 33.7 pg (28.0-33.3); Mean Corpuscular Volume 108.1 fL (83.0-100.0); Mean Platelet Volume 12.3 fL (9.4-12.4); Monocytes # 0.8 K/mcL (0.0-1.3); Neutrophils # 9.1 K/mcL (1.6-8.9); Platelet Count 294 K/mcL (140-400); Red Blood Count 2.73 M/mcL (4.19-5.50); Red Cell Distribution Width 16.2 % (11.5-14.5); Segmented Neutrophils % 79.9 %; White Blood Count 11.4 K/mcL (4.3-11.1)
[2019-09-27 05:28] LABS: INR 1.2; Prothrombin Time 14.1 Seconds (9.4-12.1)
[2019-09-27 05:32] LABS: VBG Ionized Calcium 1.19 mmol/L (1.15-1.35)
[2019-09-27 05:38] LABS: Alanine Aminotransferase 100 Units/L (7-52); Albumin 3.1 g/dL (3.5-5.7); Albumin/Globulin Ratio 1.3 (1.1-2.2); Alkaline Phosphatase 199 Units/L (34-104); Aspartate Amino Transferase 46 Units/L (13-39); BUN/Creatinine Ratio 45 (6-26); Bilirubin,Direct 0.9 mg/dL (0.0-0.2); Bilirubin,Indirect 1.2 mg/dL (0.0-1.0); Bilirubin,Total 2.1 mg/dL (0.3-1.0); Blood Urea Nitrogen 17 mg/dL (6-20); Calcium 8.9 mg/dL (8.6-10.3); Carbon Dioxide 27 mEq/L (23-29); Chloride 114 mEq/L (98-107); Globulin 2.4 g/dL (2.4-3.5); Glucose 87 mg/dL (70-105); Magnesium 1.9 mg/dL (1.6-2.6); Osmolality,Calculated 305 (280-300); Phosphorous 2.7 mg/dL (2.7-4.5); Potassium 3.5 mEq/L (3.5-5.1); Sodium 147 mEq/L (136-145); Total Protein 5.5 g/dL (6.4-8.9); eGFR For African Americans > 60 (> 60); eGFR For Non-African Americans > 60 (> 60)
[2019-09-27 05:54] LABS: Large Platelets Present (Not Present); Platelet Estimate Normal (Normal)
[2019-09-27] MEDS: *HR* Metoprolol 5 MG/5 ML VIAL IVP SCH ×4 (06:12→23:35)
[2019-09-27] MEDS: Potassium Phosphate 44 MEQ in 0.9 % Sodium Chloride 250 ML IVPB PRN (06:52)
[2019-09-27] MEDS: Aspirin 81 MG TAB.CHEW PO SCH (07:17)
[2019-09-27] MEDS: Ferrous Sulfate Oral Soln 300 MG/5 ML UDC GTUBE SCH (07:17)
[2019-09-27] MEDS: Chlorhexidine Rinse 15 ML MOUTHWASH MM SCH ×2 (07:17→20:08)
[2019-09-27] MEDS: risperiDONE 1 MG TABLET PO SCH ×2 (07:18→19:33)
[2019-09-27] MEDS: Cholecalciferol (D-3) 1,000 UNIT (25MCG) TABLET PO SCH (07:18)
[2019-09-27] MEDS: Lactulose Oral Soln 20 GM/30 ML UDC PO SCH ×4 (07:18→19:32)
[2019-09-27] MEDS: Potassium Chloride Elixir 20 MEQ/15 ML UDC GTUBE SCH ×2 (07:18→19:32)
[2019-09-27] MEDS: carBAMazepine 200 MG TABLET PO SCH (07:18)
[2019-09-27] MEDS: Pantoprazole 40 MG VIAL IVP SCH (08:04)
[2019-09-27] MEDS: Folic Acid 1 MG in 0.9 % Sodium Chloride 50 ML IVPB SCH (08:05)
[2019-09-27] MEDS: Thiamine (B-1) 200 MG in 0.9 % Sodium Chloride 50 ML IVPB SCH (08:05)
[2019-09-27] MEDS ORDERED: *HR* Heparin 5,000 UNIT/ML VIAL SQ SCH (12:00)
[2019-09-27] MEDS: Furosemide 40 MG/4 ML VIAL IVP SCH ×2 (12:26→19:54)
[2019-09-27] MEDS ORDERED: Perflutren Lipid Microsphere 1.3 ML in 0.9 % Sodium Chloride 8.7 ML IVP ONE (12:38)
[2019-09-27] MEDS: *HR* Heparin 5,000 UNIT/ML VIAL SQ SCH ×2 (13:07→21:50)
[2019-09-27] MEDS: Mirtazapine 15 MG TABLET PO SCH (19:32)
[2019-09-27 19:41] LABS: Phosphorous 4.4 mg/dL (2.7-4.5); Potassium 3.8 mEq/L (3.5-5.1)
[2019-09-27] MEDS: *HR* LORazepam 2 MG/ML VIAL IVP PRN (20:32)
[2019-09-27 22:07] LABS: ABG Base Excess 2 mEq/L (-2 to 3); ABG HCO3 27 mEq/L (21-27); ABG Oxygen Saturation 94 % (95-98); ABG PCO2 40 mmHg (35-45); ABG PH 7.43 pH Units (7.32-7.45); ABG PO2 71 mmHg (85-104); ABG TCO2 28 mEq/L (20-26); Blood Gas Modality BiLevel
[2019-09-28] MEDS: Levalbuterol Neb 0.63 MG/3 ML IH SCH ×4 (03:19→22:31)
[2019-09-28] MEDS: Artificial Tears SOLN 15 ML BOTTLE BOTH EYES SCH ×6 (04:20→23:11)
[2019-09-28] MEDS: *HR* Metoprolol 5 MG/5 ML VIAL IVP SCH ×4 (04:30→23:12)
[2019-09-28] MEDS: Meropenem 1,000 MG in 0.9 % Sodium Chloride Mini Bag 100 ML IVPB SCH ×3 (04:30→20:13)
[2019-09-28 05:01] LABS: INR 1.2; Prothrombin Time 13.5 Seconds (9.4-12.1)
[2019-09-28 05:01] LABS: VBG Ionized Calcium 1.22 mmol/L (1.15-1.35)
[2019-09-28 05:04] LABS: Basophils # 0.2 K/mcL (0.0-0.2); Basophils % 1.1 %; Eosinophils # 0.1 K/mcL (0.0-0.6); Eosinophils % 0.4 %; Hemoglobin 9.9 g/dL (12.9-16.9); Immature Granulocytes % 1.4 % (0-4); Lymphocytes # 1.3 K/mcL (0.6-4.6); Lymphocytes % 8.3 %; Mean Corpuscular HGB Conc 30.9 g/dL (31.6-35.5); Mean Corpuscular Hemoglobin 33.4 pg (28.0-33.3); Mean Corpuscular Volume 108.1 fL (83.0-100.0); Mean Platelet Volume 12.2 fL (9.4-12.4); Monocytes # 1.2 K/mcL (0.0-1.3); Monocytes % 7.9 %; Neutrophils # 12.6 K/mcL (1.6-8.9); Nucleated Red Blood Cells 0.1 /100 WBC (0); Platelet Count 407 K/mcL (140-400); Red Blood Count 2.96 M/mcL (4.19-5.50); Red Cell Distribution Width 16.6 % (11.5-14.5); Segmented Neutrophils % 80.9 %; White Blood Count 15.6 K/mcL (4.3-11.1)
[2019-09-28 05:27] LABS: Alanine Aminotransferase 81 Units/L (7-52); Albumin 3.1 g/dL (3.5-5.7); Albumin/Globulin Ratio 1.2 (1.1-2.2); Alkaline Phosphatase 224 Units/L (34-104); Aspartate Amino Transferase 36 Units/L (13-39); BUN/Creatinine Ratio 48 (6-26); Bilirubin,Direct 0.9 mg/dL (0.0-0.2); Bilirubin,Indirect 1.1 mg/dL (0.0-1.0); Blood Urea Nitrogen 20 mg/dL (6-20); Carbon Dioxide 25 mEq/L (23-29); Chloride 116 mEq/L (98-107); Globulin 2.5 g/dL (2.4-3.5); Glucose 82 mg/dL (70-105); Osmolality,Calculated 310 (280-300); Potassium 3.7 mEq/L (3.5-5.1); Sodium 149 mEq/L (136-145); Total Protein 5.6 g/dL (6.4-8.9); eGFR For African Americans > 60 (> 60); eGFR For Non-African Americans > 60 (> 60)
[2019-09-28 05:30] LABS: Magnesium 1.9 mg/dL (1.6-2.6); Phosphorous 3.9 mg/dL (2.7-4.5)
[2019-09-28] MEDS: *HR* Heparin 5,000 UNIT/ML VIAL SQ SCH ×3 (06:18→20:14)
[2019-09-28] MEDS: Chlorhexidine Rinse 15 ML MOUTHWASH MM SCH ×2 (06:27→20:13)
[2019-09-28] MEDS: Aspirin 81 MG TAB.CHEW PO SCH (06:27)
[2019-09-28] MEDS: Potassium Chloride Elixir 20 MEQ/15 ML UDC GTUBE SCH ×2 (06:28→20:15)
[2019-09-28] MEDS: Lactulose Oral Soln 20 GM/30 ML UDC PO SCH ×5 (06:28→20:13)
[2019-09-28] MEDS: risperiDONE 1 MG TABLET PO SCH ×2 (06:28→20:15)
[2019-09-28] MEDS: carBAMazepine 200 MG TABLET PO SCH (06:28)
[2019-09-28] MEDS: Ferrous Sulfate Oral Soln 300 MG/5 ML UDC GTUBE SCH (06:28)
[2019-09-28] MEDS: Cholecalciferol (D-3) 1,000 UNIT (25MCG) TABLET PO SCH (06:29)
[2019-09-28] MEDS: FentaNYL (PF) 1,000 MCG in 0.9 % Sodium Chloride 80 ML IVC SCH (06:30)
[2019-09-28] MEDS ORDERED: Isovue-370 500 ML BOTTLE IVP ONE ×3 (07:20→09:14)
[2019-09-28] MEDS ORDERED: *HR* Metoprolol 5 MG/5 ML VIAL IVP ONE (07:26)
[2019-09-28 08:00] LABS: Bilirubin,Urine Small (Negative); Blood,Urine Small (Negative); Clarity,Urine Clear (Clear); Color,Urine Dark Yellow (Yellow); Glucose,Urine (UA) Normal (Normal); Ketones,Urine 15 mg/dL (Negative); Leukocyte Esterase,Urine Negative (Negative); Nitrite,Urine Negative (Negative); Protein,Urine 30 mg/dL (Neg-Trace); Specific Gravity,Urine 1.028 (1.010-1.025); Urobilinogen,Urine Normal (Normal)
[2019-09-28] MEDS: Furosemide 40 MG/4 ML VIAL IVP SCH (08:02)
[2019-09-28 08:03] LABS: Bacteria,Urine None Seen per hpf (None-Few); Hyaline Casts,Urine Few per lpf (None-Few); RBC,Urine 15-30 per hpf (0-3); Squamous Epithelial Cell,Urine Many per lpf (None-Few)
[2019-09-28] MEDS: Pantoprazole 40 MG VIAL IVP SCH (08:03)
[2019-09-28] MEDS: Thiamine (B-1) 200 MG in 0.9 % Sodium Chloride 50 ML IVPB SCH (09:29)
[2019-09-28] MEDS: Folic Acid 1 MG in 0.9 % Sodium Chloride 50 ML IVPB SCH (09:30)
[2019-09-28] MEDS ORDERED: Acetaminophen IV 1,000 MG/100 ML INFUS..BTL IVPB ONE (10:56)
[2019-09-28] MEDS: Albumin 25% 25gram/100mL 25 GM/100 ML IV.SOLN IVPB SCH ×2 (12:58→20:14)
[2019-09-28] MEDS: D5% in Water 1,000 ML IVC SCH (13:13)
[2019-09-28 19:19] LABS: Adenovirus Not Detected (Not Detect); Bordetella Pertussis Not Detected (Not Detect); Chlamydophila pneumoniae Not Detected (Not Detect); Coronavirus 229E Not Detected (Not Detect); Coronavirus HKU1 Not Detected (Not Detect); Coronavirus NL63 Not Detected (Not Detect); Coronavirus OC43 Not Detected (Not Detect); Human Metapneumovirus Not Detected (Not Detect); Human Rhinovirus/Enterovirus Not Detected (Not Detect); Influenza A Subtype 2009 H1 Not Detected (Not Detect); Influenza B Not Detected (Not Detect); Mycoplasma pneumoniae Not Detected (Not Detect); Parainfluenza Virus 1 Not Detected (Not Detect); Parainfluenza Virus 2 Not Detected (Not Detect); Parainfluenza Virus 3 Not Detected (Not Detect); Parainfluenza Virus 4 Not Detected (Not Detect); Respiratory Syncytial Virus Not Detected (Not Detect)
[2019-09-28] MEDS: Mirtazapine 15 MG TABLET PO SCH (20:14)
[2019-09-29] MEDS: Dexmedetomidine HCl 400 MCG/100 ML MLS IVC SCH (03:05)
[2019-09-29] MEDS: Artificial Tears SOLN 15 ML BOTTLE BOTH EYES SCH ×2 (03:05→07:30)
[2019-09-29] MEDS: Levalbuterol Neb 0.63 MG/3 ML IH SCH ×4 (03:16→22:09)
[2019-09-29] MEDS: Meropenem 1,000 MG in 0.9 % Sodium Chloride Mini Bag 100 ML IVPB SCH ×3 (03:25→19:58)
[2019-09-29] MEDS: Albumin 25% 25gram/100mL 25 GM/100 ML IV.SOLN IVPB SCH ×3 (03:25→19:59)
[2019-09-29 04:02] LABS: VBG Ionized Calcium 1.22 mmol/L (1.15-1.35)
[2019-09-29 04:03] LABS: Basophils # 0.1 K/mcL (0.0-0.2); Basophils % 0.8 %; Eosinophils # 0.1 K/mcL (0.0-0.6); Eosinophils % 1.2 %; Hematocrit 26.1 % (37.5-50.1); Immature Granulocytes % 0.9 % (0-4); Lymphocytes # 1.6 K/mcL (0.6-4.6); Lymphocytes % 14.6 %; Mean Corpuscular HGB Conc 31.4 g/dL (31.6-35.5); Mean Corpuscular Hemoglobin 33.6 pg (28.0-33.3); Mean Platelet Volume 11.9 fL (9.4-12.4); Monocytes % 9.1 %; Neutrophils # 7.9 K/mcL (1.6-8.9); Platelet Count 317 K/mcL (140-400); Red Blood Count 2.44 M/mcL (4.19-5.50); Red Cell Distribution Width 16.4 % (11.5-14.5); Segmented Neutrophils % 73.4 %; White Blood Count 10.7 K/mcL (4.3-11.1)
[2019-09-29 04:04] LABS: Hemoglobin 8.2 g/dL (12.9-16.9)
[2019-09-29 04:15] LABS: Magnesium 1.8 mg/dL (1.6-2.6)
[2019-09-29 04:16] LABS: BUN/Creatinine Ratio 53 (6-26); Blood Urea Nitrogen 19 mg/dL (6-20); Calcium 8.7 mg/dL (8.6-10.3); Carbon Dioxide 26 mEq/L (23-29); Chloride 114 mEq/L (98-107); Glucose 108 mg/dL (70-105); Osmolality,Calculated 301 (280-300); Potassium 3.5 mEq/L (3.5-5.1); Sodium 144 mEq/L (136-145); eGFR For African Americans > 60 (> 60); eGFR For Non-African Americans > 60 (> 60)
[2019-09-29] MEDS: *HR* Metoprolol 5 MG/5 ML VIAL IVP SCH ×2 (05:16→11:02)
[2019-09-29] MEDS: *HR* Heparin 5,000 UNIT/ML VIAL SQ SCH ×3 (05:19→22:13)
[2019-09-29 07:26] LABS: ABG Base Excess 3 mEq/L (-2 to 3); ABG HCO3 26 mEq/L (21-27); ABG Oxygen Saturation 94 % (95-98); ABG PCO2 33 mmHg (35-45); ABG PO2 64 mmHg (85-104); ABG TCO2 27 mEq/L (20-26)
[2019-09-29] MEDS: D5% in Water 1,000 ML IVC SCH (07:29)
[2019-09-29] MEDS: Potassium Chloride Elixir 20 MEQ/15 ML UDC GTUBE SCH (08:02)
[2019-09-29] MEDS: Cholecalciferol (D-3) 1,000 UNIT (25MCG) TABLET PO SCH (08:03)
[2019-09-29] MEDS: Pantoprazole 40 MG VIAL IVP SCH (08:03)
[2019-09-29] MEDS: carBAMazepine 200 MG TABLET PO SCH (08:03)
[2019-09-29] MEDS: Aspirin 81 MG TAB.CHEW PO SCH (08:03)
[2019-09-29] MEDS: Lactulose Oral Soln 20 GM/30 ML UDC PO SCH ×3 (08:03→21:29)
[2019-09-29] MEDS: Ferrous Sulfate Oral Soln 300 MG/5 ML UDC GTUBE SCH (08:03)
[2019-09-29] MEDS: risperiDONE 1 MG TABLET PO SCH ×2 (08:03→21:29)
[2019-09-29] MEDS: Folic Acid 1 MG in 0.9 % Sodium Chloride 50 ML IVPB SCH (08:10)
[2019-09-29] MEDS: Thiamine (B-1) 200 MG in 0.9 % Sodium Chloride 50 ML IVPB SCH (08:11)
[2019-09-29] MEDS: FentaNYL (PF) 1,000 MCG in 0.9 % Sodium Chloride 80 ML IVC SCH (08:15)
[2019-09-29] MEDS: Chlorhexidine Rinse 15 ML MOUTHWASH MM SCH (08:15)
[2019-09-29] MEDS ORDERED: Naloxone 0.4 MG/ML INJ IVP PRN (12:58)
[2019-09-29] MEDS ORDERED: *HR* Dextrose 50 % in Water (Syg) 50 ML SYRINGE IVP PRN (12:58)
[2019-09-29] MEDS ORDERED: Ipratropium/Albuterol Neb 3 ML IH PRN (12:58)
[2019-09-29] MEDS ORDERED: Haloperidol Lactate 5 MG/ML VIAL IVP PRN (12:58)
[2019-09-29] MEDS ORDERED: Dextrose Gel 15 GM/37.5 ML TUBE PO PRN ×2 (12:58)
[2019-09-29] MEDS ORDERED: D5% in Water 1,000 ML IVC PRN (12:58)
[2019-09-29] MEDS ORDERED: Metoprolol 100 MG TABLET PO STA (16:58)
[2019-09-29] MEDS: Metoprolol 100 MG TABLET PO SCH (17:02)
[2019-09-29] MEDS ORDERED: Potassium Chloride Elixir 20 MEQ/15 ML UDC PO SCH (21:00)
[2019-09-29] MEDS ORDERED: Furosemide 40 MG/4 ML VIAL IVP SCH (21:00)
[2019-09-29] MEDS: Mirtazapine 15 MG TABLET PO SCH (21:30)
[2019-09-30] MEDS: *HR* LORazepam 2 MG/ML VIAL IVP PRN (02:50)
[2019-09-30] MEDS ORDERED: *HR* Metoprolol 5 MG/5 ML VIAL IVP ONE (03:37)
[2019-09-30] MEDS: Levalbuterol Neb 0.63 MG/3 ML IH SCH ×4 (03:48→22:32)
[2019-09-30] MEDS: Meropenem 1,000 MG in 0.9 % Sodium Chloride Mini Bag 100 ML IVPB SCH ×3 (05:09→20:28)
[2019-09-30] MEDS: Albumin 25% 25gram/100mL 25 GM/100 ML IV.SOLN IVPB SCH ×2 (05:15→14:08)
[2019-09-30] MEDS: *HR* Heparin 5,000 UNIT/ML VIAL SQ SCH ×3 (05:18→22:58)
[2019-09-30 05:52] LABS: Basophils # 0.1 K/mcL (0.0-0.2); Basophils % 0.8 %; Eosinophils # 0.1 K/mcL (0.0-0.6); Eosinophils % 0.8 %; Hematocrit 24.3 % (37.5-50.1); Hemoglobin 7.8 g/dL (12.9-16.9); Lymphocytes # 1.4 K/mcL (0.6-4.6); Lymphocytes % 14.7 %; Mean Corpuscular HGB Conc 32.1 g/dL (31.6-35.5); Mean Corpuscular Hemoglobin 34.1 pg (28.0-33.3); Mean Corpuscular Volume 106.1 fL (83.0-100.0); Mean Platelet Volume 11.8 fL (9.4-12.4); Monocytes # 0.8 K/mcL (0.0-1.3); Monocytes % 8.1 %; Neutrophils # 7.2 K/mcL (1.6-8.9); Platelet Count 308 K/mcL (140-400); Red Blood Count 2.29 M/mcL (4.19-5.50); Red Cell Distribution Width 16.7 % (11.5-14.5); Segmented Neutrophils % 74.6 %; White Blood Count 9.6 K/mcL (4.3-11.1)
[2019-09-30 05:59] LABS: BUN/Creatinine Ratio 41 (6-26); Blood Urea Nitrogen 14 mg/dL (6-20); Calcium 8.6 mg/dL (8.6-10.3); Carbon Dioxide 25 mEq/L (23-29); Chloride 115 mEq/L (98-107); Glucose 86 mg/dL (70-105); Osmolality,Calculated 298 (280-300); Potassium 3.5 mEq/L (3.5-5.1); Sodium 144 mEq/L (136-145); eGFR For African Americans > 60 (> 60); eGFR For Non-African Americans > 60 (> 60)
[2019-09-30] MEDS: carBAMazepine 200 MG TABLET PO SCH (08:00)
[2019-09-30] MEDS: Metoprolol 100 MG TABLET PO SCH ×2 (08:00→20:28)
[2019-09-30] MEDS: Ferrous Sulfate Oral Soln 300 MG/5 ML UDC PO SCH (08:02)
[2019-09-30] MEDS: Cholecalciferol (D-3) 1,000 UNIT (25MCG) TABLET PO SCH (08:02)
[2019-09-30] MEDS: Aspirin 81 MG TAB.CHEW PO SCH (08:02)
[2019-09-30] MEDS: Lactulose Oral Soln 20 GM/30 ML UDC PO SCH ×3 (08:03→20:26)
[2019-09-30] MEDS: risperiDONE 1 MG TABLET PO SCH ×2 (08:03→20:28)
[2019-09-30] MEDS: Folic Acid 1 MG in 0.9 % Sodium Chloride 50 ML IVPB SCH (08:45)
[2019-09-30] MEDS: Thiamine (B-1) 200 MG in 0.9 % Sodium Chloride 50 ML IVPB SCH (08:57)
[2019-09-30] MEDS ORDERED: Ferrous Sulfate Oral Soln 300 MG/5 ML UDC PO SCH (09:00)
[2019-09-30] MEDS ORDERED: Isovue-370 500 ML BOTTLE IVP ONE (12:19)
[2019-09-30] MEDS: DilTIAZem CD (24hr) 180 MG CAP.ER.24H PO SCH (17:30)
[2019-09-30] MEDS ORDERED: *HR* Metoprolol 5 MG/5 ML VIAL IVP PRN (17:41)
[2019-09-30] MEDS: Mirtazapine 15 MG TABLET PO SCH (20:27)
[2019-09-30] MEDS ORDERED: GI Cocktail 40 ML EACH PO ONE (20:45)
[2019-09-30] MEDS ORDERED: Nicotine 2 MG GUM BC PRN (22:09)
[2019-09-30] MEDS: Nicotine 21 MG PATCH.TD24 TD SCH (22:58)
[2019-10-01] MEDS: Levalbuterol Neb 0.63 MG/3 ML IH SCH ×4 (04:06→21:39)
[2019-10-01] MEDS: Meropenem 1,000 MG in 0.9 % Sodium Chloride Mini Bag 100 ML IVPB SCH ×3 (04:24→21:56)
[2019-10-01 04:45] LABS: Basophils # 0.1 K/mcL (0.0-0.2); Basophils % 0.6 %; Eosinophils # 0.2 K/mcL (0.0-0.6); Eosinophils % 1.7 %; Hemoglobin 8.2 g/dL (12.9-16.9); Immature Granulocytes % 1.1 % (0-4); Lymphocytes # 1.5 K/mcL (0.6-4.6); Lymphocytes % 13.5 %; Mean Corpuscular HGB Conc 31.5 g/dL (31.6-35.5); Mean Corpuscular Hemoglobin 33.6 pg (28.0-33.3); Mean Corpuscular Volume 106.6 fL (83.0-100.0); Mean Platelet Volume 11.6 fL (9.4-12.4); Monocytes # 0.8 K/mcL (0.0-1.3); Monocytes % 7.6 %; Neutrophils # 8.4 K/mcL (1.6-8.9); Platelet Count 303 K/mcL (140-400); Red Blood Count 2.44 M/mcL (4.19-5.50); Red Cell Distribution Width 16.4 % (11.5-14.5); Segmented Neutrophils % 75.5 %; White Blood Count 11.1 K/mcL (4.3-11.1)
[2019-10-01 05:00] LABS: BUN/Creatinine Ratio 24 (6-26); Blood Urea Nitrogen 9 mg/dL (6-20); Calcium 8.6 mg/dL (8.6-10.3); Carbon Dioxide 22 mEq/L (23-29); Chloride 113 mEq/L (98-107); Glucose 148 mg/dL (70-105); Osmolality,Calculated 293 (280-300); Potassium 3.3 mEq/L (3.5-5.1); Sodium 141 mEq/L (136-145); eGFR For African Americans > 60 (> 60); eGFR For Non-African Americans > 60 (> 60)
[2019-10-01 05:02] LABS: Albumin 3.5 g/dL (3.5-5.7); Albumin/Globulin Ratio 2.1 (1.1-2.2); Bilirubin,Direct 0.6 mg/dL (0.0-0.2); Bilirubin,Indirect 0.8 mg/dL (0.0-1.0); Bilirubin,Total 1.4 mg/dL (0.3-1.0); Globulin 1.7 g/dL (2.4-3.5); Magnesium 1.5 mg/dL (1.6-2.6); Phosphorous 2.9 mg/dL (2.7-4.5); Total Protein 5.2 g/dL (6.4-8.9)
[2019-10-01] MEDS: *HR* Heparin 5,000 UNIT/ML VIAL SQ SCH ×3 (05:59→21:59)
[2019-10-01] MEDS: Metoprolol 100 MG TABLET PO SCH ×2 (08:06→21:55)
[2019-10-01] MEDS: Ferrous Sulfate Oral Soln 300 MG/5 ML UDC PO SCH (08:06)
[2019-10-01] MEDS: Aspirin 81 MG TAB.CHEW PO SCH (08:06)
[2019-10-01] MEDS: Cholecalciferol (D-3) 1,000 UNIT (25MCG) TABLET PO SCH (08:06)
[2019-10-01] MEDS: risperiDONE 1 MG TABLET PO SCH ×2 (08:06→21:55)
[2019-10-01] MEDS: Nicotine 21 MG PATCH.TD24 TD SCH (08:07)
[2019-10-01] MEDS: carBAMazepine 200 MG TABLET PO SCH (08:07)
[2019-10-01] MEDS: DilTIAZem CD (24hr) 180 MG CAP.ER.24H PO SCH (08:07)
[2019-10-01] MEDS: Lactulose Oral Soln 20 GM/30 ML UDC PO SCH ×3 (08:10→21:54)
[2019-10-01] MEDS: Folic Acid 1 MG in 0.9 % Sodium Chloride 50 ML IVPB SCH (09:45)
[2019-10-01] MEDS: Thiamine (B-1) 200 MG in 0.9 % Sodium Chloride 50 ML IVPB SCH (10:00)
[2019-10-01] MEDS ORDERED: Gadolinium Contrast Agent (WT Based) IV PRN (11:51)
[2019-10-01] MEDS: Potassium Chloride Elixir 20 MEQ/15 ML UDC PO SCH ×2 (14:24→17:25)
[2019-10-01] MEDS ORDERED: Isovue-370 500 ML BOTTLE IVP ONE (15:00)
[2019-10-01] MEDS ORDERED: *HR* LORazepam 2 MG/ML VIAL IVP ONE (17:12)
[2019-10-01] MEDS: Mirtazapine 15 MG TABLET PO SCH (21:55)
[2019-10-01] MEDS: *HR* LORazepam 2 MG/ML VIAL IVP PRN (21:56)
[2019-10-02 01:20] LABS: Folate > 22.3 ng/mL (3.0-16.0); Vitamin B12 850 pg/mL (250-1100)
[2019-10-02] MEDS: Levalbuterol Neb 0.63 MG/3 ML IH SCH ×4 (03:41→21:46)
[2019-10-02] MEDS: Meropenem 1,000 MG in 0.9 % Sodium Chloride Mini Bag 100 ML IVPB SCH ×3 (05:15→19:54)
[2019-10-02] MEDS: *HR* Heparin 5,000 UNIT/ML VIAL SQ SCH ×3 (05:15→22:32)
[2019-10-02 05:45] LABS: Basophils # 0.1 K/mcL (0.0-0.2); Basophils % 0.8 %; Eosinophils # 0.2 K/mcL (0.0-0.6); Eosinophils % 1.9 %; Hematocrit 23.2 % (37.5-50.1); Hemoglobin 7.4 g/dL (12.9-16.9); Immature Granulocytes % 0.5 % (0-4); Lymphocytes # 1.2 K/mcL (0.6-4.6); Lymphocytes % 15.9 %; Mean Corpuscular HGB Conc 31.9 g/dL (31.6-35.5); Mean Corpuscular Hemoglobin 33.8 pg (28.0-33.3); Mean Corpuscular Volume 105.9 fL (83.0-100.0); Mean Platelet Volume 11.8 fL (9.4-12.4); Monocytes # 0.7 K/mcL (0.0-1.3); Monocytes % 8.5 %; Neutrophils # 5.6 K/mcL (1.6-8.9); Platelet Count 258 K/mcL (140-400); Red Blood Count 2.19 M/mcL (4.19-5.50); Red Cell Distribution Width 16.2 % (11.5-14.5); Segmented Neutrophils % 72.4 %; White Blood Count 7.8 K/mcL (4.3-11.1)
[2019-10-02 05:58] LABS: Magnesium 1.7 mg/dL (1.6-2.6); Phosphorous 2.7 mg/dL (2.7-4.5)
[2019-10-02 05:59] LABS: BUN/Creatinine Ratio 26 (6-26); Blood Urea Nitrogen 9 mg/dL (6-20); Calcium 8.3 mg/dL (8.6-10.3); Carbon Dioxide 23 mEq/L (23-29); Chloride 111 mEq/L (98-107); Glucose 95 mg/dL (70-105); Osmolality,Calculated 288 (280-300); Potassium 3.4 mEq/L (3.5-5.1); Sodium 140 mEq/L (136-145); eGFR For African Americans > 60 (> 60); eGFR For Non-African Americans > 60 (> 60)
[2019-10-02] MEDS: risperiDONE 1 MG TABLET PO SCH ×2 (09:35→19:54)
[2019-10-02] MEDS: Metoprolol 100 MG TABLET PO SCH ×2 (09:35→19:53)
[2019-10-02] MEDS: Cholecalciferol (D-3) 1,000 UNIT (25MCG) TABLET PO SCH (09:35)
[2019-10-02] MEDS: carBAMazepine 200 MG TABLET PO SCH (09:35)
[2019-10-02] MEDS: DilTIAZem CD (24hr) 180 MG CAP.ER.24H PO SCH (09:35)
[2019-10-02] MEDS: Aspirin 81 MG TAB.CHEW PO SCH (09:35)
[2019-10-02] MEDS: Nicotine 21 MG PATCH.TD24 TD SCH (09:36)
[2019-10-02] MEDS: Lactulose Oral Soln 20 GM/30 ML UDC PO SCH ×3 (09:36→19:54)
[2019-10-02] MEDS: Ferrous Sulfate Oral Soln 300 MG/5 ML UDC PO SCH (09:36)
[2019-10-02] MEDS: Potassium Chloride Elixir 20 MEQ/15 ML UDC PO SCH ×2 (09:36→17:04)
[2019-10-02] MEDS: Thiamine (B-1) 200 MG in 0.9 % Sodium Chloride 50 ML IVPB SCH (09:56)
[2019-10-02] MEDS: Folic Acid 1 MG in 0.9 % Sodium Chloride 50 ML IVPB SCH (09:57)
[2019-10-02 10:25] LABS: Bilirubin,Urine Negative (Negative); Blood,Urine Negative (Negative); Clarity,Urine Cloudy (Clear); Color,Urine Dark Yellow (Yellow); Glucose,Urine (UA) Normal (Normal); Ketones,Urine Negative (Negative); Leukocyte Esterase,Urine Negative (Negative); Nitrite,Urine Negative (Negative); Protein,Urine 30 mg/dL (Neg-Trace); Specific Gravity,Urine > 1.030 (1.010-1.025); Urobilinogen,Urine Normal (Normal)
[2019-10-02 10:27] LABS: Bacteria,Urine None Seen per hpf (None-Few); Hyaline Casts,Urine Moderate per lpf (None-Few); Squamous Epithelial Cell,Urine Many per lpf (None-Few)
[2019-10-02] MEDS ORDERED: 0.9 % Sodium Chloride 1,000 ML IVC SCH (14:00)
[2019-10-02] MEDS: Mirtazapine 15 MG TABLET PO SCH (19:53)
[2019-10-02] MEDS: Melatonin 3 MG TABLET PO SCH (22:32)
[2019-10-03] MEDS: Levalbuterol Neb 0.63 MG/3 ML IH SCH ×4 (03:55→22:02)
[2019-10-03] MEDS: Potassium Chloride Elixir 20 MEQ/15 ML UDC PO SCH ×2 (06:29→16:00)
[2019-10-03] MEDS: Meropenem 1,000 MG in 0.9 % Sodium Chloride Mini Bag 100 ML IVPB SCH ×2 (06:29→11:39)
[2019-10-03 06:30] LABS: Basophils % 0.7 %; Eosinophils # 0.2 K/mcL (0.0-0.6); Eosinophils % 3.3 %; Hematocrit 24.3 % (37.5-50.1); Hemoglobin 7.6 g/dL (12.9-16.9); Immature Granulocytes % 0.7 % (0-4); Lymphocytes # 1.1 K/mcL (0.6-4.6); Lymphocytes % 17.7 %; Mean Corpuscular HGB Conc 31.3 g/dL (31.6-35.5); Mean Corpuscular Hemoglobin 32.6 pg (28.0-33.3); Mean Corpuscular Volume 104.3 fL (83.0-100.0); Mean Platelet Volume 11.5 fL (9.4-12.4); Monocytes # 0.5 K/mcL (0.0-1.3); Monocytes % 7.9 %; Neutrophils # 4.3 K/mcL (1.6-8.9); Platelet Count 268 K/mcL (140-400); Red Blood Count 2.33 M/mcL (4.19-5.50); Red Cell Distribution Width 15.7 % (11.5-14.5); Segmented Neutrophils % 69.7 %; White Blood Count 6.1 K/mcL (4.3-11.1)
[2019-10-03] MEDS: *HR* Heparin 5,000 UNIT/ML VIAL SQ SCH (06:35)
[2019-10-03 06:45] LABS: BUN/Creatinine Ratio 22 (6-26); Blood Urea Nitrogen 8 mg/dL (6-20); Calcium 8.3 mg/dL (8.6-10.3); Carbon Dioxide 22 mEq/L (23-29); Chloride 112 mEq/L (98-107); Glucose 89 mg/dL (70-105); Osmolality,Calculated 286 (280-300); Potassium 3.8 mEq/L (3.5-5.1); Sodium 139 mEq/L (136-145); eGFR For African Americans > 60 (> 60); eGFR For Non-African Americans > 60 (> 60)
[2019-10-03] MEDS: carBAMazepine 200 MG TABLET PO SCH (08:32)
[2019-10-03] MEDS: Aspirin 81 MG TAB.CHEW PO SCH (08:32)
[2019-10-03] MEDS: Lactulose Oral Soln 20 GM/30 ML UDC PO SCH ×3 (08:32→21:47)
[2019-10-03] MEDS: Nicotine 21 MG PATCH.TD24 TD SCH (08:32)
[2019-10-03] MEDS: Metoprolol 100 MG TABLET PO SCH ×2 (08:32→21:47)
[2019-10-03] MEDS: risperiDONE 1 MG TABLET PO SCH ×2 (08:32→21:47)
[2019-10-03] MEDS: Cholecalciferol (D-3) 1,000 UNIT (25MCG) TABLET PO SCH (08:32)
[2019-10-03] MEDS: Folic Acid 1 MG in 0.9 % Sodium Chloride 50 ML IVPB SCH (08:33)
[2019-10-03] MEDS: Thiamine (B-1) 200 MG in 0.9 % Sodium Chloride 50 ML IVPB SCH (08:33)
[2019-10-03] MEDS: Ferrous Sulfate Oral Soln 300 MG/5 ML UDC PO SCH (08:33)
[2019-10-03] MEDS: DilTIAZem CD (24hr) 180 MG CAP.ER.24H PO SCH (10:06)
[2019-10-03] MEDS ORDERED: *HR* Heparin 5,000 UNIT/ML VIAL IVP ONE (14:26)
[2019-10-03] MEDS ORDERED: *HR* Heparin 5,000 UNIT/ML VIAL IVP PRN (14:26)
[2019-10-03 15:01] LABS: Hematocrit 25.4 % (37.5-50.1); Hemoglobin 7.9 g/dL (12.9-16.9); Mean Corpuscular HGB Conc 31.1 g/dL (31.6-35.5); Mean Corpuscular Hemoglobin 32.8 pg (28.0-33.3); Mean Corpuscular Volume 105.4 fL (83.0-100.0); Mean Platelet Volume 11.4 fL (9.4-12.4); Platelet Count 288 K/mcL (140-400); Red Blood Count 2.41 M/mcL (4.19-5.50); Red Cell Distribution Width 15.5 % (11.5-14.5); White Blood Count 6.2 K/mcL (4.3-11.1)
[2019-10-03 15:17] LABS: Heparin anti-factor XA UFH < 0.04 IU/mL (0.30-0.70)
[2019-10-03 15:18] LABS: INR 1.3; Prothrombin Time 14.8 Seconds (9.4-12.1)
[2019-10-03] MEDS: Heparin 25,000 UNIT/250 ML D5W 25,000 UNIT/250 ML IV.SOLN IVC SCH (16:01)
[2019-10-03] MEDS: Melatonin 3 MG TABLET PO SCH (21:46)
[2019-10-03] MEDS: Mirtazapine 15 MG TABLET PO SCH (21:47)
[2019-10-04] MEDS: *HR* Heparin 5,000 UNIT/ML VIAL IVP PRN ×2 (00:03→08:14)
[2019-10-04] MEDS: Levalbuterol Neb 0.63 MG/3 ML IH SCH ×4 (03:35→22:13)
[2019-10-04] MEDS: Ondansetron 4 MG/2 ML VIAL IVP PRN (04:45)
[2019-10-04 05:24] LABS: Basophils % 0.5 %; Eosinophils # 0.3 K/mcL (0.0-0.6); Eosinophils % 5.4 %; Hematocrit 24.3 % (37.5-50.1); Hemoglobin 7.7 g/dL (12.9-16.9); Immature Granulocytes % 1.2 % (0-4); Lymphocytes # 1.2 K/mcL (0.6-4.6); Mean Corpuscular HGB Conc 31.7 g/dL (31.6-35.5); Mean Corpuscular Hemoglobin 32.6 pg (28.0-33.3); Mean Platelet Volume 11.7 fL (9.4-12.4); Monocytes # 0.6 K/mcL (0.0-1.3); Monocytes % 9.6 %; Neutrophils # 3.8 K/mcL (1.6-8.9); Platelet Count 286 K/mcL (140-400); Red Blood Count 2.36 M/mcL (4.19-5.50); Red Cell Distribution Width 15.5 % (11.5-14.5); Segmented Neutrophils % 63.3 %; White Blood Count 5.9 K/mcL (4.3-11.1)
[2019-10-04 05:39] LABS: BUN/Creatinine Ratio 15 (6-26); Blood Urea Nitrogen 5 mg/dL (6-20); Calcium 8.2 mg/dL (8.6-10.3); Carbon Dioxide 22 mEq/L (23-29); Chloride 110 mEq/L (98-107); Glucose 90 mg/dL (70-105); Osmolality,Calculated 279 (280-300); Potassium 3.9 mEq/L (3.5-5.1); Sodium 136 mEq/L (136-145); eGFR For African Americans > 60 (> 60); eGFR For Non-African Americans > 60 (> 60)
[2019-10-04] MEDS: Aspirin 81 MG TAB.CHEW PO SCH (08:04)
[2019-10-04] MEDS: Lactulose Oral Soln 20 GM/30 ML UDC PO SCH ×3 (08:04→21:49)
[2019-10-04] MEDS: Thiamine (B-1) 100 MG TABLET PO SCH (08:04)
[2019-10-04] MEDS: Folic Acid 1 MG TABLET PO SCH (08:04)
[2019-10-04] MEDS: DilTIAZem CD (24hr) 180 MG CAP.ER.24H PO SCH (08:04)
[2019-10-04] MEDS: risperiDONE 1 MG TABLET PO SCH ×2 (08:04→21:49)
[2019-10-04] MEDS: Cholecalciferol (D-3) 1,000 UNIT (25MCG) TABLET PO SCH (08:05)
[2019-10-04] MEDS: Nicotine 21 MG PATCH.TD24 TD SCH (08:05)
[2019-10-04] MEDS: Metoprolol 100 MG TABLET PO SCH ×2 (08:05→21:49)
[2019-10-04] MEDS: carBAMazepine 200 MG TABLET PO SCH (08:05)
[2019-10-04] MEDS: Ferrous Sulfate Oral Soln 300 MG/5 ML UDC PO SCH (08:06)
[2019-10-04] MEDS: Potassium Chloride Elixir 20 MEQ/15 ML UDC PO SCH ×2 (08:06→16:22)
[2019-10-04] MEDS: Heparin 25,000 UNIT/250 ML D5W 25,000 UNIT/250 ML IV.SOLN IVC SCH ×2 (08:11→19:05)
[2019-10-04 10:53] LABS: Albumin 2.6 g/dL (3.5-5.7); Albumin/Globulin Ratio 1.5 (1.1-2.2); Bilirubin,Direct 0.4 mg/dL (0.0-0.2); Bilirubin,Indirect 0.4 mg/dL (0.0-1.0); Bilirubin,Total 0.8 mg/dL (0.3-1.0); Globulin 1.7 g/dL (2.4-3.5); INR 1.5; Prothrombin Time 17.2 Seconds (9.4-12.1); Total Protein 4.3 g/dL (6.4-8.9)
[2019-10-04] MEDS: Meropenem 1,000 MG in 0.9 % Sodium Chloride Mini Bag 100 ML IVPB SCH (17:31)
[2019-10-04] MEDS: Melatonin 3 MG TABLET PO SCH (21:49)
[2019-10-04] MEDS: Mirtazapine 15 MG TABLET PO SCH (21:49)
[2019-10-04 23:05] LABS: Heparin anti-factor XA UFH 0.13 IU/mL (0.30-0.70)
[2019-10-05] MEDS: Meropenem 1,000 MG in 0.9 % Sodium Chloride Mini Bag 100 ML IVPB SCH ×3 (01:20→16:13)
[2019-10-05] MEDS: *HR* Heparin 5,000 UNIT/ML VIAL IVP PRN (01:33)
[2019-10-05] MEDS: Levalbuterol Neb 0.63 MG/3 ML IH SCH ×4 (03:20→22:25)
[2019-10-05 03:33] LABS: Basophils % 0.6 %; Eosinophils # 0.4 K/mcL (0.0-0.6); Eosinophils % 6.3 %; Hematocrit 24.1 % (37.5-50.1); Hemoglobin 7.6 g/dL (12.9-16.9); Immature Granulocytes % 1.6 % (0-4); Lymphocytes # 1.4 K/mcL (0.6-4.6); Lymphocytes % 22.7 %; Mean Corpuscular HGB Conc 31.5 g/dL (31.6-35.5); Mean Corpuscular Hemoglobin 32.1 pg (28.0-33.3); Mean Corpuscular Volume 101.7 fL (83.0-100.0); Mean Platelet Volume 11.2 fL (9.4-12.4); Monocytes # 0.6 K/mcL (0.0-1.3); Monocytes % 10.4 %; Neutrophils # 3.6 K/mcL (1.6-8.9); Platelet Count 305 K/mcL (140-400); Red Blood Count 2.37 M/mcL (4.19-5.50); Red Cell Distribution Width 15.5 % (11.5-14.5); Segmented Neutrophils % 58.4 %; White Blood Count 6.2 K/mcL (4.3-11.1)
[2019-10-05 03:47] LABS: Reticulocyte % 4.4 % (1.6-2.8)
[2019-10-05 04:11] LABS: Lactate Dehydrogenase 183 Units/L (140-271)
[2019-10-05 04:17] LABS: BUN/Creatinine Ratio 9 (6-26); Blood Urea Nitrogen 3 mg/dL (6-20); Calcium 8.3 mg/dL (8.6-10.3); Carbon Dioxide 23 mEq/L (23-29); Chloride 110 mEq/L (98-107); Glucose 87 mg/dL (70-105); Osmolality,Calculated 280 (280-300); Potassium 3.7 mEq/L (3.5-5.1); Sodium 137 mEq/L (136-145); eGFR For African Americans > 60 (> 60); eGFR For Non-African Americans > 60 (> 60)
[2019-10-05 04:23] LABS: Iron 20 mcg/dL (65-175); Transferrin < 75 mg/dL (203-362)
[2019-10-05] MEDS: Lactulose Oral Soln 20 GM/30 ML UDC PO SCH ×3 (07:52→20:53)
[2019-10-05] MEDS: Potassium Chloride Elixir 20 MEQ/15 ML UDC PO SCH ×2 (07:53→16:09)
[2019-10-05] MEDS: Thiamine (B-1) 100 MG TABLET PO SCH (07:57)
[2019-10-05] MEDS: risperiDONE 1 MG TABLET PO SCH ×2 (07:57→20:54)
[2019-10-05] MEDS: Metoprolol 100 MG TABLET PO SCH ×2 (07:57→20:54)
[2019-10-05] MEDS: Aspirin 81 MG TAB.CHEW PO SCH (07:57)
[2019-10-05] MEDS: carBAMazepine 200 MG TABLET PO SCH (07:58)
[2019-10-05] MEDS: Folic Acid 1 MG TABLET PO SCH (07:58)
[2019-10-05] MEDS: Cholecalciferol (D-3) 1,000 UNIT (25MCG) TABLET PO SCH (07:58)
[2019-10-05] MEDS: Nicotine 21 MG PATCH.TD24 TD SCH (07:58)
[2019-10-05] MEDS: Ferrous Sulfate Oral Soln 300 MG/5 ML UDC PO SCH (07:58)
[2019-10-05] MEDS: DilTIAZem CD (24hr) 180 MG CAP.ER.24H PO SCH (07:58)
[2019-10-05] MEDS: Heparin 25,000 UNIT/250 ML D5W 25,000 UNIT/250 ML IV.SOLN IVC SCH ×2 (08:16→20:56)
[2019-10-05 08:32] LABS: Ferritin 882 ng/mL (20-250)
[2019-10-05] MEDS ORDERED: *HR* Propofol 200 MG/20 ML VIAL IVP ONE ×2 (13:08)
[2019-10-05] MEDS ORDERED: *HR* Midazolam HCl 2 MG/2 ML VIAL ONE (13:10)
[2019-10-05] MEDS: Melatonin 3 MG TABLET PO SCH (20:53)
[2019-10-05] MEDS: Mirtazapine 15 MG TABLET PO SCH (20:53)
[2019-10-05] MEDS: Ondansetron 4 MG/2 ML VIAL IVP PRN (21:27)
[2019-10-06] MEDS: Meropenem 1,000 MG in 0.9 % Sodium Chloride Mini Bag 100 ML IVPB SCH ×2 (00:42→08:08)
[2019-10-06] MEDS: Levalbuterol Neb 0.63 MG/3 ML IH SCH ×4 (03:16→22:21)
[2019-10-06 04:38] LABS: Basophils # 0.1 K/mcL (0.0-0.2); Basophils % 1.1 %; Eosinophils # 0.5 K/mcL (0.0-0.6); Eosinophils % 7.9 %; Hematocrit 23.1 % (37.5-50.1); Hemoglobin 7.4 g/dL (12.9-16.9); Immature Granulocytes % 1.1 % (0-4); Lymphocytes # 1.3 K/mcL (0.6-4.6); Lymphocytes % 20.3 %; Mean Corpuscular Hemoglobin 33.5 pg (28.0-33.3); Mean Corpuscular Volume 104.5 fL (83.0-100.0); Mean Platelet Volume 10.9 fL (9.4-12.4); Monocytes # 0.7 K/mcL (0.0-1.3); Monocytes % 10.6 %; Neutrophils # 3.9 K/mcL (1.6-8.9); Platelet Count 315 K/mcL (140-400); Red Blood Count 2.21 M/mcL (4.19-5.50); Red Cell Distribution Width 15.8 % (11.5-14.5); White Blood Count 6.6 K/mcL (4.3-11.1)
[2019-10-06 04:56] LABS: BUN/Creatinine Ratio 8 (6-26); Blood Urea Nitrogen 3 mg/dL (6-20); Calcium 8.1 mg/dL (8.6-10.3); Carbon Dioxide 23 mEq/L (23-29); Chloride 109 mEq/L (98-107); Glucose 96 mg/dL (70-105); Osmolality,Calculated 280 (280-300); Potassium 3.8 mEq/L (3.5-5.1); Sodium 137 mEq/L (136-145); eGFR For African Americans > 60 (> 60); eGFR For Non-African Americans > 60 (> 60)
[2019-10-06] MEDS: Heparin 25,000 UNIT/250 ML D5W 25,000 UNIT/250 ML IV.SOLN IVC SCH ×2 (06:05→15:50)
[2019-10-06] MEDS ORDERED: Aminoglycoside Consult 1 EACH MC ONE (07:49)
[2019-10-06] MEDS: Ferrous Sulfate Oral Soln 300 MG/5 ML UDC PO SCH (08:05)
[2019-10-06] MEDS: Thiamine (B-1) 100 MG TABLET PO SCH (08:07)
[2019-10-06] MEDS: DilTIAZem CD (24hr) 180 MG CAP.ER.24H PO SCH (08:08)
[2019-10-06] MEDS: Metoprolol 100 MG TABLET PO SCH ×2 (08:08→20:25)
[2019-10-06] MEDS: risperiDONE 1 MG TABLET PO SCH ×2 (08:08→20:25)
[2019-10-06] MEDS: Folic Acid 1 MG TABLET PO SCH (08:08)
[2019-10-06] MEDS: Lactulose Oral Soln 20 GM/30 ML UDC PO SCH ×2 (08:08→15:09)
[2019-10-06] MEDS: Aspirin 81 MG TAB.CHEW PO SCH (08:08)
[2019-10-06] MEDS: carBAMazepine 200 MG TABLET PO SCH (08:08)
[2019-10-06] MEDS: Cholecalciferol (D-3) 1,000 UNIT (25MCG) TABLET PO SCH (08:08)
[2019-10-06] MEDS: Nicotine 21 MG PATCH.TD24 TD SCH (08:12)
[2019-10-06] MEDS: Potassium Chloride Elixir 20 MEQ/15 ML UDC PO SCH ×2 (08:17→20:26)
[2019-10-06] MEDS: Melatonin 3 MG TABLET PO SCH (20:25)
[2019-10-06] MEDS: Mirtazapine 15 MG TABLET PO SCH (20:25)
[2019-10-07] MEDS: Heparin 25,000 UNIT/250 ML D5W 25,000 UNIT/250 ML IV.SOLN IVC SCH ×3 (00:26→19:25)
[2019-10-07 00:36] LABS: Hematocrit 24.5 % (37.5-50.1); Hemoglobin 7.7 g/dL (12.9-16.9); Mean Corpuscular HGB Conc 31.4 g/dL (31.6-35.5); Mean Corpuscular Hemoglobin 32.5 pg (28.0-33.3); Mean Corpuscular Volume 103.4 fL (83.0-100.0); Mean Platelet Volume 10.6 fL (9.4-12.4); Platelet Count 334 K/mcL (140-400); Red Blood Count 2.37 M/mcL (4.19-5.50); Red Cell Distribution Width 15.7 % (11.5-14.5); White Blood Count 6.8 K/mcL (4.3-11.1)
[2019-10-07 00:55] LABS: BUN/Creatinine Ratio 9 (6-26); Blood Urea Nitrogen 3 mg/dL (6-20); Calcium 8.3 mg/dL (8.6-10.3); Carbon Dioxide 24 mEq/L (23-29); Chloride 110 mEq/L (98-107); Glucose 83 mg/dL (70-105); Magnesium 1.4 mg/dL (1.6-2.6); Osmolality,Calculated 282 (280-300); Sodium 138 mEq/L (136-145); eGFR For African Americans > 60 (> 60); eGFR For Non-African Americans > 60 (> 60)
[2019-10-07] MEDS: Levalbuterol Neb 0.63 MG/3 ML IH SCH (03:46)
[2019-10-07] MEDS: carBAMazepine 200 MG TABLET PO SCH (07:50)
[2019-10-07] MEDS: Cholecalciferol (D-3) 1,000 UNIT (25MCG) TABLET PO SCH (07:50)
[2019-10-07] MEDS: Metoprolol 100 MG TABLET PO SCH ×2 (07:50→20:11)
[2019-10-07] MEDS: risperiDONE 1 MG TABLET PO SCH ×2 (07:50→20:11)
[2019-10-07] MEDS: DilTIAZem CD (24hr) 180 MG CAP.ER.24H PO SCH (07:50)
[2019-10-07] MEDS: Thiamine (B-1) 100 MG TABLET PO SCH (07:50)
[2019-10-07] MEDS: Aspirin 81 MG TAB.CHEW PO SCH (07:50)
[2019-10-07] MEDS: Potassium Chloride Elixir 20 MEQ/15 ML UDC PO SCH ×2 (07:51→16:33)
[2019-10-07] MEDS: Nicotine 21 MG PATCH.TD24 TD SCH (07:51)
[2019-10-07] MEDS: Ferrous Sulfate Oral Soln 300 MG/5 ML UDC PO SCH (07:51)
[2019-10-07] MEDS ORDERED: Levalbuterol Neb 0.63 MG/3 ML IH PRN (09:55)
[2019-10-07 14:59] LABS: FACV Specimen WHOLE BLOOD
[2019-10-07] MEDS: Lactulose Oral Soln 20 GM/30 ML UDC PO SCH (16:33)
[2019-10-07 19:15] LABS: APTT (LE Anticoag) >150 sec (32-48); Diluted Russell Viper Venom 28 sec (33-44); LE APTT D Heparin Neutralized 56 sec (32-48); LE Coag APTT Mixing 46 sec (32-48); LE Coag Reptilase Time 14.8 sec (<=21.9); PT (LE-Anticoag) 17.9 sec (12.0-15.5); Thrombin Time >150.0 sec (14.7-19.5)
[2019-10-07 19:46] LABS: Prothrombin G20210A Specimen WHOLE BLOOD
[2019-10-07] MEDS: Mirtazapine 15 MG TABLET PO SCH (20:12)
[2019-10-07] MEDS: Melatonin 3 MG TABLET PO SCH (20:12)
[2019-10-08] MEDS: Heparin 25,000 UNIT/250 ML D5W 25,000 UNIT/250 ML IV.SOLN IVC SCH ×2 (04:38→15:04)
[2019-10-08 05:13] LABS: Hematocrit 25.9 % (37.5-50.1); Mean Corpuscular HGB Conc 30.9 g/dL (31.6-35.5); Mean Corpuscular Hemoglobin 32.1 pg (28.0-33.3); Mean Platelet Volume 10.5 fL (9.4-12.4); Platelet Count 393 K/mcL (140-400); Red Blood Count 2.49 M/mcL (4.19-5.50); Red Cell Distribution Width 15.8 % (11.5-14.5); White Blood Count 6.5 K/mcL (4.3-11.1)
[2019-10-08 08:04] LABS: Alpha 2 Globulin (PEP) 0.57 g/dL (0.48-1.05); Beta Globulin (PEP) 0.46 g/dL (0.48-1.10)
[2019-10-08] MEDS: Ferrous Sulfate Oral Soln 300 MG/5 ML UDC PO SCH (10:41)
[2019-10-08] MEDS: Metoprolol 100 MG TABLET PO SCH (10:42)
[2019-10-08] MEDS: Nicotine 21 MG PATCH.TD24 TD SCH (10:42)
[2019-10-08] MEDS: Thiamine (B-1) 100 MG TABLET PO SCH (10:42)
[2019-10-08] MEDS: risperiDONE 1 MG TABLET PO SCH (10:42)
[2019-10-08] MEDS: carBAMazepine 200 MG TABLET PO SCH (10:43)
[2019-10-08] MEDS: Aspirin 81 MG TAB.CHEW PO SCH (10:43)
[2019-10-08] MEDS: DilTIAZem CD (24hr) 180 MG CAP.ER.24H PO SCH (10:43)
[2019-10-08] MEDS: Cholecalciferol (D-3) 1,000 UNIT (25MCG) TABLET PO SCH (10:43)
[2019-10-08] MEDS: Potassium Chloride Elixir 20 MEQ/15 ML UDC PO SCH ×2 (10:57→17:15)
[2019-10-08 15:04] LABS: Fac V Leiden R506Q Mut Result NEGATIVE; Immunoglobulin A 86 mg/dL (68-408); Immunoglobulin G 387 mg/dL (768-1632); Immunoglobulin M 28 mg/dL (35-263)
[2019-10-08] MEDS: Lactulose Oral Soln 20 GM/30 ML UDC PO SCH (15:06)
[2019-10-08 15:16] LABS: Immunoglobulin G 402 mg/dL (768-1632)
[2019-10-08 15:17] LABS: IFE Reflexed IFE Done; Immunoglobulin A 88 mg/dL (68-408); Immunoglobulin M 20 mg/dL (35-263)
[2019-10-08] MEDS ORDERED: *HR* Rivaroxaban 15 MG TABLET PO ONE (16:05)
[2019-10-08 18:59] VITALS: BP 122/80
== END 2019-10-08 20:00 | DRG 775 ==
LOC: 3BNU 15:52 → EMEROOARM 15:52 → SUATTDRO 19:16 → 3BNU 20:12 → SUATTDRO 09-15 10:15 → 2NNU 09-16 10:23 → ICNU 09-17 05:07 → 2NNU 09-29 14:25 → 3ANU 10-07 21:54
PROVIDERS: ADMIT Pharmacist; ATTEND Internal Medicine

== ENCOUNTER 2019-12-08 16:50 | Inpatient (IN) ==
[2019-12-08] MEDS: DilTIAZem 125 MG in D5% in Water 100 ML IVC SCH (19:34)
[2019-12-08] MEDS: 0.9 % Sodium Chloride 1,000 ML IVC SCH ×3 (19:34→22:51)
[2019-12-08 19:39] LABS: Hematocrit 45.4 % (37.5-50.1); Hemoglobin 15.4 g/dL (12.9-16.9); Immature Platelets 14.6 % (1.1-6.1); Mean Corpuscular HGB Conc 33.9 g/dL (31.6-35.5); Mean Corpuscular Hemoglobin 28.7 pg (28.0-33.3); Mean Corpuscular Volume 84.7 fL (83.0-100.0); Red Blood Count 5.36 M/mcL (4.19-5.50); Segmented Neutrophils % 74.7 %; White Blood Count 6.7 K/mcL (4.3-11.1)
[2019-12-08 19:40] LABS: Basophils # 0.1 K/mcL (0.0-0.2); Eosinophils % 0.6 %; Immature Granulocytes % 0.4 % (0-4); Lymphocytes # 1.2 K/mcL (0.6-4.6); Lymphocytes % 17.8 %; Monocytes # 0.4 K/mcL (0.0-1.3); Monocytes % 5.5 %
[2019-12-08 19:43] LABS: INR 0.9; Prothrombin Time 10.4 Seconds (9.4-12.1)
[2019-12-08 20:00] LABS: Alanine Aminotransferase 198 Units/L (7-52); Albumin 4.2 g/dL (3.5-5.7); Albumin/Globulin Ratio 1.8 (1.1-2.2); Alkaline Phosphatase 164 Units/L (34-104); Aspartate Amino Transferase 435 Units/L (13-39); BUN/Creatinine Ratio 14 (6-26); Bilirubin,Direct 0.9 mg/dL (0.0-0.2); Bilirubin,Indirect 0.8 mg/dL (0.0-1.0); Bilirubin,Total 1.7 mg/dL (0.3-1.0); Blood Urea Nitrogen 7 mg/dL (6-20); Calcium 8.9 mg/dL (8.6-10.3); Carbon Dioxide 22 mEq/L (23-29); Chloride 98 mEq/L (98-107); Ethanol 438 mg/dL (Less than 10); Globulin 2.4 g/dL (2.4-3.5); Glucose 85 mg/dL (70-105); Osmolality,Calculated 283 (280-300); Potassium 3.4 mEq/L (3.5-5.1); Sodium 138 mEq/L (136-145); Total Protein 6.6 g/dL (6.4-8.9); Troponin I < 0.03 ng/mL (< 0.04); eGFR For African Americans > 60 (> 60); eGFR For Non-African Americans > 60 (> 60)
[2019-12-08 20:06] LABS: Platelet Count 60 K/mcL (140-400); Platelet Estimate Decreased (Normal)
[2019-12-08 20:29] LABS: Bilirubin,Urine Moderate (Negative); Blood,Urine Negative (Negative); Clarity,Urine Cloudy (Clear); Color,Urine Dark Yellow (Yellow); Glucose,Urine (UA) Normal (Normal); Ketones,Urine 40 mg/dL (Negative); Leukocyte Esterase,Urine Negative (Negative); Nitrite,Urine Negative (Negative); Protein,Urine 100 mg/dL (Neg-Trace); Specific Gravity,Urine 1.022 (1.010-1.025)
[2019-12-08 20:31] LABS: Bacteria,Urine None Seen per hpf (None-Few); Hyaline Casts,Urine None Seen per lpf (None-Few); RBC,Urine 0-3 per hpf (0-3); Squamous Epithelial Cell,Urine Many per lpf (None-Few); WBC,Urine 0-3 per hpf (0-3)
[2019-12-08 20:39] LABS: Amphetamine Screen,Urine Negative ng/mL (Cutoff=1000); Barbiturate Screen,Urine Negative ng/mL (Cutoff=200); Benzodiazepines Screen,Urine Negative ng/mL (Cutoff=200); Cannabinoid Screen,Urine Negative ng/mL (Cutoff = 50); Cocaine Screen,Urine Negative ng/mL (Cutoff= 300); Opiate Screen,Urine Negative ng/mL (Cutoff=300); Phencyclidine Screen,Urine Negative ng/mL (Cutoff=25)
[2019-12-09] MEDS ORDERED: Nicotine 21 MG PATCH.TD24 TD SCH (00:45)
[2019-12-09] MEDS ORDERED: Naloxone 0.4 MG/ML INJ IVP PRN ×2 (01:11→01:12)
[2019-12-09] MEDS ORDERED: *HR* LORazepam 2 MG/ML VIAL IVP PRN ×2 (01:13)
[2019-12-09] MEDS ORDERED: Levalbuterol Neb 0.63 MG/3 ML IH PRN (01:14)
[2019-12-09] MEDS ORDERED: Nicotine 21 MG PATCH.TD24 TD ONE (01:30)
[2019-12-09 02:00] LABS: Mean Corpuscular Volume 88.4 fL (83.0-100.0)
[2019-12-09 02:01] LABS: Hematocrit 41.9 % (37.5-50.1); Hemoglobin 13.7 g/dL (12.9-16.9); Immature Platelets 11.1 % (1.1-6.1); Mean Corpuscular HGB Conc 32.7 g/dL (31.6-35.5); Mean Corpuscular Hemoglobin 28.9 pg (28.0-33.3); Mean Platelet Volume 12.6 fL (9.4-12.4); Red Blood Count 4.74 M/mcL (4.19-5.50); Red Cell Distribution Width 13.1 % (11.5-14.5); White Blood Count 4.7 K/mcL (4.3-11.1)
[2019-12-09 02:25] LABS: BUN/Creatinine Ratio 15 (6-26); Blood Urea Nitrogen 6 mg/dL (6-20); Calcium 7.5 mg/dL (8.6-10.3); Carbon Dioxide 17 mEq/L (23-29); Chloride 100 mEq/L (98-107); Gamma Glutamyl Transpeptidase 434 Units/L (7-64); Glucose 64 mg/dL (70-105); Magnesium 1.3 mg/dL (1.6-2.6); Osmolality,Calculated 280 (280-300); Potassium 3.2 mEq/L (3.5-5.1); Sodium 137 mEq/L (136-145); eGFR For African Americans > 60 (> 60); eGFR For Non-African Americans > 60 (> 60)
[2019-12-09] MEDS: DilTIAZem 125 MG in D5% in Water 100 ML IVC SCH (03:57)
[2019-12-09] MEDS: Thiamine (B-1) 100 MG, Folic Acid 1 MG, MVI, adult with vitamin K 10 ML in 0.9 % Sodi... IVPB SCH (04:05)
[2019-12-09] MEDS: Folic Acid 1 MG TABLET PO SCH (07:58)
[2019-12-09] MEDS: Cholecalciferol (D-3) 1,000 UNIT (25MCG) TABLET PO SCH (07:58)
[2019-12-09] MEDS: risperiDONE 1 MG TABLET PO SCH ×2 (07:59→21:33)
[2019-12-09] MEDS: Metoprolol 100 MG TABLET PO SCH ×2 (07:59→21:31)
[2019-12-09] MEDS: Nicotine 21 MG PATCH.TD24 TD SCH (08:00)
[2019-12-09] MEDS ORDERED: DilTIAZem CD (24hr) 180 MG CAP.ER.24H PO SCH (09:00)
[2019-12-09] MEDS ORDERED: Thiamine (B-1) 100 MG TABLET PO SCH (09:00)
[2019-12-09] MEDS ORDERED: Vitamin B Complex/Vit C/Vit E 1 EACH TABLET PO SCH (09:00)
[2019-12-09] MEDS ORDERED: Calcium Gluconate 1gm/50mL 1 GM/50 ML BAG IVPB ONE (10:32)
[2019-12-09] MEDS: D5% in 0.45% NACL 1,000 ML IVC SCH ×2 (10:58→17:07)
[2019-12-09] MEDS: Lactulose Oral Soln 20 GM/30 ML UDC PO SCH (15:23)
[2019-12-09] MEDS ORDERED: *HR* Rivaroxaban 10 MG TABLET PO SCH (17:00)
[2019-12-09] MEDS: Acetaminophen 325 MG TABLET PO PRN (19:38)
[2019-12-09] MEDS: 0.9 % Sodium Chloride 1,000 ML IVC SCH ×7 (21:21→21:27)
[2019-12-09] MEDS: Mirtazapine 15 MG TABLET PO SCH (21:30)
[2019-12-09] MEDS: Melatonin 3 MG TABLET PO SCH (21:33)
[2019-12-10] MEDS: 0.9 % Sodium Chloride 1,000 ML IVC SCH ×6 (00:01→00:06)
[2019-12-10 02:35] LABS: Hematocrit 33.8 % (37.5-50.1); Mean Corpuscular Hemoglobin 29.2 pg (28.0-33.3); Mean Corpuscular Volume 85.8 fL (83.0-100.0); Mean Platelet Volume 14.1 fL (9.4-12.4); Red Blood Count 3.94 M/mcL (4.19-5.50); Red Cell Distribution Width 13.1 % (11.5-14.5); White Blood Count 3.7 K/mcL (4.3-11.1)
[2019-12-10 02:39] LABS: Hemoglobin 11.5 g/dL (12.9-16.9); Platelet Count 41 K/mcL (140-400)
[2019-12-10 02:40] LABS: Alanine Aminotransferase 115 Units/L (7-52); Albumin 3.2 g/dL (3.5-5.7); Albumin/Globulin Ratio 1.7 (1.1-2.2); Alkaline Phosphatase 111 Units/L (34-104); Aspartate Amino Transferase 169 Units/L (13-39); BUN/Creatinine Ratio 13 (6-26); Blood Urea Nitrogen 6 mg/dL (6-20); Calcium 8.5 mg/dL (8.6-10.3); Carbon Dioxide 23 mEq/L (23-29); Chloride 99 mEq/L (98-107); Globulin 1.9 g/dL (2.4-3.5); Glucose 159 mg/dL (70-105); Magnesium 1.5 mg/dL (1.6-2.6); Osmolality,Calculated 273 (280-300); Sodium 131 mEq/L (136-145); Total Protein 5.1 g/dL (6.4-8.9); eGFR For African Americans > 60 (> 60); eGFR For Non-African Americans > 60 (> 60)
[2019-12-10] MEDS: D5% in 0.45% NACL 1,000 ML IVC SCH ×3 (03:08→16:58)
[2019-12-10] MEDS: Acetaminophen 325 MG TABLET PO PRN ×3 (03:29→21:57)
[2019-12-10] MEDS ORDERED: Potassium Chloride 40 MEQ, Lidocaine 1% 2 ML in 0.9 % Sodium Chloride 500 ML IVPB ONE (03:30)
[2019-12-10] MEDS ORDERED: Calcium Gluconate 1gm/50mL 1 GM/50 ML BAG IVPB ONE (08:11)
[2019-12-10] MEDS: Folic Acid 1 MG TABLET PO SCH (09:51)
[2019-12-10] MEDS: risperiDONE 1 MG TABLET PO SCH ×2 (09:51→20:41)
[2019-12-10] MEDS: Metoprolol 100 MG TABLET PO SCH ×2 (09:51→20:40)
[2019-12-10] MEDS: Cholecalciferol (D-3) 1,000 UNIT (25MCG) TABLET PO SCH (09:51)
[2019-12-10] MEDS: DilTIAZem CD (24hr) 180 MG CAP.ER.24H PO SCH (09:51)
[2019-12-10] MEDS: Nicotine 21 MG PATCH.TD24 TD SCH (09:52)
[2019-12-10] MEDS: Lactulose Oral Soln 20 GM/30 ML UDC PO SCH (15:07)
[2019-12-10] MEDS: Thiamine (B-1) 100 MG, Folic Acid 1 MG, MVI, adult with vitamin K 10 ML in 0.9 % Sodi... IVPB SCH (16:57)
[2019-12-10] MEDS: Mirtazapine 15 MG TABLET PO SCH (20:39)
[2019-12-10] MEDS: Melatonin 3 MG TABLET PO SCH (20:40)
[2019-12-11] MEDS: D5% in 0.45% NACL 1,000 ML IVC SCH (02:27)
[2019-12-11 03:10] LABS: Red Cell Distribution Width 13.3 % (11.5-14.5)
[2019-12-11 03:12] LABS: Hematocrit 31.9 % (37.5-50.1); Hemoglobin 11.1 g/dL (12.9-16.9); Mean Corpuscular HGB Conc 34.8 g/dL (31.6-35.5); Mean Corpuscular Hemoglobin 30.2 pg (28.0-33.3); Mean Corpuscular Volume 86.7 fL (83.0-100.0); Red Blood Count 3.68 M/mcL (4.19-5.50); White Blood Count 3.4 K/mcL (4.3-11.1)
[2019-12-11 03:36] LABS: Alanine Aminotransferase 90 Units/L (7-52); Albumin 3.1 g/dL (3.5-5.7); Albumin/Globulin Ratio 1.8 (1.1-2.2); Alkaline Phosphatase 102 Units/L (34-104); Aspartate Amino Transferase 104 Units/L (13-39); BUN/Creatinine Ratio 8 (6-26); Bilirubin,Direct 0.6 mg/dL (0.0-0.2); Bilirubin,Total 1.6 mg/dL (0.3-1.0); Blood Urea Nitrogen 4 mg/dL (6-20); Calcium 8.5 mg/dL (8.6-10.3); Carbon Dioxide 24 mEq/L (23-29); Chloride 107 mEq/L (98-107); Globulin 1.7 g/dL (2.4-3.5); Glucose 105 mg/dL (70-105); Osmolality,Calculated 281 (280-300); Potassium 2.8 mEq/L (3.5-5.1); Sodium 137 mEq/L (136-145); Total Protein 4.8 g/dL (6.4-8.9); eGFR For African Americans > 60 (> 60); eGFR For Non-African Americans > 60 (> 60)
[2019-12-11 03:37] LABS: Platelet Count 37 K/mcL (140-400)
[2019-12-11] MEDS: Nicotine 21 MG PATCH.TD24 TD SCH (07:52)
[2019-12-11] MEDS: Cholecalciferol (D-3) 1,000 UNIT (25MCG) TABLET PO SCH (07:52)
[2019-12-11] MEDS: Folic Acid 1 MG TABLET PO SCH (07:52)
[2019-12-11] MEDS: Metoprolol 100 MG TABLET PO SCH ×2 (07:52→22:10)
[2019-12-11] MEDS: DilTIAZem CD (24hr) 180 MG CAP.ER.24H PO SCH (07:52)
[2019-12-11] MEDS: risperiDONE 1 MG TABLET PO SCH ×2 (07:52→22:11)
[2019-12-11 07:57] LABS: Magnesium 1.3 mg/dL (1.6-2.6); Phosphorous 1.2 mg/dL (2.7-4.5)
[2019-12-11] MEDS ORDERED: *HR* Metoprolol 5 MG/5 ML VIAL IVP ONE (09:52)
[2019-12-11] MEDS: Lactulose Oral Soln 20 GM/30 ML UDC PO SCH (11:32)
[2019-12-11] MEDS: *HR* LORazepam 2 MG/ML VIAL IVP PRN ×3 (13:29→22:20)
[2019-12-11] MEDS ORDERED: *HR* LORazepam 2 MG/ML VIAL IVP ONE (14:08)
[2019-12-11] MEDS: Thiamine (B-1) 100 MG, Folic Acid 1 MG, MVI, adult with vitamin K 10 ML in 0.9 % Sodi... IVPB SCH (18:46)
[2019-12-11 19:35] LABS: BUN/Creatinine Ratio 5 (6-26); Blood Urea Nitrogen 2 mg/dL (6-20); Calcium 8.7 mg/dL (8.6-10.3); Carbon Dioxide 25 mEq/L (23-29); Chloride 106 mEq/L (98-107); Glucose 98 mg/dL (70-105); Osmolality,Calculated 276 (280-300); Potassium 3.3 mEq/L (3.5-5.1); Sodium 135 mEq/L (136-145); eGFR For African Americans > 60 (> 60); eGFR For Non-African Americans > 60 (> 60)
[2019-12-11] MEDS: Melatonin 3 MG TABLET PO SCH (22:10)
[2019-12-11] MEDS: Mirtazapine 15 MG TABLET PO SCH (22:11)
[2019-12-12 02:09] LABS: BUN/Creatinine Ratio 5 (6-26); Blood Urea Nitrogen 2 mg/dL (6-20); Calcium 8.6 mg/dL (8.6-10.3); Carbon Dioxide 24 mEq/L (23-29); Chloride 105 mEq/L (98-107); Glucose 84 mg/dL (70-105); Osmolality,Calculated 279 (280-300); Sodium 137 mEq/L (136-145); eGFR For African Americans > 60 (> 60); eGFR For Non-African Americans > 60 (> 60)
[2019-12-12] MEDS ORDERED: Potassium Phosphate 44 MEQ in 0.9 % Sodium Chloride 250 ML IVPB ONE (07:38)
[2019-12-12 08:00] LABS: Magnesium 1.4 mg/dL (1.6-2.6)
[2019-12-12 08:21] LABS: Mean Corpuscular Volume 88.7 fL (83.0-100.0)
[2019-12-12 08:23] LABS: Hematocrit 34.5 % (37.5-50.1); Hemoglobin 11.4 g/dL (12.9-16.9); Immature Platelets 15.4 % (1.1-6.1); Mean Corpuscular Hemoglobin 29.3 pg (28.0-33.3); Mean Platelet Volume 12.6 fL (9.4-12.4); Red Blood Count 3.89 M/mcL (4.19-5.50); Red Cell Distribution Width 13.7 % (11.5-14.5)
[2019-12-12] MEDS: Folic Acid 1 MG TABLET PO SCH (09:00)
[2019-12-12] MEDS: risperiDONE 1 MG TABLET PO SCH ×2 (09:00→21:10)
[2019-12-12] MEDS: DilTIAZem CD (24hr) 180 MG CAP.ER.24H PO SCH (09:01)
[2019-12-12] MEDS: Metoprolol 100 MG TABLET PO SCH ×2 (09:01→21:10)
[2019-12-12] MEDS: Lactulose Oral Soln 20 GM/30 ML UDC PO SCH ×2 (09:04→15:40)
[2019-12-12] MEDS: Nicotine 21 MG PATCH.TD24 TD SCH (09:04)
[2019-12-12] MEDS: Cholecalciferol (D-3) 1,000 UNIT (25MCG) TABLET PO SCH (09:06)
[2019-12-12 16:17] LABS: BUN/Creatinine Ratio 8 (6-26); Blood Urea Nitrogen 4 mg/dL (6-20); Calcium 8.7 mg/dL (8.6-10.3); Carbon Dioxide 24 mEq/L (23-29); Chloride 109 mEq/L (98-107); Glucose 93 mg/dL (70-105); Magnesium 2.1 mg/dL (1.6-2.6); Osmolality,Calculated 283 (280-300); Phosphorous 3.8 mg/dL (2.7-4.5); Potassium 4.4 mEq/L (3.5-5.1); Sodium 138 mEq/L (136-145); eGFR For African Americans > 60 (> 60); eGFR For Non-African Americans > 60 (> 60)
[2019-12-12] MEDS: Melatonin 3 MG TABLET PO SCH (21:00)
[2019-12-12] MEDS: Acetaminophen 325 MG TABLET PO PRN (21:09)
[2019-12-12] MEDS: Mirtazapine 15 MG TABLET PO SCH (21:09)
[2019-12-13 01:09] LABS: Red Cell Distribution Width 14.1 % (11.5-14.5)
[2019-12-13 01:11] LABS: Hematocrit 32.5 % (37.5-50.1); Hemoglobin 10.4 g/dL (12.9-16.9); Immature Platelets 11.8 % (1.1-6.1); Mean Corpuscular Hemoglobin 29.1 pg (28.0-33.3); Mean Platelet Volume 12.6 fL (9.4-12.4); Red Blood Count 3.57 M/mcL (4.19-5.50)
[2019-12-13 01:24] LABS: BUN/Creatinine Ratio 16 (6-26); Blood Urea Nitrogen 9 mg/dL (6-20); Calcium 8.2 mg/dL (8.6-10.3); Carbon Dioxide 19 mEq/L (23-29); Chloride 112 mEq/L (98-107); Glucose 96 mg/dL (70-105); Osmolality,Calculated 285 (280-300); Phosphorous 3.4 mg/dL (2.7-4.5); Potassium 4.1 mEq/L (3.5-5.1); Sodium 138 mEq/L (136-145); eGFR For African Americans > 60 (> 60); eGFR For Non-African Americans > 60 (> 60)
[2019-12-13] MEDS: Folic Acid 1 MG TABLET PO SCH (08:50)
[2019-12-13] MEDS: Metoprolol 100 MG TABLET PO SCH ×2 (08:50→20:33)
[2019-12-13] MEDS: risperiDONE 1 MG TABLET PO SCH ×2 (08:50→20:34)
[2019-12-13] MEDS: Cholecalciferol (D-3) 1,000 UNIT (25MCG) TABLET PO SCH (08:50)
[2019-12-13] MEDS: DilTIAZem CD (24hr) 180 MG CAP.ER.24H PO SCH (08:50)
[2019-12-13] MEDS: Lactulose Oral Soln 20 GM/30 ML UDC PO SCH ×3 (08:51→17:16)
[2019-12-13] MEDS: Nicotine 21 MG PATCH.TD24 TD SCH (08:51)
[2019-12-13] MEDS: Calcium Gluconate 1gm/50mL 1 GM/50 ML BAG IVPB SCH ×2 (11:20→13:55)
[2019-12-13] MEDS: *HR* Enoxaparin 40 MG/0.4 ML SYRINGE SQ SCH (13:54)
[2019-12-13] MEDS: Acetaminophen 325 MG TABLET PO PRN (17:15)
[2019-12-13] MEDS: Melatonin 3 MG TABLET PO SCH (20:32)
[2019-12-13] MEDS: Mirtazapine 15 MG TABLET PO SCH (20:33)
[2019-12-14] MEDS: *HR* Enoxaparin 40 MG/0.4 ML SYRINGE SQ SCH (04:53)
[2019-12-14 05:22] LABS: Red Cell Distribution Width 14.5 % (11.5-14.5)
[2019-12-14 05:23] LABS: Hematocrit 33.1 % (37.5-50.1); Hemoglobin 10.6 g/dL (12.9-16.9); Immature Platelets 9.7 % (1.1-6.1); Mean Corpuscular Hemoglobin 29.3 pg (28.0-33.3); Mean Corpuscular Volume 91.4 fL (83.0-100.0); Red Blood Count 3.62 M/mcL (4.19-5.50); White Blood Count 2.6 K/mcL (4.3-11.1)
[2019-12-14 05:27] LABS: Platelet Count 96 K/mcL (140-400)
[2019-12-14 05:39] LABS: BUN/Creatinine Ratio 25 (6-26); Blood Urea Nitrogen 10 mg/dL (6-20); Calcium 8.6 mg/dL (8.6-10.3); Carbon Dioxide 20 mEq/L (23-29); Chloride 111 mEq/L (98-107); Glucose 83 mg/dL (70-105); Magnesium 1.6 mg/dL (1.6-2.6); Osmolality,Calculated 284 (280-300); Phosphorous 4.3 mg/dL (2.7-4.5); Potassium 3.3 mEq/L (3.5-5.1); Sodium 138 mEq/L (136-145); eGFR For African Americans > 60 (> 60); eGFR For Non-African Americans > 60 (> 60)
[2019-12-14] MEDS ORDERED: Potassium Chloride 20 MEQ, Lidocaine 1% 2 ML in 0.9 % Sodium Chloride 250 ML IVPB ONE (07:31)
[2019-12-14 08:02] LABS: Alanine Aminotransferase 69 Units/L (7-52); Albumin 2.9 g/dL (3.5-5.7); Albumin/Globulin Ratio 1.6 (1.1-2.2); Alkaline Phosphatase 88 Units/L (34-104); Aspartate Amino Transferase 68 Units/L (13-39); Bilirubin,Direct 0.3 mg/dL (0.0-0.2); Bilirubin,Indirect 0.5 mg/dL (0.0-1.0); Bilirubin,Total 0.8 mg/dL (0.3-1.0); Globulin 1.8 g/dL (2.4-3.5); Total Protein 4.7 g/dL (6.4-8.9)
[2019-12-14] MEDS: DilTIAZem CD (24hr) 180 MG CAP.ER.24H PO SCH (08:17)
[2019-12-14] MEDS: Nicotine 21 MG PATCH.TD24 TD SCH (08:18)
[2019-12-14] MEDS: Cholecalciferol (D-3) 1,000 UNIT (25MCG) TABLET PO SCH (08:18)
[2019-12-14] MEDS: Folic Acid 1 MG TABLET PO SCH (08:18)
[2019-12-14] MEDS: Lactulose Oral Soln 20 GM/30 ML UDC PO SCH ×3 (08:19→16:43)
[2019-12-14] MEDS: risperiDONE 1 MG TABLET PO SCH ×2 (08:20→20:58)
[2019-12-14] MEDS: Metoprolol 100 MG TABLET PO SCH ×2 (08:20→20:58)
[2019-12-14] MEDS: Acetaminophen 325 MG TABLET PO PRN (16:43)
[2019-12-14] MEDS: Melatonin 3 MG TABLET PO SCH (20:57)
[2019-12-14] MEDS: Mirtazapine 15 MG TABLET PO SCH (20:59)
[2019-12-15] MEDS: *HR* Enoxaparin 40 MG/0.4 ML SYRINGE SQ SCH (06:00)
[2019-12-15] MEDS: Cholecalciferol (D-3) 1,000 UNIT (25MCG) TABLET PO SCH (08:40)
[2019-12-15] MEDS: Folic Acid 1 MG TABLET PO SCH (08:40)
[2019-12-15] MEDS: risperiDONE 1 MG TABLET PO SCH (08:40)
[2019-12-15] MEDS: Nicotine 21 MG PATCH.TD24 TD SCH (08:40)
[2019-12-15] MEDS: DilTIAZem CD (24hr) 180 MG CAP.ER.24H PO SCH (08:40)
[2019-12-15] MEDS: Metoprolol 100 MG TABLET PO SCH (08:40)
[2019-12-15] MEDS: Lactulose Oral Soln 20 GM/30 ML UDC PO SCH ×2 (08:41→11:25)
[2019-12-15 11:16] VITALS: BP 108/69
== END 2019-12-15 16:56 | DRG 775 ==
LOC: EMEROOARM 16:50 → 3NENU 16:50 → SUATTDRO 21:16 → 3NENU 22:02 → 2ANU 12-09 14:18
PROVIDERS: ADMIT Family Medicine; ATTEND Internal Medicine

== ENCOUNTER 2020-08-29 12:13 | Inpatient (IN) ==
[2020-08-29] MEDS ORDERED: 0.9 % Sodium Chloride 1,000 ML IVC ONE ×2 (12:24→15:42)
[2020-08-29] MEDS: DilTIAZem 50 MG/50 ML IV.SOLN IVC SCH ×3 (12:59→22:29)
[2020-08-29 13:05] LABS: Basophils # 0.1 K/mcL (0.0-0.2); Basophils % 1.6 %; Eosinophils % 0.4 %; Hematocrit 46.4 % (37.5-50.1); Hemoglobin 16.1 g/dL (12.9-16.9); Immature Granulocytes % 0.6 % (0-4); Lymphocytes # 1.3 K/mcL (0.6-4.6); Lymphocytes % 18.3 %; Mean Corpuscular HGB Conc 34.7 g/dL (31.6-35.5); Mean Corpuscular Hemoglobin 30.8 pg (28.0-33.3); Mean Corpuscular Volume 88.9 fL (83.0-100.0); Mean Platelet Volume 10.4 fL (9.4-12.4); Monocytes # 0.5 K/mcL (0.0-1.3); Monocytes % 6.8 %; Platelet Count 208 K/mcL (140-400); Red Blood Count 5.22 M/mcL (4.19-5.50); Red Cell Distribution Width 12.9 % (11.5-14.5); Segmented Neutrophils % 72.3 %; White Blood Count 6.9 K/mcL (4.3-11.1)
[2020-08-29 13:27] LABS: Alanine Aminotransferase 79 Units/L (7-52); Albumin 4.6 g/dL (3.5-5.7); Albumin/Globulin Ratio 2.2 (1.1-2.2); Alkaline Phosphatase 181 Units/L (34-104); Aspartate Amino Transferase 172 Units/L (13-39); BUN/Creatinine Ratio 12 (6-26); Bilirubin,Direct 0.5 mg/dL (0.0-0.2); Bilirubin,Indirect 0.7 mg/dL (0.0-1.0); Bilirubin,Total 1.2 mg/dL (0.3-1.0); Blood Urea Nitrogen 7 mg/dL (6-20); Calcium 9.1 mg/dL (8.6-10.3); Carbamazepine (Tegretol) 1 mcg/mL (4-12); Carbon Dioxide 20 mEq/L (23-29); Chloride 98 mEq/L (98-107); Ethanol 497 mg/dL (Less than 10); Globulin 2.1 g/dL (2.4-3.5); Glucose 121 mg/dL (70-105); Osmolality,Calculated 285 (280-300); Potassium 3.6 mEq/L (3.5-5.1); Sodium 138 mEq/L (136-145); Total Protein 6.7 g/dL (6.4-8.9); Troponin I < 0.03 ng/mL (< 0.04); eGFR For African Americans > 60 (> 60); eGFR For Non-African Americans > 60 (> 60)
[2020-08-29 14:42] LABS: Bilirubin,Urine Negative (Negative); Blood,Urine Negative (Negative); Clarity,Urine Clear (Clear); Color,Urine Light-Yellow (Yellow); Glucose,Urine (UA) Normal (Normal); Hyaline Casts,Urine Few per lpf (None Seen); Ketones,Urine Negative (Negative); Leukocyte Esterase,Urine Negative (Negative); Mucus,Urine Few per lpf (None-Few); Nitrite,Urine Negative (Negative); PH,Urine 6.5 pH Units (5.0-8.0); Protein,Urine 50 mg/dL (Neg-Trace); RBC,Urine 0-3 per hpf (0-3); Specific Gravity,Urine 1.009 (1.010-1.025); Squamous Epithelial Cell,Urine Few per hpf (None-Few)
[2020-08-29 14:47] LABS: Amphetamine Screen,Urine Negative ng/mL (Cutoff=1000); Barbiturate Screen,Urine Negative ng/mL (Cutoff=200); Benzodiazepines Screen,Urine Negative ng/mL (Cutoff=200); Cannabinoid Screen,Urine Negative ng/mL (Cutoff = 50); Cocaine Screen,Urine Negative ng/mL (Cutoff= 300); Opiate Screen,Urine Negative ng/mL (Cutoff=300); Phencyclidine Screen,Urine Negative ng/mL (Cutoff=25)
[2020-08-29] MEDS ORDERED: Naloxone 0.4 MG/ML INJ IVP PRN (14:56)
[2020-08-29] MEDS ORDERED: *HR* LORazepam 2 MG/ML VIAL IVP PRN ×2 (15:00)
[2020-08-29] MEDS: Folic Acid 1 MG in 0.9 % Sodium Chloride 50 ML IVPB SCH (15:52)
[2020-08-29] MEDS: Thiamine (B-1) 200 MG in 0.9 % Sodium Chloride 50 ML IVPB SCH (16:23)
[2020-08-29] MEDS: *HR* Heparin 5,000 UNIT/ML VIAL SQ SCH (17:47)
[2020-08-29] MEDS: Metoprolol 100 MG TABLET PO SCH (19:39)
[2020-08-29] MEDS: Ondansetron 4 MG/2 ML VIAL IVP PRN (22:29)
[2020-08-30] MEDS: *HR* LORazepam 2 MG/ML VIAL IVP PRN ×2 (02:16→09:40)
[2020-08-30 04:09] LABS: Basophils # 0.1 K/mcL (0.0-0.2); Basophils % 1.4 %; Eosinophils # 0.1 K/mcL (0.0-0.6); Eosinophils % 1.1 %; Immature Granulocytes % 0.5 % (0-4); Lymphocytes # 1.8 K/mcL (0.6-4.6); Lymphocytes % 24.4 %; Mean Corpuscular HGB Conc 33.8 g/dL (31.6-35.5); Mean Corpuscular Volume 91.5 fL (83.0-100.0); Mean Platelet Volume 10.5 fL (9.4-12.4); Monocytes # 0.7 K/mcL (0.0-1.3); Monocytes % 9.2 %; Neutrophils # 4.7 K/mcL (1.6-8.9); Platelet Count 142 K/mcL (140-400); Red Blood Count 4.26 M/mcL (4.19-5.50); Red Cell Distribution Width 13.2 % (11.5-14.5); Segmented Neutrophils % 63.4 %; White Blood Count 7.4 K/mcL (4.3-11.1)
[2020-08-30 04:11] LABS: Hemoglobin 13.2 g/dL (12.9-16.9)
[2020-08-30 04:22] LABS: Alanine Aminotransferase 60 Units/L (7-52); Albumin 3.8 g/dL (3.5-5.7); Albumin/Globulin Ratio 1.9 (1.1-2.2); Alkaline Phosphatase 135 Units/L (34-104); Aspartate Amino Transferase 95 Units/L (13-39); BUN/Creatinine Ratio 18 (6-26); Bilirubin,Total 2.4 mg/dL (0.3-1.0); Blood Urea Nitrogen 10 mg/dL (6-20); Calcium 8.6 mg/dL (8.6-10.3); Carbon Dioxide 19 mEq/L (23-29); Chloride 100 mEq/L (98-107); Glucose 62 mg/dL (70-105); Osmolality,Calculated 279 (280-300); Potassium 3.9 mEq/L (3.5-5.1); Sodium 136 mEq/L (136-145); Total Protein 5.8 g/dL (6.4-8.9); eGFR For African Americans > 60 (> 60); eGFR For Non-African Americans > 60 (> 60)
[2020-08-30] MEDS: DilTIAZem 50 MG/50 ML IV.SOLN IVC SCH ×2 (04:35→10:34)
[2020-08-30] MEDS: *HR* Heparin 5,000 UNIT/ML VIAL SQ SCH ×2 (06:06→17:52)
[2020-08-30] MEDS: Thiamine (B-1) 200 MG in 0.9 % Sodium Chloride 50 ML IVPB SCH (08:14)
[2020-08-30] MEDS: Metoprolol 100 MG TABLET PO SCH ×2 (08:14→20:53)
[2020-08-30] MEDS: Aspirin 81 MG TAB.CHEW PO SCH (08:14)
[2020-08-30 08:19] LABS: Magnesium 1.8 mg/dL (1.6-2.6); Phosphorous 4.6 mg/dL (2.7-4.5)
[2020-08-30] MEDS ORDERED: DilTIAZem CD (24hr) 180 MG CAP.ER.24H PO SCH (09:00)
[2020-08-30] MEDS: Folic Acid 1 MG in 0.9 % Sodium Chloride 50 ML IVPB SCH (09:25)
[2020-08-30] MEDS ORDERED: *HR* Metoprolol 5 MG/5 ML VIAL IVP PRN (17:51)
[2020-08-30] MEDS: Mirtazapine 15 MG TABLET PO SCH (20:52)
[2020-08-30] MEDS: risperiDONE 1 MG TABLET PO SCH (20:53)
[2020-08-31 02:26] LABS: Hematocrit 36.5 % (37.5-50.1); Red Cell Distribution Width 12.9 % (11.5-14.5)
[2020-08-31 02:28] LABS: Hemoglobin 12.4 g/dL (12.9-16.9); Mean Corpuscular Hemoglobin 30.4 pg (28.0-33.3); Mean Corpuscular Volume 89.5 fL (83.0-100.0); Mean Platelet Volume 11.9 fL (9.4-12.4); Red Blood Count 4.08 M/mcL (4.19-5.50); White Blood Count 3.7 K/mcL (4.3-11.1)
[2020-08-31 02:46] LABS: Alanine Aminotransferase 41 Units/L (7-52); Albumin 3.6 g/dL (3.5-5.7); Albumin/Globulin Ratio 2.3 (1.1-2.2); Alkaline Phosphatase 124 Units/L (34-104); Aspartate Amino Transferase 50 Units/L (13-39); BUN/Creatinine Ratio 19 (6-26); Bilirubin,Total 1.6 mg/dL (0.3-1.0); Blood Urea Nitrogen 11 mg/dL (6-20); Calcium 9.1 mg/dL (8.6-10.3); Carbon Dioxide 27 mEq/L (23-29); Chloride 101 mEq/L (98-107); Ethanol < 10 mg/dL (Less than 10); Globulin 1.6 g/dL (2.4-3.5); Glucose 95 mg/dL (70-105); Magnesium 1.7 mg/dL (1.6-2.6); Osmolality,Calculated 283 (280-300); Phosphorous 2.9 mg/dL (2.7-4.5); Potassium 3.1 mEq/L (3.5-5.1); Sodium 137 mEq/L (136-145); Total Protein 5.2 g/dL (6.4-8.9); eGFR For African Americans > 60 (> 60); eGFR For Non-African Americans > 60 (> 60)
[2020-08-31] MEDS: *HR* Heparin 5,000 UNIT/ML VIAL SQ SCH ×2 (06:11→18:15)
[2020-08-31] MEDS: CarBAMazepine XR (12 hr) 100 MG TAB PO SCH (08:56)
[2020-08-31] MEDS: DilTIAZem CD (24hr) 180 MG CAP.ER.24H PO SCH (08:56)
[2020-08-31] MEDS: Aspirin 81 MG TAB.CHEW PO SCH (08:57)
[2020-08-31] MEDS: Thiamine (B-1) 200 MG in 0.9 % Sodium Chloride 50 ML IVPB SCH (08:57)
[2020-08-31] MEDS: Metoprolol 100 MG TABLET PO SCH ×2 (08:57→20:10)
[2020-08-31] MEDS: Nicotine 14 MG PATCH.TD24 TD SCH (08:57)
[2020-08-31] MEDS: risperiDONE 1 MG TABLET PO SCH ×2 (08:57→20:10)
[2020-08-31] MEDS: Folic Acid 1 MG in 0.9 % Sodium Chloride 50 ML IVPB SCH (08:58)
[2020-08-31 13:31] LABS: Hematocrit 38.3 % (37.5-50.1); Hemoglobin 12.7 g/dL (12.9-16.9)
[2020-08-31 13:42] LABS: % Iron Saturation 26 % (20-55); Iron 44 mcg/dL (65-175); Transferrin 123 mg/dL (203-362)
[2020-08-31] MEDS ORDERED: Iron Sucrose Complex 400 MG in 0.9 % Sodium Chloride 250 ML IVPB ONE (13:54)
[2020-08-31 13:59] LABS: Ferritin 935 ng/mL (20-250)
[2020-08-31 14:04] LABS: Folate 19.6 ng/mL (3.0-16.0)
[2020-08-31] MEDS: *HR* LORazepam 2 MG/ML VIAL IVP PRN ×2 (14:59→22:35)
[2020-08-31] MEDS: DilTIAZem 50 MG/50 ML IV.SOLN IVC SCH ×2 (17:32→17:33)
[2020-08-31] MEDS: Mirtazapine 15 MG TABLET PO SCH (20:10)
[2020-09-01 02:00] LABS: Hematocrit 33.6 % (37.5-50.1); Hemoglobin 11.6 g/dL (12.9-16.9); Mean Corpuscular HGB Conc 34.5 g/dL (31.6-35.5); Mean Corpuscular Hemoglobin 31.4 pg (28.0-33.3); Mean Corpuscular Volume 91.1 fL (83.0-100.0); Mean Platelet Volume 12.2 fL (9.4-12.4); Red Blood Count 3.69 M/mcL (4.19-5.50); Red Cell Distribution Width 13.2 % (11.5-14.5); White Blood Count 4.1 K/mcL (4.3-11.1)
[2020-09-01 02:02] LABS: Platelet Count 67 K/mcL (140-400)
[2020-09-01 02:18] LABS: Alanine Aminotransferase 34 Units/L (7-52); Albumin 3.4 g/dL (3.5-5.7); Albumin/Globulin Ratio 2.1 (1.1-2.2); Alkaline Phosphatase 104 Units/L (34-104); Aspartate Amino Transferase 39 Units/L (13-39); BUN/Creatinine Ratio 13 (6-26); Bilirubin,Total 0.8 mg/dL (0.3-1.0); Blood Urea Nitrogen 8 mg/dL (6-20); Calcium 8.6 mg/dL (8.6-10.3); Carbon Dioxide 23 mEq/L (23-29); Chloride 104 mEq/L (98-107); Globulin 1.6 g/dL (2.4-3.5); Glucose 126 mg/dL (70-105); Magnesium 1.7 mg/dL (1.6-2.6); Osmolality,Calculated 282 (280-300); Phosphorous 2.6 mg/dL (2.7-4.5); Potassium 3.1 mEq/L (3.5-5.1); Sodium 136 mEq/L (136-145); eGFR For African Americans > 60 (> 60); eGFR For Non-African Americans > 60 (> 60)
[2020-09-01] MEDS: *HR* Heparin 5,000 UNIT/ML VIAL SQ SCH (05:27)
[2020-09-01] MEDS: risperiDONE 1 MG TABLET PO SCH (08:26)
[2020-09-01] MEDS: Aspirin 81 MG TAB.CHEW PO SCH (08:26)
[2020-09-01] MEDS: Metoprolol 100 MG TABLET PO SCH (08:26)
[2020-09-01] MEDS: Nicotine 14 MG PATCH.TD24 TD SCH (08:27)
[2020-09-01] MEDS: DilTIAZem CD (24hr) 180 MG CAP.ER.24H PO SCH (08:27)
[2020-09-01] MEDS: *HR* LORazepam 2 MG/ML VIAL IVP PRN (08:40)
[2020-09-01 08:41] VITALS: BP 124/84
[2020-09-01] MEDS: CarBAMazepine XR (12 hr) 100 MG TAB PO SCH (08:41)
[2020-09-01] MEDS: Ondansetron 4 MG/2 ML VIAL IVP PRN (08:41)
[2020-09-01] MEDS ORDERED: Thiamine (B-1) 100 MG TABLET PO SCH (09:00)
[2020-09-01] MEDS ORDERED: Folic Acid 1 MG TABLET PO SCH (09:00)
[2020-09-01 11:05] LABS: Hematocrit 35.6 % (37.5-50.1); Hemoglobin 12.2 g/dL (12.9-16.9)
== END 2020-09-01 14:31 ==
LOC: EMEROOARM 12:13 → 2ANU 12:13 → SUATTDRO 15:57 → 2ANU 16:33
PROVIDERS: ADMIT Student in an Organized Health Care Education/Training Program; ATTEND Internal Medicine

== ENCOUNTER 2021-03-03 07:31 | Observation (INO) ==
[2021-03-03 07:59] LABS: Basophils # 0.1 K/mcL (0.0-0.2); Basophils % 1.8 %; Eosinophils # 0.1 K/mcL (0.0-0.6); Eosinophils % 1.5 %; Hematocrit 46.9 % (37.5-50.1); Hemoglobin 16.4 g/dL (12.9-16.9); Immature Granulocytes % 0.5 % (0-4); Mean Corpuscular Hemoglobin 30.4 pg (28.0-33.3); Mean Corpuscular Volume 86.9 fL (83.0-100.0); Mean Platelet Volume 10.2 fL (9.4-12.4); Monocytes # 0.7 K/mcL (0.0-1.3); Neutrophils # 3.7 K/mcL (1.6-8.9); Platelet Count 295 K/mcL (140-400); Red Cell Distribution Width 12.1 % (11.5-14.5); Segmented Neutrophils % 48.2 %; White Blood Count 7.8 K/mcL (4.3-11.1)
[2021-03-03 08:20] LABS: BUN/Creatinine Ratio 10 (6-26); Blood Urea Nitrogen 7 mg/dL (6-20); Calcium 9.2 mg/dL (8.6-10.3); Carbon Dioxide 16 mEq/L (23-29); Chloride 105 mEq/L (98-107); Glucose 123 mg/dL (70-105); Osmolality,Calculated 281 (280-300); Potassium 3.6 mEq/L (3.5-5.1); Sodium 136 mEq/L (136-145); Troponin I < 0.03 ng/mL (< 0.04); eGFR For African Americans > 60 (> 60); eGFR For Non-African Americans > 60 (> 60)
[2021-03-03] MEDS: DilTIAZem 50 MG/50 ML IV.SOLN IVC SCH (08:25)
[2021-03-03] MEDS ORDERED: Nitroglycerin 0.4 MG TAB.SUBL SL PRN (08:55)
[2021-03-03] MEDS ORDERED: *HR* LORazepam 2 MG/ML VIAL IVP PRN ×3 (09:16)
[2021-03-03] MEDS ORDERED: Naloxone 0.4 MG/ML INJ IVP PRN (09:16)
[2021-03-03] MEDS ORDERED: Ondansetron 4 MG/2 ML VIAL IVP PRN (09:16)
[2021-03-03] MEDS ORDERED: 0.9 % Sodium Chloride 1,000 ML IVC ONE (09:25)
[2021-03-03 09:28] LABS: Ethanol 261 mg/dL (Less than 10); Magnesium 1.8 mg/dL (1.6-2.6); Phosphorous 2.9 mg/dL (2.7-4.5)
[2021-03-03] MEDS ORDERED: Perflutren Lipid Microsphere 1.3 ML in 0.9 % Sodium Chloride 8.7 ML IVP PRN (09:30)
[2021-03-03] MEDS: Thiamine (B-1) 100 MG TABLET PO SCH (10:47)
[2021-03-03] MEDS: Folic Acid 1 MG TABLET PO SCH (10:48)
[2021-03-03] MEDS: DilTIAZem CD (24hr) 180 MG CAP.ER.24H PO SCH (10:48)
[2021-03-03] MEDS: Metoprolol 100 MG TABLET PO SCH ×2 (10:48→20:38)
[2021-03-03] MEDS: Nicotine 14 MG PATCH.TD24 TD SCH (10:49)
[2021-03-03] MEDS: Acetaminophen 325 MG TABLET PO PRN (17:31)
[2021-03-03] MEDS: *HR* Heparin 5,000 UNIT/ML VIAL SQ SCH (17:31)
[2021-03-04 04:08] VITALS: O2SAT 96
[2021-03-04 05:22] LABS: Basophils # 0.1 K/mcL (0.0-0.2); Eosinophils # 0.2 K/mcL (0.0-0.6); Eosinophils % 1.7 %; Hematocrit 43.6 % (37.5-50.1); Hemoglobin 15.6 g/dL (12.9-16.9); Immature Granulocytes % 0.7 % (0-4); Lymphocytes # 1.9 K/mcL (0.6-4.6); Lymphocytes % 21.9 %; Mean Corpuscular HGB Conc 35.8 g/dL (31.6-35.5); Mean Corpuscular Volume 86.5 fL (83.0-100.0); Mean Platelet Volume 10.8 fL (9.4-12.4); Monocytes # 0.8 K/mcL (0.0-1.3); Monocytes % 9.4 %; Neutrophils # 5.6 K/mcL (1.6-8.9); Platelet Count 223 K/mcL (140-400); Red Blood Count 5.04 M/mcL (4.19-5.50); Segmented Neutrophils % 65.3 %; White Blood Count 8.6 K/mcL (4.3-11.1)
[2021-03-04] MEDS: *HR* Heparin 5,000 UNIT/ML VIAL SQ SCH (05:27)
[2021-03-04 05:29] LABS: Estimated Average Glucose 94 mg/dl; Hemoglobin A1C 4.9 %
[2021-03-04 05:48] LABS: Chol/HDL Ratio 4.7 (0-4.9)
[2021-03-04] MEDS: DilTIAZem 50 MG/50 ML IV.SOLN IVC SCH (07:23)
[2021-03-04 07:36] VITALS: BP 113/74; PULSE 64; TEMP 97.8
[2021-03-04] MEDS: Thiamine (B-1) 100 MG TABLET PO SCH (07:41)
[2021-03-04] MEDS: DilTIAZem CD (24hr) 180 MG CAP.ER.24H PO SCH (07:41)
[2021-03-04] MEDS: Metoprolol 100 MG TABLET PO SCH (07:42)
[2021-03-04] MEDS: Nicotine 14 MG PATCH.TD24 TD SCH (07:42)
[2021-03-04] MEDS: Folic Acid 1 MG TABLET PO SCH (07:42)
[2021-03-04] MEDS: Acetaminophen 325 MG TABLET PO PRN (07:45)
[2021-03-04 10:03] LABS: BUN/Creatinine Ratio 18 (6-26); Blood Urea Nitrogen 13 mg/dL (6-20); Calcium 9.3 mg/dL (8.6-10.3); Carbon Dioxide 25 mEq/L (23-29); Chloride 104 mEq/L (98-107); Glucose 126 mg/dL (70-105); Magnesium 1.6 mg/dL (1.6-2.6); Osmolality,Calculated 288 (280-300); Phosphorous 2.7 mg/dL (2.7-4.5); Potassium 3.7 mEq/L (3.5-5.1); Sodium 138 mEq/L (136-145); eGFR For African Americans > 60 (> 60); eGFR For Non-African Americans > 60 (> 60)
== END 2021-03-04 10:31 | disposition home or self-care (01) ==
LOC: 2ANU 07:31 → EMEROOARM 07:31 → SUATTDRO 09:11 → 2ANU 10:17
PROVIDERS: ADMIT Internal Medicine; ATTEND Internal Medicine

== ENCOUNTER 2021-03-15 16:59 | Observation (INO) ==
[2021-03-15] MEDS ORDERED: 0.9 % Sodium Chloride 500 ML IVC ONE (17:26)
[2021-03-15] MEDS: DilTIAZem 50 MG/50 ML IV.SOLN IVC SCH (18:06)
[2021-03-15] MEDS ORDERED: 0.9 % Sodium Chloride 250 ML ONE (18:26)
[2021-03-15 20:21] LABS: Bilirubin,Urine Negative (Negative); Blood,Urine Negative (Negative); Clarity,Urine Clear (Clear); Color,Urine Yellow (Yellow); Glucose,Urine (UA) Normal (Normal); Ketones,Urine Negative (Negative); Leukocyte Esterase,Urine Negative (Negative); Nitrite,Urine Negative (Negative); PH,Urine 5.5 pH Units (5.0-8.0); Protein,Urine Trace mg/dL (Neg-Trace); Specific Gravity,Urine 1.025 (1.010-1.025); Urobilinogen,Urine Normal (Normal)
[2021-03-15 20:24] LABS: Basophils # 0.1 K/mcL (0.0-0.2); Basophils % 1.1 %; Eosinophils # 0.1 K/mcL (0.0-0.6); Eosinophils % 2.2 %; Hematocrit 41.1 % (37.5-50.1); Hemoglobin 14.6 g/dL (12.9-16.9); Immature Granulocytes % 0.6 % (0-4); Lymphocytes # 3.2 K/mcL (0.6-4.6); Lymphocytes % 49.7 %; Mean Corpuscular HGB Conc 35.5 g/dL (31.6-35.5); Mean Corpuscular Hemoglobin 31.2 pg (28.0-33.3); Mean Corpuscular Volume 87.8 fL (83.0-100.0); Mean Platelet Volume 10.1 fL (9.4-12.4); Monocytes # 0.6 K/mcL (0.0-1.3); Monocytes % 9.3 %; Neutrophils # 2.4 K/mcL (1.6-8.9); Platelet Count 207 K/mcL (140-400); Red Blood Count 4.68 M/mcL (4.19-5.50); Red Cell Distribution Width 13.2 % (11.5-14.5); Segmented Neutrophils % 37.1 %; White Blood Count 6.3 K/mcL (4.3-11.1)
[2021-03-15 20:35] LABS: Amphetamine Screen,Urine Negative ng/mL (Cutoff=1000); Barbiturate Screen,Urine Negative ng/mL (Cutoff=200); Benzodiazepines Screen,Urine Negative ng/mL (Cutoff=200); Cannabinoid Screen,Urine Positive ng/mL (Cutoff = 50); Cocaine Screen,Urine Negative ng/mL (Cutoff= 300); Opiate Screen,Urine Negative ng/mL (Cutoff=300); Phencyclidine Screen,Urine Negative ng/mL (Cutoff=25)
[2021-03-15 20:39] LABS: Prothrombin Time 11.3 Seconds (9.4-12.1)
[2021-03-15 20:41] LABS: Activated Partial Thrombo Time 30.3 Seconds (26.0-36.0)
[2021-03-15 20:45] LABS: BUN/Creatinine Ratio 10 (6-26); Blood Urea Nitrogen 6 mg/dL (6-20); Calcium 8.5 mg/dL (8.6-10.3); Carbon Dioxide 16 mEq/L (23-29); Chloride 109 mEq/L (98-107); Ethanol 77 mg/dL (Less than 10); Glucose 85 mg/dL (70-105); Osmolality,Calculated 285 (280-300); Potassium 3.4 mEq/L (3.5-5.1); Sodium 139 mEq/L (136-145); eGFR For African Americans > 60 (> 60); eGFR For Non-African Americans > 60 (> 60)
[2021-03-15 21:02] LABS: Troponin I < 0.03 ng/mL (< 0.04)
[2021-03-15] MEDS ORDERED: Acetaminophen 325 MG TABLET PO PRN (23:40)
[2021-03-15] MEDS ORDERED: Naloxone 0.4 MG/ML INJ IVP PRN (23:40)
[2021-03-15] MEDS ORDERED: *HR* LORazepam 2 MG/ML VIAL IVP PRN ×3 (23:42)
[2021-03-16] MEDS ORDERED: Thiamine (B-1) 100 MG, Folic Acid 1 MG, MVI, adult with vitamin K 10 ML in 0.9 % Sodi... IVPB SCH
[2021-03-16] MEDS: DilTIAZem 50 MG/50 ML IV.SOLN IVC SCH ×2 (00:01→11:22)
[2021-03-16 01:34] LABS: Basophils # 0.1 K/mcL (0.0-0.2); Basophils % 0.9 %; Eosinophils # 0.2 K/mcL (0.0-0.6); Eosinophils % 3.2 %; Hematocrit 41.4 % (37.5-50.1); Hemoglobin 14.2 g/dL (12.9-16.9); Immature Granulocytes % 1.6 % (0-4); Lymphocytes % 35.6 %; Mean Corpuscular HGB Conc 34.3 g/dL (31.6-35.5); Mean Corpuscular Hemoglobin 30.7 pg (28.0-33.3); Mean Corpuscular Volume 89.4 fL (83.0-100.0); Monocytes # 0.7 K/mcL (0.0-1.3); Monocytes % 13.1 %; Neutrophils # 2.6 K/mcL (1.6-8.9); Platelet Count 186 K/mcL (140-400); Red Blood Count 4.63 M/mcL (4.19-5.50); Segmented Neutrophils % 45.6 %; White Blood Count 5.7 K/mcL (4.3-11.1)
[2021-03-16 02:01] LABS: Alanine Aminotransferase 52 Units/L (7-52); Albumin 3.6 g/dL (3.5-5.7); Albumin/Globulin Ratio 2.1 (1.1-2.2); Alkaline Phosphatase 104 Units/L (34-104); Aspartate Amino Transferase 39 Units/L (13-39); BUN/Creatinine Ratio 9 (6-26); Bilirubin,Total 0.8 mg/dL (0.3-1.0); Blood Urea Nitrogen 6 mg/dL (6-20); Calcium 8.4 mg/dL (8.6-10.3); Carbon Dioxide 18 mEq/L (23-29); Chloride 111 mEq/L (98-107); Globulin 1.7 g/dL (2.4-3.5); Glucose 94 mg/dL (70-105); Magnesium 1.6 mg/dL (1.6-2.6); Osmolality,Calculated 289 (280-300); Phosphorous 4.5 mg/dL (2.7-4.5); Potassium 4.1 mEq/L (3.5-5.1); Sodium 141 mEq/L (136-145); Total Protein 5.3 g/dL (6.4-8.9); Troponin I < 0.03 ng/mL (< 0.04); eGFR For African Americans > 60 (> 60); eGFR For Non-African Americans > 60 (> 60)
[2021-03-16] MEDS: *HR* Heparin 5,000 UNIT/ML VIAL SQ SCH ×2 (05:14→18:28)
[2021-03-16] MEDS ORDERED: *HR* LORazepam 0.5 MG TABLET PO ONE (05:25)
[2021-03-16] MEDS ORDERED: *HR* LORazepam 2 MG/ML VIAL IVP ONE (09:20)
[2021-03-16] MEDS: Aspirin Enteric Coated 81 MG Tablet PO SCH (11:55)
[2021-03-16] MEDS: DilTIAZem CD (24hr) 180 MG CAP.ER.24H PO SCH (11:55)
[2021-03-16] MEDS: CarBAMazepine XR (12 hr) 100 MG TAB PO SCH (11:55)
[2021-03-16] MEDS ORDERED: 0.9 % Sodium Chloride 500 ML ONE (13:46)
[2021-03-16] MEDS: Ondansetron 4 MG/2 ML VIAL IVP PRN ×2 (13:53)
[2021-03-16] MEDS: Nicotine 21 MG PATCH.TD24 TD SCH (18:29)
[2021-03-16] MEDS ORDERED: Mirtazapine 15 MG TABLET PO SCH (21:00)
[2021-03-16] MEDS: Melatonin 3 MG TABLET PO PRN ×2 (22:40)
[2021-03-17] MEDS ORDERED: Thiamine (B-1) 100 MG, Folic Acid 1 MG, MVI, adult with vitamin K 10 ML in 0.9 % Sodi... IVPB SCH
[2021-03-17] MEDS: *HR* Heparin 5,000 UNIT/ML VIAL SQ SCH (05:35)
[2021-03-17 06:46] VITALS: BP 113/77; PULSE 64; TEMP 98.1; O2SAT 97
[2021-03-17] MEDS: DilTIAZem CD (24hr) 180 MG CAP.ER.24H PO SCH (08:49)
[2021-03-17] MEDS: CarBAMazepine XR (12 hr) 100 MG TAB PO SCH (08:50)
[2021-03-17] MEDS: Aspirin Enteric Coated 81 MG Tablet PO SCH (08:50)
[2021-03-17] MEDS: Nicotine 21 MG PATCH.TD24 TD SCH (08:51)
== END 2021-03-17 11:20 | disposition home or self-care (01) ==
LOC: EMEROOARM 16:59 → 3BNU 16:59 → SUATTDRO 22:30 → 3BNU 22:56
PROVIDERS: ADMIT Family Medicine; ATTEND Registered Nurse